=== PATIENT | female | born 1965 | race African-American/Black ===

== ENCOUNTER 2017-06-15 14:03 | Inpatient (IN) | payer OTHER, SELFPAY ==
--- NOTE | 2017-06-15 15:01 | RAD ---
CHEST 1 VIEW: HISTORY: Shortness of breath and weakness. COMPARISON: None. FINDINGS: Lungs demonstrate some atelectatic changes of the left lung base and mild elevation of left hemidiaph ragm. No focal consolidation. No pneumothorax or effusion. IMPRESSION: Atelectasis left lung base versus scar. POS: TPC
[2017-06-15 15:34] LABS: ALT (SGPT) 8 U/L (8-55); AST (SGOT) 10 U/L (5-34); Albumin 4.3 g/dL (3.5-5.0); Alkaline Phosphatase 87 U/L (40-150); Anion Gap 14 mmol/L (10-20); BUN (Urea Nitrogen) 14 mg/dL (9.8-20.1); Bilirubin, Total 0.7 mg/dL (0.2-1.2); CK (CPK) 30 U/L (29-168); Calc. Creatinine Clearance 0 mL/min (70-130); Calcium 10.2 mg/dL (7.8-10.44); Carbon Dioxide 20 mmol/L (22-29); Chloride 106 mmol/L (98-107); Estimated GFR-MDRD Greater than 90; Globulin 3.5 g/dL (2.4-3.5); Glucose 103 mg/dL (70-105); Magnesium 1.9 mg/dL (1.6-2.6); Potassium 3.3 mmol/L (3.5-5.1); Protein, Total 7.8 g/dL (6.0-8.3); Sodium 137 mmol/L (136-145)
[2017-06-15 15:44] LABS: CKMB 0.3 ng/mL (0-6.6); Troponin I Less than 0.010 ng/mL (< 0.028)
[2017-06-15 16:19] LABS: Band 1 % (5-11); Eosinophils 6 % (0-10); Hemoglobin 14.2 g/dL (12.0-16.0); Lymphocytes 10 % (21-51); MDiff Complete? YES; Mean Corpuscular HGB CONC 32.7 g/dL (32.0-36.0); Mean Corpuscular Hemoglobin 31.7 pg (27.0-31.0); Mean Corpuscular Volume 97.1 fl (81.0-99.0); Mean Platelet Volume 8.2 fL (7.4-10.4); Monocytes 4 % (0-10); Neutrophil 79 % (42-75); PLT Morphology Comment PLT clumps seen-ADEQ; RBC Distribution Width 12.9 % (11.5-14.5); Red Blood Cell (RBC) Count 4.48 mill/uL (4.20-5.40)
[2017-06-15 17:42] LABS: Bilirubin Small (Negative); Blood, Urine Small (Negative); Clarity TURBID (Clear); Glucose, Urine (Dipstick) Negative (Negative); Leukocyte Large (Negative); Nitrite Negative (Negative); Protein, Urine (Dipstick) 100 mg/dL (Neg-Trace); Specific Gravity, Urine 1.021 (1.002-1.036)
[2017-06-15 17:44] LABS: Bacteria/HPF 4+ HPF (None Seen)
[2017-06-15 17:48] LABS: Pathc Cast-AUWi Flag 3.23 (0-2.49); Yeast-AUWi Flag 31.4 (0-25.0)
[2017-06-15 17:59] LABS: Hyaline Casts/LPF 4-6 HYALINE CAST LPF (0-3 Hyaline); Yeast-All Forms None Seen HPF (None Seen)
[2017-06-15 19:23] LABS: Lactic Acid 3.3 mmol/L (0.5-2.2)
[2017-06-15] MEDS: cefTRIAXone\\ROCEPHIN 2 GM in Sodium Chloride 0.9% 100 ML IVPB SCH ×2 (20:00→20:45)
[2017-06-15] MEDS: Sodium Chloride 0.9% 1,000 ML IV SCH (20:45)
[2017-06-15 22:12] VITALS: BMI 37.3
[2017-06-16] MEDS: Sodium Chloride 0.9% 1,000 ML IV SCH ×3 (04:45→21:08)
[2017-06-16] MEDS ORDERED: FLU VACC QS2017-18 36 mo. & older 0.5 ML SYRINGE IM ONE (09:00)
[2017-06-16] MEDS ORDERED: Ondansetron HCl/PF 4 MG/2 ML Vial IVP PRN (09:57)
[2017-06-16] MEDS ORDERED: cloNIDine 0.1 MG TAB PO PRN (09:57)
[2017-06-16] MEDS ORDERED: Acetaminophen 500 MG TAB PO PRN (09:57)
[2017-06-16] MEDS ORDERED: Ondansetron ODT 4 MG TAB PO PRN (09:57)
--- NOTE | 2017-06-16 10:53 | HP ---
DATE OF ADMISSION: 06/16/2017 PRIMARY CARE PROVIDER: Howard braxton. CHIEF COMPLAINT: General weakness. HISTORY OF PRESENT ILLNESS: This is a 52-year-old -Armenian female who presented to [facility] Emergency Department complaining of general weakness over the last 4-5 days. The patient denied any recent change to her medication regimen, but does state that she has a history of multiple sclerosis, previously treated with Copaxone, but has not had the medication over several months' e period. The patient states she moved to [facility] from [place] to live with her children and has not been able to secure refills for the medication. The patient denies any specific document ed fever, nausea, vomiting, diarrhea or change to her dietary habits. The patient states she is syed mbulatory since 2002 after the diagnosis of multiple sclerosis. The patient states she receives help from her daughter's mainly with general activities of daily living as well as assistance with lift t o transfer from a bed to wheelchair. Patient denied any history of recurrent urinary tract infection s. The patient denied any other specific exposure history. Patient does state that she was recently adjusted on her blood pressure regimen, but is unsure of the name of the medication or the dosing ch anges. Patient denied any specific unilateral weakness, difficulty with speech, or sudden change to her vision. In the emergency room, patient underwent general evaluation with urinalysis concerning f or infectious process. The patient received IV Rocephin and intravenous normal saline. The patient was transferred to the medical observation unit for further evaluation. PAST MEDICAL HISTORY: 1. Multiple sclerosis without current treatment, diagnosed in 2002. 2. Hypertension. 3. Nonambulatory status. 4. Questionable seizure disorder. 5. 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 PAST SURGICAL HISTORY: Status post section x5. CURRENT MEDICATIONS: 1. Diltiazem 60 mg 1 tablet p.o. t.i.d. 2. Copaxone 40 mg subcutaneously Monday, Monday, Monday, not currently taking for several months. 3. Lisinopril 20 mg 1 tab p.o. daily. 4. Phenytoin 100 mg 1 tab p.o. b.i.d. ALLERGIES: No known drug allergies. FAMILY HISTORY: Positive history for coronary artery disease with a brother with a myocardial infarc tion. SOCIAL HISTORY: Patient lives with her daughters in the [place], [place] area. Originally from [facility], [place]. No current alcohol, tobacco or illicit drug use. Nonambulatory status time since 2002. REVIEW OF SYSTEMS: The following complete review of systems was negative, unless otherwise mentioned in the HPI or below: Constitutional: Weight loss or gain, ability to conduct usual activities. Skin: Rash, itching. Eyes: Double vision, pain. ENT/Mouth: Nose bleeding, neck stiffness, pain, tenderness. Cardiovascular: Palpitations, dyspnea on exertion, orthopnea. Respiratory: Shortness of breath, wheezing, cough, hemoptysis, fever or night sweats. Gastrointestinal: Poor appetite, abdominal pain, heartburn, nausea, vomiting, constipation, or diarr hea. Genitourinary: Urgency, frequency, dysuria, nocturia. Musculoskeletal: Pain, swelling. Neurologic/Psychiatric: Anxiety, depression. Allergy/Immunologic: Skin rash, bleeding tendency. Otherwise negative except as stated per HPI. PHYSICAL EXAMINATION: VITAL SIGNS: On admission, blood pressure 159/85, pulse 60, respiratory rate is 20, temperature 98 d egrees Fahrenheit, and O2 saturation 98% on room air. GENERAL APPEARANCE: This is a 52-year-old -Armenian female, alert and responsive, in no acute distress. HEENT: Pupils are equal, round, and reactive to light and accommodation. Extraocular muscles are in tact. No scleral icterus, no conjunctival injection. Nares patent. OP is clear. Teeth in fair rep air. NECK: Supple, no cervical adenopathy, no thyromegaly, no carotid bruits, no JVD appreciated. Cervic al spine with full active and passive range of motion. No meningeal signs appreciated. CHEST: Lungs are clear to auscultation bilaterally. CARDIOVASCULAR: S1 and S2, without noted murmur. ABDOMEN: Obese, soft, nontender, nondistended. Bowel sounds are positive in all four quadrants. Th ere is no hepatosplenomegaly, no abdominal bruits, no rebound or guarding appreciated. EXTREMITIES: Warm and dry with fair turgor. No asymmetric edema noted. Pulses are palpable distall y at the dorsalis pedis, posterior tibial and popliteal arteries bilaterally. Capillary refill less than 2 seconds. NEUROLOGIC: Cranial nerves II-XII are grossly intact. Patient is nonambulatory chronic. PERTINENT LABORATORY DATA AND X-RAY FINDINGS: Sodium 137, potassium 3.3, chloride 106, CO2 of 20, BU N 14, and creatinine 0.75. Estimated GFR greater than 90, glucose 103, lactic acid level ranged betw een 2.5-3.3, calcium 10.2, and magnesium 1.9. LFTs within normal limits. BNP 24. CBC showed white blood cell count of 16, hemoglobin 14, hematocrit 44, platelet count not obtained, 79% neutrophils. Urinalysis positive for leukocyte esterase, 11-20 RBCs per high power field and 50 to too numerous to count WBCs per high powered field, 4+ bacteria. Influenza A and B antigen negative on 06/15/2017. Portable chest x-ray dated 06/15/2017 showed atelectasis of the left lung base. EKG dated 06/15/2017 by my interpretation shows sinus bradycardia with heart rates in the 50s. Attenuated R waves noted in the precordial leads. T-wave inversion in leads V2 through V6. Left axis deviation. No acute ST -T wave changes appreciated. ASSESSMENT AND PLAN: 1. Urinary tract infection. The patient will continue Rocephin 2 grams IV q.24 hours. We will cont inue intravenous normal saline at 100 mL per hour. Await final urine culture results. 2. General weakness. Suspect secondarily to #1. Continue treatment as outlined in #1 and monitor c linical response. 3. Multiple sclerosis without current treatment. We will resume home regimen of Copaxone after disc harge. 4. Hypertension. Resume diltiazem 60 mg p.o. t.i.d., lisinopril 20 mg p.o. daily. 5. Hypokalemia, mild. Repeat potassium level to confirm initial reported value. 6. Lactic acidosis, mild. Continue intravenous fluids as outlined previously. Continue IV Rocephin for urinary tract infection. 7. Prophylaxis. Sequential compression devices while in bed. Pepcid 20 mg p.o. b.i.d. 8. Code status is FULL. Surrogate medical decision maker is the patient's daughter.
[2017-06-16] MEDS: cefTRIAXone\\ROCEPHIN 2 GM in Sodium Chloride 0.9% 100 ML IVPB SCH (21:07)
[2017-06-16] MEDS: Famotidine 20 MG TAB PO SCH (21:08)
[2017-06-17 05:32] LABS: Anion Gap 11 mmol/L (10-20); BUN (Urea Nitrogen) 11 mg/dL (9.8-20.1); Calc. Creatinine Clearance 172 mL/min (70-130); Carbon Dioxide 22 mmol/L (22-29); Chloride 110 mmol/L (98-107); Estimated GFR-MDRD Greater than 90; Glucose 91 mg/dL (70-105); Potassium 3.7 mmol/L (3.5-5.1); Sodium 139 mmol/L (136-145)
[2017-06-17 06:21] LABS: Eosinophils 6 % (0-10); Hemoglobin 11.4 g/dL (12.0-16.0); Lymphocytes 20 % (21-51); MDiff Complete? YES; Mean Corpuscular HGB CONC 33.3 g/dL (32.0-36.0); Mean Platelet Volume 7.5 fL (7.4-10.4); Monocytes 3 % (0-10); Neutrophil 71 % (42-75); Platelet Count 182 thou/uL (130-400); RBC Distribution Width 12.7 % (11.5-14.5); Red Blood Cell (RBC) Count 3.45 mill/uL (4.20-5.40); White Blood Cell (WBC) Count 6.8 thou/uL (4.8-10.8)
[2017-06-17] MEDS: Famotidine 20 MG TAB PO SCH ×2 (07:58→20:45)
[2017-06-17] MEDS: Sodium Chloride 0.9% 1,000 ML IV SCH ×2 (08:01→18:28)
[2017-06-17 10:03] LABS: Lactic Acid 2.2 mmol/L (0.5-2.2)
[2017-06-17] MEDS ORDERED: ISOVUE-370 76%-LOCM 1 ML ONE (13:43)
--- NOTE | 2017-06-17 15:38 | CON ---
DATE OF CONSULTATION: 06/17/2017 REASON FOR CONSULTATION: General malaise, vomiting, and leukocytosis. HISTORY OF PRESENT ILLNESS: A 52-year-old whom I had seen recently when she presented with a history of multiple sclerosis with transverse myelitis in complete paraplegia and a pressure ulceration of l eft heel. At that time, the MRI did not show any deep involvement and she was released with wound ca re only. The heel has completely healed, but now she was readmitted, because of recurrent episodes o f nausea, vomiting, general malaise, and weakness. No headaches, no change in visual symptoms, sore throat, odynophagia, dysphagia. Very infrequent coughing spells. No chest pain, no dyspnea, no abdo rosa isela pain, although she has diminished sensation below the umbilicus. She voids spontaneously. No changes in her paraplegia. No diarrhea. PAST MEDICAL HISTORY: 1. Multiple sclerosis, previously treated with likely transverse myelitis and complete paraplegia. 2. Hypertension. 3. Wound left heel, which has healed completely. 4. Seizure disorder. 5. Possible CVA versus multiple sclerosis. SOCIAL HISTORY: Lives with daughters, having moved from [place] recently, never smoker. FAMILY HISTORY: Noncontributory. ALLERGIES: None. CURRENT MEDICATIONS: Ceftriaxone, clonidine, diltiazem, famotidine, hydralazine, ondansetron, phenyt oin. PHYSICAL EXAMINATION: VITAL SIGNS: Patient has been afebrile since admission, blood pressure 150/91, pulse 63, respiration s 16, O2 sat 98%. SKIN EXAM: With a marked improvement of the heel ulcer, left side. No more skin breakdown to speak of at this time. Areas of hyperpigmentation in the lateral left foot and hyperkeratosis. Peripheral IV access. No Roberts catheter. HEENT: Eye movements, a little bit disconjugate. Pupils are equal and pinpoint. Oral cavity with n umerous missing teeth, and the remainder ones with some decay. NECK: Supple. LUNGS: With symmetric clear breath sounds. HEART: S1, S2, regular rate without murmurs. No S3 or S4. ABDOMEN: Not distended. No ascites, no organomegaly. Question of bladder distention. EXTREMITIES: No joint inflammatory activity. Dense paraplegia. Pulses are 1+ in dorsalis pedis. S he is able to move the upper extremities well. NEUROLOGIC: Cognitive function appears to be intact. Urinalysis with greater than 50 wbcs. White c ell count 16,000, down to 6.8; hemoglobin 14; platelets 182; 79% neutrophils. Her sodium 139, creati nine 0.75. Liver profile normal. Albumin 4.3. Lactic acid was 2.5 and 3.3. BNP 23. Urinalysis as above. Microbiology with Providencia stuartii and another gram-negative stephen, Providencia, susceptib le to third-generation cephalosporins. The quantity was greater than 100,000 CFUs, the other gram-ne gative stephen 75,000-100,000. Influenza A and B were negative. Chest x-ray with no infiltrates, just a telectases, left lung base. ASSESSMENT: 1. Multiple sclerosis with paraplegia. 2. Healed heel ulcer. 3. General malaise with vomiting. 4. Abnormal urinalysis with positive culture. 5. Leukocytosis with improvement after initiation of antimicrobial therapy. DISCUSSION: Differential diagnosis includes an invasive UTI associated with possible neurogenic blad tessy, secondary to MS versus an alternate intraabdominal inflammatory process. Complicated UTI is a possibility of obstruction. We will check CT abdomen and pelvis. Continue curr ent antimicrobials and further interventions according to results. Check a bladder scan to evaluate for urinary retention.
[2017-06-17] MEDS: hydrALAZINE 20 MG/ML VIAL SLOW IVP PRN (16:12)
[2017-06-17] MEDS: cefTRIAXone\\ROCEPHIN 2 GM in Sodium Chloride 0.9% 100 ML IVPB SCH (20:42)
--- NOTE | 2017-06-17 22:04 | CT ---
ABDOMEN AND PELVIC CT SCAN WITH IV CONTRAST: 06/17/17 HISTORY: 52-year-old female with nausea, vomiting and leukocytosis and MS. Abdominal pain. Minimal pleural based parenchymal changes are noted more so in the left base. Probably some subsegmen rosina atelectasis or chronic change. The liver, gallbladder, pancreas, spleen, and adrenal glands are u nremarkable. There are multiple bilateral renal cysts up to 6.4 cm on the left side and 5.5 cm on the right side. There is a normal appearing appendix. There is a fairly prominent amount of fecal materi al throughout the colon. there is some nodular masses involving the uterus up to 3.2 cm in size, cons istent with multiple intrauterine fibroids. No bowel obstruction, abscess, adenopathy, or abnormal fl uid collection. IMPRESSION: Some minimal pleural based parenchymal changes in the lung bases, slightly more prominent on the left side, probably some chronic change or very minimal subsegmental atelectasis. Bilateral renal cysts. Multiple intrauterine fibroids. No evidence for other significant acute process in the abdomen or pel vis. Other findings as above. POS: SANDEE
--- NOTE | 2017-06-17 22:34 | PDOC.PN ---
- Subjective Encounter Start Date: 06/17/17 Encounter Start Time: 13:00 Patient seen and examined. No new complaints. No overnight events. Feels better. - Objective Resuscitation Status: Resuscitation Status FULL:Full Resuscitation MAR Reviewed: Yes Vital Signs & Weight: Vital Signs (12 hours) Temp Pulse Resp BP BP Pulse Ox 06/17/17 20:00 97.6 F 71 20 179/99 H 100 06/17/17 16:12 57 L 172/103 H 06/17/17 16:10 97.5 F L 57 L 16 172/103 H 99 06/17/17 11:48 98.1 F 63 16 156/91 H 98 Weight Weight 224 lb I&O: 06/16/17 06/17/17 06/18/17 06:59 06:59 06:59 Intake Total 3500 1200 Balance 3500 1200 Result Diagrams: 06/17/17 04:11 06/17/17 04:11 Phys Exam - Physical Examination Constitutional: NAD Respiratory: no wheezing, no rhonchi Cardiovascular: RRR, no rub Gastrointestinal: soft, non-tender, positive bowel sounds Musculoskeletal: edema present Dx/Plan - Plan DVT proph w/SCDs IMPRESSION: 1. Sepsis with acute organ dysfunction due to resistant UTI (present on admission) 2. Obesity BMI 37.3 3. MS 4. HTN 5. Non-ambulatory status 6. Hypokalemia/Lactic acidosis - corrected PLAN: * Consult ID * Add Lovenox for DVT prophylaxis * Cont current Atbx - No PO antibiotic available for discharge * Cont other meds as below Review of Systems - Medications/Allergies Allergies/Adverse Reactions: Allergies Allergy/AdvReac Type Severity Reaction Status Date / Time No Known Drug Allergies Allergy Verified 06/15/17 23:20 Medications: Current Medications Acetaminophen (Tylenol) 1,000 mg PO Q6H PRN PRN Reason: Headache/Fever or Mild Pain Clonidine (Catapres) 0.1 mg PO Q4H PRN PRN Reason: Systolic BP > 180 Diltiazem HCl (Cardizem) 60 mg PO TID [facility] Last Admin: 06/17/17 20:46 Dose: 60 mg Famotidine (Pepcid) 20 mg PO BID [facility] Last Admin: 06/17/17 20:45 Dose: 20 mg Hydralazine HCl (Apresoline) 10 mg SLOW IVP Q4H PRN PRN Reason: Systolic BP > 180 Last Admin: 06/17/17 16:12 Dose: 10 mg Ceftriaxone Sodium 2 gm/ (Sodium Chloride) 100 mls @ 200 mls/hr IVPB Q24HR@ 2000 [facility] Last Admin: 06/17/17 20:42 Dose: 100 mls Sodium Chloride (Normal Saline 0.9%) 1,000 mls @ 100 mls/hr IV .Q10H [facility] Last Admin: 06/17/17 18:28 Dose: 1,000 mls Ondansetron HCl (Zofran Odt) 4 mg PO Q6H PRN PRN Reason: Nausea/Vomiting Ondansetron HCl (Zofran) 4 mg IVP Q6H PRN PRN Reason: Nausea/Vomiting Phenytoin Sodium (Dilantin Er) 100 mg PO BID [facility] Last Admin: 06/17/17 20:45 Dose: 100 mg
[2017-06-18] MEDS: Sodium Chloride 0.9% 1,000 ML IV SCH (06:51)
[2017-06-18] MEDS: Famotidine 20 MG TAB PO SCH ×2 (08:22→20:27)
[2017-06-18] MEDS: Enoxaparin Sodium 40 MG/0.4 ML SYRINGE SC SCH (10:40)
[2017-06-18] MEDS: hydrALAZINE 20 MG/ML VIAL SLOW IVP PRN (18:27)
[2017-06-18] MEDS: cefTRIAXone\\ROCEPHIN 2 GM in Sodium Chloride 0.9% 100 ML IVPB SCH (20:28)
--- NOTE | 2017-06-18 20:32 | PDOC.PN ---
- Subjective Encounter Start Date: 06/18/17 Encounter Start Time: 10:00 Patient seen and examined. No new complaints. No overnight events - Objective Resuscitation Status: Resuscitation Status FULL:Full Resuscitation MAR Reviewed: Yes Vital Signs & Weight: Vital Signs (12 hours) Pulse BP BP 06/18/17 19:05 181/96 H 06/18/17 18:27 67 188/104 H Weight Weight 224 lb I&O: 06/17/17 06/18/17 06/19/17 06:59 06:59 06:59 Intake Total 3500 2780 400 Balance 3500 2780 400 Result Diagrams: 06/17/17 04:11 06/17/17 04:11 Radiology Reviewed by me: Yes (CT abd - negative for obstructive uropathy) Phys Exam - Physical Examination Constitutional: NAD Respiratory: no wheezing, no rhonchi Cardiovascular: RRR, no rub Gastrointestinal: soft, non-tender, positive bowel sounds Musculoskeletal: edema present Dx/Plan - Plan continue antibiotics, PT/OT, DVT proph w/lovenox, DVT proph w/SCDs IMPRESSION: 1. Sepsis with acute organ dysfunction due to resistant UTI - Providencia ( present on admission) 2. Obesity BMI 37.3 3. MS 4. HTN 5. Non-ambulatory status 6. Hypokalemia/Lactic acidosis - corrected PLAN: * ID following * AM labs * Await final sensitivities * Will d/w Dr Palacios regarding Atbx for home * [facility] eval * DC IVF Review of Systems - Review of Systems Respiratory: negative: Cough, Dry, Shortness of Breath, Hemoptysis, SOB with Excertion, Pleuritic Pain, Sputum, Wheezing Cardiovascular: negative: chest pain, palpitations, orthopnea, paroxysmal nocturnal dyspnea, edema, light headedness - Medications/Allergies Allergies/Adverse Reactions: Allergies Allergy/AdvReac Type Severity Reaction Status Date / Time No Known Drug Allergies Allergy Verified 06/15/17 23:20 Medications: Current Medications Acetaminophen (Tylenol) 1,000 mg PO Q6H PRN PRN Reason: Headache/Fever or Mild Pain Clonidine (Catapres) 0.1 mg PO Q4H PRN PRN Reason: Systolic BP > 180 Diltiazem HCl (Cardizem) 60 mg PO TID [facility] Last Admin: 06/18/17 20:27 Dose: 60 mg Enoxaparin Sodium (Lovenox) 40 mg SC 0900 [facility] Last Admin: 06/18/17 10:40 Dose: 40 mg Famotidine (Pepcid) 20 mg PO BID [facility] Last Admin: 06/18/17 20:27 Dose: 20 mg Hydralazine HCl (Apresoline) 10 mg SLOW IVP Q4H PRN PRN Reason: Systolic BP > 180 Last Admin: 06/18/17 18:27 Dose: 10 mg Ceftriaxone Sodium 2 gm/ (Sodium Chloride) 100 mls @ 200 mls/hr IVPB Q24HR@ 2000 [facility] Last Admin: 06/18/17 20:28 Dose: 100 mls Ondansetron HCl (Zofran Odt) 4 mg PO Q6H PRN PRN Reason: Nausea/Vomiting Ondansetron HCl (Zofran) 4 mg IVP Q6H PRN PRN Reason: Nausea/Vomiting Phenytoin Sodium (Dilantin Er) 100 mg PO BID [facility] Last Admin: 06/18/17 20:28 Dose: 100 mg
[2017-06-19 05:26] LABS: #Eosinphils 0.3 thou/uL (0.0-0.7); #Lymphocytes 1.5 thou/uL (1.20-3.40); #Monocytes 0.4 thou/uL (0.11-0.59); #Neutrophils 4.1 thou/uL (1.40-6.50); %Basophils 0.4 % (0.0-1.0); %Eosinophils 5.3 % (0.0-10.0); %Lymphocytes 23.5 % (21.0-51.0); %Monocytes 5.9 % (0.0-10.0); Hemoglobin 12.1 g/dL (12.0-16.0); Mean Corpuscular HGB CONC 33.2 g/dL (32.0-36.0); Mean Corpuscular Hemoglobin 32.7 pg (27.0-31.0); Mean Corpuscular Volume 98.5 fl (81.0-99.0); Mean Platelet Volume 7.6 fL (7.4-10.4); Platelet Count 191 thou/uL (130-400); RBC Distribution Width 12.8 % (11.5-14.5); Red Blood Cell (RBC) Count 3.71 mill/uL (4.20-5.40); White Blood Cell (WBC) Count 6.4 thou/uL (4.8-10.8)
[2017-06-19 05:48] LABS: Albumin 3.7 g/dL (3.5-5.0); Anion Gap 14 mmol/L (10-20); BUN (Urea Nitrogen) 12 mg/dL (9.8-20.1); BUN/Creatinine Ratio 20.69; Calc. Creatinine Clearance 178 mL/min (70-130); Calcium 9.5 mg/dL (7.8-10.44); Carbon Dioxide 21 mmol/L (22-29); Chloride 107 mmol/L (98-107); Estimated GFR-MDRD Greater than 90; Glucose 87 mg/dL (70-105); Potassium 3.6 mmol/L (3.5-5.1); Sodium 138 mmol/L (136-145)
[2017-06-19] MEDS: Enoxaparin Sodium 40 MG/0.4 ML SYRINGE SC SCH (07:41)
[2017-06-19] MEDS: Famotidine 20 MG TAB PO SCH ×2 (07:42→19:58)
[2017-06-19] MEDS ORDERED: Lisinopril 20 MG TAB PO SCH (10:30)
--- NOTE | 2017-06-19 11:42 | PDOC.PN ---
- Subjective Encounter Start Date: 06/19/17 Encounter Start Time: 10:30 - Objective Resuscitation Status: Resuscitation Status FULL:Full Resuscitation MAR Reviewed: Yes Vital Signs & Weight: Vital Signs (12 hours) Temp Pulse Resp BP BP Pulse Ox 06/19/17 10:33 172/107 H 06/19/17 08:11 98.4 F 62 16 166/102 H 92 L 06/19/17 08:00 97.8 F 61 18 06/19/17 05:48 97.8 F 61 18 166/107 H 98 Weight Weight 224 lb I&O: 06/18/17 06/19/17 06/20/17 06:59 06:59 06:59 Intake Total 2780 850 Balance 2780 850 Result Diagrams: 06/19/17 04:14 06/19/17 04:14 Phys Exam - Physical Examination Constitutional: NAD Respiratory: no wheezing, no rhonchi Cardiovascular: RRR, no rub Gastrointestinal: soft, non-tender, positive bowel sounds Musculoskeletal: edema present Neurological: moves all 4 limbs Dx/Plan - Plan DVT proph w/lovenox, DVT proph w/SCDs IMPRESSION: 1. Sepsis with acute organ dysfunction due to resistant UTI - Providencia ( present on admission) - on Ceftriaxone 2. Obesity BMI 37.3 3. MS 4. HTN 5. Non-ambulatory status 6. Hypokalemia/Lactic acidosis - corrected PLAN: * ID following * AM labs * C eval/Home Atbx setup until Jun 30 (I confirmed with Dr Palacios) * PICC line in AM Review of Systems - Review of Systems Respiratory: negative: Cough, Dry, Shortness of Breath, Hemoptysis, SOB with Excertion, Pleuritic Pain, Sputum, Wheezing Cardiovascular: negative: chest pain, palpitations, orthopnea, paroxysmal nocturnal dyspnea, edema, light headedness, other - Medications/Allergies Allergies/Adverse Reactions: Allergies Allergy/AdvReac Type Severity Reaction Status Date / Time No Known Drug Allergies Allergy Verified 06/15/17 23:20 Medications: Current Medications Acetaminophen (Tylenol) 1,000 mg PO Q6H PRN PRN Reason: Headache/Fever or Mild Pain Clonidine (Catapres) 0.1 mg PO Q4H PRN PRN Reason: Systolic BP > 180 Lidocaine HCl 10 ml/ Al (Hydroxide/Mg Hydroxide 30 ml) 0 ml SSW ONE SONIA Diltiazem HCl (Cardizem) 60 mg PO TID [facility] Last Admin: 06/19/17 07:41 Dose: 60 mg Enoxaparin Sodium (Lovenox) 40 mg SC 0900 [facility] Last Admin: 06/19/17 07:41 Dose: 40 mg Famotidine (Pepcid) 20 mg PO BID [facility] Last Admin: 06/19/17 07:42 Dose: 20 mg Hydralazine HCl (Apresoline) 10 mg SLOW IVP Q4H PRN PRN Reason: Systolic BP > 180 Last Admin: 06/18/17 18:27 Dose: 10 mg Ceftriaxone Sodium 2 gm/ (Sodium Chloride) 100 mls @ 200 mls/hr IVPB Q24HR@ 2000 [facility] Last Admin: 06/18/17 20:28 Dose: 100 mls Lisinopril (Zestril) 20 mg PO DAILY [facility] Lisinopril (Zestril) 20 mg PO NOW [facility] Stop: 06/19/17 12:30 Last Admin: 06/19/17 10:33 Dose: 20 mg Ondansetron HCl (Zofran Odt) 4 mg PO Q6H PRN PRN Reason: Nausea/Vomiting Ondansetron HCl (Zofran) 4 mg IVP Q6H PRN PRN Reason: Nausea/Vomiting Phenytoin Sodium (Dilantin Er) 100 mg PO BID [facility] Last Admin: 06/19/17 07:41 Dose: 100 mg
[2017-06-19] MEDS ORDERED: Lidocaine 2% Viscous Solution 10 ML, Aluminum & Magnesium Hydroxide 30 ML SSW SCH (12:30)
[2017-06-19] MEDS: cefTRIAXone\\ROCEPHIN 2 GM in Sodium Chloride 0.9% 100 ML IVPB SCH (19:57)
[2017-06-20 06:20] LABS: Prothrombin Time 12.7 SEC (12.0-14.7)
[2017-06-20] MEDS: Famotidine 20 MG TAB PO SCH ×2 (07:36→19:44)
[2017-06-20] MEDS: Enoxaparin Sodium 40 MG/0.4 ML SYRINGE SC SCH (07:36)
[2017-06-20] MEDS ORDERED: Lisinopril 20 MG TAB PO SCH (09:00)
--- NOTE | 2017-06-20 10:39 | SPC ---
ULTRASOUND GUIDED LEFT UPPER EXTREMITY PICC LINE PLACEMENT: Date: HISTORY: Urinary tract infection. Needs long-term antibiotics. TECHNIQUE: After informed consent was obtained, the patient was placed on the angiography table in the supine po sition. The left upper extremity was meticulously prepped and draped in the usual sterile fashion. An appropriate access site was determined with ultrasound guidance. The skin and subcutaneous tissues o verlying the intended puncture site were infiltrated with buffered 1% lidocaine for local anesthesia. The left basilic vein was accessed utilizing micropuncture technique and concurrent real-time ultras ound guidance. A 5 [place] peel-away sheath was placed. The catheter was measured and cut to the appropriate length. The catheter was placed over the guidewi re with the tip positioned overlying the cavoatrial junction. The guidewire and peel-away sheath wer e removed. The catheter was accessed and aspirated/flushed easily. A dry, sterile dressing was placed . The patient tolerated the procedure well and without immediate complication. FINDINGS: Technically successful placement of a single lumen 5 [place] 44 cm PICC line via the left basilic vein . The tip of the catheter overlies the cavoatrial junction. FLUOROSCOPY: Total fluoroscopy time was 0.3 minutes with total dose of 1,487 mGy*cm^2. IMPRESSION: Technically successful left upper extremity PICC line placement. POS: SAN[facility]E
--- NOTE | 2017-06-20 18:29 | PDOC.PN ---
- Subjective Encounter Start Date: 06/20/17 Encounter Start Time: 16:00 Patient seen and examined. No new complaints. No overnight events. s/p PICC line - Objective Resuscitation Status: Resuscitation Status FULL:Full Resuscitation MAR Reviewed: Yes Vital Signs & Weight: Vital Signs (12 hours) Temp Pulse Resp BP BP Pulse Ox 06/20/17 16:22 98.1 F 66 16 183/96 H 98 06/20/17 11:08 98.3 F 69 14 177/82 H 100 06/20/17 08:00 98.1 F 65 16 06/20/17 07:58 98.1 F 65 16 186/101 H 97 06/20/17 07:35 186/101 H Weight Weight 224 lb I&O: 06/19/17 06/20/17 06/21/17 06:59 06:59 06:59 Intake Total 850 400 Balance 850 400 Result Diagrams: 06/19/17 04:14 06/19/17 04:14 Phys Exam - Physical Examination Constitutional: NAD Respiratory: no wheezing, no rhonchi Cardiovascular: RRR, no rub Gastrointestinal: soft, non-tender, positive bowel sounds Musculoskeletal: edema present Neurological: moves all 4 limbs Dx/Plan - Plan DVT proph w/lovenox, DVT proph w/SCDs IMPRESSION: 1. Sepsis with acute organ dysfunction due to resistant UTI - Providencia ( present on admission) - on Ceftriaxone 2. Obesity BMI 37.3 3. MS 4. HTN - uncontrolled 5. Non-ambulatory status 6. Hypokalemia/Lactic acidosis - corrected PLAN: * Await [facility] eval/Home Atbx setup until Jun 30 (I confirmed with Dr Palacios) * Change Lisinopril to 20 mg BID * Add Amlodipine * Cont to monitor Review of Systems - Review of Systems Respiratory: negative: Cough, Dry, Shortness of Breath, Hemoptysis, SOB with Excertion, Pleuritic Pain, Sputum, Wheezing Cardiovascular: negative: chest pain, palpitations, orthopnea, paroxysmal nocturnal dyspnea, edema, light headedness - Medications/Allergies Allergies/Adverse Reactions: Allergies Allergy/AdvReac Type Severity Reaction Status Date / Time No Known Drug Allergies Allergy Verified 06/15/17 23:20 Medications: Current Medications Acetaminophen (Tylenol) 1,000 mg PO Q6H PRN PRN Reason: Headache/Fever or Mild Pain Amlodipine Besylate (Norvasc) 5 mg PO ONE [facility] Amlodipine Besylate (Norvasc) 5 mg PO DAILY [facility] Clonidine (Catapres) 0.1 mg PO Q4H PRN PRN Reason: Systolic BP > 180 Diltiazem HCl (Cardizem) 60 mg PO TID [facility] Last Admin: 06/20/17 15:24 Dose: 60 mg Enoxaparin Sodium (Lovenox) 40 mg SC 0900 [facility] Last Admin: 06/20/17 07:36 Dose: 40 mg Famotidine (Pepcid) 20 mg PO BID [facility] Last Admin: 06/20/17 07:36 Dose: 20 mg Hydralazine HCl (Apresoline) 10 mg SLOW IVP Q4H PRN PRN Reason: Systolic BP > 180 Last Admin: 06/18/17 18:27 Dose: 10 mg Ceftriaxone Sodium 2 gm/ (Sodium Chloride) 100 mls @ 200 mls/hr IVPB Q24HR@ 2000 [facility] Last Admin: 06/19/17 19:57 Dose: 100 mls Lisinopril (Zestril) 20 mg PO BID [facility] Ondansetron HCl (Zofran Odt) 4 mg PO Q6H PRN PRN Reason: Nausea/Vomiting Ondansetron HCl (Zofran) 4 mg IVP Q6H PRN PRN Reason: Nausea/Vomiting Phenytoin Sodium (Dilantin Er) 100 mg PO BID [facility] Last Admin: 06/20/17 07:35 Dose: 100 mg
[2017-06-20] MEDS ORDERED: Amlodipine 5 MG TAB PO SCH (18:45)
[2017-06-20] MEDS: cefTRIAXone\\ROCEPHIN 2 GM in Sodium Chloride 0.9% 100 ML IVPB SCH (19:44)
[2017-06-20] MEDS: Lisinopril 20 MG TAB PO SCH (19:45)
[2017-06-21] MEDS: Famotidine 20 MG TAB PO SCH ×2 (08:36→20:31)
[2017-06-21] MEDS: Enoxaparin Sodium 40 MG/0.4 ML SYRINGE SC SCH (08:36)
[2017-06-21] MEDS: Amlodipine 5 MG TAB PO SCH (08:36)
[2017-06-21] MEDS: Lisinopril 20 MG TAB PO SCH ×2 (08:36→20:30)
[2017-06-21] MEDS ORDERED: Heparin 1,000 UNITS/ML VIAL ONE (11:11)
--- NOTE | 2017-06-21 12:56 | PDOC.PN ---
- Subjective Encounter Start Date: 06/21/17 Encounter Start Time: 12:30 Patient seen and examined. No new complaints. No overnight events - Objective Resuscitation Status: Resuscitation Status FULL:Full Resuscitation MAR Reviewed: Yes Vital Signs & Weight: Vital Signs (12 hours) Temp Pulse Resp BP BP Pulse Ox 06/21/17 11:51 97.6 F 71 20 137/84 99 06/21/17 08:36 62 166/85 H 06/21/17 08:00 97.8 F 62 22 H 166/85 H 97 06/21/17 04:59 98.0 F 62 20 168/88 H 94 L 06/21/17 01:52 97.9 F 65 20 167/91 H 99 Weight Weight 224 lb I&O: 06/20/17 06/21/17 06/22/17 06:59 06:59 06:59 Intake Total 400 350 180 Balance 400 350 180 Result Diagrams: 06/19/17 04:14 06/19/17 04:14 Phys Exam - Physical Examination Constitutional: NAD Respiratory: no wheezing, no rhonchi Cardiovascular: RRR, no rub Gastrointestinal: soft, non-tender, positive bowel sounds Musculoskeletal: edema present Neurological: moves all 4 limbs Psychiatric: A&O x 3 Dx/Plan - Plan DVT proph w/lovenox, DVT proph w/SCDs IMPRESSION: 1. Sepsis with acute organ dysfunction due to resistant UTI - Providencia ( present on admission) - on Ceftriaxone 2. Obesity BMI 37.3 3. MS 4. HTN - better controlled 5. Non-ambulatory status 6. Hypokalemia/Lactic acidosis - corrected PLAN: * Cont Lisinopril to 20 mg BID with Amlodipine * Await [facility] eval/Home Atbx setup until Jun 30 * Cont to monitor Review of Systems - Review of Systems Respiratory: negative: Cough, Dry, Shortness of Breath, Hemoptysis, SOB with Excertion, Pleuritic Pain, Sputum, Wheezing Cardiovascular: negative: chest pain, palpitations, orthopnea, paroxysmal nocturnal dyspnea, edema, light headedness - Medications/Allergies Allergies/Adverse Reactions: Allergies Allergy/AdvReac Type Severity Reaction Status Date / Time No Known Drug Allergies Allergy Verified 06/15/17 23:20 Medications: Current Medications Acetaminophen (Tylenol) 1,000 mg PO Q6H PRN PRN Reason: Headache/Fever or Mild Pain Amlodipine Besylate (Norvasc) 5 mg PO DAILY [facility] Last Admin: 06/21/17 08:36 Dose: 5 mg Clonidine (Catapres) 0.1 mg PO Q4H PRN PRN Reason: Systolic BP > 180 Diltiazem HCl (Cardizem) 60 mg PO TID [facility] Last Admin: 06/21/17 08:36 Dose: 60 mg Enoxaparin Sodium (Lovenox) 40 mg SC 0900 [facility] Last Admin: 06/21/17 08:36 Dose: 40 mg Famotidine (Pepcid) 20 mg PO BID [facility] Last Admin: 06/21/17 08:36 Dose: 20 mg Hydralazine HCl (Apresoline) 10 mg SLOW IVP Q4H PRN PRN Reason: Systolic BP > 180 Last Admin: 06/18/17 18:27 Dose: 10 mg Ceftriaxone Sodium 2 gm/ (Sodium Chloride) 100 mls @ 200 mls/hr IVPB Q24HR@ 2000 [facility] Last Admin: 06/20/17 19:44 Dose: 100 mls Lisinopril (Zestril) 20 mg PO BID [facility] Last Admin: 06/21/17 08:36 Dose: 20 mg Ondansetron HCl (Zofran Odt) 4 mg PO Q6H PRN PRN Reason: Nausea/Vomiting Ondansetron HCl (Zofran) 4 mg IVP Q6H PRN PRN Reason: Nausea/Vomiting Phenytoin Sodium (Dilantin Er) 100 mg PO BID [facility] Last Admin: 06/21/17 08:37 Dose: 100 mg
[2017-06-21] MEDS: cefTRIAXone\\ROCEPHIN 2 GM in Sodium Chloride 0.9% 100 ML IVPB SCH (20:30)
[2017-06-22] MEDS: Enoxaparin Sodium 40 MG/0.4 ML SYRINGE SC SCH (09:14)
[2017-06-22] MEDS: Lisinopril 20 MG TAB PO SCH (09:14)
[2017-06-22] MEDS: Amlodipine 5 MG TAB PO SCH (10:18)
[2017-06-22] MEDS: Famotidine 20 MG TAB PO SCH (14:12)
[2017-06-22] MEDS: cefTRIAXone\\ROCEPHIN 2 GM in Sodium Chloride 0.9% 100 ML IVPB SCH (16:46)
[2017-06-22 21:54] VITALS: BP 167/91; TEMP 98.1
--- NOTE | 2017-06-22 22:49 | PDOC.PN ---
- Subjective Encounter Start Date: 06/22/17 Encounter Start Time: 08:30 - Objective Resuscitation Status: Resuscitation Status FULL:Full Resuscitation Vital Signs & Weight: Vital Signs (12 hours) Temp Pulse Resp BP Pulse Ox 06/22/17 20:00 98.1 F 73 16 167/91 H 96 06/22/17 16:14 98.5 F 69 20 149/81 H 100 06/22/17 11:34 98.6 F 71 20 155/82 H 99 Weight Weight 224 lb I&O: 06/21/17 06/22/17 06/23/17 06:59 06:59 06:59 Intake Total 350 1120 960 Balance 350 1120 960 Result Diagrams: 06/19/17 04:14 06/19/17 04:14 Dx/Plan - Plan * . Review of Systems - Medications/Allergies Allergies/Adverse Reactions: Allergies Allergy/AdvReac Type Severity Reaction Status Date / Time No Known Drug Allergies Allergy Verified 06/15/17 23:20 Medications: Current Medications Acetaminophen (Tylenol) 1,000 mg PO Q6H PRN PRN Reason: Headache/Fever or Mild Pain Clonidine (Catapres) 0.1 mg PO Q4H PRN PRN Reason: Systolic BP > 180 Diltiazem HCl (Cardizem) 60 mg PO TID [facility] Last Admin: 06/22/17 14:11 Dose: 60 mg Enoxaparin Sodium (Lovenox) 40 mg SC 0900 [facility] Last Admin: 06/22/17 09:14 Dose: 40 mg Famotidine (Pepcid) 20 mg PO BID [facility] Last Admin: 06/22/17 14:12 Dose: 20 mg Hydralazine HCl (Apresoline) 10 mg SLOW IVP Q4H PRN PRN Reason: Systolic BP > 180 Last Admin: 06/18/17 18:27 Dose: 10 mg Ceftriaxone Sodium 2 gm/ (Sodium Chloride) 100 mls @ 200 mls/hr IVPB Q24HR@ 2000 [facility] Last Admin: 06/22/17 16:46 Dose: 100 mls Lisinopril (Zestril) 20 mg PO BID [facility] Last Admin: 06/22/17 09:14 Dose: 20 mg Ondansetron HCl (Zofran Odt) 4 mg PO Q6H PRN PRN Reason: Nausea/Vomiting Ondansetron HCl (Zofran) 4 mg IVP Q6H PRN PRN Reason: Nausea/Vomiting Phenytoin Sodium (Dilantin Er) 100 mg PO BID [facility] Last Admin: 06/22/17 09:15 Dose: 100 mg
--- NOTE | 2017-06-23 09:19 | DIS ---
DATE OF ADMISSION: 06/15/2017 DATE OF DISCHARGE: 06/22/2017 Patient left around 9:00 p.m. HISTORY: The patient was seen and examined on the day of discharge, denies any new complaints. No c hest pain, shortness of breath or palpitations. Home health care for antibiotics have been arranged. ALLERGIES: The patient denies any drug allergies. INPATIENT CONSULTANTS: Infectious Disease, Dr. Palacios. DISCHARGE MEDICATIONS: 1. IV ceftriaxone as directed. 2. Cardizem 60 mg 3 times a day. 3. Lisinopril 20 mg b.i.d. (dose increased). 4. Dilantin 100 mg b.i.d. 5. Glatiramer acetate 40 mg subcu at Monday, Monday, and Monday. Please note that patient is out of this medicine. She is looking for a new neurologist in [facility]. BRIEF HOSPITAL COURSE: Patient is a 52-year-old female with multiple sclerosis, hypertension who pre sented to the hospital with generalized weakness. Her workup was consistent with sepsis with acute o rgan dysfunction secondary to resistant UTI. Her lactic acid on admission was 2.5 and 3.3. Urine cu lture was consistent with Providencia resistant to oral antibiotics. The patient was seen by Dr. Alvin edwards. Dr. Palacios recommended IV ceftriaxone 1 gram daily until 06/30. PICC line was placed. Home heal th care has been arranged for antibiotics. She was advised to follow up with a new neurologist in [facility] since patient recently moved here. She does not have a primary care physician in [facility]. She was a dvised to contact the [facility]. Plan of care was discussed with the patient in detail. She stated understanding. Total time coordinating the discharge of this patient including home health care set up and forms was 37 minutes.
--- NOTE | 2017-06-24 10:00 | EKG ---
Test Reason : EVANS Blood Pressure : / mmHG Vent. Rate : 054 BPM Atrial Rate : 054 BPM P-R Int : 218 ms QRS Dur : 088 ms QT Int : 490 ms P-R-T Axes : 041 -18 -33 degrees QTc Int : 464 ms Sinus bradycardia with 1st degree A-V block Moderate voltage criteria for LVH, may be normal variant T wave abnormality, consider anterolateral ischemia Prolonged QT Abnormal ECG Confirmed by GULSHAN EMANUEL, ENDER Fortune ([id number]), editor producer CHAVA LEIGH ([id number]) on 06/24/2017 10:00:08 AM Referred By: Confirmed By:ENDER GAFFNEY MD
== END 2017-06-22 21:12 | disposition home health service (06) | DRG 872 ==
LOC: ERS 14:03 → OBSVTOIN 19:00 → T4-A 19:00
PROVIDERS: ADMIT Internal Medicine Infectious Disease; ATTEND Internal Medicine Infectious Disease
PROC: 02HV33Z Insertion of Infusion Device into Superior Vena Cava, Percutaneous Approach (ICD-10-PCS; principal; 2017-06-20)
DX: A41.89 Other specified sepsis (principal); E87.2 Acidosis; N39.0 Urinary tract infection, site not specified; G82.21 Paraplegia, complete; G35 Multiple sclerosis; R65.20 Severe sepsis without septic shock; Z16.20 Resistance to unspecified antibiotic; I10 Essential (primary) hypertension; E87.6 Hypokalemia; E66.9 Obesity, unspecified; Z68.37 Body mass index [BMI] 37.0-37.9, adult
CPT/HCPCS: 36415; 36569; 51701; 71010; 74177; 80048; 80053; 80069; 81003; 81015; 82553; 83605; 83735; 83880; 84484; 85007; 85025; 85027; 85610; 87077; 87086; 87186; 87804; 93005; A4353; C1751; G8978-GP-CM; G8979-GP-CL; G8987-GO-CM; G8988-GO-CM; G8989-GO-CM; J0360; J0696; J1644; J1650; J7050

== ENCOUNTER 2017-10-11 12:57 | Emergency (ER) | payer MEDICAID, OTHER ==
[2017-10-11] MEDS ORDERED: Lisinopril 10 MG TAB ONE (14:29)
[2017-10-11] MEDS ORDERED: Lidocaine Viscous Sol 2% 15 ml UD Cup ONE (14:30)
[2017-10-11] MEDS ORDERED: Mag-Al 1200 mg/1200 mg/30 ML UDCUP ONE (14:30)
[2017-10-11 14:34] LABS: #Eosinphils 0.4 thou/uL (0.0-0.7); #Lymphocytes 1.5 thou/uL (1.20-3.40); #Monocytes 0.5 thou/uL (0.11-0.59); #Neutrophils 5.9 thou/uL (1.40-6.50); %Basophils 0.1 % (0.0-1.0); %Eosinophils 4.3 % (0.0-10.0); %Lymphocytes 18.4 % (21.0-51.0); %Monocytes 5.6 % (0.0-10.0); %Neutrophils 71.6 % (42.0-75.0); Mean Corpuscular HGB CONC 33.7 g/dL (32.0-36.0); Mean Corpuscular Hemoglobin 32.1 pg (27.0-31.0); Mean Corpuscular Volume 95.3 fl (81.0-99.0); Mean Platelet Volume 7.1 fL (7.4-10.4); Platelet Count 253 thou/uL (130-400); RBC Distribution Width 13.5 % (11.5-14.5); Red Blood Cell (RBC) Count 4.04 mill/uL (4.20-5.40); White Blood Cell (WBC) Count 8.2 thou/uL (4.8-10.8)
[2017-10-11 14:46] LABS: ALT (SGPT) 8 U/L (8-55); AST (SGOT) 8 U/L (5-34); Alkaline Phosphatase 92 U/L (40-150); Anion Gap 9 mmol/L (10-20); BUN (Urea Nitrogen) 14 mg/dL (9.8-20.1); Bilirubin, Total 0.6 mg/dL (0.2-1.2); Calc. Creatinine Clearance 0 mL/min (70-130); Calcium 9.9 mg/dL (7.8-10.44); Carbon Dioxide 25 mmol/L (22-29); Chloride 109 mmol/L (98-107); Estimated GFR-MDRD Greater than 90; Globulin 3.1 g/dL (2.4-3.5); Glucose 102 mg/dL (70-105); Lipase 36 U/L (8-78); Potassium 3.5 mmol/L (3.5-5.1); Protein, Total 7.1 g/dL (6.0-8.3); Sodium 139 mmol/L (136-145)
[2017-10-11 14:49] LABS: CKMB 0.2 ng/mL (0-6.6); Troponin I Less than 0.010 ng/mL (< 0.028)
[2017-10-11 16:45] LABS: Bilirubin Negative (Negative); Blood, Urine Trace (Negative); Clarity TURBID (Clear); Glucose, Urine (Dipstick) Negative (Negative); Leukocyte Large (Negative); Nitrite Negative (Negative); Protein, Urine (Dipstick) 30 mg/dL (Neg-Trace); Specific Gravity, Urine 1.018 (1.002-1.036)
[2017-10-11 16:49] LABS: Pathc Cast-AUWi Flag 2.03 (0-2.49)
[2017-10-11 16:58] LABS: Bacteria/HPF 4+ HPF (None Seen); Crystals/HPF 1+ AMORPH PHOS HPF (Negative); Hyaline Casts/LPF 0-3 HYALINE CAST LPF (0-3 Hyaline)
== END 2017-10-11 22:24 | disposition home or self-care (01) ==
LOC: ERS 12:57
DX: N30.01 Acute cystitis with hematuria (principal); K29.00 Acute gastritis without bleeding; I10 Essential (primary) hypertension; G40.909 Epilepsy, unspecified, not intractable, without status epilepticus; Z86.73 Personal history of transient ischemic attack (TIA), and cerebral infarction without residual deficits; Z79.899 Other long term (current) drug therapy
CPT/HCPCS: 51701; 80053; 81003; 81015; 82553; 83690; 84484; 85025; 87077; 87086; 87186; 93005; A4353

== ENCOUNTER 2018-04-16 15:47 | Emergency (ER) | payer OTHER ==
[2018-04-16 17:34] LABS: #Eosinphils 0.3 thou/uL (0.0-0.7); #Lymphocytes 1.4 thou/uL (1.20-3.40); #Monocytes 0.6 thou/uL (0.11-0.59); %Basophils 0.1 % (0.0-1.0); %Eosinophils 1.9 % (0.0-10.0); %Lymphocytes 10.4 % (21.0-51.0); %Monocytes 4.6 % (0.0-10.0); Hemoglobin 14.6 g/dL (12.0-16.0); Mean Corpuscular HGB CONC 32.8 g/dL (32.0-36.0); Mean Corpuscular Hemoglobin 30.5 pg (27.0-31.0); Mean Corpuscular Volume 93.2 fL (78.0-98.0); Mean Platelet Volume 7.8 fL (7.4-10.4); Platelet Count 224 thou/uL (130-400); Red Blood Cell (RBC) Count 4.78 mill/uL (4.20-5.40); White Blood Cell (WBC) Count 13.3 thou/uL (4.8-10.8)
[2018-04-16 17:46] LABS: CKMB 0.5 ng/mL (0-6.6); Troponin I Less than 0.010 ng/mL (< 0.028)
[2018-04-16 17:46] LABS: PLT Morphology Comment Appears Adequate; RBC Morphology Normal
[2018-04-16 17:54] LABS: ALT (SGPT) Less than 7 U/L (8-55); AST (SGOT) 9 U/L (5-34); Albumin 4.1 g/dL (3.5-5.0); Alkaline Phosphatase 92 U/L (40-150); Anion Gap 14 mmol/L (10-20); BUN (Urea Nitrogen) 15 mg/dL (9.8-20.1); Bilirubin, Total 0.8 mg/dL (0.2-1.2); CK (CPK) 33 U/L (29-168); Calc. Creatinine Clearance 0 mL/min (70-130); Calcium 9.4 mg/dL (7.8-10.44); Carbon Dioxide 21 mmol/L (22-29); Chloride 108 mmol/L (98-107); Estimated GFR-MDRD Greater than 90; Globulin 3.1 g/dL (2.4-3.5); Glucose 102 mg/dL (70-105); Lipase 37 U/L (8-78); Potassium 3.5 mmol/L (3.5-5.1); Protein, Total 7.2 g/dL (6.0-8.3); Sodium 139 mmol/L (136-145)
[2018-04-16 19:41] LABS: Bilirubin Negative (Negative); Blood, Urine Small (Negative); Clarity CLOUDY (Clear); Glucose, Urine (Dipstick) Negative (Negative); Leukocyte Large (Negative); Nitrite Negative (Negative); Protein, Urine (Dipstick) 30 mg/dL (Neg-Trace); Specific Gravity, Urine 1.011 (1.002-1.036); pH, Urine 7.5 (5.0-9.0)
[2018-04-16 19:43] LABS: Bacteria/HPF 3+ HPF (None Seen); Hyaline Casts/LPF 0-3 HYALINE CAST LPF (0-3 Hyaline); Pathc Cast-AUWi Flag 0.14 (0-2.49); Squamous Epithelial None Seen HPF (0-3)
[2018-04-16] MEDS ORDERED: cefTRIAXone\\ROCEPHIN 1 GM VIAL ONE (20:13)
--- NOTE | 2018-04-21 11:22 | EKG ---
Test Reason : Blood Pressure : / mmHG Vent. Rate : 069 BPM Atrial Rate : 069 BPM P-R Int : 170 ms QRS Dur : 086 ms QT Int : 386 ms P-R-T Axes : -21 088 102 degrees QTc Int : 413 ms Normal sinus rhythm Anterior infarct , age undetermined Abnormal ECG Confirmed by TERESA EMANUEL, YO ([id number]), editor in chief LARS VAUGHN ([id number]) on 04/21/2018 11:21:52 AM Referred By: Confirmed By:YO MOORE MD
== END 2018-04-16 20:45 | disposition home or self-care (01) ==
LOC: ERS 15:47
DX: N39.0 Urinary tract infection, site not specified (principal); R53.1 Weakness; R55 Syncope and collapse; I10 Essential (primary) hypertension; Z86.73 Personal history of transient ischemic attack (TIA), and cerebral infarction without residual deficits
CPT/HCPCS: 36416; 71045; 80053; 81003; 81015; 82553; 83605; 83690; 83880; 84484; 85025; 87040; 87077; 87086; 87186; 93005; 96361; 96374; A4353; J0696

== ENCOUNTER 2018-06-06 11:07 | Inpatient (IN) | payer OTHER ==
[2018-06-06] MEDS ORDERED: Labetalol HCl 100 MG/20 ML VIAL ONE (11:30)
[2018-06-06 12:04] LABS: #Eosinphils 0.2 thou/uL (0.0-0.7); #Lymphocytes 1.1 thou/uL (1.20-3.40); #Monocytes 0.8 thou/uL (0.11-0.59); #Neutrophils 14.5 thou/uL (1.40-6.50); %Basophils 0.1 % (0.0-1.0); %Eosinophils 1.3 % (0.0-10.0); %Lymphocytes 6.8 % (21.0-51.0); %Monocytes 4.7 % (0.0-10.0); %Neutrophils 87.1 % (42.0-75.0); Hemoglobin 12.9 g/dL (12.0-16.0); Mean Corpuscular HGB CONC 32.1 g/dL (32.0-36.0); Mean Corpuscular Hemoglobin 30.3 pg (27.0-31.0); Mean Corpuscular Volume 94.4 fL (78.0-98.0); Mean Platelet Volume 8.5 fL (7.4-10.4); Platelet Count 206 thou/uL (130-400); RBC Distribution Width 13.7 % (11.5-14.5); Red Blood Cell (RBC) Count 4.26 mill/uL (4.20-5.40); White Blood Cell (WBC) Count 16.6 thou/uL (4.8-10.8)
[2018-06-06 12:39] LABS: ALT (SGPT) Less than 7 U/L (8-55); AST (SGOT) 16 U/L (5-34); Albumin 3.9 g/dL (3.5-5.0); Alkaline Phosphatase 106 U/L (40-150); Anion Gap 16 mmol/L (10-20); BUN (Urea Nitrogen) 21 mg/dL (9.8-20.1); Bilirubin, Total 0.9 mg/dL (0.2-1.2); CK (CPK) 36 U/L (29-168); Calc. Creatinine Clearance 0 mL/min (70-130); Calcium 9.7 mg/dL (7.8-10.44); Carbon Dioxide 17 mmol/L (22-29); Chloride 108 mmol/L (98-107); Estimated GFR-MDRD Greater than 90; Glucose 100 mg/dL (70-105); Protein, Total 7.9 g/dL (6.0-8.3); Sodium 137 mmol/L (136-145)
[2018-06-06 13:06] LABS: Bacteria/HPF 4+ HPF (None Seen); Bilirubin Negative (Negative); Blood, Urine Large (Negative); Clarity CLOUDY (Clear); Glucose, Urine (Dipstick) Negative (Negative); Leukocyte Large (Negative); Nitrite Positive (Negative); Pathc Cast-AUWi Flag 1.16 (0-2.49); Protein, Urine (Dipstick) 30 mg/dL (Neg-Trace); RBC/HPF GREATER THAN 50-TNTC HPF (0-3); Specific Gravity, Urine 1.018 (1.002-1.036); Squamous Epithelial None Seen HPF (0-3)
--- NOTE | 2018-06-06 13:24 | RAD ---
PORTABLE AP CHEST RADIOGRAPH: Date: 06-06-18 History: Generalized weakness. History of multiple sclerosis and stroke. Comparison: 06-15-17 FINDINGS: Cardiac silhouette is magnified by projection and patient rotation. The pulmonary vasculature is with in normal limits. The left lung apex is obscured due to patient's overlying mandible and jaw. Linear density is again seen at the lateral left lung base, probably related to mild scarring. Lungs are oth erwise clear. No other interval change. IMPRESSION: No acute cardiopulmonary process. POS: [facility]
[2018-06-06 13:26] LABS: Hyaline Casts/LPF 0-3 HYALINE CAST LPF (0-3 Hyaline)
[2018-06-06] MEDS ORDERED: Sodium Chloride 0.9% 100 ML ONE (14:06)
[2018-06-06] MEDS ORDERED: cefTRIAXone\\ROCEPHIN 1 GM VIAL ONE (14:06)
[2018-06-06] MEDS ORDERED: hydrALAZINE 20 MG/ML VIAL ONE (14:51)
--- NOTE | 2018-06-06 15:34 | CT ---
CT HEAD NONCONTRAST: HISTORY: Weakness. Altered mental status. Multiple sclerosis. FINDINGS: No comparison. There is no evidence of acute intracranial hemorrhage or infarct. Diffuse cortical a trophy and chronic ischemic small-vessel disease are apparent. Ill-defined areas of decreased densit y within the periventricular white matter could also represent demyelinating disease. No mass effect or shift of midline structures. Prominent ossification along the anterior falx. IMPRESSION: Chronic-type findings as detailed above, including possible malacic change related to multiple sclero sis. No acute intracranial abnormalities are demonstrated on noncontrast CT head. POS: [facility]
[2018-06-06] MEDS ORDERED: Senokot S 8.6-50 MG TAB PO PRN (18:41)
[2018-06-06 19:34] VITALS: BMI 31.8
[2018-06-06] MEDS: Sodium Chloride 0.9% 1,000 ML IV SCH (19:36)
--- NOTE | 2018-06-06 19:56 | HP ---
CHIEF COMPLAINT: Generalized weakness. HISTORY OF PRESENT ILLNESS: The patient is a very pleasant 53-year-old female with a history of multiple sclerosis, who is currently not on any medication, also has a history of hypertension and history of stroke with right-sided residual weakness and also who is bed-bound, who comes into the hospital with generalized weakness. The patient stated that she has not seen a specialist neurologist since she has moved here from [place]. She also does not even recall when was the last time she got any medications for her multiple sclerosis. The patient states that she normally used to take injections three times a week; however, has not been doing that for many months. The patient states that she came into the hospital because she felt to have significant generalized weakness and also worsened for the past couple of days, so she came into the hospital for further evaluation. The patient normally transfers from the bed to the chair with a list which she has been taking care by a family member. The patient stated that initially she could not see a specialist since she lives in [place], and the ride was too far. However, now, she has moved to [place] and will have more access to transportation. She currently has some difficulty speaking according to her, but denies any weakness. The patient states that her normal multiple sclerosis flares are when she gets tingling, which she does not have right now. She does not even have any blurry vision, any chest pain, any shortness of breath, any diarrhea, any fevers, or any chills. PAST MEDICAL HISTORY: She has multiple sclerosis without current treatment. She was diagnosed with multiple sclerosis in 2002. Hypertension. Not ambulatory status. There is a questionable seizure disorder. History of CVA with per patient, she stated, it was a right-sided weakness. PAST SURGICAL HISTORY: She has had a x5. HOME MEDICATIONS: 1. When I reviewed, she only had lisinopril which she was taking 20 mg b.i.d. 2. She was supposed to be on Copaxone Monday, Monday, and Monday, 40 mg subcutaneously; however, she is currently not taking it because she does not have a neurologist to prescribe it. 3. There was mentioned of phenytoin in her history; however, she states that she has not been taking that medication. ALLERGIES: SHE HAS NO KNOWN DRUG ALLERGIES. FAMILY HISTORY: Positive for coronary artery disease and brother with OK. SOCIAL HISTORY: She lives with her daughter. No alcohol, drug use, or smoking history. She wants to be a full code. REVIEW OF SYSTEMS: All negative except for the ones mentioned above in the HPI. PHYSICAL EXAMINATION: VITAL SIGNS: As of the following; temperature of 98.8, pulse of 73, respirations of 16, oxygen sat is 99% on room air, and blood pressure was 170/80. GENERAL: She is awake, alert, and oriented x3. Does not appear in any distress. CV: S1, S2 present. No murmurs, rubs, or gallops. LUNGS: Clear to auscultation. No rhonchi or wheezes noted. ABDOMEN: Soft, nontender. Bowel sounds present x2. EXTREMITIES: She does have lower extremity +1 pitting edema. NEUROVASCULAR: She is unable to move her lower extremities at all. She does have limited mobility in her bilateral upper extremities. Strength student development dean in bilateral upper extremities is intact. Cranial nerves 3 through 11 are intact. HEENT: She does have some dry mucous membranes noted. SKIN: No cuts or lesions or bruises noted; however, I am not sure if she has any decubitus. LABORATORY DATA: Are as of the following; WBC of 16.6, hemoglobin of 12.9, hematocrit of 40.2, and platelets of 206. She does not have any bands. Chemistry; sodium of 137, potassium of 4.0, BUN of 21, and creatinine of 0.65. She also had a urinalysis which indicated she has a positive urinary tract infection with positive nitrite. Based on her previous cultures that showed that she had Providencia stuartii which was sensitive to ceftriaxone which I have started her on. IMAGING STUDIES: She also had a chest x-ray done and a CT brain. The chest x-ray did not indicate any cardiopulmonary process or any infiltrates, and the CT brain just indicated some chronic type findings, chronic ischemic small vessel disease, including possible malacic changes related to multiple sclerosis. No other intracranial abnormalities were noted. ASSESSMENT AND PLAN: The patient is a very pleasant 53-year-old female who presents to the hospital with complains of generalized weakness. 1. Urinary tract infection. The patient has a history of multiple sclerosis. She is currently not taking any medications. Her worsening weakness could be secondary to this underlying infection. We will treat her with ceftriaxone based on her previous sensitivities to ceftriaxone. Her culture at this time has been sent. We will also hydrate her with some IV hydration and continue to monitor. Also, might do a postresidual bladder scan to see if she is retaining any urine that could be causing her to have frequent urinary tract infections. 2. Multiple sclerosis. She currently has not been taking any medications at all. I will consult Neurology for this patient. She will need to follow up with them in the office. Also, I will order an MRI brain given her CT findings and also order physical therapy and occupational therapy for this patient. 3. History of hypertension. We will continue her home medications. 4. There is a questionable history of seizure. Noted on previous documentation; however, according to the patient, she only takes lisinopril. I will for now hold off on any other medication since the patient states that she has not been taking any other medication except for the lisinopril for a month. 5. Deep venous thrombosis prophylaxis. We will put the patient on Lovenox subcu. Job ID: [id number]
[2018-06-06] MEDS: Lisinopril 20 MG TAB PO SCH (20:00)
[2018-06-07 06:12] LABS: #Eosinphils 0.3 thou/uL (0.0-0.7); #Lymphocytes 1.6 thou/uL (1.20-3.40); #Monocytes 0.7 thou/uL (0.11-0.59); #Neutrophils 11.2 thou/uL (1.40-6.50); %Basophils 0.2 % (0.0-1.0); %Eosinophils 2.1 % (0.0-10.0); %Lymphocytes 11.5 % (21.0-51.0); %Monocytes 5.3 % (0.0-10.0); %Neutrophils 80.8 % (42.0-75.0); Hemoglobin 11.7 g/dL (12.0-16.0); Mean Corpuscular HGB CONC 33.3 g/dL (32.0-36.0); Mean Corpuscular Hemoglobin 31.5 pg (27.0-31.0); Mean Corpuscular Volume 94.6 fL (78.0-98.0); Mean Platelet Volume 8.3 fL (7.4-10.4); Platelet Count 215 thou/uL (130-400); RBC Distribution Width 13.7 % (11.5-14.5); Red Blood Cell (RBC) Count 3.73 mill/uL (4.20-5.40); White Blood Cell (WBC) Count 13.8 thou/uL (4.8-10.8)
[2018-06-07 06:15] LABS: Anion Gap 13 mmol/L (10-20); BUN (Urea Nitrogen) 25 mg/dL (9.8-20.1); Calc. Creatinine Clearance 122 mL/min (70-130); Calcium 9.3 mg/dL (7.8-10.44); Carbon Dioxide 21 mmol/L (22-29); Chloride 109 mmol/L (98-107); Estimated GFR-MDRD Greater than 90; Glucose 104 mg/dL (70-105); Sodium 140 mmol/L (136-145)
[2018-06-07] MEDS: Enoxaparin Sodium 40 MG/0.4 ML SYRINGE SC SCH (08:41)
[2018-06-07] MEDS: Lisinopril 20 MG TAB PO SCH ×2 (08:41→20:20)
[2018-06-07] MEDS: Sodium Chloride 0.9% 1,000 ML IV SCH ×2 (08:42→20:19)
[2018-06-07] MEDS ORDERED: Prevnar 13-Val Conj/PF 0.5 ML SYRINGE IM ONE (09:00)
[2018-06-07] MEDS ORDERED: Potassium Chloride 20 MEQ TAB PO SCH (09:00)
--- NOTE | 2018-06-07 13:07 | EKG ---
Test Reason : Blood Pressure : / mmHG Vent. Rate : 091 BPM Atrial Rate : 091 BPM P-R Int : 160 ms QRS Dur : 088 ms QT Int : 352 ms P-R-T Axes : 032 -27 -27 degrees QTc Int : 432 ms Normal sinus rhythm Voltage criteria for left ventricular hypertrophy T wave abnormality, consider lateral ischemia Abnormal ECG No changes from 16-APR-2018 Confirmed by BULMARO DIAMOND ([id number]), technical editor CHAVA LEIGH ([id number]) on 06/07/2018 1:06:48 PM Referred By: Confirmed By:BULMARO DIAMOND
[2018-06-07] MEDS: cefTRIAXone\\ROCEPHIN 2 GM in Sodium Chloride 0.9% 100 ML IVPB SCH (14:52)
--- NOTE | 2018-06-07 18:22 | PDOC.PN ---
- Subjective Encounter Start Date: 06/07/18 Subjective: pt up in bed no complains - Objective Resuscitation Status - Order Detail: 06/06/18 18:41 Resuscitation Status Routine Resuscitation Status: FULL: Full Resuscitation Vital Signs & Weight: Vital Signs (12 hours) Temp Pulse Resp BP BP Pulse Ox 06/07/18 08:41 154/88 H 06/07/18 08:00 98.3 F 76 18 154/88 H 97 Weight Weight 180 lb I&O: 06/06/18 06/07/18 06/08/18 06:59 06:59 06:59 Intake Total 1200 Output Total 300 Balance 900 Result Diagrams: 06/07/18 04:42 06/07/18 04:42 Phys Exam - Physical Examination Respiratory: no wheezing, no rales, no rhonchi, wheezing present, clear to auscultation bilateral Cardiovascular: RRR, no significant murmur, no rub, gallop, irregular Gastrointestinal: soft, non-tender, no distention, positive bowel sounds Musculoskeletal: no edema, pulses present, edema present Neurological: non-focal, normal sensation, moves all 4 limbs Dx/Plan (1) Weakness Code(s): R53.1 - WEAKNESS Status: Acute (2) UTI (urinary tract infection) Status: Acute (3) Multiple sclerosis Code(s): G35 - MULTIPLE SCLEROSIS Status: Chronic - Plan will conitnue abx for now -: pt will follow up with neurology as outpatient * . Review of Systems - Review of Systems Respiratory: negative: Cough, Dry, Shortness of Breath, Hemoptysis, SOB with Excertion, Pleuritic Pain, Sputum, Wheezing Cardiovascular: negative: chest pain, palpitations, orthopnea, paroxysmal nocturnal dyspnea, edema, light headedness, other Gastrointestinal: negative: Nausea, Vomiting, Abdominal Pain, Diarrhea, Constipation, Melena, Hematochezia, Other Genitourinary: negative: Dysuria, Frequency, Incontinence, Hematuria, Retention , Other - Medications/Allergies Allergies/Adverse Reactions: Allergies Allergy/AdvReac Type Severity Reaction Status Date / Time No Known Drug Allergies Allergy Verified 06/06/18 22:22 Medications: Current Medications Acetaminophen (Tylenol) 650 mg PO Q6H PRN PRN Reason: Headache/Fever or Pain Enoxaparin Sodium (Lovenox) 40 mg SC 0900 [facility] Last Admin: 06/07/18 08:41 Dose: 40 mg Sodium Chloride (Normal Saline 0.9%) 1,000 mls @ 75 mls/hr IV .[id number] [facility] Last Admin: 06/07/18 20:19 Dose: 1,000 mls Ceftriaxone Sodium 2 gm/ (Sodium Chloride) 100 mls @ 200 mls/hr IVPB 1400 [facility] Last Admin: 06/07/18 14:52 Dose: 100 mls Lisinopril (Zestril) 20 mg PO BID [facility] Last Admin: 06/07/18 20:20 Dose: 20 mg Senna/Docusate Sodium (Senokot S) 2 tab PO BID PRN PRN Reason: Constipation Sodium Chloride (Flush - Normal Saline) 10 ml IVF Q12HR [facility] Last Admin: 06/07/18 20:19 Dose: Not Given Sodium Chloride (Flush - Normal Saline) 10 ml IVF PRN PRN PRN Reason: Saline Flush
--- NOTE | 2018-06-07 21:51 | CON ---
DATE OF CONSULTATION: 06/07/2018 TYPE OF CONSULTATION: Neurology CONSULTING PHYSICIAN: Hospitalist Service. IMPRESSION: 1. Chronic multiple sclerosis with paraplegia and mild right facial droop. 2. Urinary tract infection. PLAN: 1. Treat urinary tract infection. 2. Office followup. HISTORY OF PRESENT ILLNESS: Ms. Rueda is a 53-year-old black female with a past history of multiple sclerosis. She moved here from [place]. She previously took Copaxone some years ago. This was discontinued after her move to [place]. She has been paraplegic for quite some time. She denies having any new focal neurologic symptoms in quite some time. She had transient optic neuritis, which was treated with steroids while she was in [place]. She was feeling generally weaker and a bit ill and decided to come to the hospital. She was found to have a urinary tract infection, but no fever or elevation of the white count. Her CT scan of the brain showed extensive hypodensities in the white matter bilaterally. PAST MEDICAL HISTORY: Multiple sclerosis. ALLERGIES: NONE REPORTED. SOCIAL HISTORY: Unremarkable. FAMILY HISTORY: Noncontributory. MEDICATION: List was reviewed. REVIEW OF SYSTEMS: No other significant complaints. PHYSICAL EXAMINATION: GENERAL: She is a somewhat overweight middle-aged woman, lying in bed, in no distress. HEENT: Pupils are equal. Her eyes are a bit exotropic. Visual acuity is reportedly normal bilaterally. Eye movements are intact. Oropharynx is clear. NECK: Supple. EXTREMITIES: There is bilateral edema in her lower extremities. NEUROLOGIC: She is alert and appropriate. Her speech is a bit difficult to understand at times, but seems to be fluent. She has a mild right facial droop. She had good antigravity strength in both upper extremities without fix or drift. Sensation was intact to touch. Gait is not testable. I could elicit no movement in the lower extremities. SUMMARY: Unfortunate middle-aged woman with severe neurologic deficits related to her multiple sclerosis. There is nothing really to offer at this point. Her disease reportedly has been quiet for a number of years. I do not see any need for disease-modifying agent at this point. I would be happy to follow up with her as an outpatient. Job ID: [id number]
[2018-06-08] MEDS: Lisinopril 20 MG TAB PO SCH ×2 (09:18→20:24)
[2018-06-08] MEDS: Enoxaparin Sodium 40 MG/0.4 ML SYRINGE SC SCH (09:18)
--- NOTE | 2018-06-08 15:08 | PQF ---
CLINICAL DOCUMENTATION IMPROVEMENT CLARIFICATION FORM: ICD-10 Updated PLEASE DO AN ADDENDUM TO THE PROGRESS NOTE WITH ANY DOCUMENTATION UPDATES OR ADDITIONS AND CARRY THROUGH TO DC SUMMARY. THANK YOU. DATE: 06/08/18 ATTN: DR. ACOSTA Please exercise your independent, professional judgment in responding to the clarification form. Clinical indicators are provided on the bottom of this form for your review Please check appropriate box(s): [ ] Hemiplegia Specify: [ ] Non dominant side [ ] Dominant side Status: [ ] Complete [ ] Incomplete [ X ] Paraplegia Specify: [ ] Non dominant side [ ] Dominant side Status: [ X] Complete [ ] Incomplete [ ] Quadriplegia [ ] Functional Quadriplegia (specify underlying cause) [ ] Weakness (please specify anatomical area) Specify: [ ] Non dominant side [ ] Dominant side [ ] Other diagnosis [ ] Unable to determine In addition, please specify: Present on Admission (POA): [X ] Yes [ ] No [ ] Unable to determine CLINICAL INDICATORS - SIGNS / SYMPTOMS / LABS H&P: "BED BOUND" "NON AMBULATORY STATUS" "FAMILY REPORTS USE OF DELBERT LIFT AT HOME" (NURSING NOTE 06/08) "CANNOT STAND/CANNOT WALK" RISKS: MULTIPLE SCLEROSIS H/O CVA WITH RIGHT SIDED RESIDUAL TREATMENT: TOTAL ASSISTANCE PER NURSING ASSESSMENT 06/08 INCONTINENCE CARE / REILLY CARE (This form is maintained as a part of the permanent medical record) 2014 [employer]. All Rights Reserved [email or web address] Office: [phone] [facility]
--- NOTE | 2018-06-08 15:29 | PDOC.PN ---
- Subjective Encounter Start Date: 06/08/18 Encounter Start Time: 10:15 Subjective: pt up in bed no complains - Objective Resuscitation Status - Order Detail: 06/06/18 18:41 Resuscitation Status Routine Resuscitation Status: FULL: Full Resuscitation Vital Signs & Weight: Vital Signs (12 hours) Temp Pulse Resp BP BP Pulse Ox 06/08/18 11:44 98.1 F 68 16 170/82 H 97 06/08/18 09:18 179/103 H 06/08/18 08:00 93 L 06/08/18 07:50 98.6 F 71 18 179/103 H 93 L 06/08/18 04:00 98.0 F 78 18 156/88 H 96 Weight Weight 180 lb I&O: 06/07/18 06/08/18 06/09/18 06:59 06:59 06:59 Intake Total 1200 796 Output Total 300 1800 Balance 900 -1004 Result Diagrams: 06/07/18 04:42 06/07/18 04:42 Phys Exam - Physical Examination Neck: no nodes, no JVD, supple, full ROM Respiratory: no wheezing, no rales, no rhonchi, wheezing present, clear to auscultation bilateral Cardiovascular: RRR, no significant murmur, no rub, gallop, irregular Gastrointestinal: soft, non-tender, no distention, positive bowel sounds Musculoskeletal: edema present right facial droop and unable to move lower ext Dx/Plan (1) Weakness Code(s): R53.1 - WEAKNESS Status: Acute (2) UTI (urinary tract infection) Status: Acute (3) Multiple sclerosis Code(s): G35 - MULTIPLE SCLEROSIS Status: Chronic - Plan will continue abx -: cx indicates mixed garrett -: PT/OT for snf -: neuro to see pt as outpatient * . Review of Systems - Review of Systems Respiratory: negative: Cough, Dry, Shortness of Breath, Hemoptysis, SOB with Excertion, Pleuritic Pain, Sputum, Wheezing Cardiovascular: negative: chest pain, palpitations, orthopnea, paroxysmal nocturnal dyspnea, edema, light headedness, other Gastrointestinal: negative: Nausea, Vomiting, Abdominal Pain, Diarrhea, Constipation, Melena, Hematochezia, Other Genitourinary: negative: Dysuria, Frequency, Incontinence, Hematuria, Retention , Other - Medications/Allergies Allergies/Adverse Reactions: Allergies Allergy/AdvReac Type Severity Reaction Status Date / Time No Known Drug Allergies Allergy Verified 06/06/18 22:22 Medications: Current Medications Acetaminophen (Tylenol) 650 mg PO Q6H PRN PRN Reason: Headache/Fever or Pain Aspirin (Aspirin Chewable) 81 mg PO DAILY [facility] Last Admin: 06/08/18 09:18 Dose: 81 mg Atorvastatin Calcium (Lipitor) 20 mg PO HS [facility] Enoxaparin Sodium (Lovenox) 40 mg SC 0900 [facility] Last Admin: 06/08/18 09:18 Dose: 40 mg Ceftriaxone Sodium 2 gm/ (Sodium Chloride) 100 mls @ 200 mls/hr IVPB 1400 [facility] Last Admin: 06/07/18 14:52 Dose: 100 mls Lisinopril (Zestril) 20 mg PO BID [facility] Last Admin: 06/08/18 09:18 Dose: 20 mg Metoprolol Succinate (Toprol Xl) 25 mg PO DAILY [facility] Last Admin: 06/08/18 09:18 Dose: 25 mg Phenytoin Sodium (Dilantin Er) 100 mg PO BID [facility] Last Admin: 06/08/18 09:18 Dose: 100 mg Senna/Docusate Sodium (Senokot S) 2 tab PO BID PRN PRN Reason: Constipation Sodium Chloride (Flush - Normal Saline) 10 ml IVF Q12HR [facility] Last Admin: 06/08/18 09:19 Dose: Not Given Sodium Chloride (Flush - Normal Saline) 10 ml IVF PRN PRN PRN Reason: Saline Flush
[2018-06-08] MEDS: cefTRIAXone\\ROCEPHIN 2 GM in Sodium Chloride 0.9% 100 ML IVPB SCH (15:43)
[2018-06-08] MEDS: Sodium Chloride 0.9% 1,000 ML IV SCH (20:14)
[2018-06-08] MEDS: Atorvastatin Calcium 20 MG TAB PO SCH (20:24)
[2018-06-08] MEDS: Acetaminophen 325 MG TAB PO PRN (20:25)
[2018-06-09] MEDS: hydrALAZINE 20 MG/ML VIAL SLOW IVP PRN ×2 (00:23→13:39)
[2018-06-09] MEDS: Lisinopril 20 MG TAB PO SCH ×2 (08:27→20:32)
[2018-06-09] MEDS: Enoxaparin Sodium 40 MG/0.4 ML SYRINGE SC SCH (08:27)
[2018-06-09] MEDS ORDERED: Potassium Chloride 20 MEQ TAB PO SCH (09:15)
[2018-06-09] MEDS: Acetaminophen 325 MG TAB PO PRN (12:24)
[2018-06-09] MEDS: cefTRIAXone\\ROCEPHIN 2 GM in Sodium Chloride 0.9% 100 ML IVPB SCH (13:38)
--- NOTE | 2018-06-09 14:38 | PDOC.PN ---
- Subjective Encounter Start Date: 06/09/18 Encounter Start Time: 10:15 Subjective: pt up in bed no complains - Objective Resuscitation Status - Order Detail: 06/06/18 18:41 Resuscitation Status Routine Resuscitation Status: FULL: Full Resuscitation Vital Signs & Weight: Vital Signs (12 hours) Temp Pulse Resp BP BP Pulse Ox 06/09/18 13:39 71 176/107 H 06/09/18 11:51 97.8 F 71 16 171/75 H 97 06/09/18 08:35 97 06/09/18 08:34 60 178/106 H 06/09/18 08:27 178/106 H 06/09/18 07:32 97.9 F 59 L 16 183/96 H 97 06/09/18 05:13 97.5 F L 73 16 173/86 H 97 Weight Weight 180 lb I&O: 06/08/18 06/09/18 06/10/18 06:59 06:59 06:59 Intake Total 796 620.25 Output Total 1800 300 Balance -1004 320.25 Result Diagrams: 06/07/18 04:42 06/07/18 04:42 Phys Exam - Physical Examination Neck: no nodes, no JVD, supple, full ROM Respiratory: no wheezing, no rales, no rhonchi, wheezing present, clear to auscultation bilateral Cardiovascular: RRR, no significant murmur, no rub, gallop, irregular Gastrointestinal: soft, non-tender, no distention, positive bowel sounds Musculoskeletal: edema present paraplegic Dx/Plan (1) Weakness Code(s): R53.1 - WEAKNESS Status: Acute (2) UTI (urinary tract infection) Status: Acute (3) Multiple sclerosis Code(s): G35 - MULTIPLE SCLEROSIS Status: Chronic - Plan UA cx indicates mixed enteric garrett will continue current abx -: pt will needs snf. -: neuro saw pt recommended to follow up in office * . Review of Systems - Review of Systems Respiratory: negative: Cough, Dry, Shortness of Breath, Hemoptysis, SOB with Excertion, Pleuritic Pain, Sputum, Wheezing Cardiovascular: negative: chest pain, palpitations, orthopnea, paroxysmal nocturnal dyspnea, edema, light headedness, other Gastrointestinal: negative: Nausea, Vomiting, Abdominal Pain, Diarrhea, Constipation, Melena, Hematochezia, Other Genitourinary: negative: Dysuria, Frequency, Incontinence, Hematuria, Retention , Other - Medications/Allergies Allergies/Adverse Reactions: Allergies Allergy/AdvReac Type Severity Reaction Status Date / Time No Known Drug Allergies Allergy Verified 06/06/18 22:22 Medications: Current Medications Acetaminophen (Tylenol) 650 mg PO Q6H PRN PRN Reason: Headache/Fever or Pain Last Admin: 06/09/18 12:24 Dose: 650 mg Aspirin (Aspirin Chewable) 81 mg PO DAILY [facility] Last Admin: 06/09/18 08:27 Dose: 81 mg Atorvastatin Calcium (Lipitor) 20 mg PO HS [facility] Last Admin: 06/08/18 20:24 Dose: 20 mg Enoxaparin Sodium (Lovenox) 40 mg SC 0900 [facility] Last Admin: 06/09/18 08:27 Dose: 40 mg Hydralazine HCl (Apresoline) 5 mg SLOW IVP Q6H PRN PRN Reason: Blood Pressure Last Admin: 06/09/18 13:39 Dose: 5 mg Ceftriaxone Sodium 2 gm/ (Sodium Chloride) 100 mls @ 200 mls/hr IVPB 1400 [facility] Last Admin: 06/09/18 13:38 Dose: 100 mls Lisinopril (Zestril) 20 mg PO BID [facility] Last Admin: 06/09/18 08:27 Dose: 20 mg Metoprolol Succinate (Toprol Xl) 25 mg PO DAILY [facility] Last Admin: 06/09/18 08:27 Dose: 25 mg Phenytoin Sodium (Dilantin Er) 100 mg PO BID [facility] Last Admin: 06/09/18 08:28 Dose: 100 mg Senna/Docusate Sodium (Senokot S) 2 tab PO BID PRN PRN Reason: Constipation Sodium Chloride (Flush - Normal Saline) 10 ml IVF Q12HR [facility] Last Admin: 06/09/18 08:32 Dose: 10 ml Sodium Chloride (Flush - Normal Saline) 10 ml IVF PRN PRN PRN Reason: Saline Flush Last Admin: 06/09/18 13:40 Dose: 10 ml
[2018-06-09] MEDS: Atorvastatin Calcium 20 MG TAB PO SCH (20:32)
[2018-06-10] MEDS: Lisinopril 20 MG TAB PO SCH ×2 (08:50→20:38)
[2018-06-10] MEDS: Enoxaparin Sodium 40 MG/0.4 ML SYRINGE SC SCH (08:51)
[2018-06-10] MEDS ORDERED: Potassium Chloride 20 MEQ TAB PO SCH ×2 (09:15→17:00)
--- NOTE | 2018-06-10 14:08 | PRG ---
DATE OF SERVICE: 06/10/2018 SUBJECTIVE: A 53-year-old female with multiple sclerosis, who was admitted on June 06, 2018, with generalized weakness. A workup was consistent with UTI. She denies any dysuria, hematuria, urgency, fever, chills, nausea, or vomiting at this time. Overall, symptomatically she feels better. REVIEW OF SYSTEMS: As discussed above. CURRENT MEDICATIONS: Reviewed. The patient is currently on: 1. Ceftriaxone. 2. Aspirin. 3. Lipitor. 4. Lovenox. 5. Lisinopril. 6. Toprol-XL. 7. Dilantin. 8. Potassium supplementation. PHYSICAL EXAMINATION: VITAL SIGNS: Temperature 97.9, pulse rate of 67, blood pressure of 183/103 last night and 170/94 this morning. O2 saturation 94% on room air. Intake of 1425, output 700. GENERAL: A 53-year-old female, in no apparent distress. HEENT: Head atraumatic, normocephalic. Sclerae anicteric. LUNGS: Clear to auscultation bilaterally. HEART: S1, S2 present. Regular rate and rhythm. No murmurs, rubs, or gallops appreciated. ABDOMEN: Soft. Bowel sounds present. EXTREMITIES: No edema or calf tenderness. NEUROLOGIC: No new focal deficit. The patient has chronic lower extremity paraplegia. LAB FINDINGS: WBC 13.8 on the . Chemistry showed potassium 3.0 yesterday. Magnesium 1.9. Urinalysis showed greater than 50 wbc's with 4+ bacteria. Urine culture showed mixed garrett. Chest x-ray was negative for infiltrate. IMPRESSION: 1. Generalized weakness, multifactorial. 2. Urinary tract infection. 3. Chronic multiple sclerosis. 4. Obesity with a BMI of 31.9. 5. Complete paraplegia secondary to multiple sclerosis, present on admission. 6. Hypertension. 7. History of cerebrovascular accident. 8. Seizure disorder. 9. Metabolic acidosis. 10. Hypokalemia. PLAN: We will continue ceftriaxone for now. We will recheck labs in a.m. We will continue current antihypertensives. If her blood pressure stays uncontrolled, we will consider adding another antihypertensive. We will continue Dilantin. We will consult upper caser for safe discharge planning. She was also advised to follow up with Dr. Mobley as outpatient. Job ID: [id number]
[2018-06-10] MEDS: cefTRIAXone\\ROCEPHIN 2 GM in Sodium Chloride 0.9% 100 ML IVPB SCH (14:33)
[2018-06-10] MEDS: Atorvastatin Calcium 20 MG TAB PO SCH (20:38)
[2018-06-11 07:04] LABS: #Basophils 0.1 thou/uL (0.0-0.2); #Eosinphils 0.4 thou/uL (0.0-0.7); #Lymphocytes 1.8 thou/uL (1.20-3.40); #Monocytes 0.4 thou/uL (0.11-0.59); #Neutrophils 4.7 thou/uL (1.40-6.50); %Basophils 0.7 % (0.0-1.0); %Neutrophils 63.2 % (42.0-75.0); Hemoglobin 11.7 g/dL (12.0-16.0); Mean Corpuscular HGB CONC 33.1 g/dL (32.0-36.0); Mean Corpuscular Hemoglobin 31.4 pg (27.0-31.0); Mean Corpuscular Volume 94.7 fL (78.0-98.0); Mean Platelet Volume 7.3 fL (7.4-10.4); Platelet Count 241 thou/uL (130-400); RBC Distribution Width 13.3 % (11.5-14.5); Red Blood Cell (RBC) Count 3.74 mill/uL (4.20-5.40); White Blood Cell (WBC) Count 7.4 thou/uL (4.8-10.8)
[2018-06-11 07:28] LABS: Anion Gap 10 mmol/L (10-20); BUN (Urea Nitrogen) 15 mg/dL (9.8-20.1); Calc. Creatinine Clearance 134 mL/min (70-130); Calcium 9.1 mg/dL (7.8-10.44); Carbon Dioxide 23 mmol/L (22-29); Chloride 107 mmol/L (98-107); Estimated GFR-MDRD Greater than 90; Glucose 104 mg/dL (70-105); Potassium 3.6 mmol/L (3.5-5.1); Sodium 136 mmol/L (136-145)
[2018-06-11] MEDS: Lisinopril 20 MG TAB PO SCH ×2 (09:47→21:29)
[2018-06-11] MEDS: Enoxaparin Sodium 40 MG/0.4 ML SYRINGE SC SCH (09:47)
[2018-06-11] MEDS: cefTRIAXone\\ROCEPHIN 2 GM in Sodium Chloride 0.9% 100 ML IVPB SCH (15:20)
[2018-06-11] MEDS ORDERED: hydrALAZINE 20 MG/ML VIAL SLOW IVP PRN ×2 (18:52→19:51)
[2018-06-11] MEDS ORDERED: cloNIDine 0.1 MG TAB PO PRN ×2 (18:52→19:51)
[2018-06-11] MEDS ORDERED: NIFEdipine XL 30 MG TAB PO SCH ×2 (19:00→19:45)
[2018-06-11] MEDS ORDERED: Senokot S 8.6-50 MG TAB PO PRN (19:47)
[2018-06-11] MEDS ORDERED: Acetaminophen 325 MG TAB PO PRN (19:49)
[2018-06-11] MEDS: Atorvastatin Calcium 20 MG TAB PO SCH (20:54)
--- NOTE | 2018-06-11 22:27 | PDOC.PN ---
- Subjective Encounter Start Date: 06/11/18 Encounter Start Time: 10:30 Patient seen and examined for UTI. No new complaints. No overnight events - Objective Resuscitation Status - Order Detail: 06/06/18 18:41 Resuscitation Status Routine Resuscitation Status: FULL: Full Resuscitation MAR Reviewed: Yes Vital Signs & Weight: Vital Signs (12 hours) Temp Pulse Resp BP BP Pulse Ox 06/11/18 21:59 183/96 H 06/11/18 21:29 183/96 H 06/11/18 20:53 61 06/11/18 20:04 97.8 F 61 20 183/96 H 99 06/11/18 19:10 98.2 F 61 18 181/104 H 98 Weight Weight 180 lb I&O: 06/10/18 06/11/18 06/12/18 06:59 06:59 06:59 Intake Total 1425 1725 360 Output Total 700 1100 Balance 725 625 360 Result Diagrams: 06/11/18 06:36 06/11/18 06:36 Phys Exam - Physical Examination Constitutional: NAD Respiratory: no wheezing, no rhonchi Cardiovascular: RRR, no rub Gastrointestinal: soft, non-tender, positive bowel sounds Musculoskeletal: no edema Dx/Plan - Plan DVT proph w/SCDs 1. Generalized weakness, multifactorial. 2. Urinary tract infection. 3. Chronic multiple sclerosis. 4. Obesity with a BMI of 31.9. 5. Complete paraplegia secondary to multiple sclerosis, present on admission. 6. Hypertension - SBP in 140s 7. History of cerebrovascular accident. 8. Seizure disorder. 9. Metabolic acidosis. 10. Hypokalemia. PLAN: DC home on Omnicef Cont current HTN meds Follow up with Neurology as outpt Review of Systems - Review of Systems Respiratory: negative: Cough, Dry, Shortness of Breath, Hemoptysis, SOB with Excertion, Pleuritic Pain, Sputum, Wheezing Cardiovascular: negative: chest pain, palpitations, orthopnea, paroxysmal nocturnal dyspnea, edema, light headedness, other - Medications/Allergies Allergies/Adverse Reactions: Allergies Allergy/AdvReac Type Severity Reaction Status Date / Time No Known Drug Allergies Allergy Verified 06/06/18 22:22 Medications: Current Medications Acetaminophen (Tylenol) 650 mg PO Q6H PRN PRN Reason: Headache/Fever or Pain Aspirin (Aspirin Chewable) 81 mg PO DAILY [facility] Atorvastatin Calcium (Lipitor) 20 mg PO HS [facility] Last Admin: 06/11/18 20:54 Dose: 20 mg Clonidine (Catapres) 0.1 mg PO Q4H PRN PRN Reason: Systolic BP > 180 Enoxaparin Sodium (Lovenox) 40 mg SC 0900 [facility] Hydralazine HCl (Apresoline) 10 mg SLOW IVP Q4H PRN PRN Reason: SBP Greater Than 180 Ceftriaxone Sodium 2 gm/ (Sodium Chloride) 100 mls @ 200 mls/hr IVPB 1400 [facility] Lisinopril (Zestril) 20 mg PO BID [facility] Last Admin: 06/11/18 21:29 Dose: 20 mg Metoprolol Succinate (Toprol Xl) 25 mg PO DAILY [facility] Nifedipine (Procardia Xl) 30 mg PO DAILY [facility] Phenytoin Sodium (Dilantin Er) 100 mg PO BID [facility] Last Admin: 06/11/18 20:17 Dose: 100 mg Senna/Docusate Sodium (Senokot S) 2 tab PO BID PRN PRN Reason: Constipation Sodium Chloride (Flush - Normal Saline) 10 ml IVF Q12HR [facility] Last Admin: 06/11/18 20:54 Dose: 10 ml Sodium Chloride (Flush - Normal Saline) 10 ml IVF PRN PRN PRN Reason: Saline Flush
--- NOTE | 2018-06-11 22:29 | PDOC.EVN ---
Event Note - Event Note Event Note: Ms Rueda was foung to have SBP in 200s in Ambulance. She was brought back to her room. Will add Procardia XL. Will hold dc tonight.
[2018-06-12] MEDS ORDERED: NIFEdipine XL 30 MG TAB PO SCH (09:00)
[2018-06-12] MEDS: Enoxaparin Sodium 40 MG/0.4 ML SYRINGE SC SCH (10:58)
[2018-06-12] MEDS: Lisinopril 20 MG TAB PO SCH ×2 (10:59→20:26)
[2018-06-12] MEDS: NIFEdipine XL 30 MG TAB PO SCH (10:59)
[2018-06-12] MEDS ORDERED: cefTRIAXone\\ROCEPHIN 2 GM in Sodium Chloride 0.9% 100 ML IVPB SCH (14:00)
[2018-06-12] MEDS: Atorvastatin Calcium 20 MG TAB PO SCH (20:26)
--- NOTE | 2018-06-12 21:02 | PDOC.PN ---
- Subjective Encounter Start Date: 06/12/18 Encounter Start Time: 10:00 Patient seen and examined for UTI. No new complaints. No overnight events - Objective Resuscitation Status - Order Detail: 06/06/18 18:41 Resuscitation Status Routine Resuscitation Status: FULL: Full Resuscitation MAR Reviewed: Yes Vital Signs & Weight: Vital Signs (12 hours) Temp Pulse Resp BP BP Pulse Ox 06/12/18 20:26 125/77 06/12/18 20:00 98.2 F 73 20 125/77 98 06/12/18 16:00 97.7 F 65 20 133/74 97 06/12/18 11:40 97.8 F 73 18 160/100 H 97 06/12/18 10:59 77 163/82 H Weight Weight 180 lb I&O: 06/11/18 06/12/18 06/13/18 06:59 06:59 06:59 Intake Total 4406 451 2866 Output Total 1100 1400 Balance 625 -510 1920 Result Diagrams: 06/11/18 06:36 06/11/18 06:36 Phys Exam - Physical Examination Constitutional: NAD Respiratory: no wheezing, no rhonchi Cardiovascular: RRR, no rub Gastrointestinal: soft, non-tender, positive bowel sounds Musculoskeletal: edema present Dx/Plan - Plan DVT proph w/lovenox, DVT proph w/SCDs 1. Generalized weakness, multifactorial. 2. Urinary tract infection. 3. Chronic multiple sclerosis. 4. Obesity with a BMI of 31.9. 5. Complete paraplegia secondary to multiple sclerosis, present on admission. 6. Hypertension - labile 7. History of cerebrovascular accident. 8. Seizure disorder. 9. Metabolic acidosis. 10. Hypokalemia. PLAN: Cont IV Atbx while inpatient Cont current HTN meds including Procardia XL Will monitor today - if BP stable overnight then possible dc in AM Cont other meds as below Review of Systems - Review of Systems Respiratory: negative: Cough, Dry, Shortness of Breath, Hemoptysis, SOB with Excertion, Pleuritic Pain, Sputum, Wheezing Cardiovascular: negative: chest pain, palpitations, orthopnea, paroxysmal nocturnal dyspnea, edema, light headedness, other Gastrointestinal: negative: Nausea, Vomiting, Abdominal Pain, Diarrhea, Constipation, Melena, Hematochezia, Other - Medications/Allergies Allergies/Adverse Reactions: Allergies Allergy/AdvReac Type Severity Reaction Status Date / Time No Known Drug Allergies Allergy Verified 06/06/18 22:22 Medications: Current Medications Acetaminophen (Tylenol) 650 mg PO Q6H PRN PRN Reason: Headache/Fever or Pain Aspirin (Aspirin Chewable) 81 mg PO DAILY [facility] Last Admin: 06/12/18 11:00 Dose: 81 mg Atorvastatin Calcium (Lipitor) 20 mg PO HS [facility] Last Admin: 06/12/18 20:26 Dose: 20 mg Clonidine (Catapres) 0.1 mg PO Q4H PRN PRN Reason: Systolic BP > 180 Enoxaparin Sodium (Lovenox) 40 mg SC 0900 [facility] Last Admin: 06/12/18 10:58 Dose: 40 mg Hydralazine HCl (Apresoline) 10 mg SLOW IVP Q4H PRN PRN Reason: SBP Greater Than 180 Last Admin: 06/12/18 01:34 Dose: 10 mg Ceftriaxone Sodium 2 gm/ (Sodium Chloride) 100 mls @ 200 mls/hr IVPB 1400 [facility] Last Admin: 06/12/18 15:03 Dose: 100 mls Lisinopril (Zestril) 20 mg PO BID [facility] Last Admin: 06/12/18 20:26 Dose: 20 mg Metoprolol Succinate (Toprol Xl) 25 mg PO DAILY [facility] Last Admin: 06/12/18 11:00 Dose: 25 mg Nifedipine (Procardia Xl) 30 mg PO DAILY [facility] Last Admin: 06/12/18 10:59 Dose: 30 mg Phenytoin Sodium (Dilantin Er) 100 mg PO BID [facility] Last Admin: 06/12/18 20:26 Dose: 100 mg Senna/Docusate Sodium (Senokot S) 2 tab PO BID PRN PRN Reason: Constipation Sodium Chloride (Flush - Normal Saline) 10 ml IVF Q12HR [facility] Last Admin: 06/12/18 20:28 Dose: 10 ml Sodium Chloride (Flush - Normal Saline) 10 ml IVF PRN PRN PRN Reason: Saline Flush
[2018-06-13] MEDS: NIFEdipine XL 30 MG TAB PO SCH (08:56)
[2018-06-13] MEDS: Lisinopril 20 MG TAB PO SCH (08:56)
[2018-06-13] MEDS: Enoxaparin Sodium 40 MG/0.4 ML SYRINGE SC SCH ×2 (09:58→10:47)
[2018-06-13 13:58] VITALS: BP 155/86; TEMP 97.8
--- NOTE | 2018-06-13 15:46 | DIS ---
DATE OF ADMISSION: 06/06/2018 DATE OF DISCHARGE: 06/13/2018 DISCHARGE DISPOSITION: Home. FOLLOWUP: 1. Follow up with primary care physician at [facility]. 2. Follow up with Neurology, Dr. White in 1-2 weeks. The patient was seen and examined on the day of discharge. Denies any new complaints. No chest pain, shortness of breath or palpitations. BRIEF HOSPITAL COURSE: The patient is a 53-year-old female with multiple sclerosis, currently not on treatment, and hypertension, presented to the emergency room with generalized weakness. Please refer to the history and physical for further details. The patient was admitted to the hospital with a diagnosis of generalized weakness, probably secondary to UTI as well as worsening multiple sclerosis. She was started on broad-spectrum antibiotics. Urinalysis showed greater than 50 wbc's with 4+ bacteria. Urine culture showed mixed enteric garrett. The patient was also evaluated by Neurology, Dr. White, who recommended to treat UTI. She was also advised to follow up with Dr. White as outpatient for multiple sclerosis treatment. She was stable for discharge two days ago. However, after discharge, her blood pressure in the ambulance was in systolic over 200. However, prior to discharge, her systolic blood pressure was in 140s. For this reason, she was monitored for 24 hours. Her blood pressure has remained stable. Procardia XL was added to her regimen. She will continue Omnicef for UTI. DISCHARGE MEDICATION: 1. Omnicef 300 mg twice a day. 2. Lisinopril 20 mg b.i.d. 3. Toprol-XL 25 mg daily. 4. Procardia XL 30 mg daily. 5. Dilantin 100 mg b.i.d. 6. All other home medications were left unchanged. FINAL DIAGNOSES: 1. Generalized weakness, multifactorial, improved. 2. Urine tract infection. 3. Chronic multiple sclerosis. The patient was advised to follow up with Dr. White. 4. Obesity with a BMI of 31.9. 5. Complete paraplegia secondary to multiple sclerosis, present on admission. 6. Hypertension. 7. History of cerebrovascular accident. 8. Seizure disorder. 9. Metabolic acidosis. 10. Hypokalemia. PLAN: Plan of care was discussed with the patient in detail, she stated understanding. Total time coordinating the discharge of this patient was 37 minutes. The patient was counseled on hypertension. Job ID: [id number]
== END 2018-06-13 13:50 | disposition home or self-care (01) | DRG 690 ==
LOC: ERS 11:07 → T4-B 18:34 → OBSVTOIN 18:34 → UNDODISIN 06-11 17:46
PROVIDERS: ADMIT Internal Medicine; ATTEND Internal Medicine
DX: N39.0 Urinary tract infection, site not specified (principal); G82.20 Paraplegia, unspecified; I69.351 Hemiplegia and hemiparesis following cerebral infarction affecting right dominant side; E87.2 Acidosis; G35 Multiple sclerosis; I10 Essential (primary) hypertension; G40.909 Epilepsy, unspecified, not intractable, without status epilepticus; Z79.899 Other long term (current) drug therapy; Z68.31 Body mass index [BMI] 31.0-31.9, adult; E66.9 Obesity, unspecified; E87.6 Hypokalemia; R29.810 Facial weakness
CPT/HCPCS: 36415; 51703; 70450; 71045; 80048; 80053; 81003; 81015; 82550; 83605; 83735; 83880; 85025; 87086; 90471; 90686; 93005; 96365; 96375; A4353; G0008; G8978-GP-CM; G8979-GP-CM; G8980-GP-CM; G8987-GO-CM; G8988-GO-CL; J0360; J0696; J1650; J7050

== ENCOUNTER 2018-07-25 15:11 | Inpatient (IN) | payer OTHER ==
[2018-07-25 16:16] LABS: #Basophils 0.1 thou/uL (0.0-0.2); #Eosinphils 0.4 thou/uL (0.0-0.7); #Lymphocytes 1.5 thou/uL (1.20-3.40); #Monocytes 0.6 thou/uL (0.11-0.59); #Neutrophils 9.4 thou/uL (1.40-6.50); %Basophils 0.7 % (0.0-1.0); %Eosinophils 3.3 % (0.0-10.0); %Lymphocytes 12.8 % (21.0-51.0); %Monocytes 4.6 % (0.0-10.0); %Neutrophils 78.6 % (42.0-75.0); Hemoglobin 13.4 g/dL (12.0-16.0); Mean Corpuscular HGB CONC 32.9 g/dL (32.0-36.0); Mean Corpuscular Hemoglobin 31.6 pg (27.0-31.0); Mean Corpuscular Volume 96.1 fL (78.0-98.0); Mean Platelet Volume 8.9 fL (7.4-10.4); Platelet Count 185 thou/uL (130-400); RBC Distribution Width 13.2 % (11.5-14.5); Red Blood Cell (RBC) Count 4.26 mill/uL (4.20-5.40); White Blood Cell (WBC) Count 11.9 thou/uL (4.8-10.8)
[2018-07-25 16:19] LABS: Bilirubin Negative (Negative); Blood, Urine Large (Negative); Clarity TURBID (Clear); Glucose, Urine (Dipstick) Negative (Negative); Leukocyte Large (Negative); Nitrite Negative (Negative); Protein, Urine (Dipstick) 100 mg/dL (Neg-Trace); Specific Gravity, Urine 1.018 (1.002-1.036)
[2018-07-25 16:20] LABS: Bacteria/HPF 4+ HPF (None Seen); RBC/HPF 21-50 HPF (0-3)
[2018-07-25 16:23] LABS: Pathc Cast-AUWi Flag 44.32 (0-2.49); Yeast-AUWi Flag 242.2 (0-25.0)
[2018-07-25 16:40] LABS: Hyaline Casts/LPF NONE SEEN LPF (0-3 Hyaline); Other Casts/LPF None Seen LPF (0-3 Hyaline)
[2018-07-25 16:41] LABS: Yeast-All Forms None Seen HPF (None Seen)
[2018-07-25 16:43] LABS: ALT (SGPT) Less than 7 U/L (8-55); AST (SGOT) 7 U/L (5-34); Albumin 3.9 g/dL (3.5-5.0); Alkaline Phosphatase 101 U/L (40-150); Anion Gap 14 mmol/L (10-20); BUN (Urea Nitrogen) 17 mg/dL (9.8-20.1); Bilirubin, Total 0.6 mg/dL (0.2-1.2); CK (CPK) 26 U/L (29-168); Calc. Creatinine Clearance 0 mL/min (70-130); Calcium 9.8 mg/dL (7.8-10.44); Carbon Dioxide 23 mmol/L (22-29); Chloride 107 mmol/L (98-107); Estimated GFR-MDRD Greater than 90; Globulin 3.4 g/dL (2.4-3.5); Glucose 98 mg/dL (70-105); Protein, Total 7.3 g/dL (6.0-8.3); Sodium 141 mmol/L (136-145)
[2018-07-25 16:48] LABS: Potassium 2.9 mmol/L (3.5-5.1)
--- NOTE | 2018-07-25 16:52 | RAD ---
PORTABLE AP CHEST X-RAY: 07/25/18 HISTORY: Decreased blood pressure. Syncope. Decreased skin turgor. COMPARISON: 06/06/18. FINDINGS: The cardiac silhouette is magnified by patient rotation and portable technique. Linear area of scarri ng in the region of the lingula is again present. The lungs are otherwise clear. Pulmonary vasculatur e is within normal limits. There has been no interval change from the prior exam. IMPRESSION: Stable chest without evidence of an acute cardiopulmonary process. POS: [facility]
[2018-07-25] MEDS ORDERED: Potassium Chloride 20 MEQ TAB ONE (17:38)
[2018-07-25] MEDS ORDERED: Magnesium 2 GM/50 ML BAG (IN WATER) ONE (17:39)
[2018-07-25] MEDS ORDERED: cefTRIAXone\\ROCEPHIN 1 GM VIAL ONE (17:39)
[2018-07-25 19:47] LABS: Troponin I Less than 0.010 ng/mL (< 0.028)
--- NOTE | 2018-07-25 20:41 | CT ---
HEAD CT WITHOUT CONTRAST: Date: 07/25/18 HISTORY: Syncope. Previous CVA with right-sided deficit. COMPARISON: 06/06/18. FINDINGS: Stable calcification along the anterior falx. No parenchymal hemorrhage. No extra-axial hematoma. No midline shift. Basilar cisterns are patent. Brain volume, less than expected for patient's age. Corti miguel paez-white matter differentiation is preserved. Ventricles and sulci are patent and symmetric. Th ere are extensive white matter hypodensities which are unchanged and are felt to be due to chronic sm all vessel ischemic change. Component of malacic change involving the left and right centrum semioval e is stable. Calvarium is intact. Adequate aeration of the sinuses and mastoid air cells. IMPRESSION: No acute intracranial process. POS: [facility]
[2018-07-25 22:08] VITALS: BMI 33.3
[2018-07-25 22:59] LABS: Troponin I Less than 0.010 ng/mL (< 0.028)
[2018-07-26] MEDS: Potassium Chloride 20 MEQ in Premix Bag 1 BAG IVPB SCH ×4 (03:02→23:22)
[2018-07-26] MEDS: Lisinopril 20 MG TAB PO SCH ×4 (03:02→21:48)
[2018-07-26] MEDS ORDERED: Ondansetron ODT 4 MG TAB PO PRN (04:49)
[2018-07-26] MEDS ORDERED: Acetaminophen 650 MG Suppository PR PRN (04:49)
[2018-07-26] MEDS ORDERED: Acetaminophen 325 MG TAB PO PRN (04:49)
--- NOTE | 2018-07-26 05:17 | HP ---
CHIEF COMPLAINT: Syncope. HISTORY OF PRESENT ILLNESS AND REVIEW OF SYSTEMS: Ms. Rueda is a 53-year-old woman presenting with an episode of syncope while at her doctor's office. The patient has a background history of multiple sclerosis, seizures, and previous CVA with residual right-sided weakness. The patient has generalized weakness associated with her MS and is wheelchair bound. She ran out of her regular medications approximately 1 week ago. She was being seen today for refills when she had the syncopal episode while sitting in the wheelchair. She denies having any preceding symptoms. She has been experiencing abdominal discomfort with nausea and decreased appetite. Since she has been off her medications, she has been feeling generally unwell. The patient denies having any chest pain, palpitations, or shortness of breath. Denies having any vomiting. No changes with her stools. Denies having any recent fevers. She reports having a mild headache. Denies having new visual disturbances or speech disturbances. All other review of systems are negative. PAST MEDICAL HISTORY: 1. Hypertension. 2. Multiple sclerosis. 3. Generalized seizures. 4. CVA with right-sided weakness. PAST SURGICAL HISTORY: x5. SOCIAL HISTORY: The patient lives with her daughters. Requires a lift for transfer and wheelchair for mobility. Nonsmoker and denies any illicit drug use or alcohol consumption. ALLERGIES: NO KNOWN DRUG ALLERGIES. CURRENT MEDICATIONS: 1. Lisinopril 10 mg b.i.d. 2. Metoprolol succinate 25 mg p.o. daily. 3. Phenytoin 100 mg p.o. b.i.d. PHYSICAL EXAMINATION: VITAL SIGNS: Temp 98.8, pulse 66, respirations 16, O2 saturation 98% on room air, and BP 166/105. GENERAL: The patient appears well developed and well nourished. She is found lying in bed and in no apparent distress. HEENT: Normocephalic and atraumatic. Pupils are equal, round, and reactive to light. Sclerae are without icterus. Oropharynx is clear. NECK: Supple. LUNGS: Clear to auscultation bilaterally. CARDIAC: Regular rate and rhythm without audible murmurs, rubs, or gallops. ABDOMEN: Soft, nondistended. There is mild left-sided abdominal discomfort with palpation. No rigidity or signs of peritonitis. EXTREMITIES: Decreased range of motion, baseline. No clubbing or edema. NEUROLOGIC: Alert and oriented. SKIN: Appears dry diffusely. No jaundice. LABORATORY DATA: White blood count 11.9, hemoglobin 13.4, hematocrit 40.9, and platelets 185. Sodium 141, potassium 3.9, BUN 17, creatinine 0.64, EGFR greater than 90. LFTs unremarkable. TSH 1.269. Urinalysis, turbid and roge, showed blood, protein, large leukocyte esterase, 21 to 50 red blood cells, greater than 50 white blood cells, squamous epithelial cells between 11 and 20, and 4+ urine bacteria. IMAGING DATA: 1. Chest x-ray, 07/25/2018, stable chest without evidence of any acute cardiopulmonary process. 2. Brain CT done 07/25/2018, no acute findings. IMPRESSION AND PLAN: Ms. Rueda is a pleasant 53-year-old woman who presents with a syncopal episode while at the doctor's attempting to get refills on her medications. Per EMS, she was said to be hypotensive at 80/50. However, upon arriving to the ED, she has had a significantly raised blood pressure. Her blood pressure has been as high as 192/102. The patient was felt to be clinically dry. Therefore, did receive IV fluids while in the ED. She was found to have a UTI and to be hypokalemic. She has been started on antibiotics and has received potassium replacement. The patient is being admitted for further management of the following conditions. 1. Urinary tract infection. Continue antibiotics. Monitor white blood cell count and vitals. 2. Hypertension. Resume home medications. Hydralazine p.r.n. Continue to monitor blood pressure. 3. Dehydration. Patient appears clinically dehydrated. However, renal function appears unremarkable. Patient is status post IV hydration. Continue to monitor. 4. Venous thromboembolism prophylaxis. 5. Gastrointestinal prophylaxis. Patient's case was discussed with Dr. Newsome, who agrees with the plan of care as described above. Job ID: [id number]
[2018-07-26 05:56] LABS: #Eosinphils 0.4 thou/uL (0.0-0.7); #Lymphocytes 1.8 thou/uL (1.20-3.40); #Monocytes 0.6 thou/uL (0.11-0.59); #Neutrophils 7.1 thou/uL (1.40-6.50); %Basophils 0.2 % (0.0-1.0); %Eosinophils 3.7 % (0.0-10.0); %Lymphocytes 18.2 % (21.0-51.0); %Monocytes 6.2 % (0.0-10.0); %Neutrophils 71.7 % (42.0-75.0); Hemoglobin 12.5 g/dL (12.0-16.0); Mean Corpuscular HGB CONC 32.6 g/dL (32.0-36.0); Mean Corpuscular Hemoglobin 31.8 pg (27.0-31.0); Mean Corpuscular Volume 97.4 fL (78.0-98.0); Mean Platelet Volume 7.8 fL (7.4-10.4); Platelet Count 215 thou/uL (130-400); RBC Distribution Width 13.2 % (11.5-14.5); Red Blood Cell (RBC) Count 3.95 mill/uL (4.20-5.40); White Blood Cell (WBC) Count 9.9 thou/uL (4.8-10.8)
[2018-07-26 06:18] LABS: ALT (SGPT) Less than 7 U/L (8-55); AST (SGOT) 7 U/L (5-34); Albumin 3.5 g/dL (3.5-5.0); Alkaline Phosphatase 91 U/L (40-150); Anion Gap 12 mmol/L (10-20); BUN (Urea Nitrogen) 15 mg/dL (9.8-20.1); Bilirubin, Total 0.5 mg/dL (0.2-1.2); Calc. Creatinine Clearance 145 mL/min (70-130); Calcium 9.3 mg/dL (7.8-10.44); Carbon Dioxide 21 mmol/L (22-29); Chloride 110 mmol/L (98-107); Estimated GFR-MDRD Greater than 90; Globulin 2.9 g/dL (2.4-3.5); Glucose 89 mg/dL (70-105); Potassium 4.5 mmol/L (3.5-5.1); Protein, Total 6.4 g/dL (6.0-8.3); Sodium 138 mmol/L (136-145)
[2018-07-26] MEDS: Famotidine/PF 20 mg/2ml Vial SLOW IVP SCH ×2 (10:09→21:48)
--- NOTE | 2018-07-26 10:54 | PDOC.PN ---
- Subjective Encounter Start Date: 07/26/18 Encounter Start Time: 10:15 Subjective: Patient examined, reports she feels better today -: Has a residual headache but no other complaints -: Reports she ran out of her meds several days ago - Objective Vital Signs & Weight: Vital Signs (12 hours) Temp Pulse Resp BP BP Pulse Ox 07/26/18 10:09 185/100 H 07/26/18 04:00 98.2 F 64 20 144/89 H 100 07/26/18 00:47 98.5 F 65 18 171/98 H 100 Weight Weight 85.502 kg I&O: 07/25/18 07/26/18 07/27/18 06:59 06:59 06:59 Intake Total 240 180 Balance 240 180 Result Diagrams: 07/26/18 04:57 07/26/18 04:57 Phys Exam - Physical Examination HEENT: PERRLA, moist MMs Neck: no nodes, no JVD Respiratory: no wheezing, clear to auscultation bilateral Cardiovascular: RRR Gastrointestinal: soft, non-tender Musculoskeletal: no edema, pulses present Neurological: non-focal Strength in her legs is decreased, reports this is chronic Psychiatric: normal affect, A&O x 3 Skin: cap refill <2 seconds Dx/Plan (1) UTI (urinary tract infection) Status: Acute (2) Weakness Code(s): R53.1 - WEAKNESS Status: Acute (3) H/O: CVA (cerebrovascular accident) Code(s): Z86.73 - PRSNL HX OF TIA (TIA), AND CEREB INFRC W/O RESID DEFICITS Status: Chronic (4) HTN (hypertension) Code(s): I10 - ESSENTIAL (PRIMARY) HYPERTENSION Status: Chronic (5) Multiple sclerosis Code(s): G35 - MULTIPLE SCLEROSIS Status: Chronic (6) Obesity (BMI 30-39.9) Code(s): E66.9 - OBESITY, UNSPECIFIED Status: Chronic (7) Seizure disorder Code(s): G40.909 - EPILEPSY, UNSP, NOT INTRACTABLE, WITHOUT STATUS EPILEPTICUS Status: Chronic - Plan Potassium within NL, infusion was dc'd. Prelim urine culture -: positive, IV ABX continued. -: Will continue to monitor labs, VS * . Review of Systems - Review of Systems Constitutional: weakness Neurological: Seizures Other: headache - Medications/Allergies Allergies/Adverse Reactions: Allergies Allergy/AdvReac Type Severity Reaction Status Date / Time No Known Drug Allergies Allergy Verified 07/25/18 22:12 Medications: Current Medications Acetaminophen (Tylenol) 650 mg PO Q4H PRN PRN Reason: Headache/Fever/Mild Pain (1-3) Acetaminophen (Tylenol) 650 mg WI Q4H PRN PRN Reason: Headache/Fever/Mild Pain (1-3) Famotidine (Pepcid) 20 mg SLOW IVP Q12HR [facility] Last Admin: 07/26/18 10:09 Dose: 20 mg Potassium Chloride 20 meq/ (Device) 100 mls @ 50 mls/hr IVPB 1815 [facility] Stop: 07/26/18 20:14 Last Admin: 07/26/18 03:04 Dose: Not Given Ceftriaxone Sodium 2 gm/ (Sodium Chloride) 100 mls @ 200 mls/hr IVPB Q24HR [facility] Lisinopril (Zestril) 20 mg PO BID [facility] Last Admin: 07/26/18 10:09 Dose: 20 mg Metoprolol Succinate (Toprol Xl) 25 mg PO DAILY [facility] Last Admin: 07/26/18 10:10 Dose: 25 mg Ondansetron HCl (Zofran Odt) 4 mg PO Q6H PRN PRN Reason: Nausea/Vomiting Phenytoin Sodium (Dilantin Er) 100 mg PO BID [facility] Last Admin: 07/26/18 10:10 Dose: 100 mg Sodium Chloride (Flush - Normal Saline) 10 ml IVF Q12HR PRN PRN Reason: Saline Flush Sodium Chloride (Flush - Normal Saline) 10 ml IVF PRN PRN PRN Reason: Saline Flush
[2018-07-26] MEDS: cefTRIAXone\\ROCEPHIN 2 GM in Sodium Chloride 0.9% 100 ML IVPB SCH (18:06)
[2018-07-27 05:14] LABS: #Eosinphils 0.3 thou/uL (0.0-0.7); #Lymphocytes 1.6 thou/uL (1.20-3.40); #Monocytes 0.4 thou/uL (0.11-0.59); #Neutrophils 4.8 thou/uL (1.40-6.50); %Basophils 0.1 % (0.0-1.0); %Eosinophils 4.3 % (0.0-10.0); %Lymphocytes 22.7 % (21.0-51.0); %Monocytes 5.5 % (0.0-10.0); %Neutrophils 67.4 % (42.0-75.0); Hemoglobin 12.3 g/dL (12.0-16.0); Mean Corpuscular Hemoglobin 31.9 pg (27.0-31.0); Mean Corpuscular Volume 96.8 fL (78.0-98.0); Mean Platelet Volume 7.7 fL (7.4-10.4); Platelet Count 189 thou/uL (130-400); RBC Distribution Width 13.2 % (11.5-14.5); Red Blood Cell (RBC) Count 3.86 mill/uL (4.20-5.40); White Blood Cell (WBC) Count 7.1 thou/uL (4.8-10.8)
[2018-07-27 05:33] LABS: ALT (SGPT) Less than 7 U/L (8-55); AST (SGOT) 5 U/L (5-34); Albumin 3.5 g/dL (3.5-5.0); Alkaline Phosphatase 88 U/L (40-150); Anion Gap 11 mmol/L (10-20); BUN (Urea Nitrogen) 15 mg/dL (9.8-20.1); Bilirubin, Total 0.2 mg/dL (0.2-1.2); Calc. Creatinine Clearance 145 mL/min (70-130); Carbon Dioxide 21 mmol/L (22-29); Chloride 109 mmol/L (98-107); Estimated GFR-MDRD Greater than 90; Glucose 98 mg/dL (70-105); Potassium 4.3 mmol/L (3.5-5.1); Protein, Total 6.5 g/dL (6.0-8.3); Sodium 137 mmol/L (136-145)
[2018-07-27] MEDS: hydrALAZINE 20 MG/ML VIAL SLOW IVP PRN ×2 (05:44→15:49)
[2018-07-27] MEDS: Lisinopril 20 MG TAB PO SCH ×2 (08:24→22:26)
[2018-07-27] MEDS: Famotidine/PF 20 mg/2ml Vial SLOW IVP SCH ×2 (08:25→22:27)
[2018-07-27] MEDS ORDERED: NIFEdipine XL 30 MG TAB PO SCH (10:30)
[2018-07-27 11:23] LABS: Bilirubin Negative (Negative); Blood, Urine Small (Negative); Clarity CLOUDY (Clear); Glucose, Urine (Dipstick) Negative (Negative); Leukocyte Large (Negative); Nitrite Negative (Negative); Protein, Urine (Dipstick) Negative (Neg-Trace)
[2018-07-27 11:26] LABS: Bacteria/HPF None Seen HPF (None Seen); Hyaline Casts/LPF 4-6 HYALINE CAST LPF (0-3 Hyaline); Pathc Cast-AUWi Flag 0.87 (0-2.49)
[2018-07-27 11:37] LABS: Renal Epithelial None Seen HPF (0-3); Transitional Epithelial NONE SEEN HPF (0-3); Urine Culture Reflex No No
--- NOTE | 2018-07-27 14:48 | PDOC.PN ---
- Subjective Encounter Start Date: 07/27/18 Encounter Start Time: 10:00 Subjective: Patient examined today, reports a headache, which is chronic per patient -: Denies other complaints, denies CP, palpations, dysuria - Objective Vital Signs & Weight: Vital Signs (12 hours) Temp Pulse Resp BP BP Pulse Ox 07/27/18 11:56 98.4 F 65 18 175/106 H 99 07/27/18 10:38 65 181/111 H 07/27/18 09:30 64 184/97 H 07/27/18 09:00 65 185/107 H 07/27/18 08:24 194/110 H 07/27/18 08:01 98.3 F 68 18 194/110 H 95 07/27/18 06:25 175/78 H 07/27/18 05:44 55 L 200/109 H 07/27/18 03:45 97.4 F L 98 Weight Weight 85.502 kg I&O: 07/26/18 07/27/18 07/28/18 06:59 06:59 06:59 Intake Total 240 1210 500 Output Total 202 750 Balance 240 1008 -250 Result Diagrams: 07/27/18 04:35 07/27/18 04:35 Phys Exam - Physical Examination HEENT: PERRLA, moist MMs, sclera anicteric Neck: no nodes, no JVD Respiratory: no wheezing, no rales Cardiovascular: RRR, no significant murmur Gastrointestinal: soft, non-tender Musculoskeletal: no edema, pulses present Neurological: non-focal, normal sensation Is not able to ambulate due to progressive MS Lymphatic: no nodes Psychiatric: normal affect, A&O x 3 Skin: cap refill <2 seconds Dx/Plan (1) UTI (urinary tract infection) Status: Acute (2) Weakness Code(s): R53.1 - WEAKNESS Status: Acute (3) H/O: CVA (cerebrovascular accident) Code(s): Z86.73 - PRSNL HX OF TIA (TIA), AND CEREB INFRC W/O RESID DEFICITS Status: Chronic (4) HTN (hypertension) Code(s): I10 - ESSENTIAL (PRIMARY) HYPERTENSION Status: Chronic (5) Multiple sclerosis Code(s): G35 - MULTIPLE SCLEROSIS Status: Chronic (6) Obesity (BMI 30-39.9) Code(s): E66.9 - OBESITY, UNSPECIFIED Status: Chronic (7) Seizure disorder Code(s): G40.909 - EPILEPSY, UNSP, NOT INTRACTABLE, WITHOUT STATUS EPILEPTICUS Status: Chronic - Plan BP elevated overnight despite restarting home meds -: Discussed case with Dr. Coley who saw the patient today, pls see her note -: Medications added for BP, stroke work up started, status changed to INP -: for Hypertensive urgency * .
[2018-07-27] MEDS ORDERED: ISOVUE-370 76%-LOCM 1 ML ONE (14:51)
[2018-07-27] MEDS: cefTRIAXone\\ROCEPHIN 2 GM in Sodium Chloride 0.9% 100 ML IVPB SCH (18:15)
--- NOTE | 2018-07-27 21:49 | CT ---
NECK CT ANGIOGRAM WITH 3D RENDERIN07/27/18 HISTORY: TIA, syncopal episode several days ago. There is evidence for diffuse thyromegaly raising concern for Graves disease. There is sinus mucosal changes particularly within the maxillary and ethmoid sinuses. Using NASCET criteria, there is no CT evidence for significant stenosis involving either the right or left common, internal, or external ca rotid arteries or vertebral arteries in the neck. There are some atherosclerotic calcified plaques wi thin the internal intracranial carotid arteries, evidence for atherosclerotic arteriovascular disease . IMPRESSION: Diffuse thyroid gland enlargement. Sinus mucosal disease. No evidence for significant stenotic change s involving the right or left common, internal or external carotid arteries or vertebral arteries wit hin the neck. Generalized atherosclerotic arteriovascular disease. POS: [facility]
--- NOTE | 2018-07-28 07:34 | PDOC.EVN ---
Event Note - Event Note Event Note: Ms. Rueda was seen on 07/27/2018 at 13;15 after discussion with Ms. Merlin Mills. She was admitted after suffering a syncopal episode at her physician's office. She says she has never passed out before. She tells me this was not like the previous seizures that she had. She tells me that when she has a seizure she usually will get a tingling in her feet, and she " doesn't pass out". Exam- Lateral Nystagmus, PERRLA Lungs- CTA, no wheezing rales or rhonchi CV- RRR, no murmurs no gallops EXT- no edema NEURO- Right sided weakness, in the upper extremities, and flaccid paresis of the lower extremities A/P Syncope- Possibly related to a TIA- she has a history of previous stroke, and currently has uncontrolled blood pressure- therefore she is at risk. Will Check a CTA- due to concern for posterior symptoms, as well as an MRI, and Echo , and lipid panel Seizure Disorder- I have contacted her previous Neurologist a Dr. Arboleda- and have requested her records. The office there says her last visit with them was in 2014. Hypertensive Urgency- will change her status to inpatient, and add Procardia XL to her regimen
[2018-07-28] MEDS: Lisinopril 20 MG TAB PO SCH (08:33)
[2018-07-28] MEDS: Famotidine/PF 20 mg/2ml Vial SLOW IVP SCH (08:35)
[2018-07-28 08:41] LABS: Cardiac Risk 3.8 (Less than 4.5)
[2018-07-28] MEDS ORDERED: NIFEdipine XL 30 MG TAB PO SCH (09:00)
--- NOTE | 2018-07-28 13:10 | MRI ---
MRI OF BRAIN PERFORMED WITHOUT CONTRAST ENHANCEMENT: Date: 07/28/18 HISTORY: Syncope. Previous CVA with a right-sided deficit. COMPARISON: CT examination dated 07/25/[address] angio of the neck performed 07/27/18. FINDINGS: There is mild ventricular and sulcal prominence. There is increased T2 and FLAIR signal change within the white matter. Changes are consistent with some chronic ischemic white matter change. On the diffusion-weighted sequence, I do not see any signs that would suggest any type of acute infar ct. The mastoid air cells and visualized sinuses are clear. IMPRESSION: 1. Atrophy with chronic white matter change. 2. No acute intracranial abnormalities. POS: [facility]
[2018-07-28 15:58] VITALS: TEMP 97.9
[2018-07-28] MEDS: cefTRIAXone\\ROCEPHIN 2 GM in Sodium Chloride 0.9% 100 ML IVPB SCH (16:29)
[2018-07-28] MEDS: hydrALAZINE 20 MG/ML VIAL SLOW IVP PRN (16:29)
[2018-07-28 16:31] VITALS: BP 186/96
--- NOTE | 2018-07-28 18:00 | PDOC.PN ---
- Subjective Encounter Start Date: 07/28/18 Encounter Start Time: 13:00 Ms. Rueda was seen today in follow-up of syncope. She says she feels a little better today. - Objective MAR Reviewed: Yes Vital Signs & Weight: Vital Signs (12 hours) Temp Pulse Resp BP BP Pulse Ox 07/28/18 16:29 58 L 186/96 H 07/28/18 15:56 97.9 F 58 L 20 176/96 H 99 07/28/18 12:00 98 F 60 20 157/103 H 98 07/28/18 08:35 98.5 F 64 18 176/108 H 176/108 H 98 07/28/18 08:33 176/108 H 07/28/18 08:00 97.8 F 82 20 153/67 H 99 Weight Weight 188 lb 8 oz I&O: 07/27/18 07/28/18 07/29/18 06:59 06:59 06:59 Intake Total 1210 600 Output Total 202 1950 Balance 1008 -1350 Result Diagrams: 07/27/18 04:35 07/27/18 04:35 Phys Exam - Physical Examination HEENT: PERRLA Respiratory: no wheezing, no rales, no rhonchi, clear to auscultation bilateral Cardiovascular: RRR, no significant murmur, no rub Gastrointestinal: soft, non-tender, positive bowel sounds Musculoskeletal: pulses present Dx/Plan (1) Syncope Code(s): R55 - SYNCOPE AND COLLAPSE Status: Acute (2) UTI (urinary tract infection) Status: Acute (3) HTN (hypertension) Code(s): I10 - ESSENTIAL (PRIMARY) HYPERTENSION Status: Chronic (4) Multiple sclerosis Code(s): G35 - MULTIPLE SCLEROSIS Status: Chronic - Plan * Syncope- unclear etiology, but most consistent with a TIA- * MRI and CTA results noted * Records from [place] were reviewed She had an MRI, with findings consistent with MS from 2015, and EEG with no epileptiform activity, but reports of one from 2012 which reported some epileptiform activity * Will add aspirin daily, and a low dose statin * OK for discharge home today.
[2018-07-28] MEDS ORDERED: Famotidine 20 MG TAB PO SCH (21:00)
--- NOTE | 2018-07-29 03:23 | DIS ---
DATE OF ADMISSION: 07/26/2018 DATE OF DISCHARGE: 07/28/2018 DISCHARGE DISPOSITION: Home. PRIMARY DISCHARGE DIAGNOSES: 1. Transient ischemic attack. 2. Hypertensive urgency. 3. Multiple sclerosis. 4. Seizure disorder. 5. History of previous CVA with right-sided weakness. 6. Functional paraplegia. 7. Morbid obesity. DISCHARGE MEDICATIONS: Include aspirin 81 mg daily, lisinopril 20 mg daily, metoprolol succinate 50 mg daily, nifedipine XL 60 mg daily, and Dilantin 100 mg twice a day. PROCEDURES: Procedures done during the admission. The patient had a CT scan of the brain, which was negative for any acute intracranial process. She also had an MRI of the brain, which showed some changes consistent with chronic white matter change but no acute intracranial abnormality. She also had a CT angiogram of the chest, which showed a diffusely enlarged thyroid, but no significant stenosis in the internal or external carotid arteries or the vertebral arteries. She had an echocardiogram showing some diastolic dysfunction and ejection fraction of 55% to 60% and a normal aortic valve. CODE STATUS: Full code. ALLERGIES: NO KNOWN DRUG ALLERGIES. HOSPITAL COURSE: Ms. Rueda is a pleasant 53-year-old female who presented to the emergency room with a complaint of syncope. The full details of which are outlined in the history and physical by Maricarmen Holbrook. The patient was brought in for possible transient ischemic attack as the patient says that this episode was very different from the previous seizure activity despite not having her seizure medicine for the past week. She had a CT angiogram which was negative as well as an MRI of the brain, also negative. It is likely that this represented a TIA as she had quite a bit of dizziness prior to the event and reported no seizure activity. We will be adding a low-dose aspirin as well as a low-dose statin to her regimen and she is to follow up with her primary care physician in 1 to 2 weeks. She also plans to establish a neurologist in the area. She did see a previous neurologist in [place]. Those records were obtained. She had last seen him in 2014 Dr. Tommy Arboleda. At that time, she had an MRI in 2014, which was consistent with multiple sclerosis and also an EEG which did not show any epileptiform activity at that time. However, he mentioned in one of his progress notes that she did have an EEG back in 2012, which was consistent with epileptiform activity and had placed her on seizure medication. Unfortunately, description of the seizures was not in the notes provided. Job ID: [id number]
== END 2018-07-28 17:19 | disposition home or self-care (01) | DRG 69 ==
LOC: ERS 15:11 → 2SE 17:00 → OBSVTOIN 07-27 14:15
PROVIDERS: ADMIT Internal Medicine; ATTEND Internal Medicine
DX: G45.9 Transient cerebral ischemic attack, unspecified (principal); I69.351 Hemiplegia and hemiparesis following cerebral infarction affecting right dominant side; N39.0 Urinary tract infection, site not specified; I16.0 Hypertensive urgency; G35 Multiple sclerosis; G40.909 Epilepsy, unspecified, not intractable, without status epilepticus; F44.4 Conversion disorder with motor symptom or deficit; I10 Essential (primary) hypertension; E86.0 Dehydration; E87.6 Hypokalemia; E66.9 Obesity, unspecified; Z68.33 Body mass index [BMI] 33.0-33.9, adult
CPT/HCPCS: 36415; 51701; 70450; 70498; 70551; 71045; 80053; 80061; 80185; 81001; 81003; 81015; 82550; 83605; 83735; 84443; 84484; 85025; 87086; 93005; 93306; 96361; 96365; 96367; A4353; J0360; J0696; J3475; J3480; J7050; Q9966; S0028

== ENCOUNTER 2019-01-05 13:12 | Emergency (ER) | payer OTHER ==
[2019-01-05] MEDS ORDERED: Bacitracin 1 PK ONE (14:40)
== END 2019-01-05 14:45 | disposition home or self-care (01) ==
LOC: ERS 13:12
DX: L97.421 Non-pressure chronic ulcer of left heel and midfoot limited to breakdown of skin (principal); I10 Essential (primary) hypertension; Z86.73 Personal history of transient ischemic attack (TIA), and cerebral infarction without residual deficits; Z79.82 Long term (current) use of aspirin; Z79.899 Other long term (current) drug therapy
CPT/HCPCS: 99283

== ENCOUNTER 2019-02-21 22:14 | Inpatient (IN) | payer OTHER ==
[2019-02-21] MEDS ORDERED: Lorazepam 2 MG/ML VIAL ONE (22:34)
[2019-02-21] MEDS ORDERED: levETIRAcetam 500 MG/100 ML PREMIX BAG ONE (23:10)
--- NOTE | 2019-02-21 23:11 | CT ---
CT BRAIN NONCONTRAST: DATE: 02/21/2019 10:51 PM HISTORY: 53-year-old female status post seizure. COMPARISON: CT of 07/25/2018 FINDINGS: There is no evidence of acute intra-axial or extra-axial hemorrhage. There is no midline shift or any other mass effect. There is no extra-axial fluid collection. There is no evidence of obstructive hydrocephalus. Calvarium is intact. There is diffuse brain parenchymal volume loss. There are low att enuation areas in the white matter. These are nonspecific, but in a patient of this age, they are probably chronic ischemic white matter changes due to microvascular atherosclerosis. There is an appr oximately 1.5 x 1.5 cm focal hypodense intra-axial lesion in the right occipital lobe, which was not present on the previous CT. Etiology is uncertain. Possibilities include cytotoxic edema of a sub acute or acute infarction, vasogenic edema of a neoplasm or infection, or gliosis from an old infarction which occurred sometime after the previous CT of 07/25/2018 and sometime after the previous MRI of 07/28/2018. IMPRESSION: 1) approximately 1.5 cm low density focal intra-axial lesion in the right occipital lobe, new since p rior CT, of uncertain etiology. MRI of brain with and without contrast tomorrow morning may be useful to determine the etiology of this. 2) involutional changes and moderate to severe chronic ischemic white matter changes.
--- NOTE | 2019-02-21 23:13 | RAD ---
RADIOGRAPH CHEST 1 VIEW: DATE: 02/21/2019 HISTORY: 53-year-old female who is unresponsive. FINDINGS: There is no airspace density, pulmonary edema, or pneumothorax. The lateral costophrenic angles are n ot effaced. IMPRESSION: No acute pulmonary findings.
[2019-02-21] MEDS ORDERED: Rocuronium Bromide 10 MG/ML (10ML VIAL) ONE ×2 (23:18→23:19)
[2019-02-21] MEDS ORDERED: Budesonide 0.5 MG/2 ML NEB ONE (23:18)
[2019-02-21] MEDS ORDERED: PROPOFOL 0 ML ONE (23:23)
[2019-02-21] MEDS ORDERED: Propofol 1,000 MG/100 ML VIAL IV ONE (23:24)
[2019-02-21 23:31] LABS: Band 6 % (5-11); Eosinophils 2 % (0-10); Hemoglobin 13.2 g/dL (12.0-16.0); Lymphocytes 15 % (21-51); MDiff Complete? YES; Mean Corpuscular HGB CONC 33.6 g/dL (32.0-36.0); Mean Corpuscular Volume 98.1 fL (78.0-98.0); Mean Platelet Volume 7.2 fL (7.4-10.4); Monocytes 3 % (0-10); Myelocyte 1 % (0-0); Neutrophil 73 % (42-75); Platelet Count 322 thou/uL (130-400); RBC Distribution Width 12.5 % (11.5-14.5); Red Blood Cell (RBC) Count 3.99 mill/uL (4.20-5.40); White Blood Cell (WBC) Count 24.5 thou/uL (4.8-10.8)
[2019-02-21 23:32] LABS: ALT (SGPT) Less than 7 U/L (8-55); AST (SGOT) 10 U/L (5-34); Albumin 3.7 g/dL (3.5-5.0); Alkaline Phosphatase 100 U/L (40-150); Anion Gap 10 mmol/L (10-20); BUN (Urea Nitrogen) 19 mg/dL (9.8-20.1); Bilirubin, Total 0.9 mg/dL (0.2-1.2); CK (CPK) 32 U/L (29-168); Calc. Creatinine Clearance 0 mL/min (70-130); Calcium 8.8 mg/dL (7.8-10.44); Carbon Dioxide 25 mmol/L (22-29); Chloride 109 mmol/L (98-107); Estimated GFR-MDRD Greater than 90; Globulin 2.8 g/dL (2.4-3.5); Glucose 169 mg/dL (70-105); Potassium 3.4 mmol/L (3.5-5.1); Protein, Total 6.5 g/dL (6.0-8.3); Sodium 141 mmol/L (136-145)
[2019-02-21 23:55] LABS: CKMB 1.3 ng/mL (0-6.6)
--- NOTE | 2019-02-21 23:56 | RAD ---
RADIOGRAPH CHEST 1 VIEW: Supine DATE: 02/21/2019 11:12 PM HISTORY: 53-year-old female with dyspnea, respiratory failure. Status post intubation. COMPARISON: 02/21/2019 at 10:46 PM FINDINGS: There is a new endotracheal tube at mid thoracic trachea. There is a new esophagogastric tube with si de-port at expected region of proximal body of stomach. Previously, there was gaseous distention of the stomach. This is mostly excluded from the current field of view. Diffusely prominent interstitial markings. No gross consolidation. Supine positioning makes this study insensitive for the detection of pneumothorax. IMPRESSION: Status post intubation with endotracheal tube and esophagogastric tube.
[2019-02-22 00:08] LABS: Actual Bicarbonate (HCO3a) 19.8 mEq/L (22-28); Analyzer IN Cardio ER; Base Excess (BEa) -7.3 mEq/L (-2.0 to +3.0); CO2 Tension 45.7 mmHg (35.0-45.0); Calcium, Ionized 1.19 mmol/L (1.12-1.30); Carboxyhemoglobin (COHb) 0.8 gm% (0.0-3.0); Hemoglobin (Hb) 13.3 g/dL (12.0-16.0); O2 Tension (PaO2) 195.3 mmHg (80.0-100.0)
[2019-02-22] MEDS ORDERED: Vancomycin HCl 1.5 GM in Sodium Chloride 0.9% 250 ML 300 ML IVPB SCH (00:15)
[2019-02-22] MEDS ORDERED: Piperacillin/Tazobactam 4.5 GM VIAL ONE (00:24)
[2019-02-22 00:26] LABS: Bacteria/HPF 2+ HPF (None Seen); Bilirubin Negative (Negative); Blood, Urine 3+ (Negative); Clarity Extra Turbid (Clear); Glucose, Urine (Dipstick) 30 mg/dL (Negative); Leukocyte 500 Leu/uL (Negative); Nitrite Negative (Negative); Protein, Urine (Dipstick) 300 mg/dL (Neg-Trace); RBC/HPF Greater than 50 HPF (0-3); Squamous Epithelial 21-50 HPF (0-3); Transitional Epithelial 0-3 HPF (None Seen); WBC/HPF Greater than 50 HPF (0-3)
[2019-02-22 00:28] LABS: Amphetamine Not Detected (NotDetected); Barbiturates Screen Not Detected (NotDetected); Benzodiazepine Screen Detected (NotDetected); Cocaine Metabolite Screen Not Detected (NotDetected); Medtox Control Line Valid? VALID (VALID); Medtox Reader # READER 4; Methadone Not Detected (NotDetected); Methamphetamine Not Detected (NotDetected); Opiate Screen Not Detected (NotDetected); Oxycodone Screen Not Detected (NotDetected); Phencyclidine (PCP) Not Detected (NotDetected); THC/Cannabinoid Screen Not Detected (NotDetected); Tricyclic Screen Not Detected (NotDetected)
[2019-02-22 00:54] LABS: ALV-art Gradient 104.075 (0-20); Puncture Site RRA; pH, Arterial 7.25 (7.35-7.45)
[2019-02-22] MEDS ORDERED: Guaifenesin DM 100-10/5 ML UDCUP PO PRN (02:10)
[2019-02-22] MEDS ORDERED: Lorazepam 2 MG/ML VIAL SLOW IVP PRN ×2 (02:10→02:54)
[2019-02-22] MEDS ORDERED: Dextrose 50% Abboject 50 ML SYRINGE SLOW IVP PRN (02:10)
[2019-02-22] MEDS ORDERED: HumaLOG 300 UNITS/3 ML VIAL SC PRN (02:10)
[2019-02-22] MEDS ORDERED: Dextrose 5% in Water 1,000 ML IV PRN (02:10)
[2019-02-22] MEDS ORDERED: Ondansetron PF 4 MG/2 ML Vial IVP PRN (02:10)
[2019-02-22] MEDS ORDERED: Acetaminophen 650 MG Suppository PR PRN (02:10)
[2019-02-22] MEDS ORDERED: fentaNYL Citrate/PF 2,000 MCG in Sodium Chloride 0.9% 60 ML IV SCH (02:54)
[2019-02-22] MEDS ORDERED: Propofol BOLUS 1,000 MG/100 ML VIAL IV PRN (02:54)
[2019-02-22] MEDS ORDERED: Propofol 1,000 MG/100 ML VIAL IV PRN (02:54)
[2019-02-22] MEDS ORDERED: Fentanyl BOLUS 250 ML IVPB PRN (02:54)
[2019-02-22] MEDS ORDERED: Morphine 2 MG/ML SYRINGE SLOW IVP PRN (02:54)
[2019-02-22] MEDS ORDERED: DISCONTINUE PREVIOUS NARCOTIC PAIN MEDICATIONS AND BENZODIAZEPINES FS SCH (02:54)
[2019-02-22] MEDS: Sodium Chloride 0.9% 1,000 ML IV SCH ×3 (03:00→21:07)
[2019-02-22 05:11] LABS: Anion Gap 24 mmol/L (10-20); BUN (Urea Nitrogen) 19 mg/dL (9.8-20.1); Calc. Creatinine Clearance 0 mL/min (70-130); Carbon Dioxide 10 mmol/L (22-29); Chloride 114 mmol/L (98-107); Estimated GFR-MDRD Greater than 90; Glucose 127 mg/dL (70-105); Potassium 4.6 mmol/L (3.5-5.1); Sodium 143 mmol/L (136-145)
--- NOTE | 2019-02-22 05:14 | HP ---
REASON FOR ADMISSION: Status epilepticus, acute hypoxic respiratory failure due to status epilepticus. HISTORY OF PRESENTING ILLNESS: Please note, majority of this history is obtained by talking to ER physician and patient's 3 daughters at bedside as the patient is intubated at present. Per her daughter, who witnessed an episode of her jerking her right upper extremity and had facial twitching at home, she was actually helping her grand kid to do homework. The patient was not seen moving the other extremities. During this episode, the patient was short of breath and was not responding. EMS was soon summoned and the patient was brought here. On arrival, patient continued to have facial and eye twitching. She was not responding to verbal stimuli and she also developed airway compromise and had to be intubated. En route, the patient received 2 mg Ativan. The patient was placed on propofol and was loaded up on Keppra. The patient did not complain of any fever, cough, or expectoration. No complaints of urinary symptoms at home. She is essentially bed and wheelchair- bound due to multiple sclerosis. She does not move both lower extremities. Her children are at bedside. PAST MEDICAL AND SURGICAL HISTORY: History of seizure disorder, history of multiple sclerosis and is wheelchair bound, prior history of stroke with right-sided weakness, hypertension, and x5. CURRENT MEDICATIONS: The patient is on; 1. Copaxone shots. 2. Aspirin 81 mg daily. 3. Lisinopril 20 mg twice daily. 4. Toprol-XL 50 mg daily. 5. Procardia XL 30 mg daily. 6. Dilantin 100 mg twice daily. ALLERGIES: NO KNOWN DRUG ALLERGIES. PERSONAL HISTORY: Does not abuse alcohol or drugs. No history of smoking. She lives with her children. FAMILY HISTORY: Mother of some sort of cancer in her 60s. Patient's children does not know much about their grandfather. CODE STATUS: Full. This was discussed with 3 of her daughters at bedside. Power of assistant city attorney is all 5 children. REVIEW OF SYSTEMS: Cannot be obtained as the patient is currently intubated and is not oriented. PHYSICAL EXAMINATION: GENERAL: The patient is a 53-year-old female, who is currently intubated and is on ventilator. VITAL SIGNS: Blood pressure 160/90, pulse 88 per minute, respiratory rate 18 per minute, temperature 99.2 degrees Fahrenheit on arrival, saturating 99% on ventilator. NECK: Supple. No elevated JVD. HEENT: Eyes; pupils are at 3 mm and sluggishly reacting to light. Oral cavity, mucous membranes are dry. The patient is orally intubated. CARDIOVASCULAR SYSTEM: S1-S2 heard. Regular rhythm. RESPIRATORY SYSTEM: Air entry 1+ bilateral. Scattered rhonchi plus bilateral, no rales or wheezes. ABDOMEN: Soft. Bowel sounds heard. No tenderness, rigidity, or guarding. EXTREMITIES: Patient has chronic nonpitting edema in both lower extremities. Peripheral pulses are 1+ bilateral. No ischemic ulcerations or gangrene. CENTRAL NERVOUS SYSTEM: The patient appears to have paraplegia from history of MS, history of CVA with right-sided weakness. Currently, both her lower extremities are flaccid. She is seen moving her left upper extremity. No gross focal neurologic signs at present. PSYCHIATRIC SYSTEM: Cannot be assessed as patient is intubated and is sedated on propofol. LABORATORY DATA: White count of 24, H and H 13 and 39, platelet count 322, MCV is 98 with 73% neutrophils, 6% bands. Blood gas done shows a pH 7.25, pCO2 of 45, PO2 of 195, potassium 3.4, serum bicarb 25, BUN 19, creatinine 0.6, serum glucose 169. Liver enzymes within normal limits. Troponin I 0.10, CK-MB 1.3, albumin is 3.7, prolactin is 17.8. UA shows 3+ blood, trace ketones, negative nitrite, positive leukocyte esterase with 2+ bacteria. Urine drug screen is positive for benzodiazepines. Phenytoin was less than 1.8. CT brain done shows 1.5 cm low-density focal intra-axial lesion in the right occipital lobe which is new when compared to prior CAT scan. There are involutional changes and moderate-to- severe chronic ischemic white matter changes seen. EKG done shows sinus tach at 156 beats per minute without signs of LVH. QRS duration is 92 milliseconds, corrected QT is 502 milliseconds. Chest x-ray done shows ET tube to be in place. No obvious infiltrate was seen. CLINICAL IMPRESSION AND PLAN: The patient will be admitted to Critical Care for status epilepticus, acute respiratory failure with hypoxia secondary to status epilepticus, on ventilator at present. The patient is on propofol and fentanyl for sedation. Blood and urine cultures have been obtained in the ER. She will be empirically placed on vanc and Zosyn. Gentle hydration with normal saline at 100 mL/h. We will continue her Keppra at 500 mg twice daily and also continue home dose of phenytoin 100 mg twice daily. Neurology consultation with Dr. Silvana Aleman and Pulmonology consultation of Dr. Cruz will be requested. I have discussed her code status with 3 daughters at bedside. They all want her to be full code. They are clearly aware of patient's poor functional status with likely progressive multiple sclerosis with the patient being wheelchair dependent. MRI with and without contrast for abnormal findings seen on the CT brain and patient having focal seizure involving right upper extremity and right half of her face. We will continue her Lopressor as before. The patient will be closely monitored in ICU. Job ID: [id number] [facility]
[2019-02-22] MEDS: Piperacillin/Tazobactam 3.375 GM in Sodium Chloride 0.9% 100 ML IVPB SCH ×3 (05:47→22:34)
[2019-02-22 07:36] LABS: Actual Bicarbonate (HCO3a) 11.9 mEq/L (22-28); Base Excess (BEa) -8.3 mEq/L (-2.0 to +3.0); Calcium, Ionized 1.14 mmol/L (1.12-1.30); Carboxyhemoglobin (COHb) 1.1 gm% (0.0-3.0); Hemoglobin (Hb) 13.3 g/dL (12.0-16.0); O2 Tension (PaO2) 215.3 mmHg (80.0-100.0); Potassium - ABG Lab 3.08 mmol/L (3.70-5.30)
[2019-02-22 07:44] LABS: CO2 Tension 15.6 mmHg (35.0-45.0)
[2019-02-22 07:45] LABS: Puncture Site LRA
[2019-02-22] MEDS: Metoprolol Tartrate 25 MG TAB PO SCH ×2 (07:51→22:34)
[2019-02-22 08:52] LABS: #Lymphocytes 1.5 thou/uL (1.20-3.40); #Monocytes 1.4 thou/uL (0.11-0.59); #Neutrophils 19.6 thou/uL (1.40-6.50); %Eosinophils 0.1 % (0.0-10.0); %Lymphocytes 6.5 % (21.0-51.0); %Monocytes 6.1 % (0.0-10.0); %Neutrophils 87.3 % (42.0-75.0); Hemoglobin 13.6 g/dL (12.0-16.0); Mean Corpuscular HGB CONC 34.1 g/dL (32.0-36.0); Mean Corpuscular Hemoglobin 32.6 pg (27.0-31.0); Mean Corpuscular Volume 95.4 fL (78.0-98.0); Mean Platelet Volume 7.7 fL (7.4-10.4); Platelet Count 249 thou/uL (130-400); RBC Distribution Width 12.6 % (11.5-14.5); Red Blood Cell (RBC) Count 4.17 mill/uL (4.20-5.40); White Blood Cell (WBC) Count 22.4 thou/uL (4.8-10.8)
[2019-02-22] MEDS: Famotidine/PF 20 mg/2ml Vial SLOW IVP SCH ×2 (09:16→22:34)
[2019-02-22] MEDS: Enoxaparin Sodium 40 MG/0.4 ML SYRINGE SC SCH (09:16)
--- NOTE | 2019-02-22 11:33 | MRI ---
MRI BRAIN WITH AND WITHOUT CONTRAST: DATE: 02/22/2019 HISTORY: 53-year-old female status post seizure TECHNIQUE: Multiplanar, multisequence MRI of the brain obtained pre and post IV injection of gadolinium based co ntrast agent. FINDINGS: There is no obstructive hydrocephalus. There is no midline shift or any other evidence of mass effect . There is no extra-axial fluid collection. There are extensive, confluent T2-hyperintensities throughout the cerebral white matter consistent with severe chronic ischemic white matter changes due to microvascular atherosclerosis. Some of this is confluent with a large number of old lacunar infarctions of the deep cerebral white matter and periventricular white matter. Tiny old lacunar infa rctions are fewer in number involving basal ganglia. There is also abnormal signal peripherally at the left middle cerebral peduncle, periaqueductal paez, left anterior edge of clifford, and multifocal sm all lesions around the fourth ventricle. The above findings are unusual for age 53 years. Possibility of CADASIL (although involvement of classical locations including external capsules, upon the anterior temporal poles, and paramedian frontal regions, is less than severe). There is diffuse brain parenchymal volume loss. There is no evidence of recent hemorrhage, abnormal enhancemen t, or restricted diffusion. In the right occipital lobe, there is an intra-axial 2.2 x 1.6 x 1.8 cm well-circumscribed mass which is T2 hyperintense and T1 hypointense. It has intermediate signal inten sity on FLAIR, and does not enhance. No restricted diffusion or hemorrhagic products. It is of uncertain etiology and is also highly unusual for any common entity. It may represent a cystic lesion with proteinaceous contents (but no enhancing components). Possibilities of dysembryoplastic neuroepithelial tumor (DNET), neurocysticercosis, and ganglioglioma, but the appearances not typical for any of them. It was not present on prior brain MRI of 07/28/2018. IMPRESSION: 1) Involutional changes and severe chronic ischemic white matter changes, much greater than typical f or this age group. 2) a large number of old lacunar infarctions of the deep cerebral white matter, and a few in the deep paez nuclei and posterior fossa. 3) possible etiologies for items #1 and #2 include CADASIL, ALEX (subcortical arteriosclerotic encepha lopathy), primary angiitis of FOREST RANGER, and various hypercoagulable states. 4) in addition, some lesions, including multifocal lesions in the posterior fossa surrounding the fou rth ventricle, and involvement of anterior peripheral edge of left cerebral peduncle and adjacent left anterior clifford, are highly unusual for any entity, and exact etiology is uncertain. 5) complex right occipital approximately 2 cm mass, highly unusual for any entity and of uncertain et iology.
[2019-02-22] MEDS ORDERED: Gadobenate Dimeglumine 529 MG/1 ML (20ML VIAL) ONE (12:52)
[2019-02-22] MEDS: Vancomycin HCl 1 GM in Premix Bag 1 BAG IVPB SCH (13:13)
--- NOTE | 2019-02-22 15:02 | CON ---
DATE OF TELEMEDICINE CONSULTATION: 02/22/2019 Nurse accompanying me is Cait. CHIEF COMPLAINT: Seizures. HISTORY OF PRESENT ILLNESS: The patient is a 53-year-old lady. History is mostly obtained from her young daughters. They stated that the [place] about 2 years ago and started living in [place]. The patient has not established care with a neurologist here. The patient has history of chronic multiple sclerosis as well as seizure disorder. She ran out of her phenytoin extended release, which is what she has been using for seizures for a number of years. She was sitting and talking, started to have twitching of the face and passed out, became unresponsive, and 911 was called. By the time 911 reached there, she remained unresponsive, and she was intubated and given propofol. The patient was also given Keppra. She did not have any fever, cough, or any urinary symptoms recently. She is mainly wheelchair bound due to multiple sclerosis. She was brought here by her children. PREVIOUS MEDICAL HISTORY: Seizure disorder, multiple sclerosis, she is wheelchair bound, history of stroke with right-sided weakness, hypertension, and 5 C- sections. MEDICATIONS: 1. Aspirin. 2. Lisinopril. 3. Toprol. 4. Procardia. 5. She ran out of Copaxone and Dilantin per her kids. ALLERGIES: NO KNOWN DRUG ALLERGIES. SOCIAL HISTORY: She does not drink alcohol. No drug use. Lives with her children. She does not smoke. FAMILY HISTORY: Mother of cancer in her 60s. Father's medical history is not known. The children stated she has 4 girls and a boy, all are healthy, but one daughter who is 24 years old has seizures. The patient's oldest brother in his 50s from a myocardial infarction. Sister in her 30s of diabetes. REVIEW OF SYSTEMS: Unobtainable. LABORATORY DATA: Current lab workup: White count 22.4, hemoglobin 13.6, hematocrit 39.8, platelet count 249. Chemistry; sodium 143, potassium 4.6, chloride 114, bicarb 10, BUN 19, creatinine 0.67, glucose 127. Prolactin level 17.81. Her MRI report was just completed at the time of this dictation. The patient's MRI showed end-stage multiple sclerosis and 2-cm right occipital intra-axial mass, which could be a large demyelinating plaque, and she has chronic white matter ischemic changes more than typical for this group and large old lacunar infarcts, 2 in the deep paez matter nuclei and posterior fossa, and she also has multiple lesions in the posterior fossa surrounding the fourth ventricle and complex right occipital 2- cm mass. PHYSICAL EXAMINATION: VITAL SIGNS: Blood pressure 134/105, pulse is 88, respiratory rate 16. She is on the vent. CHEST: Clear vesicular breathing. CARDIOVASCULAR: S1 and S2 heard. No murmurs. ABDOMEN: Soft. NEUROLOGIC: She is unresponsive to any stimuli. She does react on the left side and tries to move a little to deep painful stimuli. Cranial nerves; pupils 2 mm on the right, 1 mm on the left, reactive. Deep tendon reflexes are absent on motor exam. IMPRESSION: The patient is a 53-year-old woman, who has longstanding multiple sclerosis by history. In addition, she also has seizure disorder. She has family history of seizure disorder in her daughter. She was sitting with her family and started to have twitching of the face and became short of breath and unresponsive, and 911 was called. No tonic-clonic activity was reported in the extremities. Based on the presentation, it is assumed she has a seizure, and she has been started on Keppra. At this time, she remains unresponsive. RECOMMENDATIONS: This patient likely has very advanced chronic multiple sclerosis based on her MRI scans. Sometimes, the patient has tumefactive lesions on MRI for multiple sclerosis. Please continue Keppra 500 mg b.i.d. for seizure prophylaxis. We do not see any anoxic injury based on MRI. I will continue to monitor clinically. I will follow up again tomorrow. Job ID: [id number] [facility]
--- NOTE | 2019-02-22 17:11 | PDOC.HOSPP ---
- Subjective Subjective: Patient was examined contemporaneously with Neuro. She is non-verbal. Daughters present in the room with her. - Objective Vital Signs & Weight: Vital Signs (12 hours) Temp Pulse Resp Pulse Ox 02/22/19 15:23 85 02/22/19 15:00 98.2 F 02/22/19 14:00 16 02/22/19 12:58 88 02/22/19 12:00 16 02/22/19 11:00 97.9 F 02/22/19 10:55 85 02/22/19 10:00 16 02/22/19 08:00 16 97 02/22/19 07:24 115 H 02/22/19 07:00 98.1 F 02/22/19 06:00 24 H Weight Admit Weight 170 lb Weight 170 lb 3.15 oz Most Recent Monitor Data Heart Rate from ECG 87 NIBP 154/120 NIBP BP-Mean 131 Respiration from ECG 16 SpO2 100 I&O: 02/21/19 02/22/19 02/23/19 06:59 06:59 06:59 Intake Total 0 532 Output Total 135 240 Balance -135 292 Result Diagrams: 02/22/19 08:47 02/22/19 04:41 Additional Labs: Accuchecks 02/22/19 02/22/19 02/21/19 15:32 11:14 22:39 POC Glucose 136 H 131 H 171 H Hospitalist ROS - Medication Medications: Active Medications Generic Name Dose Route Start Last Admin Trade Name Freq PRN Reason Stop Dose Admin Enoxaparin Sodium 40 mg 02/22/19 09:00 02/22/19 09:16 Lovenox SC 40 mg 0900 SONIA Administration Famotidine 20 mg 02/22/19 09:00 02/22/19 09:16 Pepcid SLOW IVP 20 mg Q12HR SONIA Administration Levetiracetam 500 mg/ Device 100 mls @ 200 mls/hr 02/22/19 09:00 02/22/19 09: 17 IVPB 100 mls BID SONIA Administration Sodium Chloride 1,000 mls @ 100 mls/hr 02/22/19 02:15 02/22/19 09:17 Normal Saline 0.9% IV 1,000 mls .Q10H SONIA Administration Piperacillin Sod/Tazobactam 100 mls @ 200 mls/hr 02/22/19 06:00 02/22/19 14: 02 Sod 3.375 gm/ Sodium Chloride IVPB 100 mls Q8HR SONIA Administration Vancomycin HCl 1 gm/ Device 200 mls @ 200 mls/hr 02/22/19 13:00 02/22/19 13: 13 IVPB 200 mls 0100,1300 SONIA Administration Lorazepam 2 mg 02/22/19 02:54 02/22/19 05:47 Ativan SLOW IVP 03/24/19 02:54 2 mg Q1H PRN Administration Breakthrough agitation Metoprolol Tartrate 25 mg 02/22/19 09:00 02/22/19 07:51 Lopressor PO 25 mg BID SONIA Administration Phenytoin Sodium 100 mg 02/22/19 09:00 02/22/19 09:17 Dilantin PER TUBE 100 mg BID SONIA Administration - Exam General Appearance: NAD General - other findings: Sedated, intubated Neck: supple Heart: RRR, no murmur, no gallops, no rubs, normal peripheral pulses Respiratory: CTAB, no wheezes, no rales, no ronchi, normal chest expansion, no tachypnea, normal percussion Gastrointestinal: soft, non-distended, normal bowel sounds, no palpable masses Extremities: no cyanosis, no clubbing, no edema Extremeties - other findings: atropy of LE's Skin: normal turgor Hosp A/P (1) Status epilepticus Code(s): G40.901 - EPILEPSY, UNSP, NOT INTRACTABLE, WITH STATUS EPILEPTICUS Status: Acute (2) Brain lesion Code(s): G93.9 - DISORDER OF BRAIN, UNSPECIFIED Status: Acute (3) H/O: CVA (cerebrovascular accident) Code(s): Z86.73 - PRSNL HX OF TIA (TIA), AND CEREB INFRC W/O RESID DEFICITS Status: Chronic (4) HTN (hypertension) Code(s): I10 - ESSENTIAL (PRIMARY) HYPERTENSION Status: Chronic (5) Multiple sclerosis Code(s): G35 - MULTIPLE SCLEROSIS Status: Chronic (6) Cardiomyopathy Code(s): I42.9 - CARDIOMYOPATHY, UNSPECIFIED Status: Acute - Plan She is not currently on any sedation. Still she is not responding to external stimuli. She has no physical evidence on on-going seizures or status epilepticus. On Keppra. Long discussion with the patient's daughters. Explained the concern for brain injury for the MS, the seizure and the new lesion. Also discussed the preliminary concern for a substantially reduced ejection fraction based on comparison with the echo from July. Overall, prognosis is very poor. Empirically on abx. No specific signs of infection. WBC up. Continue supportive care. Discussed her MRI with Dr. Winston, Radiologist. After learning of the patient's history of MS, he felt the lesion in the occipital lobe was a manifestation of end-stage MS.
[2019-02-23] MEDS: Vancomycin HCl 1 GM in Premix Bag 1 BAG IVPB SCH ×3 (01:24→13:37)
--- NOTE | 2019-02-23 02:12 | CON ---
DATE OF CONSULTATION: HISTORY OF PRESENT ILLNESS: Mohit is a 53-year-old female with advanced multiple sclerosis. She has also this admission been diagnosed with a new cardiomyopathy. Apparently, she presented with episodes suggestive of seizures by history followed by obtundation. EMS was summoned, which led to transfer and then intubation since she was unresponsive. PAST MEDICAL HISTORY: 1. Remarkable for history of stroke with right-sided weakness. 2. Hypertension. 3. History of multiple C-sections. 4. History of seizure disorder. 5. History of MS. SOCIAL HISTORY: Nonsmoker, nondrinker, nondrug user. ALLERGIES: SHE HAS NO DRUG ALLERGIES. FAMILY HISTORY: Positive for cancer. REVIEW OF SYSTEMS: Not obtainable. OBJECTIVE: VITAL SIGNS: Heart rate 91, respiratory rate 16, blood pressure 155/119. HEENT: Pupils reactive. Sclerae anicteric. NECK: Supple. LUNGS: Clear. HEART: Regular rhythm. S1, S2 normal. Has grade 2/6 systolic murmur. ABDOMEN: Soft and nontender. EXTREMITIES: Without clubbing, cyanosis, or edema. DIAGNOSTIC STUDIES: Echocardiogram shows an ejection fraction of 10% to 15%, [id number] mitral regurgitation seen. Chest x-ray shows pulmonary edema and pleural effusions, and pulmonary edema is mild. IMPRESSION: 1. Respiratory failure. 2. Newly diagnosed cardiomyopathy. 3. Multiple sclerosis. 4. Seizures leading to this admission. 5. MRI showing severe white matter disease suggestive of late stage MS, as well as multiple MS plaques and a 2 cm occipital mass that was felt to possibly be a large demyelinating plaque. 6. Be happy to follow with the other physicians caring for but her prognosis, I would think would be quite guarded. TIME SPENT: This is a 70-minute consult, 50% of the time was spent on the unit coordinating care,We are not having any difficulty ventilating her. Hopefully, at some point, we can consider weaning her. We will decrease her ventilatory rate. Job ID: [id number] [facility]
[2019-02-23] MEDS: Piperacillin/Tazobactam 3.375 GM in Sodium Chloride 0.9% 100 ML IVPB SCH ×3 (05:46→22:13)
[2019-02-23] MEDS: Sodium Chloride 0.9% 1,000 ML IV SCH (05:47)
[2019-02-23 07:29] LABS: Actual Bicarbonate (HCO3a) 14.1 mEq/L (22-28); Base Excess (BEa) -6.9 mEq/L (-2.0 to +3.0); Carboxyhemoglobin (COHb) 0.9 gm% (0.0-3.0); Hemoglobin (Hb) 12.4 g/dL (12.0-16.0); O2 Tension (PaO2) 112.9 mmHg (80.0-100.0); Potassium - ABG Lab 2.68 mmol/L (3.70-5.30); pH, Arterial 7.49 (7.35-7.45)
[2019-02-23 07:30] LABS: CO2 Tension 18.8 mmHg (35.0-45.0)
[2019-02-23 07:31] LABS: Puncture Site RRA
[2019-02-23] MEDS: Famotidine/PF 20 mg/2ml Vial SLOW IVP SCH ×2 (09:27→21:08)
[2019-02-23] MEDS: Enoxaparin Sodium 40 MG/0.4 ML SYRINGE SC SCH (09:27)
[2019-02-23] MEDS: Metoprolol Tartrate 25 MG TAB PO SCH (09:29)
--- NOTE | 2019-02-23 10:10 | PDOC.HOSPP ---
- Subjective Encounter Date: 02/23/19 Encounter Time: 10:03 Subjective: 53 y/o obese female with chronic debilitation from MS and prior CVA with residual right sided weakness, seizure admitted with status epilepticus associated with airway compromised necessitating intubation. Patient has been off sedation since 02/22/2019 morning but she is not waking up. - Objective Vital Signs & Weight: Vital Signs (12 hours) Temp Pulse Resp BP 02/23/19 07:18 87 149/108 H 02/23/19 06:00 16 02/23/19 05:00 100.3 F H 02/23/19 04:00 16 02/23/19 03:15 87 02/23/19 02:00 16 02/23/19 00:00 16 02/22/19 23:00 99.0 F 02/22/19 22:17 92 Weight Admit Weight 170 lb Weight 168 lb 3.403 oz Most Recent Monitor Data Heart Rate from ECG 83 NIBP 153/113 NIBP BP-Mean 126 Respiration from ECG 18 SpO2 100 I&O: 02/22/19 02/23/19 02/24/19 06:59 06:59 06:59 Intake Total 0 3472 Output Total 135 750 Balance -135 2722 Result Diagrams: 02/22/19 08:47 02/22/19 04:41 Additional Labs: Accuchecks 02/23/19 02/22/19 02/22/19 05:36 21:53 15:32 POC Glucose 90 90 136 H 02/22/19 11:14 POC Glucose 131 H Hospitalist ROS - Medication Medications: Active Medications Generic Name Dose Route Start Last Admin Trade Name Ilya PRN Reason Stop Dose Admin Enoxaparin Sodium 40 mg 02/22/19 09:00 02/23/19 09:27 Lovenox SC 40 mg 0900 SONIA Administration Famotidine 20 mg 02/22/19 09:00 02/23/19 09:27 Pepcid SLOW IVP 20 mg Q12HR SONIA Administration Levetiracetam 500 mg/ Device 100 mls @ 200 mls/hr 02/22/19 09:00 02/23/19 09: 28 IVPB 100 mls BID SONIA Administration Sodium Chloride 1,000 mls @ 100 mls/hr 02/22/19 02:15 02/23/19 05:47 Normal Saline 0.9% IV 1,000 mls .Q10H SONIA Administration Piperacillin Sod/Tazobactam 100 mls @ 200 mls/hr 02/22/19 06:00 02/23/19 05: 46 Sod 3.375 gm/ Sodium Chloride IVPB 100 mls Q8HR SONIA Administration Vancomycin HCl 1 gm/ Device 200 mls @ 200 mls/hr 02/22/19 13:00 02/23/19 01: 24 IVPB 200 mls 0100,1300 SONIA Administration Lorazepam 2 mg 02/22/19 02:54 02/22/19 05:47 Ativan SLOW IVP 03/24/19 02:54 2 mg Q1H PRN Administration Breakthrough agitation Metoprolol Tartrate 25 mg 02/22/19 09:00 02/23/19 09:29 Lopressor PO 25 mg BID SONIA Administration Phenytoin Sodium 100 mg 02/22/19 09:00 02/23/19 09:30 Dilantin PER TUBE 100 mg BID SONIA Administration - Exam General - other findings: unresponsive. Eye: PERRL, anicteric sclera ENT: normocephalic atraumatic, moist mucosa ENT - other findings: ET tube in place Heart: RRR, no murmur Respiratory - other findings: ventilator transmitted breath sound heard in all lung zones Gastrointestinal: soft, non-distended, normal bowel sounds Gastrointestinal - other findings: obese Extremeties - other findings: mild to moderate bilateral leg edema L>R Neurological - other findings: Opens eye and moves R hand to stimulation. Psychiatric: somnolent Hosp A/P (1) Status epilepticus Code(s): G40.901 - EPILEPSY, UNSP, NOT INTRACTABLE, WITH STATUS EPILEPTICUS Status: Acute (2) Acute respiratory failure Code(s): J96.00 - ACUTE RESPIRATORY FAILURE, UNSP W HYPOXIA OR HYPERCAPNIA Status: Acute (3) Anoxic encephalopathy Status: Acute (4) Hemiparesis affecting right side as late effect of cerebrovascular accident Code(s): I69.351 - HEMIPLGA FOLLOWING CEREBRAL INFRC AFF RIGHT DOMINANT SIDE Status: Acute (5) Elevated troponin Code(s): R74.8 - ABNORMAL LEVELS OF OTHER SERUM ENZYMES Status: Acute (6) Pleural effusion Code(s): J90 - PLEURAL EFFUSION, NOT ELSEWHERE CLASSIFIED Status: Acute (7) Cardiomyopathy Code(s): I42.9 - CARDIOMYOPATHY, UNSPECIFIED Status: Acute (8) HTN (hypertension) Code(s): I10 - ESSENTIAL (PRIMARY) HYPERTENSION Status: Chronic (9) Multiple sclerosis Code(s): G35 - MULTIPLE SCLEROSIS Status: Chronic (10) Seizure disorder Code(s): G40.909 - EPILEPSY, UNSP, NOT INTRACTABLE, WITHOUT STATUS EPILEPTICUS Status: Chronic (11) Positive blood culture Code(s): R78.81 - BACTEREMIA Status: Acute (12) Metabolic acidosis Code(s): E87.2 - ACIDOSIS Status: Acute - Plan Continue antiepileptics. Add amlodipine to metoprolol to get adequate BP. Start bicarb infusion. Get repeat Blood culture. Get lactic acid and coag profile. Monitor vitals and urine output. patient remained critically ill with guarded prognosis. Discussed anoxic brain injury with 4 daughters at bedside as well as with Neurologist.
[2019-02-23] MEDS ORDERED: Amlodipine 5 MG TAB PO SCH (10:30)
[2019-02-23] MEDS ORDERED: Sodium Bicarbonate 150 MEQ in Dextrose 5% in Water 1,000 ML IV SCH (10:30)
[2019-02-23] MEDS ORDERED: niCARdipine 25 MG in Sodium Chloride 0.9% 250 ML 250 ML IVPB SCH (11:30)
--- NOTE | 2019-02-23 12:20 | PRG ---
DATE OF SERVICE: 02/23/2019 SUBJECTIVE: Ms. Rueda continues with mechanical ventilation. OBJECTIVE: VITAL SIGNS: Blood pressure is 149/112, heart rate 79, and respiratory rates in the teens. LUNGS: Clear anteriorly. HEART: Regular rhythm. ABDOMEN: Soft. EXTREMITIES: Without asymmetry or edema. LABORATORY DATA: White count 22, hemoglobin 13.6, platelets 249. Sodium 143, potassium 4.6, chloride 114, bicarb 10, BUN 19, creatinine 0.67. Blood gas; pH 7.49, CO2 of 18, and pO2 of 112. IMPRESSION: 1. Respiratory failure. 2. ? Seizure. 3. Advanced multiple sclerosis. 4. Newly diagnosed cardiomyopathy. 5. Hypertension, poorly controlled. The dose of Cardene may be helpful. We will continue with current critical care. She is currently not weanable. Critical care time 30 minutes Job ID: [id number] [facility]
[2019-02-23 13:15] LABS: INR-International Normal Ratio 1.3; Prothrombin Time 15.9 SEC (12.0-14.7)
[2019-02-23 13:27] LABS: Vancomycin, Trough 20.3 ug/mL
[2019-02-23] MEDS ORDERED: Amlodipine 5 MG TAB PER TUBE SCH (14:30)
--- NOTE | 2019-02-23 15:05 | PRG ---
DATE OF TELEMEDICINE SERVICE: 02/23/2019 CHIEF COMPLAINT: Seizures and altered mental status. INTERVAL HISTORY: The patient has not been able to response since yesterday and she is off sedation. She currently has a diagnosis of cardiomyopathy, not known if this is acute or chronic. Her EF is 10% to 15%. She has been noncompliant with her medications and management of her health. She is currently off sedation. She was in status at least for 30+ minutes. She moved a little bit this a.m. without any gaze deviation. The suspicion at this time is whether she has anoxic brain injury. I had a conversation with Dr. Kauffman about this patient. CURRENT WORKUP: Labs; white count 22.4, hemoglobin 13.6, hematocrit 39.8, and platelet count 249, and chemistry; sodium 143, potassium 4.6, chloride 114, bicarb 10, BUN 19, creatinine 0.67, glucose 127. TSH 0.217, and her MRI official report was reviewed, and she has multiple lesions secondary to her MS and also has a tumefactive occipital mass lesion, and her echocardiogram report was also reviewed. EF is 15%. EEG Pending. PHYSICAL EXAMINATION: VITAL SIGNS: Blood pressure 149/112, pulse is 79. She is afebrile and she is on the vent. Respiratory rate around 16. NEUROLOGICAL: Pupils 2 mm reactive to light. She has withdrawal to pain on the right foot, but not in her upper extremities or left lower extremity. IMPRESSION: The patient is a 53-year-old woman with chronic multiple sclerosis and seizures. She has not been very compliant with her medications, therefore, ended up having being in status epilepticus and has significant number of plaques including an occipital tumefactive lesion. Her diagnosis of underlying anoxic encephalopathy is not established based on the MRI scan as of now. She might develop more changes. Therefore, we can give family some further feedback. I spoke to her four young daughters and explained to them that we need to see if she had anoxic injury. RECOMMENDATIONS: We can obtain CT scan early in the morning to understand the etiology of her unresponsiveness. For now, continue supportive measures. Prognosis is guarded at this time. Job ID: [id number] MTDD
[2019-02-23] MEDS: Carvedilol 6.25 MG TAB PO SCH (17:24)
[2019-02-23] MEDS: Enalaprilat Dihydrate 1.25 MG/ML VIAL SLOW IVP SCH ×2 (17:33→23:53)
[2019-02-23] MEDS ORDERED: Enalaprilat Dihydrate 1.25 MG in Dextrose 5% in Water 50 ML IVPB SCH (18:00)
[2019-02-23] MEDS ORDERED: Enalaprilat Dihydrate 2.5 MG in Dextrose 5% in Water 50 ML IVPB SCH (18:00)
--- NOTE | 2019-02-23 21:04 | CON ---
DATE OF CONSULTATION: TIME SPENT: 30 minutes. HISTORY OF PRESENT ILLNESS: The patient is an unfortunate 53-year-old woman, with severe multiple sclerosis, who presented with altered mental status and noted to have an abnormal echocardiogram. The patient apparently has no known cardiac history. She is intubated and sedated. The patient has advanced multiple sclerosis and suffered a cerebrovascular accident. PAST MEDICAL HISTORY: 1. Multiple sclerosis. 2. CVA. 3. Hypertension. 4. Seizure disorder. PAST SURGICAL HISTORY: ALLERGIES: NO KNOWN DRUG ALLERGIES. MEDICATIONS: See nursing list. PHYSICAL EXAMINATION: GENERAL: Obtunded woman in no acute distress. VITAL SIGNS: Blood pressure was 155/99. NECK: Full. LUNGS: Clear to auscultation. HEART: Regular rate and rhythm. Normal S1, S2. 1/6 systolic murmur. ABDOMEN: Nondistended. EXTREMITIES: Show no edema. LABORATORY RESULTS: Her sodium 143, potassium 4.6, chloride 114, bicarbonate 10 , BUN 19, creatinine 0.67, glucose 127. White blood cell count 22.4, hemoglobin 13.6, hematocrit 39.8, platelet 249. Her EKG revealed her initially to have sinus tachycardia with possible previous anteroseptal infarct. Nonspecific ST abnormality. Echocardiogram revealed severe decreased left ventricular ejection fraction of 10% to 15% with [id number] mitral regurgitation. IMPRESSION: 1. Severe cardiomyopathy. 2. Multiple sclerosis. 3. History of cerebrovascular accident. 4. Seizure disorder. This unfortunate woman has a severe cardiomyopathy. At this time, we will treat her with TIM inhibitor therapy. We will also switch Lopressor to Coreg for treatment of cardiomyopathy. We will follow this patient with you through her hospitalization. Job ID: [id number] [facility]
[2019-02-24] MEDS ORDERED: Vancomycin HCl 750 MG in Sodium Chloride 0.9% 250 ML 250 ML IVPB SCH (01:00)
[2019-02-24 05:36] LABS: #Lymphocytes 1.8 thou/uL (1.20-3.40); #Monocytes 0.9 thou/uL (0.11-0.59); #Neutrophils 10.9 thou/uL (1.40-6.50); %Basophils 0.1 % (0.0-1.0); %Eosinophils 0.3 % (0.0-10.0); %Lymphocytes 12.9 % (21.0-51.0); %Monocytes 6.7 % (0.0-10.0); Hemoglobin 11.8 g/dL (12.0-16.0); Mean Corpuscular HGB CONC 33.8 g/dL (32.0-36.0); Mean Corpuscular Hemoglobin 31.6 pg (27.0-31.0); Mean Corpuscular Volume 93.3 fL (78.0-98.0); Mean Platelet Volume 7.8 fL (7.4-10.4); Platelet Count 176 thou/uL (130-400); RBC Distribution Width 12.8 % (11.5-14.5); Red Blood Cell (RBC) Count 3.75 mill/uL (4.20-5.40); White Blood Cell (WBC) Count 13.6 thou/uL (4.8-10.8)
[2019-02-24] MEDS: Enalaprilat Dihydrate 1.25 MG/ML VIAL SLOW IVP SCH ×4 (05:46→23:47)
[2019-02-24] MEDS: Piperacillin/Tazobactam 3.375 GM in Sodium Chloride 0.9% 100 ML IVPB SCH ×3 (05:46→21:20)
[2019-02-24 06:05] LABS: ALT (SGPT) 12 U/L (8-55); AST (SGOT) 17 U/L (5-34); Albumin 3.2 g/dL (3.5-5.0); Alkaline Phosphatase 75 U/L (40-150); Anion Gap 11 mmol/L (10-20); BUN (Urea Nitrogen) 12 mg/dL (9.8-20.1); Bilirubin, Total 1.3 mg/dL (0.2-1.2); Calc. Creatinine Clearance 126 mL/min (70-130); Calcium 8.4 mg/dL (7.8-10.44); Carbon Dioxide 23 mmol/L (22-29); Chloride 107 mmol/L (98-107); Estimated GFR-MDRD Greater than 90; Globulin 2.3 g/dL (2.4-3.5); Glucose 95 mg/dL (70-105); Protein, Total 5.5 g/dL (6.0-8.3); Sodium 139 mmol/L (136-145)
[2019-02-24 06:09] LABS: Potassium 2.3 mmol/L (3.5-5.1)
[2019-02-24] MEDS ORDERED: Potassium Chloride 40 MEQ in Premix Bag 1 BAG IVPB SCH (06:30)
[2019-02-24] MEDS ORDERED: Potassium Chloride 40 MEQ in Sodium Chloride 0.9% 250 ML 250 ML IVPB SCH (06:30)
--- NOTE | 2019-02-24 08:02 | CT ---
PRELIMINARY REPORT/[facility]/EMERGENCY AFTER HOURS PROCEDURE: EXAM: CT Head Without Contrast EXAM DATE/TIME: 02/24/2019 4:58 AM CLINICAL HISTORY: 53 years old, female; Condition or disease; Convulsions or seizures; Patient HX: F/u brain for anoxic brain injury TECHNIQUE: Imaging protocol: Computed tomography of the head without contrast. COMPARISON: CT Brain WO Con 02/21/2019 10:50 PM FINDINGS: Brain: Volume loss and chronic small vessel ischemic change. Stable gliosis versus edema in the right occipital lobe. No intracranial hemorrhage. Ventricles: Normal. No ventriculomegaly. Bones/joints: Unremarkable. No acute fracture. Sinuses: Visualized sinuses are unremarkable. No fluid levels. Mastoid air cells: Visualized mastoid air cells are well aerated. Soft tissues: Unremarkable. Other findings: No evidence of anoxic-hypoxic encephalopathy. IMPRESSION: 1. Stable gliosis versus edema in the right occipital lobe. 2. No evidence of anoxic-hypoxic encephalopathy. Thank you for allowing us to participate in the care of your patient. Dictated and Authenticated by: Singh Banegas MD 02/24/2019 5:05 AM Central Time ([place] & [place]) FINAL REPORT EMERGNCY AFTER HOURS BRAIN CT WITHOUT IV CONTRAST: DATE: 02/24/19 TIME: 0459 HOURS Date: 02/24/19 COMPARISON: 02/21/19. FINDINGS/IMPRESSION: Stable low attenuation changes bilaterally, most prominent in the right occipital lobe. No new mass, hemorrhage, or other acute process. Report in agreement with preliminary report given on-call by Rupesh. POS: SANDEE
[2019-02-24] MEDS: Carvedilol 6.25 MG TAB PO SCH ×2 (08:16→16:52)
[2019-02-24 08:23] LABS: Actual Bicarbonate (HCO3a) 18.6 mEq/L (22-28); Base Excess (BEa) -1.9 mEq/L (-2.0 to +3.0); Calcium, Ionized 1.13 mmol/L (1.12-1.30); Carboxyhemoglobin (COHb) 0.8 gm% (0.0-3.0); O2 Tension (PaO2) 103.2 mmHg (80.0-100.0); Potassium - ABG Lab 2.31 mmol/L (3.70-5.30)
[2019-02-24] MEDS: Famotidine/PF 20 mg/2ml Vial SLOW IVP SCH ×2 (08:26→20:46)
[2019-02-24] MEDS: Enoxaparin Sodium 40 MG/0.4 ML SYRINGE SC SCH (08:26)
[2019-02-24 08:36] LABS: CO2 Tension 21.6 mmHg (35.0-45.0); Puncture Site RR; pH, Arterial 7.55 (7.35-7.45)
--- NOTE | 2019-02-24 10:42 | PDOC.HOSPP ---
- Subjective Encounter Date: 02/24/19 Encounter Time: 10:41 Subjective: 53 y/o obese female with chronic debilitation from MS and prior CVA with residual right sided weakness, seizure admitted with status epilepticus associated with airway compromised necessitating intubation. Patient has been off sedation since 02/22/2019 morning but she is not waking up and not overbreathing the vent set RR. - Objective Vital Signs & Weight: Vital Signs (12 hours) Temp Pulse Resp BP Pulse Ox 02/24/19 10:00 10 L 02/24/19 08:16 138/91 H 02/24/19 08:06 82 138/91 H 02/24/19 08:00 16 02/24/19 07:27 100 02/24/19 07:00 99.3 F 02/24/19 06:00 16 02/24/19 05:46 141/98 H 02/24/19 04:00 98.2 F 16 02/24/19 02:42 72 02/24/19 02:00 16 02/24/19 00:00 98.8 F 16 02/23/19 23:53 117/81 Weight Admit Weight 170 lb Weight 168 lb 10.458 oz Most Recent Monitor Data Heart Rate from ECG 88 NIBP 145/100 NIBP BP-Mean 115 Respiration from ECG 24 SpO2 100 I&O: 02/23/19 02/24/19 02/25/19 06:59 06:59 06:59 Intake Total 3472 2541 Output Total 750 1805 100 Balance 2722 736 -100 Result Diagrams: 02/24/19 05:10 02/24/19 05:10 Additional Labs: Accuchecks 02/24/19 02/24/19 02/23/19 10:13 03:18 22:22 POC Glucose 91 96 105 02/23/19 16:11 POC Glucose 229 H Hospitalist ROS - Medication Medications: Active Medications Generic Name Dose Route Start Last Admin Trade Name Freq PRN Reason Stop Dose Admin Carvedilol 6.25 mg 02/23/19 17:00 02/24/19 08:16 Coreg PO 6.25 mg BID-WM SONIA Administration Enalaprilat 1.25 mg 02/23/19 18:00 02/24/19 05:46 Vasotec SLOW IVP 1.25 mg Q6HR SONIA Administration Enoxaparin Sodium 40 mg 02/22/19 09:00 02/24/19 08:26 Lovenox SC 40 mg 0900 SONIA Administration Famotidine 20 mg 02/22/19 09:00 02/24/19 08:26 Pepcid SLOW IVP 20 mg Q12HR SONIA Administration Levetiracetam 500 mg/ Device 100 mls @ 200 mls/hr 02/22/19 09:00 02/24/19 08: 27 IVPB 100 mls BID SONIA Administration Piperacillin Sod/Tazobactam 100 mls @ 200 mls/hr 02/22/19 06:00 02/24/19 05: 46 Sod 3.375 gm/ Sodium Chloride IVPB 100 mls Q8HR SONIA Administration Nicardipine HCl 25 mg/ Sodium 260 mls @ 0 mls/hr 02/23/19 11:30 02/23/19 13: 38 Chloride IVPB 260 mls INF SONIA Administration Protocol Titrate Vancomycin HCl 750 mg/ Sodium 250 mls @ 250 mls/hr 02/24/19 01:00 02/24/19 00 :53 Chloride IVPB 250 mls 0100,1300 SONIA Administration Insulin Human Lispro 0 units 02/22/19 02:10 02/23/19 16:23 Humalog SC 4 unit .MODERATE SLIDING SC PRN Administration Moderate Correctional Scale Phenytoin Sodium 100 mg 02/22/19 09:00 02/24/19 08:27 Dilantin PER TUBE 100 mg BID SONIA Administration Potassium Chloride 40 meq 02/24/19 07:00 02/24/19 10:29 Klor-Con PO 02/24/19 15:01 40 meq 0700,1100,1500,1900 SONIA Administration - Exam General - other findings: somnolent Eye: anicteric sclera ENT: normocephalic atraumatic ENT - other findings: ET tube in place Heart: RRR Respiratory - other findings: Coarse ventilator transmitted sound heard in all lung zones Gastrointestinal: soft, normal bowel sounds Extremities: 2+ LE edema Neurological - other findings: Somnolent. GCS 7-8/15. Having some posturing with stimulation Hosp A/P (1) Status epilepticus Code(s): G40.901 - EPILEPSY, UNSP, NOT INTRACTABLE, WITH STATUS EPILEPTICUS Status: Acute (2) Acute respiratory failure Code(s): J96.00 - ACUTE RESPIRATORY FAILURE, UNSP W HYPOXIA OR HYPERCAPNIA Status: Acute (3) Anoxic encephalopathy Status: Acute (4) Hemiparesis affecting right side as late effect of cerebrovascular accident Code(s): I69.351 - HEMIPLGA FOLLOWING CEREBRAL INFRC AFF RIGHT DOMINANT SIDE Status: Acute (5) Elevated troponin Code(s): R74.8 - ABNORMAL LEVELS OF OTHER SERUM ENZYMES Status: Acute (6) Pleural effusion Code(s): J90 - PLEURAL EFFUSION, NOT ELSEWHERE CLASSIFIED Status: Acute (7) Cardiomyopathy Code(s): I42.9 - CARDIOMYOPATHY, UNSPECIFIED Status: Acute (8) HTN (hypertension) Code(s): I10 - ESSENTIAL (PRIMARY) HYPERTENSION Status: Chronic (9) Multiple sclerosis Code(s): G35 - MULTIPLE SCLEROSIS Status: Chronic (10) Seizure disorder Code(s): G40.909 - EPILEPSY, UNSP, NOT INTRACTABLE, WITHOUT STATUS EPILEPTICUS Status: Chronic (11) Positive blood culture Code(s): R78.81 - BACTEREMIA Status: Acute (12) Metabolic acidosis Code(s): E87.2 - ACIDOSIS Status: Acute (13) Hypokalemia Code(s): E87.6 - HYPOKALEMIA Status: Acute - Plan Replete serum potassium with potassium chloride. get serum magnesium Increase enalapril to get adequate BP control. Continue coreg Dc bicarb infusion with improvement of acidosis Awaiting repeat Blood culture. Monitor vitals and urine output. Patient remained critically ill with guarded prognosis.
--- NOTE | 2019-02-24 15:50 | PRG ---
DATE OF TELEMEDICINE SERVICE: 02/24/2019, [facility] INTERVAL HISTORY: The patient has completed her CT head, which did not show any acute anoxic encephalopathy. The patient remains unresponsive and she is still on the vent and tends to posture at times. The patient's sister was in the room today with her children. On current workup, her CT of the head performed today showed no evidence of anoxic encephalopathy. She has stable gliosis versus edema in the right occipital lobe, and she has low attenuation changes bilaterally, most prominent area in the right occipital lobe. OBJECTIVE: VITAL SIGNS: Temperature was 98.9, blood pressure was 119/92, and pulse 78. GENERAL APPEARANCE: Well-built, well-nourished lady, who is still unresponsive. At this time, her family is by her bedside. There is no clear neurological cause of her unresponsiveness. She does have significant MS and she also has prior history of seizure disorder and at this time, she is on Keppra and there is no evidence of anoxic encephalopathy. She has new onset cardiomyopathy, with 10% EF and she might have some issues of decreased cerebral perfusion because of this. At this time, no clear isolated HEDIS SPECIALIST cause exists for her lack of response and she is currently still on propofol. She is off sedation at this time. RECOMMENDATIONS: I will request another EEG for tomorrow to rule out any subclinical seizures. We will also request re-consult Dr. White tomorrow for evaluation. No additional medications are prescribed today by me. Job ID: [id number] MTDD
--- NOTE | 2019-02-24 15:55 | PRG ---
DATE OF SERVICE: 02/24/2019 SUBJECTIVE: Ms. Rueda is still unresponsive. She is opening her eyes, but not focusing on people. She will not move to command. OBJECTIVE: VITAL SIGNS: Heart rate is 84, blood pressure 135/93, respiratory rates in the teens. She will over breathe the ventilator. She is placed on just CPAP, but her tidal volumes are only about 100 mL. LUNGS: Clear. HEART: Regular rhythm. ABDOMEN: Soft and nontender. EXTREMITIES: Without edema. LABORATORY DATA: White count 13.6, hemoglobin 11.8, platelets 176. Sodium 139, potassium 2.3, chloride 107, bicarbonate 23, BUN 12, and creatinine 0.61. IMPRESSION: 1. Respiratory failure associated with probably a prolonged period of status epilepticus associated with end-stage multiple sclerosis. 2. Newly diagnosed cardiomyopathy. She had an MRI done on the . For some reason, she had a head CT done today, really did not show anything new. I met with family and answered all her questions. I have explained to them that they need to be contemplating what they will do if she does not wake up. If she wakes up slowly, then we will proceed towards ongoing and aggressive care, but if she is not awake and following commands within a week, my recommendation to the family was that they consider comfort and palliative care. We will continue current supportive care measures. There are no ventilatory issues. PH 7.55, CO2 of 21, PO2 of 103, so her minute volume has been decreased. She has not had a chest x-ray in several days, so we will start ordering daily chest x-rays on her. CRITICAL CARE TIME: 30 minutes. Job ID: [id number]
[2019-02-25] MEDS: Enalaprilat Dihydrate 1.25 MG/ML VIAL SLOW IVP SCH ×2 (05:45→11:24)
[2019-02-25] MEDS: Piperacillin/Tazobactam 3.375 GM in Sodium Chloride 0.9% 100 ML IVPB SCH ×3 (05:45→21:36)
[2019-02-25 05:57] LABS: ALT (SGPT) 13 U/L (8-55); AST (SGOT) 13 U/L (5-34); Albumin 3.1 g/dL (3.5-5.0); Alkaline Phosphatase 69 U/L (40-150); Anion Gap 13 mmol/L (10-20); BUN (Urea Nitrogen) 12 mg/dL (9.8-20.1); Bilirubin, Total 0.7 mg/dL (0.2-1.2); Calc. Creatinine Clearance 138 mL/min (70-130); Calcium 8.5 mg/dL (7.8-10.44); Carbon Dioxide 20 mmol/L (22-29); Chloride 113 mmol/L (98-107); Estimated GFR-MDRD Greater than 90; Globulin 2.4 g/dL (2.4-3.5); Glucose 75 mg/dL (70-105); Potassium 3.8 mmol/L (3.5-5.1); Protein, Total 5.5 g/dL (6.0-8.3); Sodium 142 mmol/L (136-145)
[2019-02-25 06:05] LABS: Mean Corpuscular Hemoglobin 32.8 pg (27.0-31.0); Mean Corpuscular Volume 96.5 fL (78.0-98.0); Mean Platelet Volume 8.7 fL (7.4-10.4); Platelet Count 149 thou/uL (130-400); RBC Distribution Width 13.1 % (11.5-14.5); Red Blood Cell (RBC) Count 3.34 mill/uL (4.20-5.40); White Blood Cell (WBC) Count 10.6 thou/uL (4.8-10.8)
[2019-02-25 06:07] LABS: Lymphocytes 20 % (21-51); MDiff Complete? YES; Monocytes 1 % (0-10); Neutrophil 79 % (42-75)
[2019-02-25 07:18] LABS: Actual Bicarbonate (HCO3a) 19.4 mEq/L (22-28); Base Excess (BEa) -4.2 mEq/L (-2.0 to +3.0); CO2 Tension 30.7 mmHg (35.0-45.0); Carboxyhemoglobin (COHb) 0.9 gm% (0.0-3.0); Hemoglobin (Hb) 10.9 g/dL (12.0-16.0); O2 Tension (PaO2) 93.8 mmHg (80.0-100.0); Potassium - ABG Lab 3.64 mmol/L (3.70-5.30); pH, Arterial 7.42 (7.35-7.45)
[2019-02-25 07:27] LABS: ALV-art Gradient 81.725 (0-20); Puncture Site LRA
[2019-02-25] MEDS: Carvedilol 6.25 MG TAB PO SCH ×2 (08:00→16:35)
[2019-02-25] MEDS: Famotidine/PF 20 mg/2ml Vial SLOW IVP SCH ×2 (08:30→21:35)
[2019-02-25] MEDS: Enoxaparin Sodium 40 MG/0.4 ML SYRINGE SC SCH (08:30)
--- NOTE | 2019-02-25 09:26 | RAD ---
CHEST 1 VIEW PORTABLE: HISTORY: Respiratory insufficiency. FINDINGS: Stable life support tubes. Increased markings in the left retrocardiac region with bilateral costoph renic angle blunting, overall stable. IMPRESSION: Stable findings. No significant new process. POS: SANDEE
[2019-02-25] MEDS ORDERED: Furosemide 20 MG TAB PER TUBE SCH (13:15)
--- NOTE | 2019-02-25 13:49 | PRG ---
DATE OF SERVICE: 02/25/2019 SUBJECTIVE: The patient remains intubated on mechanical ventilation. She does not wake up, but is opening her eyes. OBJECTIVE: VITAL SIGNS: Temperature is 98.9, pulse 77, blood pressure 139/96, and O2 saturation 100%. HEENT: Eyes open. Does not blink to threat. NECK: No adenopathy or JVD. CHEST: Clear to auscultation. CARDIAC: S1 and S2. Regular. ABDOMEN: Soft. EXTREMITIES: No edema. LABORATORY DATA: White blood cell count 10.6, hematocrit 32.3, and platelet count 149. A pH of 7.42, pCO2 of 31, and pO2 of 94. Sodium 142, potassium 3.8, chloride 113, CO2 of 20, BUN 12, creatinine 0.5, and glucose 75. ASSESSMENT: 1. Status epilepticus. 2. Acute respiratory failure requiring mechanical ventilation. 3. Cardiomyopathy. PLAN: The patient is not weanable at the current time secondary to her mental status. We will continue supportive care with mechanical ventilation. Give her time and see if she will wake up. In the meantime, blood pressure is being controlled with oral antihypertensives as the nicardipine has been weaned off. We will initiate tube feeding. Labs will be rechecked tomorrow. Job ID: [id number]
[2019-02-25] MEDS ORDERED: Sodium Bicarbonate Tab 325 MG TAB PER TUBE PRN (16:57)
[2019-02-25] MEDS ORDERED: Pancrelipase DR 12000 1 CAP FS PRN (16:57)
--- NOTE | 2019-02-25 17:16 | PDOC.HOSPP ---
- Subjective Encounter Date: 02/25/19 Encounter Time: 11:21 Subjective: 53 y/o obese female with chronic debilitation from MS and prior CVA with residual right sided weakness, seizure admitted with status epilepticus associated with airway compromised necessitating intubation. Patient has been off sedation since 02/22/2019 morning but no significant change in mental status. - Objective Vital Signs & Weight: Vital Signs (12 hours) Temp Pulse Resp BP Pulse Ox 02/25/19 16:35 133/96 H 02/25/19 16:00 99.1 F 10 L 02/25/19 14:49 86 133/96 H 02/25/19 14:00 10 L 02/25/19 12:00 98.9 F 10 L 02/25/19 11:24 108/75 02/25/19 10:34 71 122/86 02/25/19 10:00 10 L 02/25/19 08:00 12 143/109 H 02/25/19 07:06 100 02/25/19 07:00 98.6 F 02/25/19 06:54 85 138/100 H 02/25/19 06:00 13 02/25/19 05:45 135/94 H Weight Admit Weight 170 lb Weight 169 lb 15.622 oz Most Recent Monitor Data Heart Rate from ECG 74 NIBP 136/99 NIBP BP-Mean 111 Respiration from ECG 15 SpO2 99 I&O: 02/24/19 02/25/19 02/26/19 06:59 06:59 06:59 Intake Total 2541 950 90 Output Total 0076 542 3472 Balance 736 550 -1080 Result Diagrams: 02/25/19 04:35 02/25/19 04:35 Additional Labs: Accuchecks 02/25/19 02/25/19 02/25/19 15:52 09:49 03:46 POC Glucose 78 72 74 02/24/19 22:03 POC Glucose 77 Hospitalist ROS - Medication Medications: Active Medications Generic Name Dose Route Start Last Admin Trade Name Freq PRN Reason Stop Dose Admin Carvedilol 6.25 mg 02/23/19 17:00 02/25/19 16:35 Coreg PO 6.25 mg BID-WM SONIA Administration Enoxaparin Sodium 40 mg 02/22/19 09:00 02/25/19 08:30 Lovenox SC 40 mg 0900 SONIA Administration Famotidine 20 mg 02/22/19 09:00 02/25/19 08:30 Pepcid SLOW IVP 20 mg Q12HR SONIA Administration Levetiracetam 500 mg/ Device 100 mls @ 200 mls/hr 02/22/19 09:00 02/25/19 08: 31 IVPB 100 mls BID SONIA Administration Piperacillin Sod/Tazobactam 100 mls @ 200 mls/hr 02/22/19 06:00 02/25/19 13: 32 Sod 3.375 gm/ Sodium Chloride IVPB 100 mls Q8HR SONIA Administration Nicardipine HCl 25 mg/ Sodium 260 mls @ 0 mls/hr 02/23/19 11:30 02/23/19 13: 38 Chloride IVPB 260 mls INF SONIA Administration Protocol Titrate Insulin Human Lispro 0 units 02/22/19 02:10 02/23/19 16:23 Humalog SC 4 unit .MODERATE SLIDING SC PRN Administration Moderate Correctional Scale Phenytoin Sodium 100 mg 02/22/19 09:00 02/25/19 08:31 Dilantin PER TUBE 100 mg BID SONIA Administration - Exam General - other findings: somnolent. Eye: anicteric sclera ENT: normocephalic atraumatic Neck: supple Neck - other findings: ET tube in place Heart: RRR Respiratory - other findings: ventilator transmitted breath sound heard in all lung zones Gastrointestinal: soft, non-distended, normal bowel sounds Gastrointestinal - other findings: obese Extremities: 1+ LE edema Neurological - other findings: Somnolent. turns face away from hand approaching her eye Hosp A/P (1) Status epilepticus Code(s): G40.901 - EPILEPSY, UNSP, NOT INTRACTABLE, WITH STATUS EPILEPTICUS Status: Acute (2) Acute respiratory failure Code(s): J96.00 - ACUTE RESPIRATORY FAILURE, UNSP W HYPOXIA OR HYPERCAPNIA Status: Acute (3) Anoxic encephalopathy Status: Acute (4) Hemiparesis affecting right side as late effect of cerebrovascular accident Code(s): I69.351 - HEMIPLGA FOLLOWING CEREBRAL INFRC AFF RIGHT DOMINANT SIDE Status: Acute (5) Elevated troponin Code(s): R74.8 - ABNORMAL LEVELS OF OTHER SERUM ENZYMES Status: Acute (6) Pleural effusion Code(s): J90 - PLEURAL EFFUSION, NOT ELSEWHERE CLASSIFIED Status: Acute (7) Cardiomyopathy Code(s): I42.9 - CARDIOMYOPATHY, UNSPECIFIED Status: Acute (8) HTN (hypertension) Code(s): I10 - ESSENTIAL (PRIMARY) HYPERTENSION Status: Chronic (9) Multiple sclerosis Code(s): G35 - MULTIPLE SCLEROSIS Status: Chronic (10) Seizure disorder Code(s): G40.909 - EPILEPSY, UNSP, NOT INTRACTABLE, WITHOUT STATUS EPILEPTICUS Status: Chronic (11) Positive blood culture Code(s): R78.81 - BACTEREMIA Status: Acute (12) Metabolic acidosis Code(s): E87.2 - ACIDOSIS Status: Acute (13) Hypokalemia Code(s): E87.6 - HYPOKALEMIA Status: Acute - Plan Continue supportive care while awaiting neurological improvement. Start tube feeding. wean off cardene infusion. BP controlled with lisinopril and metoprolol Monitor electrolytes and replete as needed. Start lasix 40 mg daily.
[2019-02-25] MEDS: Lisinopril 5 MG TAB PO SCH (21:37)
[2019-02-26 04:56] LABS: Anion Gap 11 mmol/L (10-20); BUN (Urea Nitrogen) 9 mg/dL (9.8-20.1); Calc. Creatinine Clearance 141 mL/min (70-130); Calcium 8.6 mg/dL (7.8-10.44); Carbon Dioxide 24 mmol/L (22-29); Chloride 113 mmol/L (98-107); Estimated GFR-MDRD Greater than 90; Glucose 110 mg/dL (70-105); Magnesium 1.5 mg/dL (1.6-2.6); Sodium 145 mmol/L (136-145)
[2019-02-26 04:59] LABS: Potassium 2.6 mmol/L (3.5-5.1)
[2019-02-26 05:18] LABS: Band 2 % (5-11); Eosinophils 2 % (0-10); Hemoglobin 11.4 g/dL (12.0-16.0); Lymphocytes 17 % (21-51); MDiff Complete? YES; Mean Corpuscular HGB CONC 33.6 g/dL (32.0-36.0); Mean Corpuscular Hemoglobin 32.5 pg (27.0-31.0); Mean Corpuscular Volume 96.7 fL (78.0-98.0); Mean Platelet Volume 8.9 fL (7.4-10.4); Monocytes 7 % (0-10); Neutrophil 72 % (42-75); Platelet Count 156 thou/uL (130-400); RBC Distribution Width 13.2 % (11.5-14.5); White Blood Cell (WBC) Count 9.9 thou/uL (4.8-10.8)
[2019-02-26] MEDS: Piperacillin/Tazobactam 3.375 GM in Sodium Chloride 0.9% 100 ML IVPB SCH ×3 (06:39→23:21)
[2019-02-26 08:32] LABS: Actual Bicarbonate (HCO3a) 22.3 mEq/L (22-28); Base Excess (BEa) -0.3 mEq/L (-2.0 to +3.0); CO2 Tension 30.4 mmHg (35.0-45.0); Calcium, Ionized 1.15 mmol/L (1.12-1.30); Hemoglobin (Hb) 12.4 g/dL (12.0-16.0); O2 Tension (PaO2) 79.6 mmHg (80.0-100.0); Potassium - ABG Lab 3.17 mmol/L (3.70-5.30); pH, Arterial 7.48 (7.35-7.45)
[2019-02-26 08:37] LABS: Puncture Site LRA
[2019-02-26] MEDS: Famotidine/PF 20 mg/2ml Vial SLOW IVP SCH (09:00)
[2019-02-26] MEDS: Carvedilol 6.25 MG TAB PO SCH ×2 (09:00→17:33)
[2019-02-26] MEDS: Furosemide 40 MG TAB PER TUBE SCH (09:00)
[2019-02-26] MEDS: Enoxaparin Sodium 40 MG/0.4 ML SYRINGE SC SCH (09:01)
[2019-02-26] MEDS: Lisinopril 5 MG TAB PO SCH ×2 (09:01→22:10)
--- NOTE | 2019-02-26 09:39 | RAD ---
CHEST 1 VIEW: HISTORY: Respiratory distress. COMPARISON: Prior day's exam. FINDINGS: Endotracheal and NG tubes are in satisfactory position. Heart size appears slightly enlarged. There is increased density in the right base which appears to represent increasing atelectasis and effusio n. IMPRESSION: Increasing density in the right base suggesting some effusion and atelectasis. POS: OFF
--- NOTE | 2019-02-26 12:58 | PDOC.HOSPP ---
- Subjective Encounter Date: 02/26/19 Encounter Time: 10:57 Subjective: 53 y/o obese female with chronic debilitation from MS and prior CVA with residual right sided weakness, seizure admitted with status epilepticus associated with airway compromised necessitating intubation. Patient has been off sedation since 02/22/2019 morning but no significant improvement in mental status. Still non verbal and unresponsive. - Objective Vital Signs & Weight: Vital Signs (12 hours) Temp Pulse Resp BP Pulse Ox 02/26/19 12:00 99.3 F 13 02/26/19 10:57 91 112/85 02/26/19 10:00 18 02/26/19 09:01 97 129/86 02/26/19 09:00 129/86 02/26/19 08:13 97 129/86 02/26/19 08:00 98.2 F 20 96 02/26/19 06:00 10 L 02/26/19 04:00 10 L 02/26/19 03:00 98.9 F 02/26/19 02:25 90 02/26/19 01:43 10 L Weight Admit Weight 170 lb Weight 170 lb 6.677 oz Most Recent Monitor Data Heart Rate from ECG 88 NIBP 121/91 NIBP BP-Mean 101 Respiration from ECG 22 SpO2 96 I&O: 02/25/19 02/26/19 02/27/19 06:59 06:59 06:59 Intake Total 950 1030 60 Output Total 400 2620 495 Balance 550 -1590 -435 Result Diagrams: 02/26/19 04:00 02/26/19 04:00 Additional Labs: Accuchecks 02/26/19 02/25/19 02/25/19 10:14 22:36 15:52 POC Glucose 122 H 77 78 Hospitalist ROS - Medication Medications: Active Medications Generic Name Dose Route Start Last Admin Trade Name Freq PRN Reason Stop Dose Admin Carvedilol 6.25 mg 02/23/19 17:00 02/26/19 09:00 Coreg PO 6.25 mg BID-WM SONIA Administration Enoxaparin Sodium 40 mg 02/22/19 09:00 02/26/19 09:01 Lovenox SC 40 mg 0900 SONIA Administration Furosemide 40 mg 02/26/19 09:00 02/26/19 09:00 Lasix PER TUBE 40 mg DAILY SONIA Administration Levetiracetam 500 mg/ Device 100 mls @ 200 mls/hr 02/22/19 09:00 02/26/19 09: 01 IVPB 100 mls BID SONIA Administration Piperacillin Sod/Tazobactam 100 mls @ 200 mls/hr 02/22/19 06:00 02/26/19 06: 39 Sod 3.375 gm/ Sodium Chloride IVPB 100 mls Q8HR SONIA Administration Insulin Human Lispro 0 units 02/22/19 02:10 02/23/19 16:23 Humalog SC 4 unit .MODERATE SLIDING SC PRN Administration Moderate Correctional Scale Lisinopril 5 mg 02/25/19 21:00 02/26/19 09:01 Zestril PO 5 mg BID SONIA Administration Phenytoin Sodium 100 mg 02/22/19 09:00 02/26/19 09:01 Dilantin PER TUBE 100 mg BID SONIA Administration - Exam General - other findings: unresponsive other than opening eye to stimulation Eye: anicteric sclera ENT: normocephalic atraumatic ENT - other findings: ET and NG tubes in place Heart: RRR Respiratory: no wheezes, no ronchi Respiratory - other findings: ventilator transmitted sound noted Gastrointestinal: soft, non-distended, normal bowel sounds Extremities: 1+ LE edema Neurological - other findings: Opens eye to pain . some posturing with pain. GCS 7-8/15 Hosp A/P (1) Status epilepticus Code(s): G40.901 - EPILEPSY, UNSP, NOT INTRACTABLE, WITH STATUS EPILEPTICUS Status: Acute (2) Acute respiratory failure Code(s): J96.00 - ACUTE RESPIRATORY FAILURE, UNSP W HYPOXIA OR HYPERCAPNIA Status: Acute (3) Anoxic encephalopathy Status: Acute (4) Hemiparesis affecting right side as late effect of cerebrovascular accident Code(s): I69.351 - HEMIPLGA FOLLOWING CEREBRAL INFRC AFF RIGHT DOMINANT SIDE Status: Acute (5) Elevated troponin Code(s): R74.8 - ABNORMAL LEVELS OF OTHER SERUM ENZYMES Status: Acute (6) Pleural effusion Code(s): J90 - PLEURAL EFFUSION, NOT ELSEWHERE CLASSIFIED Status: Acute (7) Cardiomyopathy Code(s): I42.9 - CARDIOMYOPATHY, UNSPECIFIED Status: Acute (8) HTN (hypertension) Code(s): I10 - ESSENTIAL (PRIMARY) HYPERTENSION Status: Chronic (9) Multiple sclerosis Code(s): G35 - MULTIPLE SCLEROSIS Status: Chronic (10) Seizure disorder Code(s): G40.909 - EPILEPSY, UNSP, NOT INTRACTABLE, WITHOUT STATUS EPILEPTICUS Status: Chronic (11) Positive blood culture Code(s): R78.81 - BACTEREMIA Status: Acute (12) Metabolic acidosis Code(s): E87.2 - ACIDOSIS Status: Acute (13) Hypokalemia Code(s): E87.6 - HYPOKALEMIA Status: Acute - Plan Continue supportive care while awaiting neurological improvement. Replete serum potassium and magnesium levels Continue tube feeding. Continue lisinopril, lasix and metoprolol Monitor electrolytes and replete as needed.
[2019-02-26] MEDS ORDERED: Magnesium Sulfate 4 GM in Sodium Chloride 0.9% 250 ML 250 ML IVPB SCH (13:15)
--- NOTE | 2019-02-26 16:49 | PRG ---
DATE OF SERVICE: 02/26/2019 SUBJECTIVE: Ana Rueda has not improved neurologically. OBJECTIVE: VITAL SIGNS: Heart rate is 80, blood pressure 107/77, respiratory rate is 12, oximetry is 97%. LUNGS: Clear. HEART: Regular rhythm. ABDOMEN: Soft. EXTREMITIES: Without clubbing, cyanosis, or edema. NEUROLOGIC: She is flaccid and opens her eyes to pain. IMAGING DATA: Chest x-ray shows atelectasis at right base. LABORATORY DATA: White count 9.9, hemoglobin 11.4, platelets 156. Sodium 145, potassium 3.6, chloride 113, bicarb 24, BUN 9, creatinine 0.55. IMPRESSION: 1. Respiratory failure associated with seizure. 2. Advanced multiple sclerosis. 3. Newly diagnosed cardiomyopathy. 4. Deconditioning. I believe she has been bedridden for quite some time. Continue supportive care. CRITICAL CARE TIME: 30 minutes. Job ID: [id number]
--- NOTE | 2019-02-26 18:51 | PDOC.PALCO ---
Palliative Care Consult - Consult Details Requesting Physician: Dr Tavares Reason for Consult: goals of care, assistance with communication prognosis/ disease Family Members Present: None - Pertinent HPI Longstanding MS. Patient was transferred to the emergency room after what appeared to be a seizure at home. No triggers or alleviating factors. Patient is wheel chair bound living at home with her daughter. Required intubation and admitted to [facility]. Palliative Care consult to assist with goals of care secondary to poor prognosis. - Pertinent PMH Multiple Sclerosis, hypertension, CVA with right sided weakness, seizure disorder, wheel chair bound - Social History Smoking Status: Never smoker Smoking: no tobacco exposure Alcohol Use: none Drug Use History: none Living Situation: other (Lives with children) - Allergies Allergies/Adverse Reactions: Allergies Allergy/AdvReac Type Severity Reaction Status Date / Time No Known Drug Allergies Allergy Verified 02/25/19 17:18 - Subjective Intubated, patient has not been sedated since 02/22 and is non responsive. ROS: unknown secondary to patient non responsive state - Objective Vital Signs: Vital Signs - Most Recent Temp Pulse Resp BP Pulse Ox 99.0 F 88 10 L 146/90 H 96 02/26/19 16:00 02/26/19 18:24 02/26/19 18:00 02/26/19 18:24 02/26/19 08:00 Palliative Performance Scale: 20 - Physical Exam Deviation from normal: non responsive HEENT: moist MMs Respiratory: wheezing present Deviation from normal: Mechanically intubated, adventicious lung sounds Cardiovascular: RRR Gastrointestinal: soft, positive bowel sounds Musculoskeletal: pulses present, edema present Deviation from normal: no purposeful movement of extremities, flacid muscle tone extremities Deviation from normal: obtunded - Problem List (1) Palliative care encounter Code(s): Z51.5 - ENCOUNTER FOR PALLIATIVE CARE Current Visit: Yes Status: Acute (2) Acute respiratory failure Code(s): J96.00 - ACUTE RESPIRATORY FAILURE, UNSP W HYPOXIA OR HYPERCAPNIA Current Visit: Yes Status: Acute (3) Anoxic encephalopathy Current Visit: Yes Status: Acute (4) Brain lesion Code(s): G93.9 - DISORDER OF BRAIN, UNSPECIFIED Current Visit: Yes Status: Acute (5) Multiple sclerosis Code(s): G35 - MULTIPLE SCLEROSIS Current Visit: No Status: Chronic (6) Obesity (BMI 30-39.9) Code(s): E66.9 - OBESITY, UNSPECIFIED Current Visit: No Status: Chronic - Plan/Recommendations Plan:No family at bedside. *Family meeting arranged by Marilee Alvarez RNpattern marking supervisor for at 13:00 *Discuss poor prognosis and goals of care *Support family [30] minutes spent on this encounter with >50% of the time in counseling and coordination of care. Thank you for this very appropriate consult.
[2019-02-26] MEDS: Famotidine 20 MG TAB PER TUBE SCH (22:10)
[2019-02-27] MEDS: Piperacillin/Tazobactam 3.375 GM in Sodium Chloride 0.9% 100 ML IVPB SCH ×3 (05:22→21:09)
[2019-02-27 05:45] LABS: Eosinophils 3 % (0-10); Hemoglobin 11.4 g/dL (12.0-16.0); Lymphocytes 23 % (21-51); MDiff Complete? YES; Mean Corpuscular HGB CONC 33.7 g/dL (32.0-36.0); Mean Corpuscular Hemoglobin 32.5 pg (27.0-31.0); Mean Corpuscular Volume 96.5 fL (78.0-98.0); Mean Platelet Volume 8.8 fL (7.4-10.4); Monocytes 8 % (0-10); Neutrophil 66 % (42-75); Platelet Count 169 thou/uL (130-400); RBC Distribution Width 13.6 % (11.5-14.5); Red Blood Cell (RBC) Count 3.51 mill/uL (4.20-5.40); White Blood Cell (WBC) Count 11.3 thou/uL (4.8-10.8)
[2019-02-27 05:47] LABS: Anion Gap 10 mmol/L (10-20); BUN (Urea Nitrogen) 14 mg/dL (9.8-20.1); Calc. Creatinine Clearance 147 mL/min (70-130); Calcium 8.3 mg/dL (7.8-10.44); Carbon Dioxide 24 mmol/L (22-29); Chloride 112 mmol/L (98-107); Estimated GFR-MDRD Greater than 90; Glucose 123 mg/dL (70-105); Magnesium 2.4 mg/dL (1.6-2.6); Potassium 3.5 mmol/L (3.5-5.1); Sodium 142 mmol/L (136-145)
[2019-02-27 08:22] LABS: Actual Bicarbonate (HCO3a) 23.8 mEq/L (22-28); Base Excess (BEa) 0.6 mEq/L (-2.0 to +3.0); CO2 Tension 33.1 mmHg (35.0-45.0); Calcium, Ionized 1.16 mmol/L (1.12-1.30); Carboxyhemoglobin (COHb) 1.2 gm% (0.0-3.0); Hemoglobin (Hb) 11.4 g/dL (12.0-16.0); O2 Tension (PaO2) 88.8 mmHg (80.0-100.0); Potassium - ABG Lab 3.56 mmol/L (3.70-5.30); pH, Arterial 7.47 (7.35-7.45)
[2019-02-27 08:33] LABS: Puncture Site RRA
[2019-02-27 08:34] LABS: ALV-art Gradient 83.725 (0-20)
--- NOTE | 2019-02-27 08:42 | RAD ---
CHEST ONE VIEW: HISTORY: Respiratory insufficiency. COMPARISON: 02/26/2019 FINDINGS: Stable life support tubes. Bilateral vascular congestion and bilateral pleural effusions. IMPRESSION: Stable congestion and pleural effusions. Continued short-term followup. POS: SANDEE
[2019-02-27] MEDS: Famotidine 20 MG TAB PER TUBE SCH ×2 (08:44→21:08)
[2019-02-27] MEDS: Enoxaparin Sodium 40 MG/0.4 ML SYRINGE SC SCH (08:45)
[2019-02-27] MEDS: Carvedilol 6.25 MG TAB PO SCH ×2 (08:45→16:45)
[2019-02-27] MEDS: Furosemide 40 MG TAB PER TUBE SCH (08:45)
[2019-02-27] MEDS: Lisinopril 5 MG TAB PO SCH ×2 (08:45→21:08)
--- NOTE | 2019-02-27 16:47 | PDOC.HOSPP ---
- Subjective Encounter Date: 02/27/19 Encounter Time: 16:44 Subjective: 53 y/o obese female with chronic debilitation from MS and prior CVA with residual right sided weakness, seizure admitted with status epilepticus associated with airway compromised necessitating intubation. Patient has been off sedation since 02/22/2019 morning but has remained unresponsive with no significant neurological improvement. Still intubated and mechanically ventilated. - Objective Vital Signs & Weight: Vital Signs (12 hours) Temp Pulse Resp BP Pulse Ox 02/27/19 16:30 70 137/94 H 02/27/19 15:00 99.0 F 02/27/19 14:00 10 L 02/27/19 13:41 78 131/86 02/27/19 12:00 10 L 02/27/19 11:13 96 131/90 02/27/19 11:00 99.3 F 02/27/19 10:00 10 L 02/27/19 08:45 90 103/70 02/27/19 08:14 90 103/70 02/27/19 08:00 10 L 02/27/19 07:55 99 02/27/19 07:00 99.4 F 02/27/19 06:00 11 L Weight Admit Weight 170 lb Weight 174 lb 2.643 oz Most Recent Monitor Data Heart Rate from ECG 74 NIBP 141/91 NIBP BP-Mean 107 Respiration from ECG 20 SpO2 97 I&O: 02/26/19 02/27/19 02/28/19 06:59 06:59 06:59 Intake Total 1030 2632 240 Output Total 2620 1455 1205 Balance -1590 1177 -965 Result Diagrams: 02/27/19 04:15 02/27/19 04:15 Additional Labs: Accuchecks 02/27/19 02/26/19 09:19 22:28 POC Glucose 103 122 H Hospitalist ROS - Medication Medications: Active Medications Generic Name Dose Route Start Last Admin Trade Name Freq PRN Reason Stop Dose Admin Carvedilol 6.25 mg 02/23/19 17:00 02/27/19 08:45 Coreg PO 6.25 mg BID-WM SONIA Administration Enoxaparin Sodium 40 mg 02/22/19 09:00 02/27/19 08:45 Lovenox SC 40 mg 899 SONIA Administration Famotidine 20 mg 02/26/19 21:00 02/27/19 08:44 Pepcid PER TUBE 20 mg Q12HR SONIA Administration Furosemide 40 mg 02/26/19 09:00 02/27/19 08:45 Lasix PER TUBE 40 mg DAILY SONIA Administration Levetiracetam 500 mg/ Device 100 mls @ 200 mls/hr 02/22/19 09:00 02/27/19 09: 14 IVPB 100 mls BID SONIA Administration Piperacillin Sod/Tazobactam 100 mls @ 200 mls/hr 02/22/19 06:00 02/27/19 13: 09 Sod 3.375 gm/ Sodium Chloride IVPB 100 mls Q8HR SONIA Administration Insulin Human Lispro 0 units 02/22/19 02:10 02/23/19 16:23 Humalog SC 4 unit .MODERATE SLIDING SC PRN Administration Moderate Correctional Scale Lisinopril 5 mg 02/25/19 21:00 02/27/19 08:45 Zestril PO 5 mg BID SONIA Administration Phenytoin Sodium 100 mg 02/22/19 09:00 02/27/19 08:46 Dilantin PER TUBE 100 mg BID SONIA Administration - Exam General - other findings: unresponsive Eye: anicteric sclera ENT: normocephalic atraumatic ENT - other findings: Et tube in place Heart: RRR Respiratory - other findings: ventilator transmitted breath sound heard in all lung zones Gastrointestinal: soft, non-distended, normal bowel sounds Gastrointestinal - other findings: obese Extremities: no edema Neurological - other findings: unresponsive Hosp A/P (1) Status epilepticus Code(s): G40.901 - EPILEPSY, UNSP, NOT INTRACTABLE, WITH STATUS EPILEPTICUS Status: Acute (2) Acute respiratory failure Code(s): J96.00 - ACUTE RESPIRATORY FAILURE, UNSP W HYPOXIA OR HYPERCAPNIA Status: Acute (3) Anoxic encephalopathy Status: Acute (4) Hemiparesis affecting right side as late effect of cerebrovascular accident Code(s): I69.351 - HEMIPLGA FOLLOWING CEREBRAL INFRC AFF RIGHT DOMINANT SIDE Status: Acute (5) Elevated troponin Code(s): R74.8 - ABNORMAL LEVELS OF OTHER SERUM ENZYMES Status: Acute (6) Pleural effusion Code(s): J90 - PLEURAL EFFUSION, NOT ELSEWHERE CLASSIFIED Status: Acute (7) Cardiomyopathy Code(s): I42.9 - CARDIOMYOPATHY, UNSPECIFIED Status: Acute (8) HTN (hypertension) Code(s): I10 - ESSENTIAL (PRIMARY) HYPERTENSION Status: Chronic (9) Multiple sclerosis Code(s): G35 - MULTIPLE SCLEROSIS Status: Chronic (10) Seizure disorder Code(s): G40.909 - EPILEPSY, UNSP, NOT INTRACTABLE, WITHOUT STATUS EPILEPTICUS Status: Chronic (11) Positive blood culture Code(s): R78.81 - BACTEREMIA Status: Acute (12) Metabolic acidosis Code(s): E87.2 - ACIDOSIS Status: Acute (13) Hypokalemia Code(s): E87.6 - HYPOKALEMIA Status: Acute - Plan Replete serum potassium Continue supportive care while awaiting neurological improvement. Continue tube feeding. Continue lisinopril, lasix and metoprolol Monitor electrolytes and replete as needed. palliative care now involved.
--- NOTE | 2019-02-27 17:40 | PRG ---
DATE OF SERVICE: 02/27/2019 Encompassing 30 minutes of critical care time. SUBJECTIVE: Ms. Rueda is unchanged clinically. She opens her eyes to a sternal rub. She does not move her extremities to painful stimuli. She does inconsistently blink. She has minimal gag. Intake and outputs, positive 1177. OBJECTIVE: VITAL SIGNS: She is afebrile. Blood pressure 137/94, heart rate 87, respiratory rate is per mechanical ventilation. LUNGS: Clear. HEART: Regular rhythm, S1 and S2 are normal. ABDOMEN: Soft and nontender. EXTREMITIES: Without clubbing, cyanosis, or edema. IMPRESSION: 1. Status post status epilepticus leading to admission. 2. ? anoxic brain injury secondary to prolonged status. 3. Bilateral pleural effusion secondary to newly diagnosed systolic cardiomyopathy that is severe. 4. Abnormal brain MRI showing findings consistent with a new large multiple sclerosis lesion. 5. Extreme deconditioning with a pre-existing bedridden state, I am told prior to admission. I do not think she will survive this. Family needs to begin making decisions about duration of care and whether or not they would want tracheostomy or PEG placement. Job ID: [id number]
[2019-02-28 04:53] LABS: Anion Gap 12 mmol/L (10-20); BUN (Urea Nitrogen) 17 mg/dL (9.8-20.1); Calc. Creatinine Clearance 134 mL/min (70-130); Carbon Dioxide 25 mmol/L (22-29); Chloride 109 mmol/L (98-107); Estimated GFR-MDRD Greater than 90; Glucose 114 mg/dL (70-105); Potassium 3.8 mmol/L (3.5-5.1); Sodium 142 mmol/L (136-145)
[2019-02-28 04:55] LABS: Band 5 % (5-11); Hemoglobin 11.3 g/dL (12.0-16.0); Lymphocytes 18 % (21-51); MDiff Complete? YES; Mean Corpuscular HGB CONC 33.3 g/dL (32.0-36.0); Mean Corpuscular Hemoglobin 32.7 pg (27.0-31.0); Mean Platelet Volume 8.3 fL (7.4-10.4); Monocytes 6 % (0-10); Neutrophil 71 % (42-75); Platelet Count 212 thou/uL (130-400); RBC Distribution Width 13.8 % (11.5-14.5); Red Blood Cell (RBC) Count 3.47 mill/uL (4.20-5.40); White Blood Cell (WBC) Count 13.3 thou/uL (4.8-10.8)
[2019-02-28] MEDS: Piperacillin/Tazobactam 3.375 GM in Sodium Chloride 0.9% 100 ML IVPB SCH ×3 (05:06→21:32)
[2019-02-28 08:08] LABS: Actual Bicarbonate (HCO3a) 20.6 mEq/L (22-28); Base Excess (BEa) -1.4 mEq/L (-2.0 to +3.0); CO2 Tension 26.9 mmHg (35.0-45.0); Calcium, Ionized 1.18 mmol/L (1.12-1.30); Carboxyhemoglobin (COHb) 0.9 gm% (0.0-3.0); Hemoglobin (Hb) 11.7 g/dL (12.0-16.0); O2 Tension (PaO2) 99.4 mmHg (80.0-100.0); Potassium - ABG Lab 3.51 mmol/L (3.70-5.30)
[2019-02-28 08:26] LABS: ALV-art Gradient 80.875 (0-20); Puncture Site LR
[2019-02-28] MEDS ORDERED: Lisinopril 10 MG TAB PO SCH (09:00)
--- NOTE | 2019-02-28 09:02 | RAD ---
CHEST 1 VIEW: Date: 02/28/19 HISTORY: Ventilated patient. COMPARISON: Radiograph prior day. FINDINGS: Patient is intubated with endotracheal tube tip at level of clavicles, in good position. Enteric tube tip below diaphragm, though out of field of view. Bibasilar atelectatic changes, as well as layering effusions are similar. No pneumothorax. IMPRESSION: Similar examination of the chest. POS: CET
--- NOTE | 2019-02-28 09:17 | EEG ---
Referring Physician: MODESTO EEG # [id number] TEST TYPE: ROUTINE PORTABLE INPATIENT REPORT: AN EEG USING THE INTERNATIONAL TEN-TWENTY SYSTEM OF ELECTRODE PLACEMENT WAS PERFORMED. The best waking background is a 5 hertz theta frequency. There is persistent periodic lateralized epileptiform discharges seen in the left hemisphere. Photic stimulation was unremarkable. No sleep was seen. IMPRESSION: THIS IS AN ABNORMAL STUDY FOR THE FINDINGS OF LATERALIZED EPILEPTIFORM DISCHARGES IN THE LEFT HEMISPHERE WELL DIFFUSE SLOWING COMMONLY SEEN IN ANOXIC BRAIN INJURY. Crate Repairer:ETHAN Vinyl Hanger: [email or web address] NORMAN
--- NOTE | 2019-02-28 09:20 | EEG ---
Referring Physician: Makenna RAMÍREZ EEG # [id number] TEST TYPE: ROUTINE PORTABLE INPATIENT REPORT: AN EEG USING THE INTERNATIONAL TEN-TWENTY SYSTEM OF ELECTRODE PLACEMENT WAS PERFORMED. The best waking background is 5 hertz theta frequency. There is intermixed 3 hertz delta. There is persistent left periodic lateralized discharges. Photic stimulation was unremarkable. IMPRESSION: THIS EEG IS ESSENTIALLY UNCHANGED FROM THE PRIOR STUDY CONSISTENT WITH DIFFUSE SLOWING AND PERIODIC EPILEPTIFORM DISCHARGES ON THE LEFT. Child Welfare Worker: ETHAN Geriatric Nurse Assistant: [email or web address] NORMAN
[2019-02-28] MEDS: Famotidine 20 MG TAB PER TUBE SCH ×2 (09:31→21:22)
[2019-02-28] MEDS: Enoxaparin Sodium 40 MG/0.4 ML SYRINGE SC SCH (09:33)
[2019-02-28] MEDS: Carvedilol 6.25 MG TAB PO SCH ×2 (09:33→21:22)
[2019-02-28] MEDS: Furosemide 40 MG TAB PER TUBE SCH (09:34)
--- NOTE | 2019-02-28 16:50 | PDOC.HOSPP ---
- Subjective Encounter Date: 02/28/19 Encounter Time: 16:48 Subjective: 53 y/o obese female with chronic debilitation from MS and prior CVA with residual right sided weakness, seizure admitted with status epilepticus associated with airway compromised necessitating intubation. Patient has been off sedation since 02/22/2019 morning but has remained unresponsive with no significant neurological improvement. Still intubated and mechanically ventilated. - Objective Vital Signs & Weight: Vital Signs (12 hours) Pulse Resp BP Pulse Ox 02/28/19 15:37 79 116/79 02/28/19 14:00 10 L 02/28/19 13:42 72 123/88 02/28/19 12:00 10 L 02/28/19 10:25 76 142/94 H 02/28/19 10:00 10 L 02/28/19 09:33 128/88 02/28/19 09:32 129/88 02/28/19 08:00 10 L 98 02/28/19 07:52 92 176/122 H 02/28/19 06:00 19 Weight Admit Weight 170 lb Weight 173 lb 11.588 oz Most Recent Monitor Data Heart Rate from ECG 70 NIBP 97/68 NIBP BP-Mean 77 Respiration from ECG 11 SpO2 100 I&O: 02/27/19 02/28/19 03/01/19 06:59 06:59 06:59 Intake Total 2632 2556 200 Output Total 1455 1890 710 Balance 1177 666 -510 Result Diagrams: 02/28/19 Unknown 02/28/19 Unknown Additional Labs: Accuchecks 02/28/19 02/28/19 02/27/19 11:11 04:14 21:10 POC Glucose 108 72 95 02/27/19 17:06 POC Glucose 114 H Hospitalist ROS - Medication Medications: Active Medications Generic Name Dose Route Start Last Admin Trade Name Freq PRN Reason Stop Dose Admin Carvedilol 12.5 mg 02/28/19 09:00 02/28/19 09:33 Coreg PO 12.5 mg BID SONIA Administration Enoxaparin Sodium 40 mg 02/22/19 09:00 02/28/19 09:33 Lovenox SC 40 mg 0900 SONIA Administration Famotidine 20 mg 02/26/19 21:00 02/28/19 09:31 Pepcid PER TUBE 20 mg Q12HR SONIA Administration Furosemide 40 mg 02/26/19 09:00 02/28/19 09:34 Lasix PER TUBE 40 mg DAILY SONIA Administration Levetiracetam 500 mg/ Device 100 mls @ 200 mls/hr 02/22/19 09:00 02/28/19 09: 31 IVPB 100 mls BID SONIA Administration Piperacillin Sod/Tazobactam 100 mls @ 200 mls/hr 02/22/19 06:00 02/28/19 13: 59 Sod 3.375 gm/ Sodium Chloride IVPB 100 mls Q8HR SONIA Administration Insulin Human Lispro 0 units 02/22/19 02:10 02/23/19 16:23 Humalog SC 4 unit .MODERATE SLIDING SC PRN Administration Moderate Correctional Scale Lisinopril 10 mg 02/28/19 09:00 02/28/19 09:32 Zestril PO 10 mg BID SONIA Administration Phenytoin Sodium 100 mg 02/22/19 09:00 02/28/19 09:35 Dilantin PER TUBE 100 mg BID SONIA Administration - Exam General - other findings: unresponsive Eye: anicteric sclera ENT: normocephalic atraumatic Neck - other findings: ET and NG tubes in place Heart: RRR Respiratory - other findings: ventilator transmitted sound heard in all lung zones Gastrointestinal: soft, non-distended, normal bowel sounds Extremeties - other findings: No obvious edema Neurological - other findings: unresponsive Hosp A/P (1) Anoxic encephalopathy Status: Acute (2) Status epilepticus Code(s): G40.901 - EPILEPSY, UNSP, NOT INTRACTABLE, WITH STATUS EPILEPTICUS Status: Acute (3) Acute respiratory failure Code(s): J96.00 - ACUTE RESPIRATORY FAILURE, UNSP W HYPOXIA OR HYPERCAPNIA Status: Acute (4) Hemiparesis affecting right side as late effect of cerebrovascular accident Code(s): I69.351 - HEMIPLGA FOLLOWING CEREBRAL INFRC AFF RIGHT DOMINANT SIDE Status: Acute (5) Elevated troponin Code(s): R74.8 - ABNORMAL LEVELS OF OTHER SERUM ENZYMES Status: Acute (6) Pleural effusion Code(s): J90 - PLEURAL EFFUSION, NOT ELSEWHERE CLASSIFIED Status: Acute (7) Cardiomyopathy Code(s): I42.9 - CARDIOMYOPATHY, UNSPECIFIED Status: Acute (8) HTN (hypertension) Code(s): I10 - ESSENTIAL (PRIMARY) HYPERTENSION Status: Chronic (9) Multiple sclerosis Code(s): G35 - MULTIPLE SCLEROSIS Status: Chronic (10) Seizure disorder Code(s): G40.909 - EPILEPSY, UNSP, NOT INTRACTABLE, WITHOUT STATUS EPILEPTICUS Status: Chronic (11) Positive blood culture Code(s): R78.81 - BACTEREMIA Status: Acute (12) Metabolic acidosis Code(s): E87.2 - ACIDOSIS Status: Acute (13) Hypokalemia Code(s): E87.6 - HYPOKALEMIA Status: Acute - Plan Continue supportive care Increase coreg and lisinopril to get better BP control. continue lasix per tube and monitor renal function Continue tube feeding. Monitor electrolytes and replete as needed. Evaluation for anoxic brain injury ongoing.
[2019-02-28] MEDS: Lisinopril 10 MG TAB PO SCH (21:22)
--- NOTE | 2019-02-28 22:38 | PRG ---
DATE OF SERVICE: 02/28/2019 SUBJECTIVE: Ana Rueda has made no neurological improvement. She opens her eyes to sternal rub . OBJECTIVE: VITAL SIGNS: She is afebrile. Heart rate is 88, respiratory rate is 18, oximetry is in the 90s. HEAD AND NECK: Unremarkable. LUNGS: Clear. HEART: Regular rhythm. ABDOMEN: Soft. EXTREMITIES: Without edema. LABORATORY AND DIAGNOSTIC DATA: White count 13.3, hemoglobin 11.3, platelets 212. Electrolytes are unremarkable. BUN 70, creatinine 0.5. PH 7.5, pCO2 of 26, pO2 of 99. Chest radiograph is unchanged. IMPRESSION AND PLAN: 1. Status post prolonged status epilepticus with probably anoxic injury. 2. Advanced end-stage multiple sclerosis. 3. Deconditioning. 4. Respiratory failure. The options at this point are tracheostomy and PEG placement versus palliative and comfort care. Family apparently walk by in the afternoons for several days. Job ID: [id number]
[2019-03-01 05:34] LABS: Anion Gap 10 mmol/L (10-20); BUN (Urea Nitrogen) 20 mg/dL (9.8-20.1); Calc. Creatinine Clearance 161 mL/min (70-130); Calcium 8.9 mg/dL (7.8-10.44); Carbon Dioxide 25 mmol/L (22-29); Chloride 108 mmol/L (98-107); Estimated GFR-MDRD Greater than 90; Glucose 116 mg/dL (70-105); Potassium 3.2 mmol/L (3.5-5.1); Sodium 140 mmol/L (136-145)
[2019-03-01] MEDS: Piperacillin/Tazobactam 3.375 GM in Sodium Chloride 0.9% 100 ML IVPB SCH (05:39)
[2019-03-01 05:46] LABS: Eosinophils 1 % (0-10); Hemoglobin 10.3 g/dL (12.0-16.0); Hypochromia SLIGHT = 6-15 cells (100X) (0-5/hpf); Lymphocytes 13 % (21-51); MDiff Complete? YES; Mean Corpuscular HGB CONC 31.5 g/dL (32.0-36.0); Mean Corpuscular Hemoglobin 30.9 pg (27.0-31.0); Mean Corpuscular Volume 98.2 fL (78.0-98.0); Mean Platelet Volume 7.6 fL (7.4-10.4); Monocytes 6 % (0-10); Neutrophil 80 % (42-75); Platelet Count 206 thou/uL (130-400); Platelet Morphology Comment Appears Adequate; RBC Distribution Width 13.8 % (11.5-14.5); Red Blood Cell (RBC) Count 3.33 mill/uL (4.20-5.40); White Blood Cell (WBC) Count 12.3 thou/uL (4.8-10.8)
[2019-03-01] MEDS: Carvedilol 6.25 MG TAB PO SCH ×2 (07:29→20:55)
[2019-03-01] MEDS: Famotidine 20 MG TAB PER TUBE SCH ×2 (07:29→20:55)
[2019-03-01] MEDS: Furosemide 40 MG TAB PER TUBE SCH (07:29)
[2019-03-01] MEDS: Lisinopril 10 MG TAB PO SCH ×2 (07:30→20:54)
[2019-03-01] MEDS: Enoxaparin Sodium 40 MG/0.4 ML SYRINGE SC SCH (07:30)
[2019-03-01 07:52] LABS: Actual Bicarbonate (HCO3a) 22.6 mEq/L (22-28); Base Excess (BEa) -0.7 mEq/L (-2.0 to +3.0); CO2 Tension 32.7 mmHg (35.0-45.0); Calcium, Ionized 1.15 mmol/L (1.12-1.30); Carboxyhemoglobin (COHb) 0.4 gm% (0.0-3.0); Hemoglobin (Hb) 11.3 g/dL (12.0-16.0); O2 Tension (PaO2) 101.8 mmHg (80.0-100.0); Potassium - ABG Lab 3.15 mmol/L (3.70-5.30); pH, Arterial 7.46 (7.35-7.45)
[2019-03-01 07:54] LABS: ALV-art Gradient 71.225 (0-20); Puncture Site L.R.
--- NOTE | 2019-03-01 09:53 | RAD ---
PORTABLE CHEST 1 VIEW: Date: 03/01/19 Time: 0438 hours HISTORY: Respiratory failure. FINDINGS/IMPRESSION: No significant interval change is seen since the previous day's exam. POS: SANDEE
--- NOTE | 2019-03-01 13:15 | PRG ---
DATE OF SERVICE: 03/01/2019 SUBJECTIVE: Ana Rueda is not improved neurologically. OBJECTIVE: VITAL SIGNS: She is afebrile. Heart rate 82, blood pressure 98/78. LUNGS: Clear. HEART: Regular rhythm. S1 and S2 are normal. ABDOMEN: Soft and nontender. EXTREMITIES: Without edema. LABORATORY DATA: White count 12.3, hemoglobin 10.3, platelets 206. Sodium 140, potassium 3.2, chloride 108, bicarbonate 25, BUN 20, creatinine 0.49, pH 7.46 CO2 of 37, PO2 of 101. IMPRESSION: 1. Respiratory failure associated with prolonged status epilepticus. 2. End-stage multiple sclerosis with a new large occipital brain lesion. 3. Encephalopathy, not a candidate for weaning. Family wants to continue aggressively. She needs tracheostomy and a PEG. If they do not, she needs to be considered for withdrawal of therapy within the next few days. There are no good options and her prognosis for any type of functional recovery is extremely poor. Job ID: [id number]
--- NOTE | 2019-03-01 15:13 | PDOC.HOSPP ---
- Subjective Encounter Date: 03/01/19 Encounter Time: 13:12 Subjective: 53 y/o obese female with chronic debilitation from MS and prior CVA with residual right sided weakness, seizure admitted with status epilepticus associated with airway compromised necessitating intubation. Patient has been off sedation since 02/22/2019 morning. Still intubated and mechanically ventilated. - Objective Vital Signs & Weight: Vital Signs (12 hours) Temp Pulse Resp BP 03/01/19 14:00 10 L 03/01/19 13:00 99.0 F 03/01/19 12:00 17 03/01/19 11:14 82 98/78 03/01/19 11:00 99.2 F 03/01/19 10:00 10 L 03/01/19 08:00 10 L 03/01/19 07:39 90 138/98 H 03/01/19 07:00 98.6 F 03/01/19 06:00 12 03/01/19 04:00 99.1 F 13 Weight Admit Weight 170 lb Weight 175 lb 4.28 oz Most Recent Monitor Data Heart Rate from ECG 81 NIBP 136/89 NIBP BP-Mean 104 Respiration from ECG 18 SpO2 100 I&O: 02/28/19 03/01/19 03/02/19 06:59 06:59 06:59 Intake Total 2556 2736 360 Output Total 1890 1415 1090 Balance 666 1321 -730 Result Diagrams: 03/01/19 04:50 03/01/19 04:50 Additional Labs: Accuchecks 03/01/19 03/01/19 02/28/19 11:03 04:07 21:39 POC Glucose 102 103 106 02/28/19 18:40 POC Glucose 107 Hospitalist ROS - Medication Medications: Active Medications Generic Name Dose Route Start Last Admin Trade Name Freq PRN Reason Stop Dose Admin Carvedilol 12.5 mg 02/28/19 09:00 03/01/19 07:29 Coreg PO 12.5 mg BID SONIA Administration Enoxaparin Sodium 40 mg 02/22/19 09:00 03/01/19 07:30 Lovenox SC 40 mg 0900 SONIA Administration Famotidine 20 mg 02/26/19 21:00 03/01/19 07:29 Pepcid PER TUBE 20 mg Q12HR SONIA Administration Furosemide 40 mg 02/26/19 09:00 03/01/19 07:29 Lasix PER TUBE 40 mg DAILY SONIA Administration Levetiracetam 500 mg/ Device 100 mls @ 200 mls/hr 02/22/19 09:00 03/01/19 09: 28 IVPB 100 mls BID SONIA Administration Insulin Human Lispro 0 units 02/22/19 02:10 02/23/19 16:23 Humalog SC 4 unit .MODERATE SLIDING SC PRN Administration Moderate Correctional Scale Lisinopril 5 mg 02/28/19 21:00 03/01/19 07:30 Zestril PO 5 mg BID SONIA Administration Phenytoin Sodium 100 mg 02/22/19 09:00 03/01/19 07:30 Dilantin PER TUBE 100 mg BID SONIA Administration Potassium Chloride 20 meq 03/01/19 08:00 03/01/19 09:29 Klor-Con PO 20 meq BID-WM SONIA Administration Sodium Chloride 10 ml 03/01/19 09:00 03/01/19 09:29 Flush - Normal Saline IVF 10 ml Q12HR SONIA Administration - Exam General - other findings: unresponsive. still intubated ENT - other findings: ET and NG tubes are in place. Heart: RRR Respiratory - other findings: ventilator transmitted sound is noted Gastrointestinal: soft, non-distended, normal bowel sounds Extremities: no edema Neurological - other findings: awake. moving left upper limb spontaneously. trying to localize pain Hosp A/P (1) Anoxic encephalopathy Status: Acute (2) Status epilepticus Code(s): G40.901 - EPILEPSY, UNSP, NOT INTRACTABLE, WITH STATUS EPILEPTICUS Status: Acute (3) Acute respiratory failure Code(s): J96.00 - ACUTE RESPIRATORY FAILURE, UNSP W HYPOXIA OR HYPERCAPNIA Status: Acute (4) Hemiparesis affecting right side as late effect of cerebrovascular accident Code(s): I69.351 - HEMIPLGA FOLLOWING CEREBRAL INFRC AFF RIGHT DOMINANT SIDE Status: Acute (5) Elevated troponin Code(s): R74.8 - ABNORMAL LEVELS OF OTHER SERUM ENZYMES Status: Acute (6) Pleural effusion Code(s): J90 - PLEURAL EFFUSION, NOT ELSEWHERE CLASSIFIED Status: Acute (7) Cardiomyopathy Code(s): I42.9 - CARDIOMYOPATHY, UNSPECIFIED Status: Acute (8) HTN (hypertension) Code(s): I10 - ESSENTIAL (PRIMARY) HYPERTENSION Status: Chronic (9) Multiple sclerosis Code(s): G35 - MULTIPLE SCLEROSIS Status: Chronic (10) Seizure disorder Code(s): G40.909 - EPILEPSY, UNSP, NOT INTRACTABLE, WITHOUT STATUS EPILEPTICUS Status: Chronic (11) Positive blood culture Code(s): R78.81 - BACTEREMIA Status: Acute (12) Metabolic acidosis Code(s): E87.2 - ACIDOSIS Status: Acute (13) Hypokalemia Code(s): E87.6 - HYPOKALEMIA Status: Acute - Plan Continue supportive care Continue coreg and lisinopril continue lasix per tube and monitor renal function Continue tube feeding. Monitor electrolytes and replete as needed. Cardiology, Neurology and Pulm/crit following.
[2019-03-02 04:12] LABS: Eosinophils 2 % (0-10); Hemoglobin 11.1 g/dL (12.0-16.0); Lymphocytes 18 % (21-51); MDiff Complete? YES; Mean Corpuscular HGB CONC 33.2 g/dL (32.0-36.0); Mean Corpuscular Hemoglobin 32.7 pg (27.0-31.0); Mean Corpuscular Volume 98.3 fL (78.0-98.0); Mean Platelet Volume 7.3 fL (7.4-10.4); Monocytes 2 % (0-10); Neutrophil 78 % (42-75); Platelet Count 234 thou/uL (130-400); Platelet Morphology Comment Appears Adequate; RBC Distribution Width 14.1 % (11.5-14.5); White Blood Cell (WBC) Count 10.8 thou/uL (4.8-10.8)
[2019-03-02 04:16] LABS: Anion Gap 11 mmol/L (10-20); BUN (Urea Nitrogen) 16 mg/dL (9.8-20.1); Calc. Creatinine Clearance 170 mL/min (70-130); Carbon Dioxide 24 mmol/L (22-29); Chloride 105 mmol/L (98-107); Estimated GFR-MDRD Greater than 90; Glucose 113 mg/dL (70-105); Potassium 3.2 mmol/L (3.5-5.1); Sodium 137 mmol/L (136-145)
[2019-03-02 07:25] LABS: Actual Bicarbonate (HCO3a) 21.1 mEq/L (22-28); Base Excess (BEa) -1.6 mEq/L (-2.0 to +3.0); Calcium, Ionized 1.18 mmol/L (1.12-1.30); Carboxyhemoglobin (COHb) 1.2 gm% (0.0-3.0); Hemoglobin (Hb) 10.3 g/dL (12.0-16.0); O2 Tension (PaO2) 73.9 mmHg (80.0-100.0); Potassium - ABG Lab 3.31 mmol/L (3.70-5.30); pH, Arterial 7.48 (7.35-7.45)
[2019-03-02 07:29] LABS: Puncture Site LR
--- NOTE | 2019-03-02 07:39 | RAD ---
EXAM: Portable chest PROVIDED CLINICAL HISTORY: Respiratory insufficiency COMPARISON: 03/01/2019 FINDINGS: Evaluation is limited due to patient positioning. Significant interval change with respect to the jimmy or examination is not apparent. IMPRESSION: As above.
[2019-03-02] MEDS: Furosemide 40 MG TAB PER TUBE SCH (07:52)
[2019-03-02] MEDS: Famotidine 20 MG TAB PER TUBE SCH ×2 (07:52→21:28)
[2019-03-02] MEDS: Lisinopril 10 MG TAB PO SCH ×2 (07:53→21:28)
[2019-03-02] MEDS: Carvedilol 6.25 MG TAB PO SCH ×2 (07:53→21:28)
[2019-03-02] MEDS: Enoxaparin Sodium 40 MG/0.4 ML SYRINGE SC SCH (09:20)
[2019-03-02] MEDS ORDERED: CCU Electrolyte Replacement 1 EACH FS PRN (10:19)
[2019-03-02] MEDS ORDERED: Potassium Chloride 40 MEQ in Sodium Chloride 0.9% 250 ML 250 ML IVPB PRN (10:24)
[2019-03-02] MEDS ORDERED: Magnesium 2 GM/50 ML 2 GM in Premix Bag 1 BAG IVPB PRN (10:24)
[2019-03-02] MEDS ORDERED: Magnesium Oxide 400 MG TAB PO PRN ×2 (10:24)
[2019-03-02] MEDS ORDERED: CCU ELECTROLYTE REPLACEMENT PROTOCOL FS PRN (10:24)
[2019-03-02] MEDS ORDERED: PHOS-NAK 1 PKT PACK PO PRN ×2 (10:24)
[2019-03-02] MEDS ORDERED: Potassium Phosphate 12 MMOL in Sodium Chloride 0.9% 250 ML 250 ML IV PRN (10:24)
[2019-03-02] MEDS ORDERED: Potassium Chloride 20 MEQ TAB PO PRN (10:24)
[2019-03-02] MEDS ORDERED: Potassium Chloride 40 MEQ in Premix Bag 1 BAG IVPB PRN (10:24)
[2019-03-02] MEDS ORDERED: Potassium Phosphate 15 MMOL in Sodium Chloride 0.9% 250 ML 250 ML IV PRN (10:24)
[2019-03-02] MEDS ORDERED: Potassium Phosphate 9 MMOL in Sodium Chloride 0.9% 100 ML IVPB PRN (10:24)
--- NOTE | 2019-03-02 11:08 | PRG ---
DATE OF SERVICE: 03/02/2019 TIME: 35 minutes critical care time. SUBJECTIVE: The patient remains intubated on mechanical ventilation. Neurologically, she will move her left arm somewhat purposefully, but does not follow any commands. OBJECTIVE: VITAL SIGNS: Temperature is 98.7, pulse 88, blood pressure 103/66, and O2 saturation 100%. A 24-hour intake 2849, output 2155. Weight 174 pounds. HEENT: Unremarkable. NECK: No JVD. CHEST: Fairly clear anteriorly. CARDIAC: S1 and S2. Regular. ABDOMEN: Soft. EXTREMITIES: Edematous. LABORATORY DATA: White blood cell count 10.8, hematocrit 33.4, and platelet count 234. A pH of 7.48, pCO2 of 29, pO2 of 73, SIMV rate 10, tidal volume 500, PEEP 5, pressure support 15, FiO2 of 30%. Sodium 137, potassium 3.2, BUN 16, creatinine 0.5, and glucose 113. Chest x-ray shows no acute changes. ASSESSMENT: 1. Respiratory failure. 2. Status post status epilepticus. 3. Multiple sclerosis with multiple brain lesions. 4. Encephalopathy with lack of improvement. PLAN: This is basically going to come down to the family decision whether to do a palliative extubation or proceed with tracheostomy and PEG tube placement. Either way, her prognosis is poor and I doubt she has any meaningful functional recovery. Job ID: [id number]
[2019-03-02] MEDS: Scopolamine 1.5 mg/72 hour Patch TD SCH (11:21)
--- NOTE | 2019-03-02 13:16 | PDOC.HOSPP ---
- Subjective Encounter Date: 03/02/19 Encounter Time: 11:30 non-verbal Subjective: Patient seen and examined. on ventilator, No overnight events - Objective Vital Signs & Weight: Vital Signs (12 hours) Temp Pulse Resp BP Pulse Ox 03/02/19 10:19 82 103/66 03/02/19 10:00 10 L 03/02/19 08:00 12 100 03/02/19 07:53 139/94 H 03/02/19 07:01 105 H 139/94 H 03/02/19 07:00 98.7 F 03/02/19 06:00 15 03/02/19 04:00 98.9 F 14 03/02/19 03:24 89 03/02/19 02:00 19 Weight Admit Weight 170 lb Weight 174 lb 2.643 oz Most Recent Monitor Data Heart Rate from ECG 80 NIBP 103/66 NIBP BP-Mean 78 Respiration from ECG 10 SpO2 100 I&O: 03/01/19 03/02/19 03/03/19 06:59 06:59 06:59 Intake Total 2736 2849 280 Output Total 1415 2155 430 Balance 1321 694 -150 Result Diagrams: 03/02/19 03:30 03/02/19 03:30 Additional Labs: Accuchecks 03/02/19 03/01/19 03/01/19 03:34 22:01 16:58 POC Glucose 106 97 112 H Radiology Reviewed by me: Yes EKG Reviewed by me: Yes Hospitalist ROS - Review of Systems ROS unobtainable: due to endotracheal tube - Medication Medications: Active Medications Generic Name Dose Route Start Last Admin Trade Name Ilya PRN Reason Stop Dose Admin Carvedilol 12.5 mg 02/28/19 09:00 03/02/19 07:53 Coreg PO 12.5 mg BID SONIA Administration Enoxaparin Sodium 40 mg 02/22/19 09:00 03/02/19 09:20 Lovenox SC 40 mg 0900 SONIA Administration Famotidine 20 mg 02/26/19 21:00 03/02/19 07:52 Pepcid PER TUBE 20 mg Q12HR SONIA Administration Furosemide 40 mg 02/26/19 09:00 03/02/19 07:52 Lasix PER TUBE 40 mg DAILY SONIA Administration Levetiracetam 500 mg/ Device 100 mls @ 200 mls/hr 02/22/19 09:00 03/02/19 09: 20 IVPB 100 mls BID SONIA Administration Insulin Human Lispro 0 units 02/22/19 02:10 02/23/19 16:23 Humalog SC 4 unit .MODERATE SLIDING SC PRN Administration Moderate Correctional Scale Lisinopril 5 mg 02/28/19 21:00 03/02/19 07:53 Zestril PO 5 mg BID SONIA Administration Phenytoin Sodium 100 mg 02/22/19 09:00 03/02/19 09:21 Dilantin PER TUBE 100 mg BID SONIA Administration Potassium Chloride 20 meq 03/01/19 08:00 03/02/19 07:52 Klor-Con PO 20 meq BID-WM SONIA Administration Scopolamine 1.5 mg 03/02/19 10:30 03/02/19 11:21 Transderm Scop TD 1.5 mg Q3D SONIA Administration Sodium Chloride 10 ml 03/01/19 09:00 03/01/19 20:55 Flush - Normal Saline IVF 10 ml Q12HR SONIA Administration - Exam General Appearance: NAD General - other findings: intubated ENT: normocephalic atraumatic, no oropharyngeal lesions Neck: supple, symmetric, no JVD Heart: RRR, no murmur, no gallops Respiratory: CTAB, no wheezes, no rales Gastrointestinal: soft, non-distended, normal bowel sounds Extremities: no cyanosis, no edema Skin: normal turgor Hosp A/P (1) Acute respiratory failure Code(s): J96.00 - ACUTE RESPIRATORY FAILURE, UNSP W HYPOXIA OR HYPERCAPNIA Status: Acute Qualifiers: Respiratory failure complication: hypoxia Qualified Code(s): J96.01 - Acute respiratory failure with hypoxia (2) Anoxic encephalopathy Status: Acute (3) Status epilepticus Code(s): G40.901 - EPILEPSY, UNSP, NOT INTRACTABLE, WITH STATUS EPILEPTICUS Status: Acute (4) H/O: CVA (cerebrovascular accident) Code(s): Z86.73 - PRSNL HX OF TIA (TIA), AND CEREB INFRC W/O RESID DEFICITS Status: Chronic (5) HTN (hypertension) Code(s): I10 - ESSENTIAL (PRIMARY) HYPERTENSION Status: Chronic (6) Multiple sclerosis Code(s): G35 - MULTIPLE SCLEROSIS Status: Chronic (7) Obesity (BMI 30-39.9) Code(s): E66.9 - OBESITY, UNSPECIFIED Status: Chronic (8) Seizure disorder Code(s): G40.909 - EPILEPSY, UNSP, NOT INTRACTABLE, WITHOUT STATUS EPILEPTICUS Status: Chronic - Plan old records reviewed/req continue current medical treatment medication reviewed as above symptomatic treatment prognosis is very poor, pt continue to be unresponsive, no improvement family to decide goal of care, as per my understanding they want everything done
[2019-03-02 15:39] LABS: Potassium 3.6 mmol/L (3.5-5.1)
--- NOTE | 2019-03-03 01:27 | EKG ---
Test Reason : Blood Pressure : / mmHG Vent. Rate : 156 BPM Atrial Rate : 156 BPM P-R Int : 000 ms QRS Dur : 092 ms QT Int : 312 ms P-R-T Axes : 000 -29 054 degrees QTc Int : 502 ms Sinus tachycardia Minimal voltage criteria for LVH, may be normal variant Septal infarct , age undetermined Abnormal ECG Confirmed by BULMARO DIAMOND ([id number]), script editor CHAVA LEIGH ([id number]) on 03/03/2019 1:27:01 AM Referred By: Confirmed By:BULMARO DIAMOND
[2019-03-03 05:09] LABS: Phosphorus 2.7 mg/dL (2.3-4.7)
[2019-03-03 05:11] LABS: Anion Gap 10 mmol/L (10-20); BUN (Urea Nitrogen) 18 mg/dL (9.8-20.1); Band 1 % (5-11); Calc. Creatinine Clearance 162 mL/min (70-130); Carbon Dioxide 24 mmol/L (22-29); Chloride 106 mmol/L (98-107); Elliptocytes SLIGHT = 2-5 cells (100X) (0-1/hpf); Eosinophils 4 % (0-10); Estimated GFR-MDRD Greater than 90; Glucose 104 mg/dL (70-105); Hemoglobin 10.4 g/dL (12.0-16.0); Lymphocytes 19 % (21-51); MDiff Complete? YES; Magnesium 1.9 mg/dL (1.6-2.6); Mean Corpuscular HGB CONC 33.1 g/dL (32.0-36.0); Mean Corpuscular Hemoglobin 32.5 pg (27.0-31.0); Mean Corpuscular Volume 98.2 fL (78.0-98.0); Mean Platelet Volume 7.2 fL (7.4-10.4); Monocytes 7 % (0-10); Neutrophil 68 % (42-75); Platelet Count 258 thou/uL (130-400); Platelet Morphology Comment Appears Adequate; Potassium 3.4 mmol/L (3.5-5.1); Promyelocytes 1 % (0-0); RBC Distribution Width 14.1 % (11.5-14.5); Sodium 137 mmol/L (136-145); White Blood Cell (WBC) Count 8.7 thou/uL (4.8-10.8)
[2019-03-03] MEDS: Famotidine 20 MG TAB PER TUBE SCH ×2 (07:28→20:47)
[2019-03-03] MEDS: Furosemide 40 MG TAB PER TUBE SCH (07:28)
--- NOTE | 2019-03-03 07:42 | RAD ---
EXAM: Portable chest PROVIDED CLINICAL HISTORY: Respiratory insufficiency COMPARISON: 03/02/2019 FINDINGS: Examination is rotated, limiting assessment. Significant interval change with respect to the prior ex amination is not apparent. IMPRESSION: As above.
[2019-03-03 08:09] LABS: Actual Bicarbonate (HCO3a) 20.7 mEq/L (22-28); Calcium, Ionized 1.16 mmol/L (1.12-1.30); Carboxyhemoglobin (COHb) 0.7 gm% (0.0-3.0); Hemoglobin (Hb) 11.1 g/dL (12.0-16.0); O2 Tension (PaO2) 63.9 mmHg (80.0-100.0); Potassium - ABG Lab 4.48 mmol/L (3.70-5.30)
[2019-03-03] MEDS: Carvedilol 6.25 MG TAB PO SCH ×2 (09:22→20:47)
[2019-03-03] MEDS: Lisinopril 10 MG TAB PO SCH ×2 (09:22→20:47)
[2019-03-03] MEDS: Enoxaparin Sodium 40 MG/0.4 ML SYRINGE SC SCH (09:23)
--- NOTE | 2019-03-03 09:43 | PRG ---
DATE OF SERVICE: 03/03/2019 TIME SPENT: 30 minutes of critical care time. SUBJECTIVE: This patient remains intubated on mechanical ventilation. There has been no acute changes overnight. She has had some diarrhea. OBJECTIVE: VITAL SIGNS: On exam, temperature 99.2, heart rate 86, blood pressure 140/87, and O2 saturation 100%. HEENT: She blinks to threat. ET tube is in place. NECK: No adenopathy or JVD. CHEST: Clear anteriorly bilaterally. CARDIAC: S1 and S2. Regular. ABDOMEN: Soft. EXTREMITIES: Trace edema throughout. LABORATORY DATA: White blood cell count 8.7, hematocrit 31.4, and platelet count 258. PH of 7.48, pCO2 of 29, pO2 of 73 that was on SIMV rate of 10, tidal volume 500, PEEP 5, pressure support 15, and FiO2 of 30%. Sodium 137, potassium 3.4, chloride 106, CO2 of 24, BUN 18, creatinine 0.5, and glucose 104. IMAGING DATA: Chest x-ray shows no acute change. ASSESSMENT: 1. Acute on chronic respiratory failure, requiring mechanical ventilation. 2. Status post status epilepticus. 3. Multiple sclerosis, multiple brain lesions. 4. Diarrhea. PLAN: 1. Mechanical ventilation settings have been changed to lower the rate. 2. Change Dilantin to one time daily that way tube feeds will just have to be held once daily. 3. Stop Accu-Cheks. 4. Check C difficile assay. Job ID: [id number]
--- NOTE | 2019-03-03 12:45 | PDOC.HOSPP ---
- Subjective Encounter Date: 03/03/19 Encounter Time: 11:45 non-verbal Subjective: Patient seen and examined. pt has diarrhoea, No overnight events - Objective Vital Signs & Weight: Vital Signs (12 hours) Temp Pulse Resp BP Pulse Ox 03/03/19 12:00 23 H 03/03/19 11:36 92 108/67 03/03/19 11:00 98.4 F 03/03/19 10:00 17 03/03/19 09:22 140/95 H 03/03/19 09:00 19 03/03/19 08:00 99.2 F 13 100 03/03/19 07:09 91 105/68 03/03/19 06:00 10 L 03/03/19 04:00 12 03/03/19 02:00 10 L Weight Admit Weight 170 lb Weight 168 lb 4.8 oz Most Recent Monitor Data Heart Rate from ECG 90 NIBP 96/61 NIBP BP-Mean 72 Respiration from ECG 23 SpO2 100 I&O: 03/02/19 03/03/19 03/04/19 06:59 06:59 06:59 Intake Total 2849 1092 1092 Output Total 2150 7823 700 Balance 694 -398 392 Result Diagrams: 03/03/19 04:33 03/03/19 04:33 Additional Labs: Accuchecks 03/02/19 15:19 POC Glucose 96 Radiology Reviewed by me: Yes EKG Reviewed by me: Yes (nsr) Hospitalist ROS - Review of Systems ROS unobtainable: due to endotracheal tube - Medication Medications: Active Medications Generic Name Dose Route Start Last Admin Trade Name Freq PRN Reason Stop Dose Admin Carvedilol 12.5 mg 02/28/19 09:00 03/03/19 09:22 Coreg PO 12.5 mg BID SONIA Administration Enoxaparin Sodium 40 mg 02/22/19 09:00 03/03/19 09:23 Lovenox SC 40 mg 0900 SONIA Administration Famotidine 20 mg 02/26/19 21:00 03/03/19 07:28 Pepcid PER TUBE 20 mg Q12HR SONIA Administration Furosemide 40 mg 02/26/19 09:00 03/03/19 07:28 Lasix PER TUBE 40 mg DAILY SONIA Administration Levetiracetam 500 mg/ Device 100 mls @ 200 mls/hr 02/22/19 09:00 03/03/19 09: 23 IVPB 100 mls BID SONIA Administration Lisinopril 5 mg 02/28/19 21:00 03/03/19 09:22 Zestril PO 5 mg BID SONIA Administration Potassium Chloride 20 meq 03/01/19 08:00 03/03/19 07:27 Klor-Con PO 20 meq BID-WM SONIA Administration Potassium Chloride 40 meq 03/02/19 10:24 03/03/19 07:28 Klor-Con PER TUBE 40 meq ASDIR PRN Administration FOR SERUM K+ 2.5-3.5 Scopolamine 1.5 mg 03/02/19 10:30 03/02/19 11:21 Transderm Scop TD 1.5 mg Q3D SONIA Administration Sodium Chloride 10 ml 03/01/19 09:00 03/03/19 11:51 Flush - Normal Saline IVF Not Given Q12HR SONIA - Exam General Appearance: NAD General - other findings: on ventilator ENT: normocephalic atraumatic, no oropharyngeal lesions Neck: supple, symmetric, no JVD Heart: RRR, no murmur, no gallops Respiratory: CTAB, no wheezes, no rales Gastrointestinal: soft, non-distended, normal bowel sounds Extremities: no cyanosis, no clubbing, no edema Skin: normal turgor, no lesions Hosp A/P (1) Acute respiratory failure Code(s): J96.00 - ACUTE RESPIRATORY FAILURE, UNSP W HYPOXIA OR HYPERCAPNIA Status: Acute Qualifiers: Respiratory failure complication: hypoxia Qualified Code(s): J96.01 - Acute respiratory failure with hypoxia (2) Anoxic encephalopathy Status: Acute (3) Status epilepticus Code(s): G40.901 - EPILEPSY, UNSP, NOT INTRACTABLE, WITH STATUS EPILEPTICUS Status: Acute (4) H/O: CVA (cerebrovascular accident) Code(s): Z86.73 - PRSNL HX OF TIA (TIA), AND CEREB INFRC W/O RESID DEFICITS Status: Chronic (5) HTN (hypertension) Code(s): I10 - ESSENTIAL (PRIMARY) HYPERTENSION Status: Chronic (6) Multiple sclerosis Code(s): G35 - MULTIPLE SCLEROSIS Status: Chronic (7) Obesity (BMI 30-39.9) Code(s): E66.9 - OBESITY, UNSPECIFIED Status: Chronic (8) Seizure disorder Code(s): G40.909 - EPILEPSY, UNSP, NOT INTRACTABLE, WITHOUT STATUS EPILEPTICUS Status: Chronic - Plan old records reviewed/req, respiratory therapy continue current medical treatment medication reviewed as above symptomatic treatment prognosis is very poor, pt continue to be unresponsive, no improvement noted tomorrow son is coming from out of town palliative care on case family to decide goal of care c-diff is negative
[2019-03-03 14:59] LABS: CO2 Tension 22.8 mmHg (35.0-45.0); Puncture Site LRA; pH, Arterial 7.58 (7.35-7.45)
[2019-03-04 05:09] LABS: #Eosinphils 0.2 thou/uL (0.0-0.7); #Lymphocytes 1.8 thou/uL (1.20-3.40); #Monocytes 0.8 thou/uL (0.11-0.59); %Basophils 0.3 % (0.0-1.0); %Eosinophils 2.5 % (0.0-10.0); %Lymphocytes 20.4 % (21.0-51.0); %Monocytes 8.8 % (0.0-10.0); Hemoglobin 9.8 g/dL (12.0-16.0); Mean Corpuscular HGB CONC 33.5 g/dL (32.0-36.0); Mean Corpuscular Hemoglobin 32.9 pg (27.0-31.0); Mean Corpuscular Volume 98.1 fL (78.0-98.0); Mean Platelet Volume 7.2 fL (7.4-10.4); Platelet Count 259 thou/uL (130-400); RBC Distribution Width 14.5 % (11.5-14.5); Red Blood Cell (RBC) Count 2.99 mill/uL (4.20-5.40); White Blood Cell (WBC) Count 8.8 thou/uL (4.8-10.8)
[2019-03-04 06:16] LABS: Band 3 % (5-11); Eosinophils 3 % (0-10); Hemoglobin 9.9 g/dL (12.0-16.0); Lymphocytes 22 % (21-51); MDiff Complete? YES; Mean Corpuscular HGB CONC 33.3 g/dL (32.0-36.0); Mean Corpuscular Hemoglobin 32.7 pg (27.0-31.0); Mean Corpuscular Volume 98.4 fL (78.0-98.0); Mean Platelet Volume 6.8 fL (7.4-10.4); Monocytes 8 % (0-10); Neutrophil 64 % (42-75); Platelet Count 257 thou/uL (130-400); Platelet Morphology Comment Appears Adequate; RBC Distribution Width 14.7 % (11.5-14.5); Red Blood Cell (RBC) Count 3.02 mill/uL (4.20-5.40); White Blood Cell (WBC) Count 8.9 thou/uL (4.8-10.8)
[2019-03-04 06:55] LABS: Actual Bicarbonate (HCO3a) 21.9 mEq/L (22-28); Base Excess (BEa) -1.3 mEq/L (-2.0 to +3.0); CO2 Tension 31.3 mmHg (35.0-45.0); Calcium, Ionized 1.22 mmol/L (1.12-1.30); Hemoglobin (Hb) 9.6 g/dL (12.0-16.0); O2 Tension (PaO2) 133.8 mmHg (80.0-100.0); Potassium - ABG Lab 3.91 mmol/L (3.70-5.30); pH, Arterial 7.46 (7.35-7.45)
[2019-03-04 07:09] LABS: ALV-art Gradient 40.975 (0-20); Puncture Site LRA
--- NOTE | 2019-03-04 08:00 | RAD ---
EXAM: CHEST ONE VIEW HISTORY: Respiratory failure, intubated. COMPARISON: 03/03/2019 FINDINGS: Endotracheal tube and nasogastric tubes remain in place. Patient is rotated to the left with accentua yayo the cardiac silhouette and also limits evaluation of the left lung base. Remainder of the visualized lung zones are clear. Chest is overall stable compared to prior study. The osseous structu res are intact. IMPRESSION: Stable chest with endotracheal tube and nasogastric tube remaining in place.
--- NOTE | 2019-03-04 08:04 | PDOC.HOSPP ---
- Subjective Encounter Date: 03/04/19 Encounter Time: 07:56 Subjective: intubated, sedated - Objective Vital Signs & Weight: Vital Signs (12 hours) Temp Pulse Resp BP Pulse Ox 03/04/19 06:33 84 121/74 03/04/19 06:00 13 03/04/19 04:11 90 03/04/19 04:00 98.5 F 12 03/04/19 02:00 19 03/04/19 00:00 98.8 F 11 L 03/03/19 23:38 87 124/80 03/03/19 22:00 13 03/03/19 20:47 108/67 03/03/19 20:00 99.4 F 22 H 100 Weight Admit Weight 170 lb Weight 169 lb 4.8 oz Most Recent Monitor Data Heart Rate from ECG 79 NIBP 121/74 NIBP BP-Mean 89 Respiration from ECG 20 SpO2 100 I&O: 03/03/19 03/04/19 03/05/19 06:59 06:59 06:59 Intake Total 1092 2900 Output Total 1955 1895 Balance -863 1005 Result Diagrams: 03/04/19 05:55 03/03/19 04:33 Hospitalist ROS - Medication Medications: Active Medications Generic Name Dose Route Start Last Admin Trade Name Freq PRN Reason Stop Dose Admin Carvedilol 12.5 mg 02/28/19 09:00 03/03/19 20:47 Coreg PO 12.5 mg BID SONIA Administration Enoxaparin Sodium 40 mg 02/22/19 09:00 03/03/19 09:23 Lovenox SC 40 mg 0900 SONIA Administration Famotidine 20 mg 02/26/19 21:00 03/03/19 20:47 Pepcid PER TUBE 20 mg Q12HR SONIA Administration Furosemide 40 mg 02/26/19 09:00 03/03/19 07:28 Lasix PER TUBE 40 mg DAILY SONIA Administration Levetiracetam 500 mg/ Device 100 mls @ 200 mls/hr 02/22/19 09:00 03/03/19 20: 48 IVPB 100 mls BID SONIA Administration Lisinopril 5 mg 02/28/19 21:00 03/03/19 20:47 Zestril PO 5 mg BID SONIA Administration Phenytoin Sodium 200 mg 03/03/19 21:00 03/03/19 20:46 Dilantin PER TUBE 200 mg HS SONIA Administration Potassium Chloride 20 meq 03/01/19 08:00 03/03/19 17:04 Klor-Con PO 20 meq BID-WM SONIA Administration Potassium Chloride 40 meq 03/02/19 10:24 03/03/19 07:28 Klor-Con PER TUBE 40 meq ASDIR PRN Administration FOR SERUM K+ 2.5-3.5 Scopolamine 1.5 mg 03/02/19 10:30 03/02/19 11:21 Transderm Scop TD 1.5 mg Q3D SONIA Administration Sodium Chloride 10 ml 03/01/19 09:00 03/03/19 20:48 Flush - Normal Saline IVF 10 ml Q12HR SONIA Administration - Exam Neck: no JVD Heart: RRR, no murmur Respiratory: CTAB Gastrointestinal: soft, non-tender, non-distended, normal bowel sounds Extremities: no edema Hosp A/P (1) Acute respiratory failure Code(s): J96.00 - ACUTE RESPIRATORY FAILURE, UNSP W HYPOXIA OR HYPERCAPNIA Status: Acute Qualifiers: Respiratory failure complication: hypoxia Qualified Code(s): J96.01 - Acute respiratory failure with hypoxia (2) HTN (hypertension) Code(s): I10 - ESSENTIAL (PRIMARY) HYPERTENSION Status: Chronic Qualifiers: Hypertension type: essential hypertension Qualified Code(s): I10 - Essential (primary) hypertension (3) Multiple sclerosis Code(s): G35 - MULTIPLE SCLEROSIS Status: Chronic (4) Seizure disorder Code(s): G40.909 - EPILEPSY, UNSP, NOT INTRACTABLE, WITHOUT STATUS EPILEPTICUS Status: Chronic - Plan on vent, weaning per feed manager. cont tube feedings, dilantin, etc. discuss with feed manager
[2019-03-04 09:05] LABS: Anion Gap 12 mmol/L (10-20); BUN (Urea Nitrogen) 23 mg/dL (9.8-20.1); Calc. Creatinine Clearance 161 mL/min (70-130); Calcium 8.9 mg/dL (7.8-10.44); Carbon Dioxide 22 mmol/L (22-29); Chloride 109 mmol/L (98-107); Estimated GFR-MDRD Greater than 90; Glucose 114 mg/dL (70-105); Potassium 3.8 mmol/L (3.5-5.1); Sodium 139 mmol/L (136-145)
[2019-03-04] MEDS: Lisinopril 10 MG TAB PO SCH ×2 (09:34→22:09)
[2019-03-04] MEDS: Furosemide 40 MG TAB PER TUBE SCH (09:35)
[2019-03-04] MEDS: Carvedilol 6.25 MG TAB PO SCH ×2 (09:35→22:09)
[2019-03-04] MEDS: Famotidine 20 MG TAB PER TUBE SCH ×2 (09:35→22:10)
[2019-03-04] MEDS: Enoxaparin Sodium 40 MG/0.4 ML SYRINGE SC SCH (09:35)
[2019-03-04] MEDS: Acetaminophen 325 MG TAB PO PRN (13:40)
--- NOTE | 2019-03-04 15:14 | PRG ---
DATE OF SERVICE: 03/04/2019 SUBJECTIVE: Ana Rueda is doing more than she was on Monday neurologically. The family wants to continue to be aggressive, so this likely will lead to a tracheostomy and a PEG. Apparently, there is a Palliative Care meeting set up for tomorrow. OBJECTIVE: VITAL SIGNS: Blood pressure is 112/79, heart rate is 84, respiratory rate is in the teens. LUNGS: Clear. HEART: Regular rhythm. ABDOMEN: Soft. LABORATORY DATA: White count 8.9, hemoglobin 9.9 platelets 257. Electrolytes are unremarkable. Creatinine is 0.4. Blood gas; pH of 7.46, CO2 of 31, pO2 of 133. IMPRESSION: Respiratory failure associated with seizures and advanced multiple sclerosis. Chest radiograph from today is reviewed and unchanged. The family will likely want to proceed with tracheostomy and PEG, and then placement in a long-term care facility. Job ID: [id number]
[2019-03-05] MEDS: Acetaminophen 325 MG TAB PO PRN (01:58)
[2019-03-05 05:37] LABS: Band 1 % (5-11); Eosinophils 2 % (0-10); Hemoglobin 9.8 g/dL (12.0-16.0); Hypochromia SLIGHT = 6-15 cells (100X) (0-5/hpf); Lymphocytes 12 % (21-51); MDiff Complete? YES; Mean Corpuscular HGB CONC 34.5 g/dL (32.0-36.0); Mean Corpuscular Volume 98.5 fL (78.0-98.0); Mean Platelet Volume 6.9 fL (7.4-10.4); Monocytes 1 % (0-10); Neutrophil 84 % (42-75); Platelet Count 275 thou/uL (130-400); Platelet Morphology Comment Appears Adequate; RBC Distribution Width 14.6 % (11.5-14.5); Red Blood Cell (RBC) Count 2.88 mill/uL (4.20-5.40); White Blood Cell (WBC) Count 9.3 thou/uL (4.8-10.8)
[2019-03-05 05:46] LABS: Anion Gap 12 mmol/L (10-20); BUN (Urea Nitrogen) 28 mg/dL (9.8-20.1); Calc. Creatinine Clearance 157 mL/min (70-130); Calcium 9.4 mg/dL (7.8-10.44); Carbon Dioxide 23 mmol/L (22-29); Chloride 108 mmol/L (98-107); Estimated GFR-MDRD Greater than 90; Glucose 119 mg/dL (70-105); Potassium 3.8 mmol/L (3.5-5.1); Sodium 139 mmol/L (136-145)
[2019-03-05 06:47] LABS: Actual Bicarbonate (HCO3a) 20.1 mEq/L (22-28); Base Excess (BEa) -2.1 mEq/L (-2.0 to +3.0); CO2 Tension 27.4 mmHg (35.0-45.0); Calcium, Ionized 1.21 mmol/L (1.12-1.30); Carboxyhemoglobin (COHb) 0.7 gm% (0.0-3.0); Hemoglobin (Hb) 12.5 g/dL (12.0-16.0); O2 Tension (PaO2) 126.9 mmHg (80.0-100.0); Potassium - ABG Lab 3.74 mmol/L (3.70-5.30); pH, Arterial 7.48 (7.35-7.45)
[2019-03-05 06:51] LABS: Puncture Site LRA
--- NOTE | 2019-03-05 07:59 | RAD ---
XR Chest 1 View Portable History: Intubated patient Comparison: Radiograph prior day Findings: Patient is intubated with endotracheal tube tip at the level of the clavicles. Dense left b asilar opacity. Small effusions. No pneumothorax. Enteric tube tip below diaphragm although out of field of view. No acute osseous abnormality. Impression: Similar examination of the chest.
[2019-03-05] MEDS: Scopolamine 1.5 mg/72 hour Patch TD SCH (08:57)
[2019-03-05] MEDS: Lisinopril 10 MG TAB PO SCH ×2 (09:00→21:10)
[2019-03-05] MEDS: Famotidine 20 MG TAB PER TUBE SCH ×2 (09:00→21:10)
[2019-03-05] MEDS: Enoxaparin Sodium 40 MG/0.4 ML SYRINGE SC SCH (09:00)
[2019-03-05] MEDS: Furosemide 40 MG TAB PER TUBE SCH (09:00)
[2019-03-05] MEDS: Carvedilol 6.25 MG TAB PO SCH ×2 (09:04→21:10)
--- NOTE | 2019-03-05 11:58 | PDOC.HOSPP ---
- Subjective Encounter Date: 03/05/19 Encounter Time: 11:57 non-verbal - Objective Vital Signs & Weight: Vital Signs (12 hours) Temp Pulse Resp BP Pulse Ox 03/05/19 11:00 98.9 F 03/05/19 10:13 83 125/83 03/05/19 10:00 11 L 03/05/19 08:00 99.6 F 17 03/05/19 06:29 87 131/85 03/05/19 06:00 23 H 03/05/19 04:00 98.5 F 12 03/05/19 02:57 78 03/05/19 02:00 12 03/05/19 01:23 13 100 03/05/19 00:00 98.7 F 15 Weight Admit Weight 170 lb Weight 172 lb 2.896 oz Most Recent Monitor Data Heart Rate from ECG 78 NIBP 142/82 NIBP BP-Mean 102 Respiration from ECG 21 SpO2 100 I&O: 03/04/19 03/05/19 03/06/19 06:59 06:59 06:59 Intake Total 2900 2452 240 Output Total 1895 5325 460 Balance 1005 -43 -220 Result Diagrams: 03/05/19 04:55 03/05/19 04:55 Radiology Reviewed by me: Yes (cxr- ET tube, stable findings) Hospitalist ROS - Medication Medications: Active Medications Generic Name Dose Route Start Last Admin Trade Name Freq PRN Reason Stop Dose Admin Acetaminophen 650 mg 02/22/19 02:10 03/05/19 01:58 Tylenol PO 650 mg Q4H PRN Administration Headache/Fever/Mild Pain (1-3) Carvedilol 12.5 mg 02/28/19 09:00 03/05/19 09:04 Coreg PO 12.5 mg BID SONIA Administration Enoxaparin Sodium 40 mg 02/22/19 09:00 03/05/19 09:00 Lovenox SC 40 mg 0900 SONIA Administration Famotidine 20 mg 02/26/19 21:00 03/05/19 09:00 Pepcid PER TUBE 20 mg Q12HR SONIA Administration Furosemide 40 mg 02/26/19 09:00 03/05/19 09:00 Lasix PER TUBE 40 mg DAILY SONIA Administration Levetiracetam 500 mg/ Device 100 mls @ 200 mls/hr 02/22/19 09:00 03/05/19 08: 59 IVPB 100 mls BID SONIA Administration Lisinopril 5 mg 02/28/19 21:00 03/05/19 09:00 Zestril PO 5 mg BID SONIA Administration Phenytoin Sodium 200 mg 03/03/19 21:00 03/04/19 22:11 Dilantin PER TUBE 200 mg HS SONIA Administration Potassium Chloride 20 meq 03/01/19 08:00 03/05/19 09:00 Klor-Con PO 20 meq BID-WM SONIA Administration Potassium Chloride 40 meq 03/02/19 10:24 03/03/19 07:28 Klor-Con PER TUBE 40 meq ASDIR PRN Administration FOR SERUM K+ 2.5-3.5 Scopolamine 1.5 mg 03/02/19 10:30 03/05/19 08:57 Transderm Scop TD 1.5 mg Q3D SONIA Administration Sodium Chloride 10 ml 03/01/19 09:00 03/05/19 09:01 Flush - Normal Saline IVF 10 ml Q12HR SONIA Administration - Exam Neck: no JVD Heart: RRR, no murmur Respiratory: CTAB Gastrointestinal: soft, normal bowel sounds Extremities: 1+ LE edema Hosp A/P (1) Acute respiratory failure Code(s): J96.00 - ACUTE RESPIRATORY FAILURE, UNSP W HYPOXIA OR HYPERCAPNIA Status: Acute Qualifiers: Respiratory failure complication: hypoxia Qualified Code(s): J96.01 - Acute respiratory failure with hypoxia (2) HTN (hypertension) Code(s): I10 - ESSENTIAL (PRIMARY) HYPERTENSION Status: Chronic Qualifiers: Hypertension type: essential hypertension Qualified Code(s): I10 - Essential (primary) hypertension (3) Multiple sclerosis Code(s): G35 - MULTIPLE SCLEROSIS Status: Chronic (4) Seizure disorder Code(s): G40.909 - EPILEPSY, UNSP, NOT INTRACTABLE, WITHOUT STATUS EPILEPTICUS Status: Chronic - Plan on vent, weaning per structural mill supervisor. cont tube feedings, dilantin, etc. palliative care to see. probable eventual trach/ peg
--- NOTE | 2019-03-05 17:25 | PRG ---
DATE OF SERVICE: 03/05/2019 SUBJECTIVE: Ana Rueda is in no distress. OBJECTIVE: VITAL SIGNS: Heart rate is 91, blood pressure 147/93, and respiratory rate 17. LUNGS: Clear. HEART: Regular rhythm. S1 and S2 are normal. ABDOMEN: Soft and nontender. She opens her eyes, but does not reproducibly follow commands. Family still has not made a decision. LABORATORY DATA: White count 9.3, hemoglobin 9.8, platelets 275. Electrolytes; sodium 139, potassium 3.8, chloride 108, bicarb 23, BUN 20, creatinine 0.5. IMPRESSION: 1. Status epilepticus. 2. Respiratory failure, not weanable without tracheostomy. 3. End-stage multiple sclerosis. Family does not agree on withdrawal of care, so tracheostomy and PEG in the next step in my opinion. I do not think this led quality to her life, this is a family decision. We may have to corner the family to make this decision because they have certainly not been at the bedside very much of the last few days. I did talk to 2 family members yesterday and may lead me to believe that they would agree to a tracheostomy and PEG and that they were not interested in withdrawing care, so we need to facilitate this for the weeks over if that is the final plan. CRITICAL CARE TIME: 30 minutes. Job ID: [id number]
[2019-03-06 06:15] LABS: Eosinophils 2 % (0-10); Hemoglobin 9.6 g/dL (12.0-16.0); Lymphocytes 24 % (21-51); MDiff Complete? YES; Mean Corpuscular HGB CONC 33.6 g/dL (32.0-36.0); Mean Corpuscular Hemoglobin 33.1 pg (27.0-31.0); Mean Corpuscular Volume 98.5 fL (78.0-98.0); Mean Platelet Volume 6.8 fL (7.4-10.4); Monocytes 5 % (0-10); Neutrophil 69 % (42-75); Platelet Count 290 thou/uL (130-400); Platelet Morphology Comment Appears Adequate; RBC Distribution Width 14.4 % (11.5-14.5)
[2019-03-06 06:25] LABS: Anion Gap 9 mmol/L (10-20); BUN (Urea Nitrogen) 26 mg/dL (9.8-20.1); Calc. Creatinine Clearance 159 mL/min (70-130); Calcium 9.3 mg/dL (7.8-10.44); Carbon Dioxide 26 mmol/L (22-29); Chloride 105 mmol/L (98-107); Estimated GFR-MDRD Greater than 90; Glucose 108 mg/dL (70-105); Potassium 3.7 mmol/L (3.5-5.1); Sodium 136 mmol/L (136-145)
[2019-03-06 07:33] LABS: Actual Bicarbonate (HCO3a) 21.9 mEq/L (22-28); Base Excess (BEa) -1.1 mEq/L (-2.0 to +3.0); CO2 Tension 30.6 mmHg (35.0-45.0); Calcium, Ionized 1.21 mmol/L (1.12-1.30); Carboxyhemoglobin (COHb) 0.9 gm% (0.0-3.0); Hemoglobin (Hb) 10.7 g/dL (12.0-16.0); O2 Tension (PaO2) 78.6 mmHg (80.0-100.0); Potassium - ABG Lab 4.15 mmol/L (3.70-5.30); pH, Arterial 7.47 (7.35-7.45)
[2019-03-06 07:42] LABS: Puncture Site RRA
[2019-03-06] MEDS: Furosemide 40 MG TAB PER TUBE SCH (07:54)
[2019-03-06] MEDS: Famotidine 20 MG TAB PER TUBE SCH ×2 (07:54→20:58)
[2019-03-06] MEDS: Carvedilol 6.25 MG TAB PO SCH ×2 (07:54→20:58)
[2019-03-06] MEDS: Lisinopril 10 MG TAB PO SCH ×2 (07:54→20:58)
--- NOTE | 2019-03-06 07:54 | PDOC.HOSPP ---
- Subjective Encounter Date: 03/06/19 Encounter Time: 07:53 Subjective: intubated, unresponsive - Objective Vital Signs & Weight: Vital Signs (12 hours) Temp Pulse Resp BP Pulse Ox 03/06/19 07:16 71 03/06/19 07:00 98.9 F 03/06/19 06:00 15 03/06/19 04:00 99.0 F 9 L 03/06/19 02:23 78 153/88 H 03/06/19 02:00 15 03/06/19 00:00 98.8 F 17 03/05/19 22:29 73 144/94 H 03/05/19 22:00 12 03/05/19 21:10 149/92 H 03/05/19 20:00 16 97 Weight Admit Weight 170 lb Weight 170 lb 10.205 oz Most Recent Monitor Data Heart Rate from ECG 80 NIBP 118/83 NIBP BP-Mean 94 Respiration from ECG 20 SpO2 95 I&O: 03/05/19 03/06/19 03/07/19 06:59 06:59 06:59 Intake Total 2452 2348 Output Total 5744 2565 60 Balance -43 -217 -60 Result Diagrams: 03/06/19 05:40 03/06/19 05:40 Hospitalist ROS - Medication Medications: Active Medications Generic Name Dose Route Start Last Admin Trade Name Freq PRN Reason Stop Dose Admin Acetaminophen 650 mg 02/22/19 02:10 03/05/19 01:58 Tylenol PO 650 mg Q4H PRN Administration Headache/Fever/Mild Pain (1-3) Carvedilol 12.5 mg 02/28/19 09:00 03/05/19 21:10 Coreg PO 12.5 mg BID SONIA Administration Enoxaparin Sodium 40 mg 02/22/19 09:00 03/05/19 09:00 Lovenox SC 40 mg 0900 SONIA Administration Famotidine 20 mg 02/26/19 21:00 03/05/19 21:10 Pepcid PER TUBE 20 mg Q12HR SONIA Administration Furosemide 40 mg 02/26/19 09:00 03/05/19 09:00 Lasix PER TUBE 40 mg DAILY SONIA Administration Levetiracetam 500 mg/ Device 100 mls @ 200 mls/hr 02/22/19 09:00 03/05/19 21: 10 IVPB 100 mls BID OSNIA Administration Lisinopril 5 mg 02/28/19 21:00 03/05/19 21:10 Zestril PO 5 mg BID SONIA Administration Phenytoin Sodium 200 mg 03/03/19 21:00 03/05/19 21:09 Dilantin PER TUBE 200 mg HS SONIA Administration Potassium Chloride 20 meq 03/01/19 08:00 03/05/19 18:04 Klor-Con PO 20 meq BID-WM SONIA Administration Potassium Chloride 40 meq 03/02/19 10:24 03/03/19 07:28 Klor-Con PER TUBE 40 meq ASDIR PRN Administration FOR SERUM K+ 2.5-3.5 Scopolamine 1.5 mg 03/02/19 10:30 03/05/19 08:57 Transderm Scop TD 1.5 mg Q3D SONIA Administration Sodium Chloride 10 ml 03/01/19 09:00 03/05/19 21:11 Flush - Normal Saline IVF 10 ml Q12HR SONIA Administration - Exam Neck: no JVD Heart: RRR, no murmur Respiratory: CTAB Gastrointestinal: soft, normal bowel sounds Extremities: 1+ LE edema Hosp A/P (1) Acute respiratory failure Code(s): J96.00 - ACUTE RESPIRATORY FAILURE, UNSP W HYPOXIA OR HYPERCAPNIA Status: Acute Qualifiers: Respiratory failure complication: hypoxia Qualified Code(s): J96.01 - Acute respiratory failure with hypoxia (2) HTN (hypertension) Code(s): I10 - ESSENTIAL (PRIMARY) HYPERTENSION Status: Chronic Qualifiers: Hypertension type: essential hypertension Qualified Code(s): I10 - Essential (primary) hypertension (3) Multiple sclerosis Code(s): G35 - MULTIPLE SCLEROSIS Status: Chronic (4) Seizure disorder Code(s): G40.909 - EPILEPSY, UNSP, NOT INTRACTABLE, WITHOUT STATUS EPILEPTICUS Status: Chronic - Plan on vent, weaning per environmental safety specialist. cont tube feedings, dilantin, etc. palliative care to see. probable eventual trach/ peg
[2019-03-06] MEDS: Enoxaparin Sodium 40 MG/0.4 ML SYRINGE SC SCH (07:55)
[2019-03-06] MEDS ORDERED: Nystatin Powder 15 GM BOT TOP PRN (15:35)
--- NOTE | 2019-03-06 18:16 | PRG ---
DATE OF SERVICE: 03/06/2019 SUBJECTIVE: Ms. Rueda is unchanged. She will open her eyes, but she will not consistently make eye contact. She is not following commands. She has not had any seizure activity. OBJECTIVE: VITAL SIGNS: She is afebrile. Heart rate is 96, blood pressure is 133/86, respiratory rate is 19. LUNGS: Clear. HEART: Regular rhythm. ABDOMEN: Soft. LABORATORY DATA: White count 9, hemoglobin 9.6, platelets 290. Sodium 136, potassium 3.7, chloride 105, bicarb 26, BUN 26, creatinine 0.49. IMPRESSION: 1. End-stage multiple sclerosis. 2. Seizures. 3. Respiratory failure. 4. Persistent encephalopathy likely secondary to prolonged status. The family still has not made any decision, so I have placed a consult for General Surgery for tracheostomy and PEG. I am told there will be another family meeting tomorrow morning. Family really has to make a decision tomorrow about either withdrawing care or continuing. Their failure to address the issues at hand tell me that they are not willing to let her be passed peacefully, so issue will be hopefully encouraged by Surgery consultation for tracheostomy and PEG. Next step after that will be long-term acute care placement. Prognosis is dismal for any type of functional recovery, given that I am told she was already bedridden for several years leading up to this. Job ID: [id number]
[2019-03-06] MEDS: Nystatin Powder 15 GM BOT TOP SCH (21:00)
[2019-03-07 05:25] LABS: Hemoglobin 10.5 g/dL (12.0-16.0); MDiff Complete? YES; Mean Corpuscular HGB CONC 33.2 g/dL (32.0-36.0); Mean Corpuscular Hemoglobin 32.4 pg (27.0-31.0); Mean Corpuscular Volume 97.6 fL (78.0-98.0); Mean Platelet Volume 6.8 fL (7.4-10.4); Platelet Count 298 thou/uL (130-400); RBC Distribution Width 14.4 % (11.5-14.5); Red Blood Cell (RBC) Count 3.25 mill/uL (4.20-5.40); White Blood Cell (WBC) Count 13.3 thou/uL (4.8-10.8)
[2019-03-07 05:26] LABS: Anion Gap 11 mmol/L (10-20); BUN (Urea Nitrogen) 20 mg/dL (9.8-20.1); Calc. Creatinine Clearance 147 mL/min (70-130); Calcium 9.5 mg/dL (7.8-10.44); Carbon Dioxide 24 mmol/L (22-29); Chloride 103 mmol/L (98-107); Eosinophils 1 % (0-10); Estimated GFR-MDRD Greater than 90; Glucose 100 mg/dL (70-105); Hypochromia SLIGHT = 6-15 cells (100X) (0-5/hpf); Lymphocytes 4 % (21-51); Monocytes 3 % (0-10); Neutrophil 92 % (42-75); Platelet Morphology Comment Appears Adequate; Potassium 4.1 mmol/L (3.5-5.1); Sodium 134 mmol/L (136-145)
--- NOTE | 2019-03-07 08:50 | PDOC.HOSPP ---
- Subjective Encounter Date: 03/07/19 Encounter Time: 08:49 Subjective: intued, unresponsive - Objective Vital Signs & Weight: Vital Signs (12 hours) Temp Pulse Resp BP 03/07/19 08:00 99.8 F H 03/07/19 07:47 91 03/07/19 06:00 13 03/07/19 04:00 99.3 F 16 03/07/19 02:27 88 159/89 H 03/07/19 02:00 15 03/07/19 00:00 100.2 F H 25 H 03/06/19 22:27 87 149/91 H 03/06/19 22:00 28 H 03/06/19 20:58 143/97 H Weight Admit Weight 170 lb Weight 163 lb 9.328 oz Most Recent Monitor Data Heart Rate from ECG 95 NIBP 140/101 NIBP BP-Mean 114 Respiration from ECG 42 SpO2 97 I&O: 03/06/19 03/07/19 03/08/19 06:59 06:59 06:59 Intake Total 2348 2128 Output Total 2565 2045 40 Balance -217 83 -40 Result Diagrams: 03/07/19 04:54 03/07/19 04:54 Hospitalist ROS - Medication Medications: Active Medications Generic Name Dose Route Start Last Admin Trade Name Freq PRN Reason Stop Dose Admin Acetaminophen 650 mg 02/22/19 02:10 03/05/19 01:58 Tylenol PO 650 mg Q4H PRN Administration Headache/Fever/Mild Pain (1-3) Carvedilol 12.5 mg 02/28/19 09:00 03/06/19 20:58 Coreg PO 12.5 mg BID SONIA Administration Enoxaparin Sodium 40 mg 02/22/19 09:00 03/06/19 07:55 Lovenox SC 40 mg 0900 SONIA Administration Famotidine 20 mg 02/26/19 21:00 03/06/19 20:58 Pepcid PER TUBE 20 mg Q12HR SONIA Administration Furosemide 40 mg 02/26/19 09:00 03/06/19 07:54 Lasix PER TUBE 40 mg DAILY SONIA Administration Levetiracetam 500 mg/ Device 100 mls @ 200 mls/hr 02/22/19 09:00 03/06/19 20: 58 IVPB 100 mls BID SONIA Administration Lisinopril 5 mg 02/28/19 21:00 03/06/19 20:58 Zestril PO 5 mg BID SONIA Administration Nystatin 0 gm 03/06/19 21:00 03/06/19 21:00 Mycostatin Powder TOP 1 applic BID SONIA Administration Phenytoin Sodium 200 mg 03/03/19 21:00 03/06/19 20:59 Dilantin PER TUBE 200 mg HS SONIA Administration Potassium Chloride 20 meq 03/01/19 08:00 03/06/19 17:20 Klor-Con PO 20 meq BID-WM SONIA Administration Potassium Chloride 40 meq 03/02/19 10:24 03/03/19 07:28 Klor-Con PER TUBE 40 meq ASDIR PRN Administration FOR SERUM K+ 2.5-3.5 Scopolamine 1.5 mg 03/02/19 10:30 03/05/19 08:57 Transderm Scop TD 1.5 mg Q3D SONIA Administration Sodium Chloride 10 ml 03/01/19 09:00 03/06/19 20:59 Flush - Normal Saline IVF 10 ml Q12HR SONIA Administration - Exam Neck: no JVD Heart: RRR, no murmur Respiratory: CTAB Gastrointestinal: soft, normal bowel sounds Extremities: 1+ LE edema Hosp A/P (1) Acute respiratory failure Code(s): J96.00 - ACUTE RESPIRATORY FAILURE, UNSP W HYPOXIA OR HYPERCAPNIA Status: Acute Qualifiers: Respiratory failure complication: hypoxia Qualified Code(s): J96.01 - Acute respiratory failure with hypoxia (2) HTN (hypertension) Code(s): I10 - ESSENTIAL (PRIMARY) HYPERTENSION Status: Chronic Qualifiers: Hypertension type: essential hypertension Qualified Code(s): I10 - Essential (primary) hypertension (3) Multiple sclerosis Code(s): G35 - MULTIPLE SCLEROSIS Status: Chronic (4) Seizure disorder Code(s): G40.909 - EPILEPSY, UNSP, NOT INTRACTABLE, WITHOUT STATUS EPILEPTICUS Status: Chronic (5) Anoxic encephalopathy Status: Acute - Plan on vent, weaning per coater slate. cont tube feedings, dilantin, etc. palliative care to see. probable eventual trach/ peg
[2019-03-07] MEDS: Enoxaparin Sodium 40 MG/0.4 ML SYRINGE SC SCH (09:00)
[2019-03-07] MEDS: Lisinopril 10 MG TAB PO SCH ×2 (09:33→20:48)
[2019-03-07] MEDS: Carvedilol 6.25 MG TAB PO SCH ×2 (09:33→20:48)
[2019-03-07] MEDS: Furosemide 40 MG TAB PER TUBE SCH (09:34)
[2019-03-07] MEDS: Famotidine 20 MG TAB PER TUBE SCH ×2 (09:34→20:49)
[2019-03-07] MEDS: Nystatin Powder 15 GM BOT TOP SCH ×2 (09:35→20:49)
[2019-03-07] MEDS ORDERED: Bupivacaine/Epinephrine 0.25% 30 ML VIAL ONE (13:04)
[2019-03-07] MEDS ORDERED: Midazolam HCl 2 mg/2 ml Vial ONE (13:24)
[2019-03-07] MEDS ORDERED: Rocuronium Bromide 10 MG/ML (10ML VIAL) ONE (13:30)
--- NOTE | 2019-03-07 16:03 | PRG ---
DATE OF SERVICE: SUBJECTIVE: Ana Rueda is clinically unchanged. The family was supposed to decide today on trach and PEG versus withdrawal. Everybody I have run into in the family says they want a trach and a PEG, so I am not really sure why they continue to draw this out with meetings. OBJECTIVE: VITAL SIGNS: She is afebrile. Heart rate is in 80s, respiratory rates in the 20s, blood pressure 91/67. Intake and outputs positive 83 mL. LUNGS: Clear. HEART: Regular rhythm. ABDOMEN: Soft. EXTREMITIES: Without, clubbing, cyanosis, or edema. LABORATORY DATA: White count 13.3, hemoglobin 10.5, platelets 298. Sodium 134, potassium 4.1, chloride 103, bicarb 24, BUN 20, creatinine 0.53. Neurologically, she still just opens her eyes and has a wandering gaze. IMPRESSION: 1. End-stage multiple sclerosis. 2. Status epilepticus on presentation. 3. New MS lesion on MRI. 4. Respiratory failure, which will likely lead to a trach and a PEG. 5. Bedridden state from total of 2 years. Her chance of a functional recovery is close to zero. We need to begin placement conversations with long-term acute care. Job ID: [id number]
[2019-03-07] MEDS ORDERED: Propofol 1,000 MG/100 ML VIAL IV ONE ×2 (16:17→17:02)
[2019-03-08 05:27] LABS: Band 4 % (5-11); Eosinophils 1 % (0-10); Hemoglobin 11.2 g/dL (12.0-16.0); Lymphocytes 5 % (21-51); MDiff Complete? YES; Mean Corpuscular HGB CONC 33.4 g/dL (32.0-36.0); Mean Corpuscular Hemoglobin 33.2 pg (27.0-31.0); Mean Corpuscular Volume 99.2 fL (78.0-98.0); Mean Platelet Volume 6.6 fL (7.4-10.4); Monocytes 5 % (0-10); Neutrophil 85 % (42-75); Platelet Count 318 thou/uL (130-400); RBC Distribution Width 14.3 % (11.5-14.5); Red Blood Cell (RBC) Count 3.37 mill/uL (4.20-5.40); White Blood Cell (WBC) Count 10.3 thou/uL (4.8-10.8)
[2019-03-08 05:34] LABS: Anion Gap 13 mmol/L (10-20); BUN (Urea Nitrogen) 19 mg/dL (9.8-20.1); Calc. Creatinine Clearance 133 mL/min (70-130); Calcium 9.7 mg/dL (7.8-10.44); Carbon Dioxide 24 mmol/L (22-29); Chloride 101 mmol/L (98-107); Estimated GFR-MDRD Greater than 90; Glucose 89 mg/dL (70-105); Potassium 3.8 mmol/L (3.5-5.1); Sodium 134 mmol/L (136-145)
[2019-03-08] MEDS ORDERED: Propofol 1,000 MG/100 ML VIAL IV PRN (06:48)
[2019-03-08] MEDS: Nystatin Powder 15 GM BOT TOP SCH ×2 (09:00→21:44)
[2019-03-08] MEDS: Carvedilol 6.25 MG TAB PO SCH (09:05)
[2019-03-08] MEDS: Famotidine 20 MG TAB PER TUBE SCH ×2 (09:06→21:43)
[2019-03-08] MEDS: Lisinopril 10 MG TAB PO SCH ×2 (09:06→21:43)
[2019-03-08] MEDS: Furosemide 40 MG TAB PER TUBE SCH (09:06)
[2019-03-08] MEDS: Scopolamine 1.5 mg/72 hour Patch TD SCH (09:09)
[2019-03-08] MEDS: Enoxaparin Sodium 40 MG/0.4 ML SYRINGE SC SCH (09:11)
[2019-03-08] MEDS ORDERED: Lisinopril 5 MG TAB PER TUBE SCH (11:15)
--- NOTE | 2019-03-08 12:47 | PRG ---
DATE OF SERVICE: 03/08/2019 SERVICE: Pulmonary Medicine. INTERVAL HISTORY: The patient is doing fine from respiratory standpoint. Mentation ball, things have not changed significantly. She cannot provide any additional elements of the history. She did not have any overnight events. She appears to be comfortable. She will open her eyes spontaneously, but does not attend me. PHYSICAL EXAMINATION: VITAL SIGNS: Afebrile, pulse 95, blood pressure 123/97, respirations 21, saturation 98% on 31% FiO2. GENERAL: The patient is awake and alert, in no apparent distress. HEENT: Normocephalic, atraumatic. Sclerae white. Conjunctivae pink. Oral mucosa is moist without lesions. LUNGS: Decent air entry. There is no prolonged expiratory phase. Dependent crackles are noted. HEART: Normal rate and regular. ABDOMEN: Soft, nontender, nondistended. Bowel sounds are positive. MUSCULOSKELETAL: No cyanosis or clubbing. There is trace pitting in the bilateral lower extremities. NEUROLOGIC: She is comfortably overbreathing the ventilator and demonstrates a decent cough and gag. She has right-sided hemiparesis. She does withdraw from noxious stimuli in the left upper and lower extremity. LABORATORY DATA: WBC 10.3, hemoglobin 11.2, and platelets 318,000. Sodium 134. Basic metabolic profile is otherwise unremarkable. ASSESSMENT: 1. Status epilepticus. 2. Respiratory failure secondary to inability to protect airway. 3. Multiple sclerosis, end-stage. DISCUSSION AND PLAN: At this point, the patient is stable for transition out of the hospital. She will need a care facility that is able to handle her. We are going to initiate trials at ventilator weaning. I will put her on pressure support ventilation at 10/5. We will decrease to 5/5 three times daily. Once she tolerates that well, we will start T-collar trials. Supportive care will otherwise be continued. CRITICAL CARE TIME: 30 minutes. Job ID: [id number]
[2019-03-08] MEDS: levETIRAcetam 500 MG TAB PO SCH (21:43)
[2019-03-08] MEDS: Metamucil PACK PER TUBE SCH (21:43)
[2019-03-08] MEDS: Carvedilol 25 MG TAB PO SCH (21:43)
--- NOTE | 2019-03-08 23:44 | PDOC.HOSPP ---
- Subjective Encounter Date: 03/08/19 Encounter Time: 14:00 Subjective: Patient seen and examined for Resp failure. Tolerating PEG tube feeds. Appears comfortable. No overnight events - Objective Vital Signs & Weight: Vital Signs (12 hours) Temp Pulse BP Pulse Ox 03/08/19 21:43 152/101 H 03/08/19 20:00 99.5 F 98 03/08/19 16:00 98.0 F 03/08/19 12:36 94 143/97 H 03/08/19 12:00 97.9 F Weight Admit Weight 170 lb Weight 162 lb 11.2 oz Most Recent Monitor Data Heart Rate from ECG 99 NIBP 129/84 NIBP BP-Mean 99 Respiration from ECG 28 SpO2 98 I&O: 03/07/19 03/08/19 03/09/19 06:59 06:59 06:59 Intake Total 2128 416 540 Output Total 4080 9692 900 Balance 83 -1749 -360 Result Diagrams: 03/08/19 05:00 03/08/19 05:00 EKG Reviewed by me: Yes (Tele SR) Hospitalist ROS - Review of Systems ROS unobtainable: due to mental status - Medication Medications: Active Medications Generic Name Dose Route Start Last Admin Trade Name Freq PRN Reason Stop Dose Admin Acetaminophen 650 mg 02/22/19 02:10 03/05/19 01:58 Tylenol PO 650 mg Q4H PRN Administration Headache/Fever/Mild Pain (1-3) Carvedilol 25 mg 03/08/19 10:52 03/08/19 21:43 Coreg PO 25 mg BID SONIA Administration Enoxaparin Sodium 40 mg 02/22/19 09:00 03/08/19 09:11 Lovenox SC 40 mg 0900 SONIA Administration Famotidine 20 mg 02/26/19 21:00 03/08/19 21:43 Pepcid PER TUBE 20 mg Q12HR SONIA Administration Furosemide 40 mg 02/26/19 09:00 03/08/19 09:06 Lasix PER TUBE 40 mg DAILY SONIA Administration Levetiracetam 1,000 mg 03/08/19 21:00 03/08/19 21:43 Keppra PO 1,000 mg BID SONIA Administration Lisinopril 10 mg 03/08/19 10:53 03/08/19 21:43 Zestril PO 10 mg BID SONIA Administration Nystatin 0 gm 03/06/19 21:00 03/08/19 21:44 Mycostatin Powder TOP 1 applic BID SONIA Administration Phenytoin Sodium 200 mg 03/03/19 21:00 03/08/19 21:43 Dilantin PER TUBE 200 mg HS SONIA Administration Potassium Chloride 20 meq 03/01/19 08:00 03/08/19 19:12 Klor-Con PO 20 meq BID-WM SONIA Administration Psyllium Hydrophilic Mucilloid 1 pk 03/08/19 21:00 03/08/19 21:43 Metamucil PER TUBE 1 pk BID SONIA Administration Scopolamine 1.5 mg 03/02/19 10:30 03/08/19 09:09 Transderm Scop TD 1.5 mg Q3D SONIA Administration Sodium Chloride 10 ml 03/01/19 09:00 03/08/19 21:44 Flush - Normal Saline IVF 10 ml Q12HR SONIA Administration - Exam General Appearance: NAD Heart: RRR, no rubs Respiratory: CTAB, no rales, rhonchi Gastrointestinal: soft, normal bowel sounds Extremities: no cyanosis Hosp A/P (1) Acute respiratory failure Code(s): J96.00 - ACUTE RESPIRATORY FAILURE, UNSP W HYPOXIA OR HYPERCAPNIA Status: Acute Qualifiers: Respiratory failure complication: hypoxia Qualified Code(s): J96.01 - Acute respiratory failure with hypoxia (2) Status epilepticus Code(s): G40.901 - EPILEPSY, UNSP, NOT INTRACTABLE, WITH STATUS EPILEPTICUS Status: Acute (3) HTN (hypertension) Code(s): I10 - ESSENTIAL (PRIMARY) HYPERTENSION Status: Chronic Qualifiers: Hypertension type: essential hypertension Qualified Code(s): I10 - Essential (primary) hypertension (4) Multiple sclerosis Code(s): G35 - MULTIPLE SCLEROSIS Status: Chronic (5) Obesity (BMI 30-39.9) Code(s): E66.9 - OBESITY, UNSPECIFIED Status: Chronic - Plan DVT proph w/SCDs Cont supportive care IV Keppra changed to PEG Cont Lasix with PO Potassium Cont other meds above DC planning
[2019-03-09] MEDS: Acetaminophen 325 MG TAB PO PRN (03:04)
[2019-03-09] MEDS: Furosemide 40 MG TAB PER TUBE SCH (08:21)
[2019-03-09] MEDS: Famotidine 20 MG TAB PER TUBE SCH ×2 (08:21→21:40)
[2019-03-09] MEDS: Carvedilol 25 MG TAB PO SCH ×2 (08:21→21:40)
[2019-03-09] MEDS: Enoxaparin Sodium 40 MG/0.4 ML SYRINGE SC SCH (08:21)
[2019-03-09] MEDS: levETIRAcetam 500 MG TAB PO SCH (08:21)
[2019-03-09] MEDS: Lisinopril 10 MG TAB PO SCH ×2 (08:21→23:51)
[2019-03-09] MEDS: Nystatin Powder 15 GM BOT TOP SCH ×2 (08:22→21:42)
[2019-03-09] MEDS: Metamucil PACK PER TUBE SCH (08:25)
--- NOTE | 2019-03-09 09:53 | PRG ---
DATE OF SERVICE: 03/09/2019 SERVICE: Pulmonary Medicine. INTERVAL HISTORY: The patient is doing fine from respiratory standpoint. She cannot provide any additional elements of the history. I get the sense that she is making an attempt to move that left upper extremity in a way that is purposeful. That being said, she is having a hard time moving anything. When I talked about her current condition, the fact that she got a PEG tube and a tracheostomy in place that she had more neurologic events, she developed a very sad face and became tearful. I do believe that she is understanding the things that were telling her. PHYSICAL EXAMINATION: VITAL SIGNS: Currently, afebrile with a T-max 99.8, pulse 97, blood pressure 152/101, respirations 8, saturation 96% with 28% FiO2 delivered via T-collar. HEENT: Normocephalic and atraumatic. Sclerae white. Conjunctivae pink. Oral mucosa is moist without lesions. LUNGS: Decent air entry. No prolonged expiratory phase or wheezing is appreciated. HEART: Normal rate. Regular. ABDOMEN: Soft, nontender, nondistended. Bowel sounds are positive. MUSCULOSKELETAL: No cyanosis or clubbing. There is 1 to 2+ pitting in the bilateral lower extremities. ASSESSMENT: 1. Status epilepticus. 2. Respiratory failure secondary to inability to protect airway, status post tracheostomy. 3. Multiple sclerosis, end-stage. DISCUSSION AND PLAN: The patient remains stable for transition out of the hospital. We will need to find a care facility that can accommodate her. I am going to check laboratories tomorrow morning. If she goes another 24 hours without need of positive airway pressure, we can consider transitioning her feeds over to intermittent boluses. Pulmonary/Critical Care will follow in the ICU. Job ID: [id number]
--- NOTE | 2019-03-09 11:18 | PDOC.OP ---
Operative Note - Operative Note Operative Note: PROCEDURE: Tracheostomy and PEG tube placement SURGEON: Shazia Jeffries M.D. DATE: 03/07/2019 PREOPERATIVE DIAGNOSIS: Severe neurological impairment POSTOPERATIVE DIAGNOSIS: Severe neurological impairment HISTORY: Patient is a 53-year-old woman who presented with severe neurological impairment in status epilepticus. She has been intubated since that time and is unable to protect her airway or safely swallow. PEG tube placement and tracheostomy has been requested by the family for ongoing care. They understand that her prognosis for meaningful recovery is poor. PROCEDURE IN DETAIL: After informed consent was obtained and appropriate preoperative antibiotics were administered the patient was taken to the operating room and placed in supine position and general endotracheal anesthesia administered through the pre-existing endotracheal tube. The neck and chest were prepped and draped in the standard sterile fashion and local anesthesia infused the skin and subcutaneous tissues anterior to the trachea. A longitudinal incision was made and dissection carried down to the pretracheal fascia, dividing the isthmus of the thyroid with electrocautery. The cricoid cartilage and the first 3 tracheal rings were clearly exposed. Inspiratory oxygen levels were turned down by anesthesia to the lowest possible level prior to any entry into the trachea and no electrocautery was used after that point. Two traction sutures were placed around the third tracheal ring laterally and an incision made between the second and third tracheal rings. A tracheal manufacturing leader was used to dilate the tracheostomy and the endotracheal tube was withdrawn to just above the level of the tracheostomy. A #8 Shiley tracheostomy was placed under direct vision into the trachea and the balloon was inflated. The inner obturator was removed and an inner cannula placed. The extension tubing was passed off the field to anesthesia and equal inspiratory and expiratory volumes were confirmed. End tidal CO2 was confirmed as well. Hemostasis at the operative site was confirmed and the old endotracheal tube was removed. Avitene was placed into the wound as a precaution. The skin was reapproximated superior and inferior to the tracheostomy with Prolene sutures and the tracheostomy secured to the skin in 4 locations. A gauze dressing was placed around the tracheostomy and tracheostomy collar was secured. Attention was then turned to the PEG tube placement. The EGD scope was advanced under direct vision into the esophagus with moderate to severe difficulty. The patient appeared to have a fair amount of swelling in the back of her throat and a laryngoscope had to be used to identify the location of the esophageal orifice, but even with direct placement of the scope in this area it was difficult to pass the scope into the upper esophagus. Once this was accomplished, the scope easily advanced down the esophagus and into the stomach which was insufflated. The antrum was identified and an excellent finger impulse and light transmission seen in the left upper quadrant. The abdomen was prepped and draped and local anesthesia infused at the left upper quadrant site. The skin incision was made and the needle and sheath passed into the gastric lumen. The needle was withdrawn leaving the sheath in place, and a wire was advanced through the sheath and grasped by the EGD scope and drawn out through the mouth. This was attached to the 20 Setswana pull PEG and drawn out through the abdominal incision. This was seated at 2-1/2 cm which was appropriate for the patient's body habitus. The external flange was placed and the PEG tube placed to drain. The site was dressed with antibiotic ointment and gauze and secured with an abdominal binder. The patient was taken back to the critical care unit in good condition. Estimated blood loss was minimal. There were no complications. There were no specimens.
--- NOTE | 2019-03-09 15:32 | PDOC.HOSPP ---
- Subjective Encounter Date: 03/09/19 Encounter Time: 15:30 non-verbal Subjective: 53 y/o obese female with chronic debilitation from MS and prior CVA with residual right sided weakness, seizure admitted with status epilepticus associated with airway compromised necessitating intubation. Patient has been off sedation since 02/22/2019 morning with no significant neurological recovery. Opens eye spontaneously and with stimulation and seem to tract but no purposeful motor function. S/p PEG and Trach. having diarrhea and has rectal tube. - Objective Vital Signs & Weight: Vital Signs (12 hours) Temp BP Pulse Ox 03/09/19 12:00 99.0 F 03/09/19 08:21 152/101 H 97 03/09/19 08:00 99.8 F H 96 03/09/19 05:00 99.5 F Weight Admit Weight 170 lb Weight 172 lb 2.896 oz Most Recent Monitor Data Heart Rate from ECG 94 NIBP 144/91 NIBP BP-Mean 108 Respiration from ECG 27 SpO2 96 I&O: 03/08/19 03/09/19 03/10/19 06:59 06:59 06:59 Intake Total 416 972 300 Output Total 2165 1095 190 Balance -1749 -123 110 Result Diagrams: 03/08/19 05:00 03/08/19 05:00 Hospitalist ROS - Medication Medications: Active Medications Generic Name Dose Route Start Last Admin Trade Name Freq PRN Reason Stop Dose Admin Acetaminophen 650 mg 02/22/19 02:10 03/09/19 03:04 Tylenol PO 650 mg Q4H PRN Administration Headache/Fever/Mild Pain (1-3) Carvedilol 25 mg 03/08/19 10:52 03/09/19 08:21 Coreg PO 25 mg BID SONIA Administration Enoxaparin Sodium 40 mg 02/22/19 09:00 03/09/19 08:21 Lovenox SC 40 mg 0900 SONIA Administration Famotidine 20 mg 02/26/19 21:00 03/09/19 08:21 Pepcid PER TUBE 20 mg Q12HR SONIA Administration Furosemide 40 mg 02/26/19 09:00 03/09/19 08:21 Lasix PER TUBE 40 mg DAILY SONIA Administration Levetiracetam 1,000 mg 03/08/19 21:00 03/09/19 08:21 Keppra PO 1,000 mg BID SONIA Administration Lisinopril 10 mg 03/08/19 10:53 03/09/19 08:21 Zestril PO 10 mg BID SONIA Administration Nystatin 0 gm 03/06/19 21:00 03/09/19 08:22 Mycostatin Powder TOP 1 applic BID SONIA Administration Phenytoin Sodium 200 mg 03/03/19 21:00 03/08/19 21:43 Dilantin PER TUBE 200 mg HS SONIA Administration Potassium Chloride 20 meq 03/01/19 08:00 03/09/19 08:21 Klor-Con PO 20 meq BID-WM SONIA Administration Scopolamine 1.5 mg 03/02/19 10:30 03/08/19 09:09 Transderm Scop TD 1.5 mg Q3D SONIA Administration Sodium Chloride 10 ml 03/01/19 09:00 03/09/19 08:26 Flush - Normal Saline IVF 10 ml Q12HR SONIA Administration - Exam General - other findings: non verbal. opens eye to stimulation ENT: normocephalic atraumatic Neck - other findings: Trach noted with T collar Heart: RRR Respiratory - other findings: fair air entry with transmitted sound. Gastrointestinal: soft, non-tender, non-distended, normal bowel sounds Gastrointestinal - other findings: PEG noted. Extremities: no cyanosis, no edema Neurological - other findings: Non verbal. grimacing with passive limb flexion. increase tone of limbs Hosp A/P (1) Anoxic encephalopathy Status: Acute (2) Status epilepticus Code(s): G40.901 - EPILEPSY, UNSP, NOT INTRACTABLE, WITH STATUS EPILEPTICUS Status: Acute (3) Acute respiratory failure Code(s): J96.00 - ACUTE RESPIRATORY FAILURE, UNSP W HYPOXIA OR HYPERCAPNIA Status: Acute Qualifiers: Respiratory failure complication: hypoxia Qualified Code(s): J96.01 - Acute respiratory failure with hypoxia (4) Elevated troponin Code(s): R74.8 - ABNORMAL LEVELS OF OTHER SERUM ENZYMES Status: Deleted (5) Pleural effusion Code(s): J90 - PLEURAL EFFUSION, NOT ELSEWHERE CLASSIFIED Status: Deleted (6) Cardiomyopathy Code(s): I42.9 - CARDIOMYOPATHY, UNSPECIFIED Status: Deleted (7) HTN (hypertension) Code(s): I10 - ESSENTIAL (PRIMARY) HYPERTENSION Status: Chronic Qualifiers: Hypertension type: essential hypertension Qualified Code(s): I10 - Essential (primary) hypertension (8) Multiple sclerosis Code(s): G35 - MULTIPLE SCLEROSIS Status: Chronic (9) Seizure disorder Code(s): G40.909 - EPILEPSY, UNSP, NOT INTRACTABLE, WITHOUT STATUS EPILEPTICUS Status: Chronic (10) Metabolic acidosis Code(s): E87.2 - ACIDOSIS Status: Deleted (11) Hypokalemia Code(s): E87.6 - HYPOKALEMIA Status: Deleted (12) Frequent loose stools Code(s): R19.7 - DIARRHEA, UNSPECIFIED Status: Acute (13) Quadriparesis Code(s): G82.50 - QUADRIPLEGIA, UNSPECIFIED Status: Acute (14) Status post tracheostomy Code(s): Z93.0 - TRACHEOSTOMY STATUS Status: Acute - Plan DC laxative in view of frquent loose alcon. Start cholestyramine . C dif toxin was negative. Continue other treatments Continue supportive care and tube feeding. Monitor electrolytes and replete as needed. Cardiology, Neurology and Pulm/crit following.
[2019-03-09] MEDS: levETIRAcetam 500 mg/5 ml Oral Solution PO SCH (21:41)
[2019-03-09] MEDS: Cholestyramine/Aspartame 4 gm Packet PO SCH (22:56)
[2019-03-10] MEDS: Acetaminophen 325 MG TAB PO PRN (00:13)
[2019-03-10 05:05] LABS: #Eosinphils 0.2 thou/uL (0.0-0.7); #Lymphocytes 1.1 thou/uL (1.20-3.40); #Monocytes 0.9 thou/uL (0.11-0.59); #Neutrophils 8.4 thou/uL (1.40-6.50); %Basophils 0.3 % (0.0-1.0); %Eosinophils 1.9 % (0.0-10.0); %Lymphocytes 10.6 % (21.0-51.0); %Monocytes 8.4 % (0.0-10.0); %Neutrophils 78.8 % (42.0-75.0); Mean Corpuscular HGB CONC 33.3 g/dL (32.0-36.0); Mean Corpuscular Hemoglobin 33.1 pg (27.0-31.0); Mean Corpuscular Volume 99.4 fL (78.0-98.0); Mean Platelet Volume 7.2 fL (7.4-10.4); Platelet Count 316 thou/uL (130-400); RBC Distribution Width 13.9 % (11.5-14.5); Red Blood Cell (RBC) Count 3.02 mill/uL (4.20-5.40); White Blood Cell (WBC) Count 10.6 thou/uL (4.8-10.8)
[2019-03-10 05:28] LABS: Anion Gap 10 mmol/L (10-20); BUN (Urea Nitrogen) 28 mg/dL (9.8-20.1); Calc. Creatinine Clearance 140 mL/min (70-130); Calcium 9.5 mg/dL (7.8-10.44); Carbon Dioxide 24 mmol/L (22-29); Chloride 104 mmol/L (98-107); Estimated GFR-MDRD Greater than 90; Glucose 115 mg/dL (70-105); Magnesium 2.1 mg/dL (1.6-2.6); Phosphorus 2.7 mg/dL (2.3-4.7); Potassium 4.1 mmol/L (3.5-5.1); Sodium 134 mmol/L (136-145)
[2019-03-10] MEDS: Enoxaparin Sodium 40 MG/0.4 ML SYRINGE SC SCH (08:25)
[2019-03-10] MEDS: Furosemide 40 MG TAB PER TUBE SCH (08:26)
[2019-03-10] MEDS: levETIRAcetam 500 mg/5 ml Oral Solution PO SCH ×2 (08:26→22:25)
[2019-03-10] MEDS: Carvedilol 25 MG TAB PO SCH ×2 (08:26→22:16)
[2019-03-10] MEDS: Nystatin Powder 15 GM BOT TOP SCH ×2 (08:27→22:17)
[2019-03-10] MEDS: Lisinopril 10 MG TAB PO SCH ×2 (08:27→22:15)
[2019-03-10] MEDS: Famotidine 20 MG TAB PER TUBE SCH ×2 (08:29→22:16)
[2019-03-10] MEDS: Cholestyramine/Aspartame 4 gm Packet PO SCH ×2 (10:13→23:43)
--- NOTE | 2019-03-10 12:51 | PRG ---
DATE OF SERVICE: 03/10/2019 INTERVAL HISTORY: The patient is doing really well from respiratory standpoint. She has been off the ventilator for 2 days now. She is more awake and aware and alert than she was previously. She does attend when I walk in the room. She can follow some very simple commands. PHYSICAL EXAMINATION: VITAL SIGNS: Afebrile, pulse 83, blood pressure 121/81, respirations 25, saturation 96% on T-collar. HEENT: Normocephalic and atraumatic. Sclerae are white. Conjunctivae are pink. Oral mucosa is moist without lesions. LUNGS: Decent air entry. Rhonchi are present. They clear with cough. The sputum that she brings up is fairly clear but quite copious. HEART: Normal rate, regular. ABDOMEN: Soft, nontender, and nondistended. Bowel sounds are positive. MUSCULOSKELETAL: No cyanosis or clubbing. No pitting in the bilateral lower extremities. LABORATORY DATA: WBC 10.6, hemoglobin 10.0, platelets 316,000. INR 1.3. Sodium 134. Basic metabolic profile is otherwise unremarkable. Magnesium and phosphorous fall within the normal limits. Cultures remain unremarkable. ASSESSMENT: 1. Status epilepticus. 2. Respiratory failure secondary to inability to protect airway, status post tracheostomy. 3. Multiple sclerosis, end-stage. DISCUSSION AND PLAN: The patient is doing okay from a respiratory standpoint. At this point, we just do some simple housekeeping things. We can convert her continuous feeds over to bolus. In another 24 to 48 hours, she can likely be transitioned over to a cuffless tracheostomy plus or minus fenestrations. Once the patient's family has all the supplies necessary for them to take care of her at home, she will likely be stable for transition out of the hospital. Job ID: [id number] [facility]
--- NOTE | 2019-03-10 14:49 | PDOC.HOSPP ---
- Subjective Encounter Date: 03/10/19 Encounter Time: 14:46 Subjective: 53 y/o obese female with chronic debilitation from MS and prior CVA with residual right sided weakness, seizure admitted with status epilepticus associated with airway compromised necessitating intubation. Opens eye spontaneously and with stimulation and seem to tract but no purposeful motor function. S/p PEG and Trach. Off ventilator. Still having diarrhea and with rectal tube. - Objective Vital Signs & Weight: Vital Signs (12 hours) Temp BP Pulse Ox 03/10/19 08:27 116/83 03/10/19 08:00 99.1 F 96 03/10/19 06:42 98 03/10/19 04:00 99.5 F Weight Admit Weight 170 lb Weight 159 lb 13.362 oz Most Recent Monitor Data Heart Rate from ECG 83 NIBP 121/81 NIBP BP-Mean 94 Respiration from ECG 25 SpO2 96 I&O: 03/09/19 03/10/19 03/11/19 06:59 06:59 06:59 Intake Total 972 1615 30 Output Total 1095 925 30 Balance -123 690 0 Result Diagrams: 03/10/19 03:48 03/10/19 03:48 Hospitalist ROS - Medication Medications: Active Medications Generic Name Dose Route Start Last Admin Trade Name Freq PRN Reason Stop Dose Admin Acetaminophen 650 mg 02/22/19 02:10 03/10/19 00:13 Tylenol PO 650 mg Q4H PRN Administration Headache/Fever/Mild Pain (1-3) Carvedilol 25 mg 03/08/19 10:52 03/10/19 08:26 Coreg PO 25 mg BID SONIA Administration Cholestyramine Resin 4 gm 03/09/19 22:00 03/10/19 10:13 Questran Light PO 4 gm 1000,2200 SOINA Administration Enoxaparin Sodium 40 mg 02/22/19 09:00 03/10/19 08:25 Lovenox SC 40 mg 0900 SONIA Administration Famotidine 20 mg 02/26/19 21:00 03/10/19 08:29 Pepcid PER TUBE 20 mg Q12HR SONIA Administration Furosemide 40 mg 02/26/19 09:00 03/10/19 08:26 Lasix PER TUBE 40 mg DAILY SONIA Administration Levetiracetam 1,000 mg 03/09/19 21:00 03/10/19 08:26 Keppra Oral Solution PO 1,000 mg BID SONIA Administration Lisinopril 10 mg 03/08/19 10:53 03/10/19 08:27 Zestril PO 10 mg BID SONIA Administration Nystatin 0 gm 03/06/19 21:00 03/10/19 08:27 Mycostatin Powder TOP 1 applic BID SONIA Administration Phenytoin Sodium 200 mg 03/03/19 21:00 03/09/19 21:41 Dilantin PER TUBE 200 mg HS SONIA Administration Potassium Chloride 20 meq 03/01/19 08:00 03/10/19 08:25 Klor-Con PO 20 meq BID-WM SONIA Administration Scopolamine 1.5 mg 03/02/19 10:30 03/08/19 09:09 Transderm Scop TD 1.5 mg Q3D SONIA Administration Sodium Chloride 10 ml 03/01/19 09:00 03/10/19 08:54 Flush - Normal Saline IVF 10 ml Q12HR SONIA Administration - Exam General - other findings: awake but non verbal ENT: normocephalic atraumatic Neck - other findings: Tracheostomy with trach collar in place Heart: RRR Respiratory: no wheezes, no ronchi Respiratory - other findings: fair air entry with transmitted sound noted Gastrointestinal: soft, non-distended, normal bowel sounds Gastrointestinal - other findings: Percutaneous gastric tube in place Extremities: no edema Neurological - other findings: awake but non verbal. does not obey command or move limbs to command Hosp A/P (1) Anoxic encephalopathy Status: Acute (2) Status epilepticus Code(s): G40.901 - EPILEPSY, UNSP, NOT INTRACTABLE, WITH STATUS EPILEPTICUS Status: Acute (3) Acute respiratory failure Code(s): J96.00 - ACUTE RESPIRATORY FAILURE, UNSP W HYPOXIA OR HYPERCAPNIA Status: Acute Qualifiers: Respiratory failure complication: hypoxia Qualified Code(s): J96.01 - Acute respiratory failure with hypoxia (4) Elevated troponin Code(s): R74.8 - ABNORMAL LEVELS OF OTHER SERUM ENZYMES Status: Deleted (5) Pleural effusion Code(s): J90 - PLEURAL EFFUSION, NOT ELSEWHERE CLASSIFIED Status: Deleted (6) Cardiomyopathy Code(s): I42.9 - CARDIOMYOPATHY, UNSPECIFIED Status: Deleted (7) HTN (hypertension) Code(s): I10 - ESSENTIAL (PRIMARY) HYPERTENSION Status: Chronic Qualifiers: Hypertension type: essential hypertension Qualified Code(s): I10 - Essential (primary) hypertension (8) Multiple sclerosis Code(s): G35 - MULTIPLE SCLEROSIS Status: Chronic (9) Seizure disorder Code(s): G40.909 - EPILEPSY, UNSP, NOT INTRACTABLE, WITHOUT STATUS EPILEPTICUS Status: Chronic (10) Metabolic acidosis Code(s): E87.2 - ACIDOSIS Status: Deleted (11) Hypokalemia Code(s): E87.6 - HYPOKALEMIA Status: Deleted (12) Frequent loose stools Code(s): R19.7 - DIARRHEA, UNSPECIFIED Status: Acute (13) Quadriparesis Code(s): G82.50 - QUADRIPLEGIA, UNSPECIFIED Status: Acute (14) Status post tracheostomy Code(s): Z93.0 - TRACHEOSTOMY STATUS Status: Acute - Plan Continue supportive care Will get dietary to change tibe feed due to diarrhea. Monitor electrolytes and replete as needed. relatives reportedly want to take patient home.
[2019-03-11] MEDS: Lisinopril 10 MG TAB PO SCH ×2 (08:26→21:25)
[2019-03-11] MEDS: levETIRAcetam 500 mg/5 ml Oral Solution PO SCH ×2 (08:26→21:24)
[2019-03-11] MEDS: Enoxaparin Sodium 40 MG/0.4 ML SYRINGE SC SCH (08:26)
[2019-03-11] MEDS: Carvedilol 25 MG TAB PO SCH ×2 (08:27→21:25)
[2019-03-11] MEDS: Furosemide 40 MG TAB PER TUBE SCH (08:27)
[2019-03-11] MEDS: Nystatin Powder 15 GM BOT TOP SCH ×2 (08:27→21:25)
[2019-03-11] MEDS: Famotidine 20 MG TAB PER TUBE SCH ×2 (08:27→21:25)
[2019-03-11] MEDS: Scopolamine 1.5 mg/72 hour Patch TD SCH (11:11)
[2019-03-11] MEDS: Cholestyramine/Aspartame 4 gm Packet PO SCH ×2 (11:11→23:12)
--- NOTE | 2019-03-11 15:13 | PDOC.HOSPP ---
- Subjective Encounter Date: 03/11/19 Encounter Time: 15:11 Subjective: 53 y/o obese female with chronic debilitation from MS and prior CVA with residual right sided weakness, seizure admitted with status epilepticus associated with airway compromised necessitating intubation. Opens eye spontaneously and with stimulation but no purposeful motor function. S/p PEG and Trach. Off ventilator. Still having loose stools.. - Objective Vital Signs & Weight: Vital Signs (12 hours) Temp BP Pulse Ox 03/11/19 11:17 98.4 F 03/11/19 08:26 116/83 03/11/19 08:00 93 L 03/11/19 07:17 97 03/11/19 07:12 98.0 F 03/11/19 05:00 98.5 F Weight Admit Weight 170 lb Weight 164 lb 8 oz Most Recent Monitor Data Heart Rate from ECG 94 NIBP 119/73 NIBP BP-Mean 88 Respiration from ECG 33 SpO2 95 I&O: 03/10/19 03/11/19 03/12/19 06:59 06:59 06:59 Intake Total 1615 711 60 Output Total 925 330 Balance 690 381 60 Result Diagrams: 03/10/19 03:48 03/10/19 03:48 Hospitalist ROS - Medication Medications: Active Medications Generic Name Dose Route Start Last Admin Trade Name Freq PRN Reason Stop Dose Admin Acetaminophen 650 mg 02/22/19 02:10 03/10/19 00:13 Tylenol PO 650 mg Q4H PRN Administration Headache/Fever/Mild Pain (1-3) Carvedilol 25 mg 03/08/19 10:52 03/11/19 08:27 Coreg PO 25 mg BID SONIA Administration Cholestyramine Resin 4 gm 03/09/19 22:00 03/11/19 11:11 Questran Light PO 4 gm 1000,2200 SONIA Administration Enoxaparin Sodium 40 mg 02/22/19 09:00 03/11/19 08:26 Lovenox SC 40 mg 0900 SONIA Administration Famotidine 20 mg 02/26/19 21:00 03/11/19 08:27 Pepcid PER TUBE 20 mg Q12HR SONIA Administration Furosemide 40 mg 02/26/19 09:00 03/11/19 08:27 Lasix PER TUBE 40 mg DAILY SONIA Administration Levetiracetam 1,000 mg 03/09/19 21:00 03/11/19 08:26 Keppra Oral Solution PO 1,000 mg BID SONIA Administration Lisinopril 10 mg 03/08/19 10:53 03/11/19 08:26 Zestril PO 10 mg BID SONIA Administration Nystatin 0 gm 03/06/19 21:00 03/11/19 08:27 Mycostatin Powder TOP 1 applic BID SONIA Administration Phenytoin Sodium 200 mg 03/03/19 21:00 03/10/19 22:15 Dilantin PER TUBE 200 mg HS SONIA Administration Potassium Chloride 20 meq 03/01/19 08:00 03/11/19 08:26 Klor-Con PO 20 meq BID-WM SONIA Administration Scopolamine 1.5 mg 03/02/19 10:30 03/11/19 11:11 Transderm Scop TD 1.5 mg Q3D SONIA Administration Sodium Chloride 10 ml 03/01/19 09:00 03/11/19 08:28 Flush - Normal Saline IVF 10 ml Q12HR SONIA Administration - Exam General Appearance: awake alert Eye: anicteric sclera ENT: normocephalic atraumatic Neck: symmetric Neck - other findings: Tracheostomy with T collar in place Heart: RRR Respiratory - other findings: fair air entry with some transmitted sound Gastrointestinal: soft, non-distended, normal bowel sounds Extremities: no edema Neurological - other findings: Sleeping but opens eye to stimulation Hosp A/P (1) Anoxic encephalopathy Status: Acute (2) Status epilepticus Code(s): G40.901 - EPILEPSY, UNSP, NOT INTRACTABLE, WITH STATUS EPILEPTICUS Status: Acute (3) Acute respiratory failure Code(s): J96.00 - ACUTE RESPIRATORY FAILURE, UNSP W HYPOXIA OR HYPERCAPNIA Status: Acute Qualifiers: Respiratory failure complication: hypoxia Qualified Code(s): J96.01 - Acute respiratory failure with hypoxia (4) Elevated troponin Code(s): R74.8 - ABNORMAL LEVELS OF OTHER SERUM ENZYMES Status: Deleted (5) Pleural effusion Code(s): J90 - PLEURAL EFFUSION, NOT ELSEWHERE CLASSIFIED Status: Deleted (6) Cardiomyopathy Code(s): I42.9 - CARDIOMYOPATHY, UNSPECIFIED Status: Deleted (7) HTN (hypertension) Code(s): I10 - ESSENTIAL (PRIMARY) HYPERTENSION Status: Chronic Qualifiers: Hypertension type: essential hypertension Qualified Code(s): I10 - Essential (primary) hypertension (8) Multiple sclerosis Code(s): G35 - MULTIPLE SCLEROSIS Status: Chronic (9) Seizure disorder Code(s): G40.909 - EPILEPSY, UNSP, NOT INTRACTABLE, WITHOUT STATUS EPILEPTICUS Status: Chronic (10) Metabolic acidosis Code(s): E87.2 - ACIDOSIS Status: Deleted (11) Hypokalemia Code(s): E87.6 - HYPOKALEMIA Status: Deleted (12) Frequent loose stools Code(s): R19.7 - DIARRHEA, UNSPECIFIED Status: Acute (13) Quadriparesis Code(s): G82.50 - QUADRIPLEGIA, UNSPECIFIED Status: Acute (14) Status post tracheostomy Code(s): Z93.0 - TRACHEOSTOMY STATUS Status: Acute - Plan Continue supportive care Consult manager radio Re loose stools Consult case mgt re Discharge planning.
--- NOTE | 2019-03-11 16:40 | PRG ---
DATE OF SERVICE: 03/11/2019 SUBJECTIVE: Ms. Rueda is clinically unchanged. She opens her eyes, but is not following commands. OBJECTIVE: VITAL SIGNS: She is afebrile, blood pressure 119/73, heart rate 94, and respiratory rate in the 20s. LUNGS: Unchanged. HEART: Unchanged. ABDOMEN: Unchanged. IMPRESSION AND PLAN: End-stage multiple sclerosis, now with tracheostomy and a percutaneous endoscopic gastrostomy. She will probably need to go to long-term care before she can go home. She will be switched from a cuffed tracheostomy tube to a cuffless tracheostomy in approximately 10 to 14 days at an LTAC. I do not think that there is any way at this point in time that her family can care for her since they have not really shown an interest in learning how to take care of her tracheostomy and her PEG. The best option would be long-term acute care in my opinion. Job ID: [id number]
[2019-03-11] MEDS: Acetaminophen 325 MG TAB PO PRN ×2 (18:28→23:12)
[2019-03-12] MEDS: Acetaminophen 325 MG TAB PO PRN ×2 (03:32→18:10)
--- NOTE | 2019-03-12 09:08 | PDOC.HOSPP ---
- Subjective Encounter Date: 03/12/19 Encounter Time: 09:06 Subjective: Ms. Rueda was seen today in follow-up of advanced MS, and seizures. She has a trach, and is non-verbal. She will track you in the room, and make eye contact. - Objective Vital Signs & Weight: Vital Signs (12 hours) Temp 03/12/19 07:20 98.5 F 03/12/19 03:28 99.0 F 03/11/19 23:16 99.6 F Weight Admit Weight 170 lb Weight 161 lb 3.2 oz Most Recent Monitor Data Heart Rate from ECG 85 NIBP 128/85 NIBP BP-Mean 99 Respiration from ECG 26 SpO2 96 I&O: 03/11/19 03/12/19 03/13/19 06:59 06:59 06:59 Intake Total 711 660 Output Total 330 1001 Balance 381 -341 Result Diagrams: 03/10/19 03:48 03/10/19 03:48 Additional Labs: Accuchecks 03/12/19 02:45 POC Glucose 114 H Hospitalist ROS - Medication Medications: Active Medications Generic Name Dose Route Start Last Admin Trade Name Freq PRN Reason Stop Dose Admin Acetaminophen 650 mg 02/22/19 02:10 03/12/19 03:32 Tylenol PO 650 mg Q4H PRN Administration Headache/Fever/Mild Pain (1-3) Carvedilol 25 mg 03/08/19 10:52 03/11/19 21:25 Coreg PO 25 mg BID SONIA Administration Cholestyramine Resin 4 gm 03/09/19 22:00 03/11/19 23:12 Questran Light PO 4 gm 1000,2200 SONIA Administration Enoxaparin Sodium 40 mg 02/22/19 09:00 03/11/19 08:26 Lovenox SC 40 mg 0900 SONIA Administration Famotidine 20 mg 02/26/19 21:00 03/11/19 21:25 Pepcid PER TUBE 20 mg Q12HR SONIA Administration Furosemide 40 mg 02/26/19 09:00 03/11/19 08:27 Lasix PER TUBE 40 mg DAILY SONIA Administration Levetiracetam 1,000 mg 03/09/19 21:00 03/11/19 21:24 Keppra Oral Solution PO 1,000 mg BID SONIA Administration Lisinopril 10 mg 03/08/19 10:53 03/11/19 21:25 Zestril PO 10 mg BID SONIA Administration Nystatin 0 gm 03/06/19 21:00 03/11/19 21:25 Mycostatin Powder TOP 1 applic BID SONIA Administration Phenytoin Sodium 200 mg 03/03/19 21:00 03/11/19 21:24 Dilantin PER TUBE 200 mg HS SONIA Administration Potassium Chloride 20 meq 03/01/19 08:00 03/11/19 18:28 Klor-Con PO 20 meq BID-WM SONIA Administration Scopolamine 1.5 mg 03/02/19 10:30 03/11/19 11:11 Transderm Scop TD 1.5 mg Q3D SONIA Administration Sodium Chloride 10 ml 03/01/19 09:00 03/11/19 21:26 Flush - Normal Saline IVF 10 ml Q12HR SONIA Administration - Exam Eye: PERRL, anicteric sclera Heart: RRR, no murmur, no gallops, no rubs, normal peripheral pulses Respiratory: CTAB (coarse breath sounds bilaterally) Gastrointestinal: soft, non-tender, non-distended, normal bowel sounds Extremities: no cyanosis, no clubbing, no edema Neurological: no new deficit Hosp A/P (1) Seizure disorder Code(s): G40.909 - EPILEPSY, UNSP, NOT INTRACTABLE, WITHOUT STATUS EPILEPTICUS Status: Acute (2) HTN (hypertension) Code(s): I10 - ESSENTIAL (PRIMARY) HYPERTENSION Status: Chronic Qualifiers: Hypertension type: essential hypertension Qualified Code(s): I10 - Essential (primary) hypertension (3) Chronic systolic heart failure Code(s): I50.22 - CHRONIC SYSTOLIC (CONGESTIVE) HEART FAILURE Status: Acute (4) Multiple sclerosis Code(s): G35 - MULTIPLE SCLEROSIS Status: Chronic - Plan * Chart reviewed and patient examined. Ms. Rueda was admitted with status epilepticus, and found to have severe and advanced MS. It was also discovered that she has a cardiomyopathy as well with a reduced EF. She has been extubated , and has a Trach and PEG. She is awaiting discharge placement. * Seizures- stable on Dilantin and Keppra * Systolic heart failure- continue Carvediolol, and Lisinopril * HTN- blood pressure is a bit labile, but mostly controlled * Nutritional support via PEG * Continue DVT and GI Prophylaxis
[2019-03-12] MEDS: levETIRAcetam 500 mg/5 ml Oral Solution PO SCH ×2 (09:10→23:10)
[2019-03-12] MEDS: Furosemide 40 MG TAB PER TUBE SCH (09:11)
[2019-03-12] MEDS: Enoxaparin Sodium 40 MG/0.4 ML SYRINGE SC SCH (09:11)
[2019-03-12] MEDS: Carvedilol 25 MG TAB PO SCH ×2 (09:11→23:09)
[2019-03-12] MEDS: Lisinopril 10 MG TAB PO SCH ×2 (09:11→23:09)
[2019-03-12] MEDS: Famotidine 20 MG TAB PER TUBE SCH ×2 (09:11→23:09)
[2019-03-12] MEDS: Nystatin Powder 15 GM BOT TOP SCH ×2 (12:38→23:12)
[2019-03-12] MEDS: Cholestyramine/Aspartame 4 gm Packet PO SCH (12:40)
--- NOTE | 2019-03-12 16:41 | PRG ---
DATE OF SERVICE: 03/12/2019 Ana Rueda is actually now interacting via nodding and she is making eye contact. Hemodynamics are stable. Lungs are clear. Heart, regular rhythm. Abdomen is soft. Family has left messages, they want to take her home. I do not think they are prepared to take her home. They spent very short periods of time up here in. I do not think really have any concept of how difficult and time-consuming taking care of her family member is. I think she would best be served going to an LTAC hospital. Job ID: [id number]
[2019-03-13] MEDS: Cholestyramine/Aspartame 4 gm Packet PO SCH ×3 (00:15→23:02)
[2019-03-13] MEDS: Enoxaparin Sodium 40 MG/0.4 ML SYRINGE SC SCH (10:10)
[2019-03-13] MEDS: Lisinopril 10 MG TAB PO SCH ×2 (10:15→20:44)
[2019-03-13] MEDS: Furosemide 40 MG TAB PER TUBE SCH (10:15)
[2019-03-13] MEDS: Carvedilol 25 MG TAB PO SCH ×2 (10:15→20:45)
[2019-03-13] MEDS: Famotidine 20 MG TAB PER TUBE SCH ×2 (10:15→20:45)
[2019-03-13] MEDS: Nystatin Powder 15 GM BOT TOP SCH ×2 (10:16→20:46)
[2019-03-13] MEDS: levETIRAcetam 500 mg/5 ml Oral Solution PO SCH ×2 (10:19→20:45)
--- NOTE | 2019-03-13 14:54 | PRG ---
DATE OF SERVICE: 03/13/2019 SUBJECTIVE: Ana Lively still interacts, makes eye contact. Nods yes and no. She cannot move any of her extremities for all practical purposes. OBJECTIVE: VITAL SIGNS: Afebrile, heart rate is in the 70s, blood pressure 135/95, respiratory rate in the 20s. LUNGS: Clear. HEART: Regular rhythm. ABDOMEN: Soft and nontender. LABORATORY DATA: IMPRESSION: 1. End-stage multiple sclerosis. 2. Seizures on presentation secondary to multiple sclerosis and lesion on MRI. 3. Weakness, deconditioning, chronically bedridden. 4. Status post tracheostomy and percutaneous endoscopic gastrostomy. PLAN: LTAC is the next step in my opinion. Job ID: [id number]
--- NOTE | 2019-03-13 16:55 | PDOC.HOSPP ---
- Subjective Encounter Date: 03/13/19 Encounter Time: 16:54 Subjective: Ms. Rueda was seen today in follow-up of advanced MS and seizures. She appears comfortable.No problems voiced by staff. - Objective Vital Signs & Weight: Vital Signs (12 hours) Temp BP Pulse Ox 03/13/19 15:44 96.6 F L 03/13/19 11:15 97.3 F L 03/13/19 10:15 163/102 H 03/13/19 07:49 96 03/13/19 07:37 96.4 F L Weight Admit Weight 170 lb Weight 161 lb 3.2 oz Most Recent Monitor Data Heart Rate from ECG 86 NIBP 146/108 NIBP BP-Mean 120 Respiration from ECG 27 SpO2 100 I&O: 03/12/19 03/13/19 03/14/19 06:59 06:59 06:59 Intake Total 660 770 90 Output Total 1001 400 Balance -341 370 90 Result Diagrams: 03/10/19 03:48 03/10/19 03:48 Hospitalist ROS - Medication Medications: Active Medications Generic Name Dose Route Start Last Admin Trade Name Freq PRN Reason Stop Dose Admin Acetaminophen 650 mg 02/22/19 02:10 03/12/19 18:10 Tylenol PO 650 mg Q4H PRN Administration Headache/Fever/Mild Pain (1-3) Carvedilol 25 mg 03/08/19 10:52 03/13/19 10:15 Coreg PO 25 mg BID SONIA Administration Cholestyramine Resin 4 gm 03/09/19 22:00 03/13/19 10:23 Questran Light PO 4 gm 1000,2200 SONIA Administration Enoxaparin Sodium 40 mg 02/22/19 09:00 03/13/19 10:10 Lovenox SC 40 mg 0900 SONIA Administration Famotidine 20 mg 02/26/19 21:00 03/13/19 10:15 Pepcid PER TUBE 20 mg Q12HR SONIA Administration Furosemide 40 mg 02/26/19 09:00 03/13/19 10:15 Lasix PER TUBE 40 mg DAILY SONIA Administration Levetiracetam 1,000 mg 03/09/19 21:00 03/13/19 10:19 Keppra Oral Solution PO 1,000 mg BID SONIA Administration Lisinopril 10 mg 03/08/19 10:53 03/13/19 10:15 Zestril PO 10 mg BID SONIA Administration Nystatin 0 gm 03/06/19 21:00 03/13/19 10:16 Mycostatin Powder TOP 1 applic BID SONIA Administration Phenytoin Sodium 200 mg 03/03/19 21:00 03/12/19 23:10 Dilantin PER TUBE 200 mg HS SONIA Administration Potassium Chloride 20 meq 03/01/19 08:00 03/13/19 10:14 Klor-Con PO 20 meq BID-WM SONIA Administration Scopolamine 1.5 mg 03/02/19 10:30 03/11/19 11:11 Transderm Scop TD 1.5 mg Q3D SONIA Administration Sodium Chloride 10 ml 03/01/19 09:00 03/13/19 10:15 Flush - Normal Saline IVF 10 ml Q12HR SONIA Administration - Exam Eye: PERRL, anicteric sclera Heart: RRR, no murmur, no gallops, no rubs, normal peripheral pulses Respiratory: CTAB, no wheezes, no rales, no ronchi, normal chest expansion Gastrointestinal: soft (PEG site clean, no induration or drainage), non-tender, non-distended, normal bowel sounds, no palpable masses, no hepatomegaly, no splenomegaly Extremities: no cyanosis, no clubbing, no edema Hosp A/P (1) Seizure disorder Code(s): G40.909 - EPILEPSY, UNSP, NOT INTRACTABLE, WITHOUT STATUS EPILEPTICUS Status: Acute (2) HTN (hypertension) Code(s): I10 - ESSENTIAL (PRIMARY) HYPERTENSION Status: Chronic Qualifiers: Hypertension type: essential hypertension Qualified Code(s): I10 - Essential (primary) hypertension (3) Chronic systolic heart failure Code(s): I50.22 - CHRONIC SYSTOLIC (CONGESTIVE) HEART FAILURE Status: Acute (4) Multiple sclerosis Code(s): G35 - MULTIPLE SCLEROSIS Status: Chronic - Plan * Seizures- stable on Dilantin and Keppra * Systolic heart failure- continue Carvediolol, and Lisinopril * HTN- blood pressure is a bit elevated- continue current medications as well as Hydralazine as needed * Nutritional support via PEG * Continue DVT and GI Prophylaxis * Advanced MS- awaiting family decision regarding discharge placement
[2019-03-14] MEDS: Acetaminophen 325 MG TAB PO PRN ×2 (02:32→22:00)
[2019-03-14] MEDS: Enoxaparin Sodium 40 MG/0.4 ML SYRINGE SC SCH (09:14)
[2019-03-14] MEDS: levETIRAcetam 500 mg/5 ml Oral Solution PO SCH ×2 (09:14→20:29)
[2019-03-14] MEDS: Famotidine 20 MG TAB PER TUBE SCH ×2 (09:14→20:29)
[2019-03-14] MEDS: Carvedilol 25 MG TAB PO SCH ×2 (09:14→20:29)
[2019-03-14] MEDS: Furosemide 40 MG TAB PER TUBE SCH (09:14)
[2019-03-14] MEDS: Lisinopril 10 MG TAB PO SCH ×2 (09:14→20:29)
[2019-03-14] MEDS: Cholestyramine/Aspartame 4 gm Packet PO SCH ×2 (09:14→22:00)
[2019-03-14] MEDS: Scopolamine 1.5 mg/72 hour Patch TD SCH (09:15)
[2019-03-14] MEDS: Nystatin Powder 15 GM BOT TOP SCH ×2 (09:15→20:31)
[2019-03-14] MEDS ORDERED: Lisinopril 10 MG TAB PO SCH (09:45)
--- NOTE | 2019-03-14 16:31 | PRG ---
DATE OF SERVICE: 03/14/2019 SUBJECTIVE: Ana awan remains stable. We are awaiting placement in LTAC. OBJECTIVE: VITAL SIGNS: She is 137/89, heart rate is 80, respiratory rate is 21, oximetry is 96%. NEUROLOGICAL: She is unchanged. Still mouths words and nods. Makes eye contact. Other than that, quadriplegic. LUNGS: Clear. HEART: Regular rhythm. ABDOMEN: Soft. LABORATORY DATA: No new lab. IMPRESSION: End-stage multiple sclerosis. PLAN: Transfer to long-term acute care when approved. Job ID: [id number]
--- NOTE | 2019-03-14 18:11 | PDOC.HOSPP ---
- Subjective Encounter Date: 03/14/19 Encounter Time: 11:09 Subjective: 53 y/o obese female with chronic debilitation from MS and prior CVA with residual right sided weakness, seizure admitted with status epilepticus associated with airway compromised necessitating intubation. Opens eye spontaneously and with stimulation but no purposeful motor function. S/p PEG and Trach. Awaiting LTAC placement. - Objective Vital Signs & Weight: Vital Signs (12 hours) Temp BP Pulse Ox 03/14/19 12:19 98.3 F 03/14/19 10:26 163/116 H 03/14/19 09:14 141/104 H 03/14/19 08:00 100 03/14/19 07:35 99 03/14/19 06:49 97.8 F Weight Admit Weight 170 lb Weight 161 lb 6 oz Most Recent Monitor Data Heart Rate from ECG 88 NIBP 142/104 NIBP BP-Mean 116 Respiration from ECG 21 SpO2 97 I&O: 03/13/19 03/14/19 03/15/19 06:59 06:59 06:59 Intake Total 770 930 90 Output Total 400 1050 Balance 370 -120 90 Result Diagrams: 03/10/19 03:48 03/10/19 03:48 Hospitalist ROS - Medication Medications: Active Medications Generic Name Dose Route Start Last Admin Trade Name Freq PRN Reason Stop Dose Admin Acetaminophen 650 mg 02/22/19 02:10 03/14/19 02:32 Tylenol PO 650 mg Q4H PRN Administration Headache/Fever/Mild Pain (1-3) Carvedilol 25 mg 03/08/19 10:52 03/14/19 09:14 Coreg PO 25 mg BID SONIA Administration Cholestyramine Resin 4 gm 03/09/19 22:00 03/14/19 09:14 Questran Light PO 4 gm 1000,2200 SONIA Administration Enoxaparin Sodium 40 mg 02/22/19 09:00 03/14/19 09:14 Lovenox SC 40 mg 0900 SONIA Administration Famotidine 20 mg 02/26/19 21:00 03/14/19 09:14 Pepcid PER TUBE 20 mg Q12HR SONIA Administration Furosemide 40 mg 02/26/19 09:00 03/14/19 09:14 Lasix PER TUBE 40 mg DAILY SONIA Administration Levetiracetam 1,000 mg 03/09/19 21:00 03/14/19 09:14 Keppra Oral Solution PO 1,000 mg BID SONIA Administration Nystatin 0 gm 03/06/19 21:00 03/14/19 09:15 Mycostatin Powder TOP 1 applic BID SONIA Administration Phenytoin Sodium 200 mg 03/03/19 21:00 03/13/19 20:46 Dilantin PER TUBE 200 mg HS SONIA Administration Potassium Chloride 20 meq 03/01/19 08:00 03/14/19 09:14 Klor-Con PO 20 meq BID-WM SONIA Administration Scopolamine 1.5 mg 03/02/19 10:30 03/14/19 09:15 Transderm Scop TD 1.5 mg Q3D SONIA Administration Sodium Chloride 10 ml 03/01/19 09:00 03/14/19 09:15 Flush - Normal Saline IVF 10 ml Q12HR SONIA Administration - Exam General - other findings: awake but unresponsive ENT: normocephalic atraumatic Neck: supple Heart: RRR Respiratory - other findings: fair air entry with coarse transmitted sound Gastrointestinal: soft, non-distended Gastrointestinal - other findings: PEG tube in place Extremities: no edema Hosp A/P (1) Anoxic encephalopathy Status: Acute (2) Status epilepticus Code(s): G40.901 - EPILEPSY, UNSP, NOT INTRACTABLE, WITH STATUS EPILEPTICUS Status: Acute (3) Acute respiratory failure Code(s): J96.00 - ACUTE RESPIRATORY FAILURE, UNSP W HYPOXIA OR HYPERCAPNIA Status: Acute Qualifiers: Respiratory failure complication: hypoxia Qualified Code(s): J96.01 - Acute respiratory failure with hypoxia (4) Elevated troponin Code(s): R74.8 - ABNORMAL LEVELS OF OTHER SERUM ENZYMES Status: Deleted (5) Pleural effusion Code(s): J90 - PLEURAL EFFUSION, NOT ELSEWHERE CLASSIFIED Status: Deleted (6) Cardiomyopathy Code(s): I42.9 - CARDIOMYOPATHY, UNSPECIFIED Status: Deleted (7) HTN (hypertension) Code(s): I10 - ESSENTIAL (PRIMARY) HYPERTENSION Status: Chronic Qualifiers: Hypertension type: essential hypertension Qualified Code(s): I10 - Essential (primary) hypertension (8) Multiple sclerosis Code(s): G35 - MULTIPLE SCLEROSIS Status: Chronic (9) Seizure disorder Code(s): G40.909 - EPILEPSY, UNSP, NOT INTRACTABLE, WITHOUT STATUS EPILEPTICUS Status: Acute (10) Metabolic acidosis Code(s): E87.2 - ACIDOSIS Status: Deleted (11) Hypokalemia Code(s): E87.6 - HYPOKALEMIA Status: Deleted (12) Frequent loose stools Code(s): R19.7 - DIARRHEA, UNSPECIFIED Status: Acute (13) Quadriparesis Code(s): G82.50 - QUADRIPLEGIA, UNSPECIFIED Status: Acute (14) Status post tracheostomy Code(s): Z93.0 - TRACHEOSTOMY STATUS Status: Acute - Plan Increase lisinopril to 20 bid Continue supportive care Awaiting LTAC placement. Discussed update with relatives at bedside
[2019-03-15] MEDS: Acetaminophen 325 MG TAB PO PRN ×2 (02:45→16:05)
[2019-03-15] MEDS: Famotidine 20 MG TAB PER TUBE SCH ×2 (09:36→21:58)
[2019-03-15] MEDS: levETIRAcetam 500 mg/5 ml Oral Solution PO SCH ×2 (09:36→21:57)
[2019-03-15] MEDS: Lisinopril 10 MG TAB PO SCH ×2 (09:37→21:58)
[2019-03-15] MEDS: Carvedilol 25 MG TAB PO SCH ×2 (09:37→21:58)
[2019-03-15] MEDS: Enoxaparin Sodium 40 MG/0.4 ML SYRINGE SC SCH (09:37)
[2019-03-15] MEDS: Furosemide 40 MG TAB PER TUBE SCH (09:37)
[2019-03-15] MEDS: Nystatin Powder 15 GM BOT TOP SCH ×2 (09:39→21:59)
[2019-03-15] MEDS: Cholestyramine/Aspartame 4 gm Packet PO SCH ×2 (09:40→21:57)
--- NOTE | 2019-03-15 12:36 | PDOC.HOSPP ---
- Subjective Encounter Date: 03/15/19 Encounter Time: 11:34 Subjective: 53 y/o obese female with chronic debilitation from MS and prior CVA with residual right sided weakness, seizure admitted with status epilepticus associated with airway compromised necessitating intubation. Opens eye spontaneously and with stimulation but no purposeful motor function. S/p PEG and Trach. Declined by insurance for LTAC placement. clinically unchanged - Objective Vital Signs & Weight: Vital Signs (12 hours) Temp BP Pulse Ox 03/15/19 11:00 98.0 F 03/15/19 09:37 154/105 H 03/15/19 07:59 96 03/15/19 07:07 98.1 F 03/15/19 04:20 98.6 F Weight Admit Weight 170 lb Weight 159 lb 4 oz Most Recent Monitor Data Heart Rate from ECG 86 NIBP 112/83 NIBP BP-Mean 92 Respiration from ECG 32 SpO2 99 I&O: 03/14/19 03/15/19 03/16/19 06:59 06:59 06:59 Intake Total 930 1056 60 Output Total 1050 1300 Balance -120 -244 60 Result Diagrams: 03/10/19 03:48 03/10/19 03:48 Hospitalist ROS - Medication Medications: Active Medications Generic Name Dose Route Start Last Admin Trade Name Freq PRN Reason Stop Dose Admin Acetaminophen 650 mg 02/22/19 02:10 03/15/19 02:45 Tylenol PO 650 mg Q4H PRN Administration Headache/Fever/Mild Pain (1-3) Carvedilol 25 mg 03/08/19 10:52 03/15/19 09:37 Coreg PO 25 mg BID SONIA Administration Cholestyramine Resin 4 gm 03/09/19 22:00 03/15/19 09:40 Questran Light PO 4 gm 1000,2200 SONIA Administration Enoxaparin Sodium 40 mg 02/22/19 09:00 03/15/19 09:37 Lovenox SC 40 mg 0900 SONIA Administration Famotidine 20 mg 02/26/19 21:00 03/15/19 09:36 Pepcid PER TUBE 20 mg Q12HR SONIA Administration Furosemide 40 mg 02/26/19 09:00 03/15/19 09:37 Lasix PER TUBE 40 mg DAILY SONIA Administration Levetiracetam 1,000 mg 03/09/19 21:00 03/15/19 09:36 Keppra Oral Solution PO 1,000 mg BID SONIA Administration Lisinopril 20 mg 03/14/19 21:00 03/15/19 09:37 Zestril PO 20 mg BID SONIA Administration Nystatin 0 gm 03/06/19 21:00 03/15/19 09:39 Mycostatin Powder TOP 1 applic BID SONIA Administration Phenytoin Sodium 200 mg 03/03/19 21:00 03/14/19 20:30 Dilantin PER TUBE 200 mg HS SONIA Administration Potassium Chloride 20 meq 03/01/19 08:00 03/15/19 09:36 Klor-Con PO 20 meq BID-WM SONIA Administration Scopolamine 1.5 mg 03/02/19 10:30 03/14/19 09:15 Transderm Scop TD 1.5 mg Q3D SONIA Administration Sodium Chloride 10 ml 03/01/19 09:00 03/15/19 09:38 Flush - Normal Saline IVF 10 ml Q12HR SONIA Administration - Exam General - other findings: sleeping but arousable though non verbal when awake ENT: normocephalic atraumatic Neck - other findings: Trach with T collar Heart: RRR Respiratory - other findings: fair air entry bilateraly with transmitted sound Extremities: no edema Neurological: cranial nerve grossly intact Neurological - other findings: Non verbal. Regards you when awake Hosp A/P (1) Anoxic encephalopathy Status: Acute (2) Status epilepticus Code(s): G40.901 - EPILEPSY, UNSP, NOT INTRACTABLE, WITH STATUS EPILEPTICUS Status: Acute (3) Acute respiratory failure Code(s): J96.00 - ACUTE RESPIRATORY FAILURE, UNSP W HYPOXIA OR HYPERCAPNIA Status: Acute Qualifiers: Respiratory failure complication: hypoxia Qualified Code(s): J96.01 - Acute respiratory failure with hypoxia (4) Elevated troponin Code(s): R74.8 - ABNORMAL LEVELS OF OTHER SERUM ENZYMES Status: Deleted (5) Pleural effusion Code(s): J90 - PLEURAL EFFUSION, NOT ELSEWHERE CLASSIFIED Status: Deleted (6) Cardiomyopathy Code(s): I42.9 - CARDIOMYOPATHY, UNSPECIFIED Status: Deleted (7) HTN (hypertension) Code(s): I10 - ESSENTIAL (PRIMARY) HYPERTENSION Status: Chronic Qualifiers: Hypertension type: essential hypertension Qualified Code(s): I10 - Essential (primary) hypertension (8) Multiple sclerosis Code(s): G35 - MULTIPLE SCLEROSIS Status: Chronic (9) Seizure disorder Code(s): G40.909 - EPILEPSY, UNSP, NOT INTRACTABLE, WITHOUT STATUS EPILEPTICUS Status: Acute (10) Metabolic acidosis Code(s): E87.2 - ACIDOSIS Status: Deleted (11) Hypokalemia Code(s): E87.6 - HYPOKALEMIA Status: Deleted (12) Frequent loose stools Code(s): R19.7 - DIARRHEA, UNSPECIFIED Status: Acute (13) Quadriparesis Code(s): G82.50 - QUADRIPLEGIA, UNSPECIFIED Status: Acute (14) Status post tracheostomy Code(s): Z93.0 - TRACHEOSTOMY STATUS Status: Acute - Plan Continue current treatments and supportive care Need to discuss options with relative in view of the fact that insurance delined her planed LTAC placement
[2019-03-16] MEDS: Acetaminophen 325 MG TAB PO PRN ×2 (04:18→18:12)
[2019-03-16] MEDS: Lisinopril 10 MG TAB PO SCH ×2 (10:25→21:10)
[2019-03-16] MEDS: Cholestyramine/Aspartame 4 gm Packet PO SCH ×2 (10:25→22:25)
[2019-03-16] MEDS: levETIRAcetam 500 mg/5 ml Oral Solution PO SCH ×2 (10:26→21:10)
[2019-03-16] MEDS: Enoxaparin Sodium 40 MG/0.4 ML SYRINGE SC SCH (10:26)
[2019-03-16] MEDS: Famotidine 20 MG TAB PER TUBE SCH ×2 (10:26→21:10)
[2019-03-16] MEDS: Furosemide 40 MG TAB PER TUBE SCH (10:26)
[2019-03-16] MEDS: Carvedilol 25 MG TAB PO SCH ×2 (10:26→21:17)
[2019-03-16] MEDS: Nystatin Powder 15 GM BOT TOP SCH ×2 (10:27→21:10)
--- NOTE | 2019-03-16 10:51 | PRG ---
DATE OF SERVICE: 03/16/2019 SUBJECTIVE: Trach in place. No verbal communication. Weak. OBJECTIVE: VITAL SIGNS: Saturations on the trach collar 100%, temperature 96, blood pressure . CHEST: Extensive rhonchi. CARDIAC: Normal S1 and S2. No gallop. ABDOMEN: No mass. ASSESSMENT: Multiple sclerosis, respiratory failure, tracheostomy, severe deconditioning. PLAN: Placement, supportive care. Job ID: [id number]
--- NOTE | 2019-03-16 16:58 | PDOC.HOSPP ---
- Subjective Encounter Date: 03/16/19 Encounter Time: 16:56 Subjective: 53 y/o obese female with chronic debilitation from MS and prior CVA with residual right sided weakness, seizure admitted with status epilepticus associated with airway compromised necessitating intubation. Opens eye spontaneously and with stimulation but no purposeful motor function. S/p PEG and Trach. Declined by insurance for LTAC placement. More awake and obeying some commands - Objective Vital Signs & Weight: Vital Signs (12 hours) Temp BP Pulse Ox 03/16/19 15:11 97.0 F L 03/16/19 10:41 97.1 F L 03/16/19 10:25 141/86 H 03/16/19 08:00 98 03/16/19 07:15 96.9 F L Weight Admit Weight 170 lb Weight 156 lb 12.8 oz Most Recent Monitor Data Heart Rate from ECG 73 NIBP 92/62 NIBP BP-Mean 72 Respiration from ECG 17 SpO2 98 I&O: 03/15/19 03/16/19 03/17/19 06:59 06:59 06:59 Intake Total 1056 785 60 Output Total 1300 600 Balance -244 185 60 Result Diagrams: 03/10/19 03:48 03/10/19 03:48 Hospitalist ROS - Medication Medications: Active Medications Generic Name Dose Route Start Last Admin Trade Name Freq PRN Reason Stop Dose Admin Acetaminophen 650 mg 02/22/19 02:10 03/16/19 04:18 Tylenol PO 650 mg Q4H PRN Administration Headache/Fever/Mild Pain (1-3) Carvedilol 25 mg 03/08/19 10:52 03/16/19 10:26 Coreg PO 25 mg BID SONIA Administration Cholestyramine Resin 4 gm 03/09/19 22:00 03/16/19 10:25 Questran Light PO 4 gm 1000,2200 SONIA Administration Enoxaparin Sodium 40 mg 02/22/19 09:00 03/16/19 10:26 Lovenox SC 40 mg 0900 SONIA Administration Famotidine 20 mg 02/26/19 21:00 03/16/19 10:26 Pepcid PER TUBE 20 mg Q12HR SONIA Administration Furosemide 40 mg 02/26/19 09:00 03/16/19 10:26 Lasix PER TUBE 40 mg DAILY SONIA Administration Levetiracetam 1,000 mg 03/09/19 21:00 03/16/19 10:26 Keppra Oral Solution PO 1,000 mg BID SONIA Administration Lisinopril 20 mg 03/14/19 21:00 03/16/19 10:25 Zestril PO 20 mg BID SONIA Administration Nystatin 0 gm 03/06/19 21:00 03/16/19 10:27 Mycostatin Powder TOP 1 applic BID SONIA Administration Phenytoin Sodium 200 mg 03/03/19 21:00 03/15/19 21:57 Dilantin PER TUBE 200 mg HS SONIA Administration Potassium Chloride 20 meq 03/01/19 08:00 03/16/19 10:26 Klor-Con PO 20 meq BID-WM SONIA Administration Scopolamine 1.5 mg 03/02/19 10:30 03/14/19 09:15 Transderm Scop TD 1.5 mg Q3D SONIA Administration Sodium Chloride 10 ml 03/01/19 09:00 03/16/19 10:27 Flush - Normal Saline IVF 10 ml Q12HR SONIA Administration - Exam General Appearance: awake alert Eye: anicteric sclera ENT: normocephalic atraumatic ENT - other findings: Trach with trach collar Neck: symmetric Heart: RRR Respiratory: no wheezes, no rales, no ronchi Respiratory - other findings: fair air entry with transmitted sound Gastrointestinal: soft, non-tender, non-distended, normal bowel sounds Gastrointestinal - other findings: gastric tube noted Extremities: no edema Neurological: cranial nerve grossly intact Neurological - other findings: obeying some command. attempting to say something Hosp A/P (1) Anoxic encephalopathy Status: Acute (2) Status epilepticus Code(s): G40.901 - EPILEPSY, UNSP, NOT INTRACTABLE, WITH STATUS EPILEPTICUS Status: Acute (3) Acute respiratory failure Code(s): J96.00 - ACUTE RESPIRATORY FAILURE, UNSP W HYPOXIA OR HYPERCAPNIA Status: Acute Qualifiers: Respiratory failure complication: hypoxia Qualified Code(s): J96.01 - Acute respiratory failure with hypoxia (4) Elevated troponin Code(s): R74.8 - ABNORMAL LEVELS OF OTHER SERUM ENZYMES Status: Deleted (5) Pleural effusion Code(s): J90 - PLEURAL EFFUSION, NOT ELSEWHERE CLASSIFIED Status: Deleted (6) Cardiomyopathy Code(s): I42.9 - CARDIOMYOPATHY, UNSPECIFIED Status: Deleted (7) HTN (hypertension) Code(s): I10 - ESSENTIAL (PRIMARY) HYPERTENSION Status: Chronic Qualifiers: Hypertension type: essential hypertension Qualified Code(s): I10 - Essential (primary) hypertension (8) Multiple sclerosis Code(s): G35 - MULTIPLE SCLEROSIS Status: Chronic (9) Seizure disorder Code(s): G40.909 - EPILEPSY, UNSP, NOT INTRACTABLE, WITHOUT STATUS EPILEPTICUS Status: Acute (10) Metabolic acidosis Code(s): E87.2 - ACIDOSIS Status: Deleted (11) Hypokalemia Code(s): E87.6 - HYPOKALEMIA Status: Deleted (12) Frequent loose stools Code(s): R19.7 - DIARRHEA, UNSPECIFIED Status: Acute (13) Quadriparesis Code(s): G82.50 - QUADRIPLEGIA, UNSPECIFIED Status: Acute (14) Status post tracheostomy Code(s): Z93.0 - TRACHEOSTOMY STATUS Status: Acute - Plan Continue current treatments and supportive care Awaiting placement
[2019-03-17] MEDS: Acetaminophen 325 MG TAB PO PRN (01:05)
[2019-03-17 03:35] LABS: #Basophils 0.1 thou/uL (0.0-0.2); #Eosinphils 0.5 thou/uL (0.0-0.7); #Lymphocytes 1.6 thou/uL (1.20-3.40); #Monocytes 0.7 thou/uL (0.11-0.59); %Basophils 0.5 % (0.0-1.0); %Eosinophils 3.7 % (0.0-10.0); %Lymphocytes 12.3 % (21.0-51.0); %Monocytes 5.4 % (0.0-10.0); %Neutrophils 78.1 % (42.0-75.0); Hemoglobin 11.4 g/dL (12.0-16.0); Mean Corpuscular HGB CONC 33.3 g/dL (32.0-36.0); Mean Corpuscular Hemoglobin 32.7 pg (27.0-31.0); Mean Corpuscular Volume 98.3 fL (78.0-98.0); Mean Platelet Volume 6.4 fL (7.4-10.4); Platelet Count 412 thou/uL (130-400); RBC Distribution Width 14.1 % (11.5-14.5); Red Blood Cell (RBC) Count 3.49 mill/uL (4.20-5.40); White Blood Cell (WBC) Count 12.8 thou/uL (4.8-10.8)
[2019-03-17 03:56] LABS: ALT (SGPT) 15 U/L (8-55); AST (SGOT) 11 U/L (5-34); Albumin 3.7 g/dL (3.5-5.0); Alkaline Phosphatase 121 U/L (40-150); Anion Gap 16 mmol/L (10-20); BUN (Urea Nitrogen) 27 mg/dL (9.8-20.1); Bilirubin, Total 0.3 mg/dL (0.2-1.2); Calc. Creatinine Clearance 125 mL/min (70-130); Calcium 9.8 mg/dL (7.8-10.44); Carbon Dioxide 22 mmol/L (22-29); Chloride 100 mmol/L (98-107); Estimated GFR-MDRD Greater than 90; Globulin 3.8 g/dL (2.4-3.5); Glucose 124 mg/dL (70-105); Magnesium 2.3 mg/dL (1.6-2.6); Potassium 5.1 mmol/L (3.5-5.1); Protein, Total 7.5 g/dL (6.0-8.3); Sodium 133 mmol/L (136-145)
[2019-03-17] MEDS: levETIRAcetam 500 mg/5 ml Oral Solution PO SCH ×2 (09:26→20:59)
[2019-03-17] MEDS: Lisinopril 10 MG TAB PO SCH ×2 (09:26→21:00)
[2019-03-17] MEDS: Enoxaparin Sodium 40 MG/0.4 ML SYRINGE SC SCH (09:26)
[2019-03-17] MEDS: Famotidine 20 MG TAB PER TUBE SCH ×2 (09:26→21:02)
[2019-03-17] MEDS: Scopolamine 1.5 mg/72 hour Patch TD SCH (09:26)
[2019-03-17] MEDS: Furosemide 40 MG TAB PER TUBE SCH (09:26)
[2019-03-17] MEDS: Carvedilol 25 MG TAB PO SCH ×2 (09:26→21:00)
[2019-03-17] MEDS: Nystatin Powder 15 GM BOT TOP SCH ×2 (09:27→21:03)
--- NOTE | 2019-03-17 12:03 | PRG ---
DATE OF SERVICE: 03/17/2019 SUBJECTIVE: Ana Rueda is a 53-year-old female, trach in place status post respiratory failure. OBJECTIVE: VITAL SIGNS: Temperature 97, blood pressure 115/77, saturations are 90%, respiratory rate 18. CHEST: Reveals anterior rhonchi. CARDIAC: Normal S1 and S2. No gallops. ABDOMEN: No masses. LABORATORY DATA: Lytes are normal. White count 12,000. IMPRESSION: Multiple sclerosis, respiratory failure, tracheostomy. PLAN: Continue supportive care. Suction p.r.n. We will follow. Job ID: [id number]
--- NOTE | 2019-03-17 17:01 | PDOC.HOSPP ---
- Subjective Encounter Date: 03/17/19 Encounter Time: 11:59 Subjective: 53 y/o obese female with chronic debilitation from MS and prior CVA with residual right sided weakness, seizure admitted with status epilepticus associated with airway compromised necessitating intubation. Opens eye spontaneously and with stimulation but no purposeful motor function. S/p PEG and Trach. Planned LTAC placement was declined by insurance. Obeying some commands - Objective Vital Signs & Weight: Vital Signs (12 hours) Temp BP Pulse Ox 03/17/19 16:28 97.1 F L 03/17/19 10:45 97.5 F L 03/17/19 09:26 115/77 03/17/19 08:00 99 03/17/19 07:17 96.8 F L Weight Admit Weight 170 lb Weight 158 lb 14.4 oz Most Recent Monitor Data Heart Rate from ECG 95 NIBP 139/85 NIBP BP-Mean 103 Respiration from ECG 33 SpO2 98 I&O: 03/16/19 03/17/19 03/18/19 06:59 06:59 06:59 Intake Total 785 1810 90 Output Total 600 1070 Balance 185 740 90 Result Diagrams: 03/17/19 03:26 03/17/19 03:26 Hospitalist ROS - Medication Medications: Active Medications Generic Name Dose Route Start Last Admin Trade Name Freq PRN Reason Stop Dose Admin Acetaminophen 650 mg 02/22/19 02:10 03/17/19 01:05 Tylenol PO 650 mg Q4H PRN Administration Headache/Fever/Mild Pain (1-3) Carvedilol 25 mg 03/08/19 10:52 03/17/19 09:26 Coreg PO 25 mg BID SONIA Administration Enoxaparin Sodium 40 mg 02/22/19 09:00 03/17/19 09:26 Lovenox SC 40 mg 0900 SONIA Administration Famotidine 20 mg 02/26/19 21:00 03/17/19 09:26 Pepcid PER TUBE 20 mg Q12HR SONIA Administration Furosemide 40 mg 02/26/19 09:00 03/17/19 09:26 Lasix PER TUBE 40 mg DAILY SONIA Administration Levetiracetam 1,000 mg 03/09/19 21:00 03/17/19 09:26 Keppra Oral Solution PO 1,000 mg BID SONIA Administration Lisinopril 20 mg 03/14/19 21:00 03/17/19 09:26 Zestril PO 20 mg BID SONIA Administration Nystatin 0 gm 03/06/19 21:00 03/17/19 09:27 Mycostatin Powder TOP 1 applic BID SONIA Administration Phenytoin Sodium 200 mg 03/03/19 21:00 03/16/19 21:10 Dilantin PER TUBE 200 mg HS SONIA Administration Potassium Chloride 20 meq 03/01/19 08:00 03/17/19 09:25 Klor-Con PO 20 meq BID-WM SONIA Administration Scopolamine 1.5 mg 03/02/19 10:30 03/17/19 09:26 Transderm Scop TD 1.5 mg Q3D SONIA Administration Sodium Chloride 10 ml 03/01/19 09:00 03/17/19 09:27 Flush - Normal Saline IVF 10 ml Q12HR SONIA Administration - Exam General - other findings: sleeping but easily arousable ENT: normocephalic atraumatic Neck: symmetric Neck - other findings: Trach with T collar noted Heart: RRR Respiratory: no rales, no ronchi Respiratory - other findings: transmitted breat sound noted Gastrointestinal: soft, non-tender, non-distended Gastrointestinal - other findings: gastric tube noted Extremities: no edema Hosp A/P (1) Anoxic encephalopathy Status: Acute (2) Status epilepticus Code(s): G40.901 - EPILEPSY, UNSP, NOT INTRACTABLE, WITH STATUS EPILEPTICUS Status: Acute (3) Acute respiratory failure Code(s): J96.00 - ACUTE RESPIRATORY FAILURE, UNSP W HYPOXIA OR HYPERCAPNIA Status: Acute Qualifiers: Respiratory failure complication: hypoxia Qualified Code(s): J96.01 - Acute respiratory failure with hypoxia (4) Elevated troponin Code(s): R74.8 - ABNORMAL LEVELS OF OTHER SERUM ENZYMES Status: Deleted (5) Pleural effusion Code(s): J90 - PLEURAL EFFUSION, NOT ELSEWHERE CLASSIFIED Status: Deleted (6) Cardiomyopathy Code(s): I42.9 - CARDIOMYOPATHY, UNSPECIFIED Status: Deleted (7) HTN (hypertension) Code(s): I10 - ESSENTIAL (PRIMARY) HYPERTENSION Status: Chronic Qualifiers: Hypertension type: essential hypertension Qualified Code(s): I10 - Essential (primary) hypertension (8) Multiple sclerosis Code(s): G35 - MULTIPLE SCLEROSIS Status: Chronic (9) Seizure disorder Code(s): G40.909 - EPILEPSY, UNSP, NOT INTRACTABLE, WITHOUT STATUS EPILEPTICUS Status: Acute (10) Metabolic acidosis Code(s): E87.2 - ACIDOSIS Status: Deleted (11) Hypokalemia Code(s): E87.6 - HYPOKALEMIA Status: Deleted (12) Frequent loose stools Code(s): R19.7 - DIARRHEA, UNSPECIFIED Status: Acute (13) Quadriparesis Code(s): G82.50 - QUADRIPLEGIA, UNSPECIFIED Status: Acute (14) Status post tracheostomy Code(s): Z93.0 - TRACHEOSTOMY STATUS Status: Acute - Plan Continue current treatments and supportive care Awaiting placement
[2019-03-18] MEDS: Furosemide 40 MG TAB PER TUBE SCH (09:46)
[2019-03-18] MEDS: Acetaminophen 325 MG TAB PO PRN ×2 (09:46→20:04)
[2019-03-18] MEDS: Carvedilol 25 MG TAB PO SCH ×2 (09:46→20:06)
[2019-03-18] MEDS: Famotidine 20 MG TAB PER TUBE SCH ×2 (09:46→20:03)
[2019-03-18] MEDS: Lisinopril 10 MG TAB PO SCH ×2 (09:46→20:06)
[2019-03-18] MEDS: levETIRAcetam 500 mg/5 ml Oral Solution PO SCH ×2 (09:47→20:01)
[2019-03-18] MEDS: Enoxaparin Sodium 40 MG/0.4 ML SYRINGE SC SCH (09:47)
[2019-03-18] MEDS: Nystatin Powder 15 GM BOT TOP SCH ×2 (09:49→20:08)
--- NOTE | 2019-03-18 11:28 | PRG ---
DATE OF SERVICE: 03/18/2019 SUBJECTIVE: Ana Rueda is clinically unchanged. She is awaiting placement. She is afebrile. OBJECTIVE: VITAL SIGNS: Blood pressure 120/87, heart rate 104, and respiratory rate is in the teens. GENERAL: She is comfortable. LUNGS: Clear. HEART: Regular rhythm. ABDOMEN: Soft. LABORATORY DATA: Lab over the weekend showed a white count of 12.8, hemoglobin 11.4, and platelets 412. Sodium 133, potassium 5.1, chloride 100, bicarb 22, BUN 27, and creatinine 0.57. IMPRESSION: 1. 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 2. Status epilepticus, brought on by EMS, and a new lesion. 3. Status post tracheostomy and percutaneous endoscopic gastrostomy placement. PLAN: She is clinically stable. Awaiting placement. Job ID: [id number]
--- NOTE | 2019-03-18 14:59 | PDOC.HOSPP ---
- Subjective Encounter Date: 03/18/19 Encounter Time: 10:30 Subjective: Ms. Rueda was seen today in follow-up of advanced MS, and seizures.She is non- verbal. She will track you in the room, she appears comfortable. - Objective Vital Signs & Weight: Vital Signs (12 hours) Temp BP Pulse Ox 03/18/19 11:16 96.8 F L 03/18/19 10:00 99 03/18/19 09:46 120/87 03/18/19 07:24 97.2 F L 03/18/19 04:00 97.2 F L Weight Admit Weight 170 lb Weight 163 lb 4.8 oz Most Recent Monitor Data Heart Rate from ECG 79 NIBP 100/71 NIBP BP-Mean 80 Respiration from ECG 17 SpO2 95 I&O: 03/17/19 03/18/19 03/19/19 06:59 06:59 06:59 Intake Total 1810 1894 30 Output Total 1070 850 Balance 740 1044 30 Result Diagrams: 03/17/19 03:26 03/17/19 03:26 Hospitalist ROS - Medication Medications: Active Medications Generic Name Dose Route Start Last Admin Trade Name Freq PRN Reason Stop Dose Admin Acetaminophen 650 mg 02/22/19 02:10 03/18/19 09:46 Tylenol PO 650 mg Q4H PRN Administration Headache/Fever/Mild Pain (1-3) Carvedilol 25 mg 03/08/19 10:52 03/18/19 09:46 Coreg PO 25 mg BID SONIA Administration Enoxaparin Sodium 40 mg 02/22/19 09:00 03/18/19 09:47 Lovenox SC 40 mg 09 SONIA Administration Famotidine 20 mg 02/26/19 21:00 03/18/19 09:46 Pepcid PER TUBE 20 mg Q12HR SONIA Administration Furosemide 40 mg 02/26/19 09:00 03/18/19 09:46 Lasix PER TUBE 40 mg DAILY SONIA Administration Levetiracetam 1,000 mg 03/09/19 21:00 03/18/19 09:47 Keppra Oral Solution PO 1,000 mg BID SONIA Administration Lisinopril 20 mg 03/14/19 21:00 03/18/19 09:46 Zestril PO 20 mg BID SONIA Administration Nystatin 0 gm 03/06/19 21:00 03/18/19 09:49 Mycostatin Powder TOP 1 applic BID SONIA Administration Phenytoin Sodium 200 mg 03/03/19 21:00 03/17/19 20:59 Dilantin PER TUBE 200 mg HS SONIA Administration Potassium Chloride 20 meq 03/01/19 08:00 03/18/19 09:47 Klor-Con PO 20 meq BID-WM SONIA Administration Scopolamine 1.5 mg 03/02/19 10:30 03/17/19 09:26 Transderm Scop TD 1.5 mg Q3D SONIA Administration Sodium Chloride 10 ml 03/01/19 09:00 03/18/19 09:48 Flush - Normal Saline IVF 10 ml Q12HR SONIA Administration - Exam Heart: RRR, no murmur, no gallops, no rubs, normal peripheral pulses Respiratory: CTAB, no wheezes, no rales, no ronchi, normal chest expansion, no tachypnea, normal percussion Gastrointestinal: soft, non-tender, non-distended, normal bowel sounds, no palpable masses, no hepatomegaly, no splenomegaly Extremities: no cyanosis, no clubbing, 1+ LE edema (bilateral non-pitting edema) Hosp A/P (1) Seizure disorder Code(s): G40.909 - EPILEPSY, UNSP, NOT INTRACTABLE, WITHOUT STATUS EPILEPTICUS Status: Acute (2) HTN (hypertension) Code(s): I10 - ESSENTIAL (PRIMARY) HYPERTENSION Status: Chronic Qualifiers: Hypertension type: essential hypertension Qualified Code(s): I10 - Essential (primary) hypertension (3) Chronic systolic heart failure Code(s): I50.22 - CHRONIC SYSTOLIC (CONGESTIVE) HEART FAILURE Status: Acute (4) Multiple sclerosis Code(s): G35 - MULTIPLE SCLEROSIS Status: Chronic - Plan * Seizures- stable on Dilantin and Keppra * Systolic heart failure- compensated- continue Lisinopril and Carvediolol * HTN- blood pressure is a bit elevated- continue current medications as well as Hydralazine as needed * Nutritional support via PEG * Continue DVT and GI Prophylaxis * Advanced MS- awaiting discharge placement
[2019-03-19] MEDS: Famotidine 20 MG TAB PER TUBE SCH ×2 (09:11→21:54)
[2019-03-19] MEDS: Carvedilol 25 MG TAB PO SCH ×2 (09:11→21:53)
[2019-03-19] MEDS: Furosemide 40 MG TAB PER TUBE SCH (09:11)
[2019-03-19] MEDS: Enoxaparin Sodium 40 MG/0.4 ML SYRINGE SC SCH (09:11)
[2019-03-19] MEDS: Lisinopril 10 MG TAB PO SCH ×2 (09:11→21:54)
[2019-03-19] MEDS: levETIRAcetam 500 mg/5 ml Oral Solution PO SCH ×2 (09:12→21:54)
[2019-03-19] MEDS: Nystatin Powder 15 GM BOT TOP SCH ×2 (09:12→21:55)
--- NOTE | 2019-03-19 13:59 | PRG ---
DATE OF SERVICE: 03/19/2019 SUBJECTIVE: Ana Rueda remains hemodynamically and respiratory ball stable. OBJECTIVE: VITAL SIGNS: Heart rate is 92, blood pressure 113/69, respiratory rate is in the teens. LUNGS: Clear. HEART: Regular rhythm. ABDOMEN: Soft. IMPRESSION: Advanced end-stage multiple sclerosis with status epilepticus on presentation. Apparently, long-term acute care has been denied. Placement still an issue. Family is never here when I am rounding and apparently per my discussion with the nurse, she is completely unable to deal with simple things like tracheal mucus and suctioning. I really cannot see how she is going to do well at home. I think there should be a transition to a correction once she qualifies for admission until family can prove that they can take care of her. We will sign off. Please feel free to reconsult us if there are something changes acutely. Job ID: [id number]
--- NOTE | 2019-03-19 17:58 | PDOC.HOSPP ---
- Subjective Encounter Date: 03/19/19 Encounter Time: 10:30 Subjective: Ms. Rueda was seen today in follow-up of advanced MS, and seziures. She is awake and alert. Appears to be a bit improved in that she tries to communicate by trying to talk. - Objective Vital Signs & Weight: Vital Signs (12 hours) BP Pulse Ox 03/19/19 09:11 127/85 03/19/19 08:00 95 Weight Admit Weight 170 lb Weight 163 lb 9.6 oz Most Recent Monitor Data Heart Rate from ECG 87 NIBP 116/76 NIBP BP-Mean 89 Respiration from ECG 20 SpO2 97 I&O: 03/18/19 03/19/19 03/20/19 06:59 06:59 06:59 Intake Total 1894 930 60 Output Total 850 905 Balance 1044 25 60 Result Diagrams: 03/17/19 03:26 03/17/19 03:26 Hospitalist ROS - Medication Medications: Active Medications Generic Name Dose Route Start Last Admin Trade Name Freq PRN Reason Stop Dose Admin Acetaminophen 650 mg 02/22/19 02:10 03/18/19 20:04 Tylenol PO 650 mg Q4H PRN Administration Headache/Fever/Mild Pain (1-3) Carvedilol 25 mg 03/08/19 10:52 03/19/19 09:11 Coreg PO 25 mg BID SONIA Administration Enoxaparin Sodium 40 mg 02/22/19 09:00 03/19/19 09:11 Lovenox SC 40 mg 0900 SONIA Administration Famotidine 20 mg 02/26/19 21:00 03/19/19 09:11 Pepcid PER TUBE 20 mg Q12HR SONIA Administration Furosemide 40 mg 02/26/19 09:00 03/19/19 09:11 Lasix PER TUBE 40 mg DAILY SONIA Administration Levetiracetam 1,000 mg 03/09/19 21:00 03/19/19 09:12 Keppra Oral Solution PO 1,000 mg BID SONIA Administration Lisinopril 20 mg 03/14/19 21:00 03/19/19 09:11 Zestril PO 20 mg BID SONIA Administration Nystatin 0 gm 03/06/19 21:00 03/19/19 09:12 Mycostatin Powder TOP 1 applic BID SONIA Administration Phenytoin Sodium 200 mg 03/03/19 21:00 03/18/19 20:01 Dilantin PER TUBE 200 mg HS SONIA Administration Potassium Chloride 20 meq 03/01/19 08:00 03/19/19 17:35 Klor-Con PO 20 meq BID-WM SONIA Administration Scopolamine 1.5 mg 03/02/19 10:30 03/17/19 09:26 Transderm Scop TD 1.5 mg Q3D SONIA Administration Sodium Chloride 10 ml 03/01/19 09:00 03/19/19 09:12 Flush - Normal Saline IVF 10 ml Q12HR SONIA Administration - Exam Eye: PERRL, anicteric sclera Heart: RRR, no murmur, no gallops, no rubs, normal peripheral pulses Respiratory: CTAB, no wheezes, no rales, no ronchi, normal chest expansion, no tachypnea, normal percussion Gastrointestinal: soft (PEG tube site ok), non-tender, non-distended, normal bowel sounds, no palpable masses, no hepatomegaly, no splenomegaly Extremities: no cyanosis, no clubbing Hosp A/P (1) Seizure disorder Code(s): G40.909 - EPILEPSY, UNSP, NOT INTRACTABLE, WITHOUT STATUS EPILEPTICUS Status: Acute (2) HTN (hypertension) Code(s): I10 - ESSENTIAL (PRIMARY) HYPERTENSION Status: Chronic Qualifiers: Hypertension type: essential hypertension Qualified Code(s): I10 - Essential (primary) hypertension (3) Chronic systolic heart failure Code(s): I50.22 - CHRONIC SYSTOLIC (CONGESTIVE) HEART FAILURE Status: Acute (4) Multiple sclerosis Code(s): G35 - MULTIPLE SCLEROSIS Status: Chronic - Plan * Seizures- stable on Dilantin and Keppra * Systolic heart failure- compensated- * HTN- blood pressure is stable * Nutritional support via PEG * Continue DVT and GI Prophylaxis * Advanced MS- awaiting discharge placement
[2019-03-20] MEDS: Furosemide 40 MG TAB PER TUBE SCH (09:05)
[2019-03-20] MEDS: Famotidine 20 MG TAB PER TUBE SCH ×2 (09:05→20:24)
[2019-03-20] MEDS: Lisinopril 10 MG TAB PO SCH ×2 (09:05→20:24)
[2019-03-20] MEDS: Carvedilol 25 MG TAB PO SCH ×2 (09:05→20:24)
[2019-03-20] MEDS: levETIRAcetam 500 mg/5 ml Oral Solution PO SCH ×2 (09:05→20:23)
[2019-03-20] MEDS: Enoxaparin Sodium 40 MG/0.4 ML SYRINGE SC SCH (09:06)
[2019-03-20] MEDS: Scopolamine 1.5 mg/72 hour Patch TD SCH (09:06)
[2019-03-20] MEDS: Nystatin Powder 15 GM BOT TOP SCH ×2 (09:07→20:25)
--- NOTE | 2019-03-20 09:55 | PRG ---
DATE OF SERVICE: 03/20/2019 SUBJECTIVE: Ms. Rueda has no new complaints. OBJECTIVE: VITAL SIGNS: Heart rate 82, blood pressure 115/83, respiratory rate 20s, oximetry is 100%. Still has strong cough. Lungs, heart, and abdomen are unchanged. IMPRESSION: 1. End-stage multiple sclerosis. 2. Status epilepticus. 3. Status post trach and PEG. Recommended changing her to a cuffless fenestrated trach today. Job ID: [id number]
--- NOTE | 2019-03-20 14:31 | PDOC.HOSPP ---
- Subjective Encounter Date: 03/20/19 Encounter Time: 14:30 Subjective: Ms. Rueda was seen today in follow-up of seizures. She is resting. No complaints voiced by staff. - Objective Vital Signs & Weight: Vital Signs (12 hours) Temp BP Pulse Ox 03/20/19 11:16 97.2 F L 03/20/19 09:05 133/88 03/20/19 07:57 100 03/20/19 07:33 97.2 F L 03/20/19 07:03 100 03/20/19 04:00 98.3 F Weight Admit Weight 170 lb Weight 159 lb 2.78 oz Most Recent Monitor Data Heart Rate from ECG 85 NIBP 101/76 NIBP BP-Mean 84 Respiration from ECG 22 SpO2 99 I&O: 03/19/19 03/20/19 03/21/19 06:59 06:59 06:59 Intake Total 930 960 60 Output Total 905 1150 Balance 25 -190 60 Result Diagrams: 03/17/19 03:26 03/17/19 03:26 Hospitalist ROS - Medication Medications: Active Medications Generic Name Dose Route Start Last Admin Trade Name Freq PRN Reason Stop Dose Admin Acetaminophen 650 mg 02/22/19 02:10 03/18/19 20:04 Tylenol PO 650 mg Q4H PRN Administration Headache/Fever/Mild Pain (1-3) Carvedilol 25 mg 03/08/19 10:52 03/20/19 09:05 Coreg PO 25 mg BID SONIA Administration Enoxaparin Sodium 40 mg 02/22/19 09:00 03/20/19 09:06 Lovenox SC 40 mg 0900 SONIA Administration Famotidine 20 mg 02/26/19 21:00 03/20/19 09:05 Pepcid PER TUBE 20 mg Q12HR SONIA Administration Furosemide 40 mg 02/26/19 09:00 03/20/19 09:05 Lasix PER TUBE 40 mg DAILY SONIA Administration Levetiracetam 1,000 mg 03/09/19 21:00 03/20/19 09:05 Keppra Oral Solution PO 1,000 mg BID SONIA Administration Lisinopril 20 mg 03/14/19 21:00 03/20/19 09:05 Zestril PO 20 mg BID SONIA Administration Nystatin 0 gm 03/06/19 21:00 03/20/19 09:07 Mycostatin Powder TOP 1 applic BID SONIA Administration Phenytoin Sodium 200 mg 03/03/19 21:00 03/19/19 21:54 Dilantin PER TUBE 200 mg HS SONIA Administration Potassium Chloride 20 meq 03/01/19 08:00 03/20/19 09:05 Klor-Con PO 20 meq BID-WM SONIA Administration Scopolamine 1.5 mg 03/02/19 10:30 03/20/19 09:06 Transderm Scop TD 1.5 mg Q3D SONIA Administration Sodium Chloride 10 ml 03/01/19 09:00 03/20/19 09:07 Flush - Normal Saline IVF 10 ml Q12HR SONIA Administration - Exam Eye: PERRL, anicteric sclera Neck: supple, symmetric, no JVD, no thyromegaly, no carotid bruit Heart: RRR, no murmur, no gallops, no rubs, normal peripheral pulses Respiratory: CTAB, no wheezes, no rales, no ronchi, normal chest expansion, no tachypnea, normal percussion Gastrointestinal: soft, non-tender, non-distended, normal bowel sounds, no palpable masses, no hepatomegaly, no splenomegaly Extremities: no cyanosis, 1+ LE edema (non-pitting edema) Hosp A/P (1) Seizure disorder Code(s): G40.909 - EPILEPSY, UNSP, NOT INTRACTABLE, WITHOUT STATUS EPILEPTICUS Status: Acute (2) HTN (hypertension) Code(s): I10 - ESSENTIAL (PRIMARY) HYPERTENSION Status: Chronic Qualifiers: Hypertension type: essential hypertension Qualified Code(s): I10 - Essential (primary) hypertension (3) Chronic systolic heart failure Code(s): I50.22 - CHRONIC SYSTOLIC (CONGESTIVE) HEART FAILURE Status: Acute (4) Multiple sclerosis Code(s): G35 - MULTIPLE SCLEROSIS Status: Chronic - Plan * Seizures- stable on Dilantin and Keppra * Systolic heart failure- stable * HTN- blood pressure is stable * Nutritional support via PEG * Continue DVT and GI Prophylaxis * Advanced MS- awaiting discharge placement
[2019-03-21] MEDS: Carvedilol 25 MG TAB PO SCH ×2 (08:53→21:43)
[2019-03-21] MEDS: Furosemide 40 MG TAB PER TUBE SCH (08:53)
[2019-03-21] MEDS: Famotidine 20 MG TAB PER TUBE SCH ×2 (08:54→21:43)
[2019-03-21] MEDS: Lisinopril 10 MG TAB PO SCH ×2 (08:54→21:42)
[2019-03-21] MEDS: levETIRAcetam 500 mg/5 ml Oral Solution PO SCH ×2 (08:54→21:43)
[2019-03-21] MEDS: Enoxaparin Sodium 40 MG/0.4 ML SYRINGE SC SCH (08:54)
[2019-03-21] MEDS: Nystatin Powder 15 GM BOT TOP SCH ×2 (08:55→21:47)
--- NOTE | 2019-03-21 15:23 | PDOC.HOSPP ---
- Subjective Encounter Date: 03/21/19 Encounter Time: 10:35 Subjective: Ms. Rueda was seen today in follow-up of seizure disorder. She is awake and alert. She will track me, but today she is not attemptomg to talk. - Objective Vital Signs & Weight: Vital Signs (12 hours) Temp BP Pulse Ox 03/21/19 08:54 125/79 03/21/19 08:00 100 03/21/19 06:51 97.5 F L 03/21/19 06:27 100 03/21/19 03:32 98.0 F Weight Admit Weight 170 lb 3.15 oz Weight 158 lb 4.67 oz Most Recent Monitor Data Heart Rate from ECG 86 NIBP 107/81 NIBP BP-Mean 89 Respiration from ECG 24 SpO2 100 I&O: 03/20/19 03/21/19 03/22/19 06:59 06:59 06:59 Intake Total 960 1533 60 Output Total 1150 1000 Balance -190 533 60 Result Diagrams: 03/17/19 03:26 03/17/19 03:26 Hospitalist ROS - Medication Medications: Active Medications Generic Name Dose Route Start Last Admin Trade Name Freq PRN Reason Stop Dose Admin Acetaminophen 650 mg 02/22/19 02:10 03/18/19 20:04 Tylenol PO 650 mg Q4H PRN Administration Headache/Fever/Mild Pain (1-3) Carvedilol 25 mg 03/08/19 10:52 03/21/19 08:53 Coreg PO 25 mg BID SONIA Administration Enoxaparin Sodium 40 mg 02/22/19 09:00 03/21/19 08:54 Lovenox SC 40 mg 0900 SONIA Administration Famotidine 20 mg 02/26/19 21:00 03/21/19 08:54 Pepcid PER TUBE 20 mg Q12HR SONIA Administration Furosemide 40 mg 02/26/19 09:00 03/21/19 08:53 Lasix PER TUBE 40 mg DAILY SONIA Administration Levetiracetam 1,000 mg 03/09/19 21:00 03/21/19 08:54 Keppra Oral Solution PO 1,000 mg BID SONIA Administration Lisinopril 20 mg 03/14/19 21:00 03/21/19 08:54 Zestril PO 20 mg BID SONIA Administration Nystatin 0 gm 03/06/19 21:00 03/21/19 08:55 Mycostatin Powder TOP 1 applic BID SONIA Administration Phenytoin Sodium 200 mg 03/03/19 21:00 03/20/19 20:24 Dilantin PER TUBE 200 mg HS SONIA Administration Potassium Chloride 20 meq 03/01/19 08:00 03/21/19 08:53 Klor-Con PO 20 meq BID-WM SONIA Administration Scopolamine 1.5 mg 03/02/19 10:30 03/20/19 09:06 Transderm Scop TD 1.5 mg Q3D SONIA Administration Sodium Chloride 10 ml 03/01/19 09:00 03/21/19 08:54 Flush - Normal Saline IVF 10 ml Q12HR SONIA Administration - Exam Eye: PERRL Heart: RRR, no murmur, no gallops, no rubs, normal peripheral pulses Respiratory: CTAB, no rales, rhonchi Gastrointestinal: soft, non-tender, non-distended, normal bowel sounds, no palpable masses, no hepatomegaly, no splenomegaly, no bruit, no guarding, no rigidity Extremities: no cyanosis, 1+ LE edema (non-pitting edema) Hosp A/P (1) Seizure disorder Code(s): G40.909 - EPILEPSY, UNSP, NOT INTRACTABLE, WITHOUT STATUS EPILEPTICUS Status: Acute (2) HTN (hypertension) Code(s): I10 - ESSENTIAL (PRIMARY) HYPERTENSION Status: Chronic Qualifiers: Hypertension type: essential hypertension Qualified Code(s): I10 - Essential (primary) hypertension (3) Chronic systolic heart failure Code(s): I50.22 - CHRONIC SYSTOLIC (CONGESTIVE) HEART FAILURE Status: Acute (4) Multiple sclerosis Code(s): G35 - MULTIPLE SCLEROSIS Status: Chronic - Plan * Seizures- stable * Systolic heart failure- stable * HTN- blood pressure is stable * Nutritional support via PEG * Continue DVT and GI Prophylaxis * Advanced MS- awaiting discharge placement
--- NOTE | 2019-03-21 18:13 | PRG ---
DATE OF SERVICE: 03/21/2019 SUBJECTIVE: Ms. Rueda's family has visited, but they only stay for 15 or 20 minutes. Tracheostomy tube has been changed to a cuffless tube. OBJECTIVE: VITAL SIGNS: Heart rate is in the 90s, blood pressure is 91 to 107, respiratory rate in the 20s, and oximetry is 100%. GENERAL: She is coughing and handling her secretions. Each day, she seems to be a little bit more interactive, but for all practical purposes, she is still quadriplegic. LUNGS: Clear. HEART: Regular rhythm. ABDOMEN: Soft and nontender. EXTREMITIES: Without asymmetry or edema. LABORATORY DATA: No new lab. IMPRESSION: 1. End-stage multiple sclerosis. 2. Status epilepticus secondary to new MS lesion. She has had no recurrent seizures. 3. Status post tracheostomy and percutaneous endoscopic gastrostomy. PLAN: Placement. We will see her as needed in the future. Job ID: [id number]
[2019-03-22] MEDS: Enoxaparin Sodium 40 MG/0.4 ML SYRINGE SC SCH (09:30)
[2019-03-22] MEDS: Famotidine 20 MG TAB PER TUBE SCH ×2 (09:30→20:37)
[2019-03-22] MEDS: Carvedilol 25 MG TAB PO SCH ×2 (09:30→20:37)
[2019-03-22] MEDS: Furosemide 40 MG TAB PER TUBE SCH (09:30)
[2019-03-22] MEDS: levETIRAcetam 500 mg/5 ml Oral Solution PO SCH ×2 (09:30→20:37)
[2019-03-22] MEDS: Lisinopril 10 MG TAB PO SCH ×2 (09:31→20:38)
[2019-03-22] MEDS: Nystatin Powder 15 GM BOT TOP SCH ×2 (09:31→20:37)
--- NOTE | 2019-03-22 18:22 | PDOC.HOSPP ---
- Subjective Encounter Date: 03/22/19 Encounter Time: 18:19 Subjective: Ms. Rueda was seen today in follow-up of seizure. She has not had any significant bladder changer the past few days. - Objective Vital Signs & Weight: Vital Signs (12 hours) Temp Pulse Ox 03/22/19 15:19 96.3 F L 03/22/19 11:31 97.4 F L 03/22/19 08:00 100 03/22/19 07:27 97.7 F 03/22/19 06:55 98 Weight Admit Weight 170 lb 3.15 oz Weight 158 lb 15.253 oz Most Recent Monitor Data Heart Rate from ECG 73 NIBP 98/65 NIBP BP-Mean 76 Respiration from ECG 22 SpO2 100 I&O: 03/21/19 03/22/19 03/23/19 06:59 06:59 06:59 Intake Total 1533 1590 60 Output Total 1000 900 Balance 533 690 60 Result Diagrams: 03/17/19 03:26 03/17/19 03:26 Hospitalist ROS - Medication Medications: Active Medications Generic Name Dose Route Start Last Admin Trade Name Freq PRN Reason Stop Dose Admin Acetaminophen 650 mg 02/22/19 02:10 03/18/19 20:04 Tylenol PO 650 mg Q4H PRN Administration Headache/Fever/Mild Pain (1-3) Carvedilol 25 mg 03/08/19 10:52 03/22/19 09:30 Coreg PO 25 mg BID SONIA Administration Enoxaparin Sodium 40 mg 02/22/19 09:00 03/22/19 09:30 Lovenox SC 40 mg 0900 SONIA Administration Famotidine 20 mg 02/26/19 21:00 03/22/19 09:30 Pepcid PER TUBE 20 mg Q12HR SONIA Administration Furosemide 40 mg 02/26/19 09:00 03/22/19 09:30 Lasix PER TUBE 40 mg DAILY SONIA Administration Levetiracetam 1,000 mg 03/09/19 21:00 03/22/19 09:30 Keppra Oral Solution PO 1,000 mg BID SONIA Administration Lisinopril 20 mg 03/14/19 21:00 03/22/19 09:31 Zestril PO 20 mg BID SONIA Administration Nystatin 0 gm 03/06/19 21:00 03/22/19 09:31 Mycostatin Powder TOP 1 applic BID SONIA Administration Phenytoin Sodium 200 mg 03/03/19 21:00 03/21/19 21:43 Dilantin PER TUBE 200 mg HS SONIA Administration Potassium Chloride 20 meq 03/01/19 08:00 03/22/19 17:45 Klor-Con PO 20 meq BID-WM SONIA Administration Scopolamine 1.5 mg 03/02/19 10:30 03/20/19 09:06 Transderm Scop TD 1.5 mg Q3D SONIA Administration Sodium Chloride 10 ml 03/01/19 09:00 03/22/19 09:32 Flush - Normal Saline IVF 10 ml Q12HR SONIA Administration - Exam Eye: PERRL, anicteric sclera Heart: RRR, no murmur, no gallops, no rubs, normal peripheral pulses Respiratory: CTAB (+ some mild upper airway noise), no wheezes, no rales, no ronchi, normal chest expansion, no tachypnea, normal percussion Gastrointestinal: soft (PEG tube sute is clean, no erythema no induration), non- tender, non-distended, normal bowel sounds, no palpable masses, no hepatomegaly , no splenomegaly Extremities: no cyanosis, no clubbing, no edema Hosp A/P (1) Seizure disorder Code(s): G40.909 - EPILEPSY, UNSP, NOT INTRACTABLE, WITHOUT STATUS EPILEPTICUS Status: Acute (2) HTN (hypertension) Code(s): I10 - ESSENTIAL (PRIMARY) HYPERTENSION Status: Chronic Qualifiers: Hypertension type: essential hypertension Qualified Code(s): I10 - Essential (primary) hypertension (3) Chronic systolic heart failure Code(s): I50.22 - CHRONIC SYSTOLIC (CONGESTIVE) HEART FAILURE Status: Acute (4) Multiple sclerosis Code(s): G35 - MULTIPLE SCLEROSIS Status: Chronic - Plan * Seizures- stable * Systolic heart failure- stable * HTN- blood pressure is stable * Nutritional support via PEG- tolerating tube feeds * Continue DVT and GI Prophylaxis * Advanced MS * Awaiting placement
[2019-03-23] MEDS: Furosemide 40 MG TAB PER TUBE SCH (08:51)
[2019-03-23] MEDS: Carvedilol 25 MG TAB PO SCH ×2 (08:51→21:03)
[2019-03-23] MEDS: Scopolamine 1.5 mg/72 hour Patch TD SCH (08:51)
[2019-03-23] MEDS: Famotidine 20 MG TAB PER TUBE SCH ×2 (08:51→21:03)
[2019-03-23] MEDS: Lisinopril 10 MG TAB PO SCH ×2 (08:51→21:04)
[2019-03-23] MEDS: Enoxaparin Sodium 40 MG/0.4 ML SYRINGE SC SCH (08:51)
[2019-03-23] MEDS: levETIRAcetam 500 mg/5 ml Oral Solution PO SCH ×2 (08:53→21:03)
[2019-03-23] MEDS: Nystatin Powder 15 GM BOT TOP SCH ×2 (09:07→21:05)
--- NOTE | 2019-03-23 09:49 | PDOC.HOSPP ---
- Subjective Encounter Date: 03/23/19 Encounter Time: 09:45 Subjective: Ms. Rueda was seen today in follow-up of Seizure. There has been no significant change. She appears comfortable. - Objective Vital Signs & Weight: Vital Signs (12 hours) Temp Pulse Ox 03/23/19 07:30 96 03/23/19 07:20 97.1 F L 03/23/19 04:00 98.1 F 03/22/19 23:53 98.5 F Weight Admit Weight 170 lb 3.15 oz Weight 159 lb 2.78 oz Most Recent Monitor Data Heart Rate from ECG 77 NIBP 97/67 NIBP BP-Mean 77 Respiration from ECG 29 SpO2 100 I&O: 03/22/19 03/23/19 03/24/19 06:59 06:59 06:59 Intake Total 1590 1500 30 Output Total 900 675 Balance 690 825 30 Result Diagrams: 03/17/19 03:26 03/17/19 03:26 Hospitalist ROS - Medication Medications: Active Medications Generic Name Dose Route Start Last Admin Trade Name Freq PRN Reason Stop Dose Admin Acetaminophen 650 mg 02/22/19 02:10 03/18/19 20:04 Tylenol PO 650 mg Q4H PRN Administration Headache/Fever/Mild Pain (1-3) Carvedilol 25 mg 03/08/19 10:52 03/23/19 08:51 Coreg PO 25 mg BID SONIA Administration Enoxaparin Sodium 40 mg 02/22/19 09:00 03/23/19 08:51 Lovenox SC 40 mg 0900 SONIA Administration Famotidine 20 mg 02/26/19 21:00 03/23/19 08:51 Pepcid PER TUBE 20 mg Q12HR SONIA Administration Furosemide 40 mg 02/26/19 09:00 03/23/19 08:51 Lasix PER TUBE 40 mg DAILY SONIA Administration Levetiracetam 1,000 mg 03/09/19 21:00 03/23/19 08:53 Keppra Oral Solution PO 1,000 mg BID SONIA Administration Lisinopril 20 mg 03/14/19 21:00 03/23/19 08:51 Zestril PO 20 mg BID SONIA Administration Nystatin 0 gm 03/06/19 21:00 03/23/19 09:07 Mycostatin Powder TOP 1 applic BID SONIA Administration Phenytoin Sodium 200 mg 03/03/19 21:00 03/22/19 20:37 Dilantin PER TUBE 200 mg HS SONIA Administration Potassium Chloride 20 meq 03/01/19 08:00 03/23/19 08:50 Klor-Con PO 20 meq BID-WM SONIA Administration Scopolamine 1.5 mg 03/02/19 10:30 03/23/19 08:51 Transderm Scop TD 1.5 mg Q3D SONIA Administration Sodium Chloride 10 ml 03/01/19 09:00 03/23/19 09:07 Flush - Normal Saline IVF 10 ml Q12HR SONIA Administration - Exam Eye: PERRL, anicteric sclera Heart: RRR, no murmur, no gallops, no rubs, normal peripheral pulses Respiratory: CTAB, no wheezes, no rales, no ronchi, normal chest expansion, no tachypnea, normal percussion Gastrointestinal: soft, non-distended, normal bowel sounds Extremities: no cyanosis, no clubbing Hosp A/P (1) Seizure disorder Code(s): G40.909 - EPILEPSY, UNSP, NOT INTRACTABLE, WITHOUT STATUS EPILEPTICUS Status: Acute (2) HTN (hypertension) Code(s): I10 - ESSENTIAL (PRIMARY) HYPERTENSION Status: Chronic Qualifiers: Hypertension type: essential hypertension Qualified Code(s): I10 - Essential (primary) hypertension (3) Chronic systolic heart failure Code(s): I50.22 - CHRONIC SYSTOLIC (CONGESTIVE) HEART FAILURE Status: Acute (4) Multiple sclerosis Code(s): G35 - MULTIPLE SCLEROSIS Status: Chronic - Plan * Patient admitted with status epilepticus. She was found to have very advanced MS.This is likely the cause of the seizures. * Systolic heart failure- stable * HTN- blood pressure is stable * Nutritional support via PEG- tolerating tube feeds * Continue DVT and GI Prophylaxis * Advanced MS * Will check some routine lab work * Awaiting placement- this has been difficult due to the presence of the trach- in the process of trying to find a skilled facility that can take her.
[2019-03-23 09:59] LABS: #Basophils 0.1 thou/uL (0.0-0.2); #Eosinphils 0.4 thou/uL (0.0-0.7); #Monocytes 0.9 thou/uL (0.11-0.59); #Neutrophils 8.2 thou/uL (1.40-6.50); %Basophils 0.5 % (0.0-1.0); %Eosinophils 3.4 % (0.0-10.0); %Lymphocytes 17.6 % (21.0-51.0); %Monocytes 7.9 % (0.0-10.0); %Neutrophils 70.6 % (42.0-75.0); Hemoglobin 10.8 g/dL (12.0-16.0); Mean Corpuscular HGB CONC 32.2 g/dL (32.0-36.0); Mean Corpuscular Volume 99.2 fL (78.0-98.0); Mean Platelet Volume 6.6 fL (7.4-10.4); Platelet Count 326 thou/uL (130-400); RBC Distribution Width 13.7 % (11.5-14.5); Red Blood Cell (RBC) Count 3.37 mill/uL (4.20-5.40); White Blood Cell (WBC) Count 11.6 thou/uL (4.8-10.8)
[2019-03-23 10:22] LABS: Anion Gap 14 mmol/L (10-20); BUN (Urea Nitrogen) 48 mg/dL (9.8-20.1); Calc. Creatinine Clearance 101 mL/min (70-130); Calcium 9.8 mg/dL (7.8-10.44); Carbon Dioxide 25 mmol/L (22-29); Chloride 100 mmol/L (98-107); Estimated GFR-MDRD Greater than 90; Glucose 139 mg/dL (70-105); Potassium 5.6 mmol/L (3.5-5.1); Sodium 133 mmol/L (136-145)
[2019-03-24] MEDS ORDERED: hydrALAZINE 20 MG/ML VIAL SLOW IVP PRN (07:46)
[2019-03-24] MEDS ORDERED: Calcium Carbonate 500 MG ChewTAB PER TUBE PRN (07:46)
[2019-03-24] MEDS ORDERED: Senokot S 8.6-50 MG TAB PER TUBE PRN (07:46)
[2019-03-24] MEDS ORDERED: Ondansetron ODT 4 MG TAB SL PRN (07:46)
[2019-03-24] MEDS ORDERED: Loperamide HCl 2 MG CAP PER TUBE PRN (07:46)
[2019-03-24] MEDS ORDERED: Loratadine 10 MG TAB PER TUBE PRN (07:46)
[2019-03-24] MEDS ORDERED: Bisacodyl 10 MG SUPP PR PRN (07:46)
[2019-03-24] MEDS ORDERED: Sodium Chloride 0.65% Nasal 44 ML BOT EA NARE PRN (07:46)
[2019-03-24] MEDS ORDERED: Metoclopramide HCl 10 MG/2 ML VIAL IVP PRN (07:46)
[2019-03-24] MEDS ORDERED: Cepastat Lozenges 1 LOZ PO PRN (07:46)
[2019-03-24] MEDS ORDERED: Acetaminophen 650 MG Suppository PR PRN (07:46)
[2019-03-24] MEDS ORDERED: Diabetic Tussin 200 MG/10 ML UDCUP PER TUBE PRN (07:46)
[2019-03-24] MEDS ORDERED: Lisinopril 10 MG TAB PER TUBE SCH (07:49)
[2019-03-24] MEDS: levETIRAcetam 500 mg/5 ml Oral Solution PER TUBE SCH ×2 (09:11→20:36)
[2019-03-24] MEDS: Furosemide 40 MG TAB PER TUBE SCH (09:12)
[2019-03-24] MEDS: Nystatin Powder 15 GM BOT TOP SCH ×2 (09:12→20:36)
[2019-03-24] MEDS: Famotidine 20 MG TAB PER TUBE SCH ×2 (09:12→20:35)
[2019-03-24] MEDS: Enoxaparin Sodium 40 MG/0.4 ML SYRINGE SC SCH (09:12)
[2019-03-24] MEDS: Carvedilol 25 MG TAB PER TUBE SCH ×2 (09:12→20:35)
--- NOTE | 2019-03-24 10:27 | PDOC.HOSPP ---
- Subjective Encounter Date: 03/24/19 Encounter Time: 09:45 Subjective: Patient seen and examined. No overnight events - Objective Vital Signs & Weight: Vital Signs (12 hours) Temp Pulse Ox 03/24/19 07:25 98 03/24/19 07:15 97.2 F L 03/24/19 03:38 98.2 F 03/24/19 00:01 97.5 F L Weight Admit Weight 170 lb 3.15 oz Weight 158 lb 8.198 oz Most Recent Monitor Data Heart Rate from ECG 82 NIBP 97/60 NIBP BP-Mean 72 Respiration from ECG 31 SpO2 100 I&O: 03/23/19 03/24/19 03/25/19 06:59 06:59 06:59 Intake Total 1500 1655 30 Output Total 675 700 Balance 825 955 30 Result Diagrams: 03/23/19 09:48 03/23/19 09:48 EKG Reviewed by me: Yes Hospitalist ROS - Review of Systems ROS unobtainable: due to mental status - Medication Medications: Active Medications Generic Name Dose Route Start Last Admin Trade Name Ilya PRN Reason Stop Dose Admin Carvedilol 25 mg 03/24/19 09:00 03/24/19 09:12 Coreg PER TUBE 25 mg BID SONIA Administration Enoxaparin Sodium 40 mg 02/22/19 09:00 03/24/19 09:12 Lovenox SC 40 mg 0900 SONIA Administration Famotidine 20 mg 02/26/19 21:00 03/24/19 09:12 Pepcid PER TUBE 20 mg Q12HR SONIA Administration Furosemide 40 mg 02/26/19 09:00 03/24/19 09:12 Lasix PER TUBE 40 mg DAILY SONIA Administration Levetiracetam 1,000 mg 03/24/19 09:00 03/24/19 09:11 Keppra Oral Solution PER TUBE 1,000 mg BID SONIA Administration Nystatin 0 gm 03/06/19 21:00 03/24/19 09:12 Mycostatin Powder TOP 1 applic BID SONIA Administration Phenytoin Sodium 200 mg 03/03/19 21:00 03/23/19 21:04 Dilantin PER TUBE 200 mg HS SONIA Administration Scopolamine 1.5 mg 03/02/19 10:30 03/23/19 08:51 Transderm Scop TD 1.5 mg Q3D SONIA Administration Sodium Chloride 10 ml 03/01/19 09:00 03/24/19 09:12 Flush - Normal Saline IVF 10 ml Q12HR SONIA Administration - Exam General Appearance: NAD, awake alert Eye: PERRL, anicteric sclera ENT: normocephalic atraumatic, no oropharyngeal lesions ENT - other findings: Neck: supple Neck - other findings: tracheostomy+ Heart: RRR, no murmur, no gallops, no rubs Respiratory: CTAB, no wheezes, no rales Gastrointestinal: soft, non-tender, non-distended Gastrointestinal - other findings: PEG+ Extremities: no cyanosis, no clubbing Skin: normal turgor Psychiatric: not oriented Hosp A/P (1) Acute respiratory failure Code(s): J96.00 - ACUTE RESPIRATORY FAILURE, UNSP W HYPOXIA OR HYPERCAPNIA Status: Resolved Qualifiers: Respiratory failure complication: hypoxia Qualified Code(s): J96.01 - Acute respiratory failure with hypoxia Plan: s/p tracheostomy and PEG (2) Anoxic encephalopathy Status: Acute (3) Status epilepticus Code(s): G40.901 - EPILEPSY, UNSP, NOT INTRACTABLE, WITH STATUS EPILEPTICUS Status: Resolved (4) H/O: CVA (cerebrovascular accident) Code(s): Z86.73 - PRSNL HX OF TIA (TIA), AND CEREB INFRC W/O RESID DEFICITS Status: Chronic (5) HTN (hypertension) Code(s): I10 - ESSENTIAL (PRIMARY) HYPERTENSION Status: Chronic Qualifiers: Hypertension type: essential hypertension Qualified Code(s): I10 - Essential (primary) hypertension (6) Multiple sclerosis Code(s): G35 - MULTIPLE SCLEROSIS Status: Chronic (7) Obesity (BMI 30-39.9) Code(s): E66.9 - OBESITY, UNSPECIFIED Status: Chronic (8) Seizure disorder Code(s): G40.909 - EPILEPSY, UNSP, NOT INTRACTABLE, WITHOUT STATUS EPILEPTICUS Status: Acute - Plan old records reviewed/req, medical social consultant 03/24/19: continue current medical treatment, medication reviewed as above symptomatic treatment, await placement. continue supportive care and trach and PEG care, DC potassium supplement and hold lisinopril today due to her hyperkalemia, repeat labs tomorrow
[2019-03-24] MEDS: Acetaminophen 650 MG/20.3 ML UDCUP PER TUBE PRN (18:09)
[2019-03-25 06:19] LABS: #Eosinphils 0.4 thou/uL (0.0-0.7); #Lymphocytes 1.6 thou/uL (1.20-3.40); #Monocytes 0.6 thou/uL (0.11-0.59); #Neutrophils 6.6 thou/uL (1.40-6.50); %Basophils 0.3 % (0.0-1.0); %Lymphocytes 16.9 % (21.0-51.0); %Monocytes 6.8 % (0.0-10.0); Hemoglobin 10.5 g/dL (12.0-16.0); Mean Corpuscular HGB CONC 32.8 g/dL (32.0-36.0); Mean Corpuscular Hemoglobin 32.2 pg (27.0-31.0); Mean Corpuscular Volume 98.3 fL (78.0-98.0); Mean Platelet Volume 8.1 fL (7.4-10.4); Platelet Count 270 thou/uL (130-400); RBC Distribution Width 13.6 % (11.5-14.5); Red Blood Cell (RBC) Count 3.26 mill/uL (4.20-5.40); White Blood Cell (WBC) Count 9.2 thou/uL (4.8-10.8)
[2019-03-25 06:45] LABS: Anion Gap 13 mmol/L (10-20); BUN (Urea Nitrogen) 48 mg/dL (9.8-20.1); Calc. Creatinine Clearance 120 mL/min (70-130); Calcium 9.4 mg/dL (7.8-10.44); Carbon Dioxide 24 mmol/L (22-29); Chloride 98 mmol/L (98-107); Estimated GFR-MDRD Greater than 90; Glucose 117 mg/dL (70-105); Potassium 4.6 mmol/L (3.5-5.1); Sodium 130 mmol/L (136-145)
[2019-03-25] MEDS: Famotidine 20 MG TAB PER TUBE SCH ×2 (10:07→21:05)
[2019-03-25] MEDS: Enoxaparin Sodium 40 MG/0.4 ML SYRINGE SC SCH (10:07)
[2019-03-25] MEDS: levETIRAcetam 500 mg/5 ml Oral Solution PER TUBE SCH ×2 (10:07→21:04)
[2019-03-25] MEDS: Nystatin Powder 15 GM BOT TOP SCH ×2 (10:09→21:06)
--- NOTE | 2019-03-25 11:08 | PDOC.HOSPP ---
- Subjective Encounter Date: 03/25/19 Encounter Time: 10:00 Subjective: Patient seen and examined. pt's BP and heart rate is on low side, No overnight events - Objective Vital Signs & Weight: Vital Signs (12 hours) Temp Pulse Ox 03/25/19 08:13 99 03/25/19 07:35 98.6 F 03/24/19 23:09 98.2 F Weight Admit Weight 170 lb 3.15 oz Weight 157 lb 6.561 oz Most Recent Monitor Data Heart Rate from ECG 76 NIBP 96/64 NIBP BP-Mean 74 Respiration from ECG 24 SpO2 100 I&O: 03/24/19 03/25/19 03/26/19 06:59 06:59 06:59 Intake Total 1655 1406 30 Output Total 700 1000 1400 Balance 955 406 1370 Result Diagrams: 03/25/19 05:27 03/25/19 05:27 EKG Reviewed by me: Yes Hospitalist ROS - Review of Systems ROS unobtainable: due to mental status - Medication Medications: Active Medications Generic Name Dose Route Start Last Admin Trade Name Freq PRN Reason Stop Dose Admin Acetaminophen 650 mg 03/24/19 07:49 03/24/19 18:09 Tylenol Elixir PER TUBE 650 mg Q4H PRN Administration Headache/Fever/Mild Pain (1-3) Enoxaparin Sodium 40 mg 02/22/19 09:00 03/25/19 10:07 Lovenox SC 40 mg 0900 SONIA Administration Famotidine 20 mg 02/26/19 21:00 03/25/19 10:07 Pepcid PER TUBE 20 mg Q12HR SONIA Administration Furosemide 40 mg 02/26/19 09:00 03/24/19 09:12 Lasix PER TUBE 40 mg DAILY SONIA Administration Levetiracetam 1,000 mg 03/24/19 09:00 03/25/19 10:07 Keppra Oral Solution PER TUBE 1,000 mg BID SONIA Administration Nystatin 0 gm 03/06/19 21:00 03/25/19 10:09 Mycostatin Powder TOP 1 applic BID SONIA Administration Phenytoin Sodium 200 mg 03/03/19 21:00 03/24/19 20:35 Dilantin PER TUBE 200 mg HS SONIA Administration Scopolamine 1.5 mg 03/02/19 10:30 03/23/19 08:51 Transderm Scop TD 1.5 mg Q3D SONIA Administration Sodium Chloride 10 ml 03/01/19 09:00 03/25/19 10:09 Flush - Normal Saline IVF 10 ml Q12HR SONIA Administration - Exam General Appearance: NAD Eye: PERRL, anicteric sclera ENT: normocephalic atraumatic, no oropharyngeal lesions Neck: supple, symmetric, no JVD Neck - other findings: tracheostomy+ Heart: RRR, no murmur, no gallops, no rubs Respiratory: CTAB, no wheezes, no rales, no ronchi Gastrointestinal: soft, non-distended Gastrointestinal - other findings: PEG+ Extremities: 1+ LE edema Skin: normal turgor Musculoskeletal: normal tone Psychiatric: normal affect Hosp A/P (1) Acute respiratory failure Code(s): J96.00 - ACUTE RESPIRATORY FAILURE, UNSP W HYPOXIA OR HYPERCAPNIA Status: Resolved Qualifiers: Respiratory failure complication: hypoxia Qualified Code(s): J96.01 - Acute respiratory failure with hypoxia (2) Anoxic encephalopathy Status: Acute (3) Status epilepticus Code(s): G40.901 - EPILEPSY, UNSP, NOT INTRACTABLE, WITH STATUS EPILEPTICUS Status: Resolved (4) H/O: CVA (cerebrovascular accident) Code(s): Z86.73 - PRSNL HX OF TIA (TIA), AND CEREB INFRC W/O RESID DEFICITS Status: Chronic (5) HTN (hypertension) Code(s): I10 - ESSENTIAL (PRIMARY) HYPERTENSION Status: Chronic Qualifiers: Hypertension type: essential hypertension Qualified Code(s): I10 - Essential (primary) hypertension (6) Multiple sclerosis Code(s): G35 - MULTIPLE SCLEROSIS Status: Chronic (7) Obesity (BMI 30-39.9) Code(s): E66.9 - OBESITY, UNSPECIFIED Status: Chronic (8) Seizure disorder Code(s): G40.909 - EPILEPSY, UNSP, NOT INTRACTABLE, WITHOUT STATUS EPILEPTICUS Status: Acute - Plan old records reviewed/req, PT/OT, social human services assistants 03/24/19: continue current medical treatment, medication reviewed as above symptomatic treatment, await placement. continue supportive care and trach and PEG care, DC potassium supplement and hold lisinopril today due to her hyperkalemia, repeat labs tomorrow 03/25/19- reduce coreg 3.125 mg per tube bid, supportive care, trach and peg care, placement is challenging, medication reviewed as above, symptomatic treatment
[2019-03-25] MEDS: Carvedilol 25 MG TAB PER TUBE SCH (13:37)
[2019-03-25] MEDS: Furosemide 40 MG TAB PER TUBE SCH (13:37)
[2019-03-25] MEDS: Carvedilol 3.125 MG TAB PER TUBE SCH (21:05)
[2019-03-26] MEDS: Enoxaparin Sodium 40 MG/0.4 ML SYRINGE SC SCH (10:21)
[2019-03-26] MEDS: Famotidine 20 MG TAB PER TUBE SCH ×2 (10:21→20:45)
[2019-03-26] MEDS: levETIRAcetam 500 mg/5 ml Oral Solution PER TUBE SCH ×2 (10:22→20:46)
[2019-03-26] MEDS: Furosemide 40 MG TAB PER TUBE SCH (10:23)
[2019-03-26] MEDS: Carvedilol 3.125 MG TAB PER TUBE SCH (10:23)
[2019-03-26] MEDS: Scopolamine 1.5 mg/72 hour Patch TD SCH (10:23)
--- NOTE | 2019-03-26 12:19 | PDOC.HOSPP ---
- Subjective Encounter Date: 03/26/19 Encounter Time: 10:30 Subjective: Patient seen and examined. pt's BP runs low, No overnight events - Objective Vital Signs & Weight: Vital Signs (12 hours) Temp Pulse Ox 03/26/19 08:30 100 03/26/19 08:00 97.7 F 03/26/19 03:25 97.9 F Weight Admit Weight 170 lb 3.15 oz Weight 156 lb 8.451 oz Most Recent Monitor Data Heart Rate from ECG 80 NIBP 105/69 NIBP BP-Mean 81 Respiration from ECG 24 SpO2 100 I&O: 03/25/19 03/26/19 03/27/19 06:59 06:59 06:59 Intake Total 1406 1620 30 Output Total 1000 850 Balance 406 770 30 Result Diagrams: 03/25/19 05:27 03/25/19 05:27 EKG Reviewed by me: Yes Hospitalist ROS - Review of Systems ROS unobtainable: due to mental status - Medication Medications: Active Medications Generic Name Dose Route Start Last Admin Trade Name Freq PRN Reason Stop Dose Admin Acetaminophen 650 mg 03/24/19 07:49 03/24/19 18:09 Tylenol Elixir PER TUBE 650 mg Q4H PRN Administration Headache/Fever/Mild Pain (1-3) Carvedilol 3.125 mg 03/25/19 21:00 03/26/19 10:23 Coreg PER TUBE Not Given BID SONIA Enoxaparin Sodium 40 mg 02/22/19 09:00 03/26/19 10:21 Lovenox SC 40 mg 0900 SONIA Administration Famotidine 20 mg 02/26/19 21:00 03/26/19 10:21 Pepcid PER TUBE 20 mg Q12HR SONIA Administration Furosemide 40 mg 02/26/19 09:00 03/26/19 10:23 Lasix PER TUBE Not Given DAILY SONIA Levetiracetam 1,000 mg 03/24/19 09:00 03/26/19 10:22 Keppra Oral Solution PER TUBE 1,000 mg BID SONIA Administration Nystatin 0 gm 03/06/19 21:00 03/25/19 21:06 Mycostatin Powder TOP 1 applic BID SONIA Administration Phenytoin Sodium 200 mg 03/03/19 21:00 03/25/19 21:04 Dilantin PER TUBE 200 mg HS SONIA Administration Scopolamine 1.5 mg 03/02/19 10:30 03/26/19 10:23 Transderm Scop TD 1.5 mg Q3D SONIA Administration Sodium Chloride 10 ml 03/01/19 09:00 03/25/19 21:05 Flush - Normal Saline IVF 10 ml Q12HR SONIA Administration - Exam General Appearance: NAD, ill appearing Eye: PERRL, anicteric sclera ENT: normocephalic atraumatic, no oropharyngeal lesions Neck: supple, symmetric Neck - other findings: trach+ Heart: RRR, no murmur, no gallops, no rubs, normal peripheral pulses Respiratory: CTAB, no wheezes, no rales Gastrointestinal: soft, non-distended, normal bowel sounds Gastrointestinal - other findings: PEG+ Extremities: no cyanosis, no clubbing Skin: normal turgor Hosp A/P (1) Acute respiratory failure Code(s): J96.00 - ACUTE RESPIRATORY FAILURE, UNSP W HYPOXIA OR HYPERCAPNIA Status: Resolved Qualifiers: Respiratory failure complication: hypoxia Qualified Code(s): J96.01 - Acute respiratory failure with hypoxia (2) Anoxic encephalopathy Status: Acute (3) Status epilepticus Code(s): G40.901 - EPILEPSY, UNSP, NOT INTRACTABLE, WITH STATUS EPILEPTICUS Status: Resolved (4) H/O: CVA (cerebrovascular accident) Code(s): Z86.73 - Status: Chronic (5) HTN (hypertension) Code(s): I10 - ESSENTIAL (PRIMARY) HYPERTENSION Status: Chronic Qualifiers: Hypertension type: essential hypertension Qualified Code(s): I10 - Essential (primary) hypertension (6) Multiple sclerosis Code(s): G35 - MULTIPLE SCLEROSIS Status: Chronic (7) Obesity (BMI 30-39.9) Code(s): E66.9 - OBESITY, UNSPECIFIED Status: Chronic (8) Seizure disorder Code(s): G40.909 - EPILEPSY, UNSP, NOT INTRACTABLE, WITHOUT STATUS EPILEPTICUS Status: Acute - Plan old records reviewed/req, social worker health services 03/24/19: continue current medical treatment, medication reviewed as above symptomatic treatment, await placement. continue supportive care and trach and PEG care, DC potassium supplement and hold lisinopril today due to her hyperkalemia, repeat labs tomorrow 03/25/19- reduce coreg 3.125 mg per tube bid, supportive care, trach and peg care, placement is challenging, medication reviewed as above, symptomatic treatment 03/26/19- DC coreg and lasix for low BP, continue supportive care, medication reviewed as above, symptomatic treatment
[2019-03-26] MEDS: Nystatin Powder 15 GM BOT TOP SCH ×2 (14:09→20:45)
[2019-03-27] MEDS: levETIRAcetam 500 mg/5 ml Oral Solution PER TUBE SCH ×2 (10:24→21:31)
[2019-03-27] MEDS: Enoxaparin Sodium 40 MG/0.4 ML SYRINGE SC SCH (10:25)
[2019-03-27] MEDS: Famotidine 20 MG TAB PER TUBE SCH ×2 (10:25→21:32)
[2019-03-27] MEDS: Nystatin Powder 15 GM BOT TOP SCH ×2 (10:25→21:33)
[2019-03-27] MEDS ORDERED: Furosemide 20 MG/2 ML VIAL SLOW IVP SCH (13:45)
--- NOTE | 2019-03-27 19:29 | PDOC.HOSPP ---
- Subjective Encounter Date: 03/27/19 Encounter Time: 16:20 Subjective: BP remains low; spoke to bedside RN at length; increased frothy quality to tracheal secretions noted. Requires frequent suctioning. - Objective Vital Signs & Weight: Vital Signs (12 hours) Temp Pulse Ox 03/27/19 19:20 97.4 F L 03/27/19 15:23 97.4 F L 03/27/19 11:23 97.0 F L 03/27/19 08:00 100 03/27/19 07:47 97.5 F L Weight Admit Weight 170 lb 3.15 oz Weight 159 lb 6.307 oz Most Recent Monitor Data Heart Rate from ECG 74 NIBP 114/68 NIBP BP-Mean 83 Respiration from ECG 21 SpO2 100 I&O: 03/26/19 03/27/19 03/28/19 06:59 06:59 06:59 Intake Total 1620 1660 910 Output Total 850 750 350 Balance 770 910 560 Result Diagrams: 03/25/19 05:27 03/25/19 05:27 Hospitalist ROS - Medication Medications: Active Medications Generic Name Dose Route Start Last Admin Trade Name Freq PRN Reason Stop Dose Admin Acetaminophen 650 mg 03/24/19 07:49 03/24/19 18:09 Tylenol Elixir PER TUBE 650 mg Q4H PRN Administration Headache/Fever/Mild Pain (1-3) Enoxaparin Sodium 40 mg 02/22/19 09:00 03/27/19 10:25 Lovenox SC 40 mg 0900 SONIA Administration Famotidine 20 mg 02/26/19 21:00 03/27/19 10:25 Pepcid PER TUBE 20 mg Q12HR SONIA Administration Levetiracetam 1,000 mg 03/24/19 09:00 03/27/19 10:24 Keppra Oral Solution PER TUBE 1,000 mg BID SONIA Administration Nystatin 0 gm 03/06/19 21:00 03/27/19 10:25 Mycostatin Powder TOP 1 applic BID SONIA Administration Phenytoin Sodium 200 mg 03/03/19 21:00 03/26/19 20:46 Dilantin PER TUBE 200 mg HS SONIA Administration Scopolamine 1.5 mg 03/02/19 10:30 03/26/19 10:23 Transderm Scop TD 1.5 mg Q3D SONIA Administration Sodium Chloride 10 ml 03/01/19 09:00 03/27/19 10:25 Flush - Normal Saline IVF 10 ml Q12HR SONIA Administration - Exam General - other findings: Opens eyes to stimulation Eye: anicteric sclera ENT: moist mucosa Neck: supple, no JVD Heart: RRR Respiratory - other findings: Course overlying breath sounds; trach in place, decreased BS LLL Gastrointestinal: soft, non-tender, non-distended Extremities: no edema Extremities - other findings: Bilateral drop feet Skin: no rashes Neurological: no focal deficits Musculoskeletal: diffuse muscle atrophy Psychiatric - other findings: opens eyes to stimulation Hosp A/P (1) Acute respiratory failure with hypoxia Code(s): J96.01 - ACUTE RESPIRATORY FAILURE WITH HYPOXIA Status: Acute (2) Anoxic encephalopathy Status: Acute (3) Chronic systolic heart failure Code(s): I50.22 - CHRONIC SYSTOLIC (CONGESTIVE) HEART FAILURE Status: Acute (4) Quadriparesis Code(s): G82.50 - QUADRIPLEGIA, UNSPECIFIED Status: Acute (5) Seizure disorder Code(s): G40.909 - EPILEPSY, UNSP, NOT INTRACTABLE, WITHOUT STATUS EPILEPTICUS Status: Acute (6) Status post tracheostomy Code(s): Z93.0 - TRACHEOSTOMY STATUS Status: Acute (7) H/O: CVA (cerebrovascular accident) Code(s): Z86.73 - PRSNL HX OF TIA (TIA), AND CEREB INFRC W/O RESID DEFICITS Status: Chronic (8) HTN (hypertension) Code(s): I10 - ESSENTIAL (PRIMARY) HYPERTENSION Status: Chronic Qualifiers: Hypertension type: essential hypertension Qualified Code(s): I10 - Essential (primary) hypertension (9) Multiple sclerosis Code(s): G35 - MULTIPLE SCLEROSIS Status: Chronic (10) Status epilepticus Code(s): G40.901 - EPILEPSY, UNSP, NOT INTRACTABLE, WITH STATUS EPILEPTICUS Status: Resolved - Plan Cards - reviewed echo from January; EF 10-15%; BP intolerant of coreg. Lisinopril placed on hold due to elevated potassium level. Lasix 20mg IV given. Check AM BMP. Placement continues to be an issue. Neuro - quadriplegia; trach/PEG Poor snf prognosis with high risk of complications.
[2019-03-28] MEDS: Acetaminophen 650 MG/20.3 ML UDCUP PER TUBE PRN (00:59)
[2019-03-28 06:23] LABS: #Basophils 0.1 thou/uL (0.0-0.2); #Eosinphils 0.4 thou/uL (0.0-0.7); #Lymphocytes 1.7 thou/uL (1.20-3.40); #Monocytes 0.9 thou/uL (0.11-0.59); #Neutrophils 6.6 thou/uL (1.40-6.50); %Basophils 0.8 % (0.0-1.0); %Eosinophils 3.8 % (0.0-10.0); %Lymphocytes 17.6 % (21.0-51.0); %Monocytes 9.2 % (0.0-10.0); %Neutrophils 68.6 % (42.0-75.0); Hemoglobin 10.6 g/dL (12.0-16.0); Mean Corpuscular Hemoglobin 32.3 pg (27.0-31.0); Mean Platelet Volume 7.5 fL (7.4-10.4); Platelet Count 304 thou/uL (130-400); RBC Distribution Width 13.7 % (11.5-14.5); Red Blood Cell (RBC) Count 3.27 mill/uL (4.20-5.40); White Blood Cell (WBC) Count 9.6 thou/uL (4.8-10.8)
[2019-03-28 06:46] LABS: Anion Gap 12 mmol/L (10-20); BUN (Urea Nitrogen) 49 mg/dL (9.8-20.1); Calc. Creatinine Clearance 105 mL/min (70-130); Calcium 9.7 mg/dL (7.8-10.44); Carbon Dioxide 27 mmol/L (22-29); Chloride 99 mmol/L (98-107); Estimated GFR-MDRD Greater than 90; Glucose 112 mg/dL (70-105); Potassium 4.3 mmol/L (3.5-5.1); Sodium 134 mmol/L (136-145)
[2019-03-28] MEDS: Famotidine 20 MG TAB PER TUBE SCH ×2 (09:18→21:03)
[2019-03-28] MEDS: levETIRAcetam 500 mg/5 ml Oral Solution PER TUBE SCH ×2 (09:18→21:02)
[2019-03-28] MEDS: Nystatin Powder 15 GM BOT TOP SCH ×2 (09:19→21:01)
[2019-03-28] MEDS: Enoxaparin Sodium 40 MG/0.4 ML SYRINGE SC SCH (09:19)
--- NOTE | 2019-03-28 09:20 | PDOC.HOSPP ---
- Subjective Encounter Date: 03/28/19 Encounter Time: : Subjective: Indicates she is ok. - Objective Vital Signs & Weight: Vital Signs (12 hours) Temp 03/28/19 07:27 97.9 F 03/28/19 04:08 98.0 F 03/28/19 00:15 97.5 F L Weight Admit Weight 170 lb 3.15 oz Weight 159 lb 2.78 oz Most Recent Monitor Data Heart Rate from ECG 87 NIBP 99/62 NIBP BP-Mean 74 Respiration from ECG 30 SpO2 96 I&O: 03/27/19 03/28/19 03/29/19 06:59 06:59 06:59 Intake Total 1660 1800 Output Total 750 450 Balance 910 1350 Result Diagrams: 03/28/19 06:02 03/28/19 06:02 Hospitalist ROS - Medication Medications: Active Medications Generic Name Dose Route Start Last Admin Trade Name Freq PRN Reason Stop Dose Admin Acetaminophen 650 mg 03/24/19 07:49 03/28/19 00:59 Tylenol Elixir PER TUBE 650 mg Q4H PRN Administration Headache/Fever/Mild Pain (1-3) Enoxaparin Sodium 40 mg 02/22/19 09:00 03/27/19 10:25 Lovenox SC 40 mg 0900 SONIA Administration Famotidine 20 mg 02/26/19 21:00 03/27/19 21:32 Pepcid PER TUBE 20 mg Q12HR SONIA Administration Levetiracetam 1,000 mg 03/24/19 09:00 03/27/19 21:31 Keppra Oral Solution PER TUBE 1,000 mg BID SONIA Administration Nystatin 0 gm 03/06/19 21:00 03/27/19 21:33 Mycostatin Powder TOP 1 applic BID SONIA Administration Phenytoin Sodium 200 mg 03/03/19 21:00 03/27/19 21:32 Dilantin PER TUBE 200 mg HS SONIA Administration Scopolamine 1.5 mg 03/02/19 10:30 03/26/19 10:23 Transderm Scop TD 1.5 mg Q3D SONIA Administration Sodium Chloride 10 ml 03/01/19 09:00 03/27/19 21:32 Flush - Normal Saline IVF 10 ml Q12HR SONIA Administration - Exam General Appearance: NAD General - other findings: Awake. Appears to engage. Neck: supple, symmetric, no JVD, no thyromegaly, no lymphadenopathy, no carotid bruit Heart: RRR, no murmur, no gallops, no rubs, normal peripheral pulses Respiratory: CTAB, no wheezes, no rales, no ronchi, normal chest expansion, no tachypnea, normal percussion Gastrointestinal: soft, non-tender, non-distended, normal bowel sounds, no palpable masses, no hepatomegaly, no splenomegaly, no bruit Extremities: 1+ LE edema Skin: normal turgor Musculoskeletal - other findings: Quadriplegia Psychiatric - other findings: Stares, blinks. Does track and interact slightly. Hosp A/P (1) Status epilepticus Code(s): G40.901 - EPILEPSY, UNSP, NOT INTRACTABLE, WITH STATUS EPILEPTICUS Status: Resolved (2) Brain lesion Code(s): G93.9 - DISORDER OF BRAIN, UNSPECIFIED Status: Deleted (3) H/O: CVA (cerebrovascular accident) Code(s): Z86.73 - PRSNL HX OF TIA (TIA), AND CEREB INFRC W/O RESID DEFICITS Status: Chronic (4) HTN (hypertension) Code(s): I10 - ESSENTIAL (PRIMARY) HYPERTENSION Status: Chronic Qualifiers: Hypertension type: essential hypertension Qualified Code(s): I10 - Essential (primary) hypertension (5) Multiple sclerosis Code(s): G35 - MULTIPLE SCLEROSIS Status: Chronic (6) Cardiomyopathy Code(s): I42.9 - CARDIOMYOPATHY, UNSPECIFIED Status: Deleted - Plan Tolerated the Lasix well. BP is low normal range and limiting the ability to aggressively treat her cardiomyopathy. Weight is down 11 pounds overall since admission. Difficult to assess the I's and O's. Has some dependent edema. May need another dose of lasix tomorrow if she has persistently normal vs. BUN is increasing. Will heme check stools. Start H2 antagonist.
[2019-03-29] MEDS: Enoxaparin Sodium 40 MG/0.4 ML SYRINGE SC SCH (09:15)
[2019-03-29] MEDS: Famotidine 20 MG TAB PER TUBE SCH ×2 (09:16→22:02)
[2019-03-29] MEDS: Scopolamine 1.5 mg/72 hour Patch TD SCH (09:16)
[2019-03-29] MEDS: Nystatin Powder 15 GM BOT TOP SCH ×2 (09:28→22:03)
[2019-03-29] MEDS: levETIRAcetam 500 mg/5 ml Oral Solution PER TUBE SCH ×2 (09:28→22:01)
--- NOTE | 2019-03-29 17:51 | PDOC.HOSPP ---
- Subjective Encounter Date: 03/29/19 Encounter Time: 14:40 Subjective: pt trached - Objective Vital Signs & Weight: Vital Signs (12 hours) Temp Pulse Ox 03/29/19 15:39 96.4 F L 03/29/19 11:40 97.3 F L 03/29/19 08:00 99 03/29/19 07:21 97.1 F L Weight Admit Weight 170 lb 3.15 oz Weight 159 lb 3.2 oz Most Recent Monitor Data Heart Rate from ECG 74 NIBP 93/54 NIBP BP-Mean 67 Respiration from ECG 16 SpO2 100 I&O: 03/28/19 03/29/19 03/30/19 06:59 06:59 06:59 Intake Total 1800 200 90 Output Total 450 700 Balance 1350 -500 90 Result Diagrams: 03/28/19 06:02 03/28/19 06:02 Hospitalist ROS - Review of Systems Other: unable to obtain - Medication Medications: Active Medications Generic Name Dose Route Start Last Admin Trade Name Freq PRN Reason Stop Dose Admin Acetaminophen 650 mg 03/24/19 07:49 03/28/19 00:59 Tylenol Elixir PER TUBE 650 mg Q4H PRN Administration Headache/Fever/Mild Pain (1-3) Enoxaparin Sodium 40 mg 02/22/19 09:00 03/29/19 09:15 Lovenox SC 40 mg 0900 SONIA Administration Famotidine 20 mg 02/26/19 21:00 03/29/19 09:16 Pepcid PER TUBE 20 mg Q12HR SONIA Administration Levetiracetam 1,000 mg 03/24/19 09:00 03/29/19 09:28 Keppra Oral Solution PER TUBE 1,000 mg BID SONIA Administration Nystatin 0 gm 03/06/19 21:00 03/29/19 09:28 Mycostatin Powder TOP 1 applic BID SONIA Administration Phenytoin Sodium 200 mg 03/03/19 21:00 03/28/19 21:02 Dilantin PER TUBE 200 mg HS SONIA Administration Scopolamine 1.5 mg 03/02/19 10:30 03/29/19 09:16 Transderm Scop TD 1.5 mg Q3D SONIA Administration Sodium Chloride 10 ml 03/01/19 09:00 03/29/19 09:28 Flush - Normal Saline IVF 10 ml Q12HR SONIA Administration - Exam Heart: negative: RRR, no murmur, no gallops, no rubs, normal peripheral pulses, irregular, diminshed peripheral pulses, murmur present, II/IV, III/IV Respiratory - other findings: mild rhonchi all over Gastrointestinal: negative: soft, non-tender, non-distended, normal bowel sounds , no palpable masses, no hepatomegaly, no splenomegaly, no bruit, no guarding, no rigidity, tender to palpation, distended, diminished bowl sounds, voluntary guarding Extremities: negative: no cyanosis, no clubbing, no edema, 1+ LE edema, 2+ LE edema, clubbing Hosp A/P (1) Acute respiratory failure with hypoxia Code(s): J96.01 - ACUTE RESPIRATORY FAILURE WITH HYPOXIA Status: Acute (2) Seizure disorder Code(s): G40.909 - EPILEPSY, UNSP, NOT INTRACTABLE, WITHOUT STATUS EPILEPTICUS Status: Acute (3) Status post tracheostomy Code(s): Z93.0 - TRACHEOSTOMY STATUS Status: Acute (4) HTN (hypertension) Code(s): I10 - ESSENTIAL (PRIMARY) HYPERTENSION Status: Chronic Qualifiers: Hypertension type: essential hypertension Qualified Code(s): I10 - Essential (primary) hypertension (5) Multiple sclerosis Code(s): G35 - MULTIPLE SCLEROSIS Status: Chronic (6) Obesity (BMI 30-39.9) Code(s): E66.9 - OBESITY, UNSPECIFIED Status: Chronic - Plan pt's bp low but stable, will continue to monitor. pt will need to be placed. pt on dvt ppx and pepcid.
[2019-03-30] MEDS: Enoxaparin Sodium 40 MG/0.4 ML SYRINGE SC SCH (09:33)
[2019-03-30] MEDS: Famotidine 20 MG TAB PER TUBE SCH ×2 (09:34→20:21)
[2019-03-30] MEDS: Nystatin Powder 15 GM BOT TOP SCH ×2 (09:34→20:22)
[2019-03-30] MEDS: levETIRAcetam 500 mg/5 ml Oral Solution PER TUBE SCH ×2 (09:34→20:20)
--- NOTE | 2019-03-30 11:21 | PDOC.HOSPP ---
- Subjective Encounter Date: 03/30/19 Encounter Time: 11:19 Subjective: Ms. Rueda was seen today in follow-up of seizures and hypoxic brain injury. She has not had any significant change since I last saw her a week ago. She will awaken, and track you in the room, at times appears she will try to speak. - Objective Vital Signs & Weight: Vital Signs (12 hours) Temp Pulse Ox 03/30/19 10:40 97.3 F L 03/30/19 08:00 98 03/30/19 07:16 97.1 F L 03/30/19 03:47 97.0 F L 03/30/19 00:00 97.4 F L Weight Admit Weight 170 lb 3.15 oz Weight 168 lb 14.4 oz Most Recent Monitor Data Heart Rate from ECG 89 NIBP 110/74 NIBP BP-Mean 86 Respiration from ECG 27 SpO2 99 I&O: 03/29/19 03/30/19 03/31/19 06:59 06:59 06:59 Intake Total 200 180 Output Total 700 850 Balance -500 -670 Result Diagrams: 03/28/19 06:02 03/28/19 06:02 Hospitalist ROS - Medication Medications: Active Medications Generic Name Dose Route Start Last Admin Trade Name Freq PRN Reason Stop Dose Admin Acetaminophen 650 mg 03/24/19 07:49 03/28/19 00:59 Tylenol Elixir PER TUBE 650 mg Q4H PRN Administration Headache/Fever/Mild Pain (1-3) Enoxaparin Sodium 40 mg 02/22/19 09:00 03/30/19 09:33 Lovenox SC 40 mg 0900 SONIA Administration Famotidine 20 mg 02/26/19 21:00 03/30/19 09:34 Pepcid PER TUBE 20 mg Q12HR SONIA Administration Levetiracetam 1,000 mg 03/24/19 09:00 03/30/19 09:34 Keppra Oral Solution PER TUBE 1,000 mg BID SONIA Administration Nystatin 0 gm 03/06/19 21:00 03/30/19 09:34 Mycostatin Powder TOP 1 applic BID SONIA Administration Phenytoin Sodium 200 mg 03/03/19 21:00 03/29/19 22:01 Dilantin PER TUBE 200 mg HS SONIA Administration Scopolamine 1.5 mg 03/02/19 10:30 03/29/19 09:16 Transderm Scop TD 1.5 mg Q3D SONIA Administration Sodium Chloride 10 ml 03/01/19 09:00 03/30/19 09:34 Flush - Normal Saline IVF 10 ml Q12HR SONIA Administration - Exam Eye: PERRL, anicteric sclera Respiratory: CTAB, no wheezes, no rales, no ronchi, normal chest expansion, no tachypnea (+ coarse breath sounds) Gastrointestinal: soft, non-tender (PEG site ok, no lesions, no drainage), non- distended, normal bowel sounds, no palpable masses, no hepatomegaly Hosp A/P (1) Seizure disorder Code(s): G40.909 - EPILEPSY, UNSP, NOT INTRACTABLE, WITHOUT STATUS EPILEPTICUS Status: Acute (2) HTN (hypertension) Code(s): I10 - ESSENTIAL (PRIMARY) HYPERTENSION Status: Chronic Qualifiers: Hypertension type: essential hypertension Qualified Code(s): I10 - Essential (primary) hypertension (3) Chronic systolic heart failure Code(s): I50.22 - CHRONIC SYSTOLIC (CONGESTIVE) HEART FAILURE Status: Acute (4) Multiple sclerosis Code(s): G35 - MULTIPLE SCLEROSIS Status: Chronic - Plan * Patient admitted with status epilepticus. Seizures are now controlled- continue Keppra * Systolic heart failure- stable * HTN- blood pressure is stable * Nutritional support via PEG- tolerating tube feeds * Continue DVT and GI Prophylaxis * Advanced MS * Awaiting placement- this has been difficult due to the presence of the trach- in the process of trying to find a skilled facility that can take her.
[2019-03-30] MEDS: Scopolamine 1.5 mg/72 hour Patch TOP SCH (20:17)
--- NOTE | 2019-03-31 07:37 | PDOC.HOSPP ---
- Subjective Encounter Date: 03/31/19 Encounter Time: 07:35 Subjective: Ms. Rueda was seen today in follow-up of seizures and anoxic brain injury. She is awake, she appears comfortable. - Objective Vital Signs & Weight: Weight Admit Weight 170 lb 3.15 oz Weight 168 lb 14.4 oz Most Recent Monitor Data Heart Rate from ECG 88 NIBP 123/80 NIBP BP-Mean 94 Respiration from ECG 30 SpO2 97 I&O: 03/30/19 03/31/19 04/01/19 06:59 06:59 06:59 Intake Total 180 950 Output Total 850 Balance -670 950 Result Diagrams: 03/28/19 06:02 03/28/19 06:02 Hospitalist ROS - Medication Medications: Active Medications Generic Name Dose Route Start Last Admin Trade Name Freq PRN Reason Stop Dose Admin Acetaminophen 650 mg 03/24/19 07:49 03/28/19 00:59 Tylenol Elixir PER TUBE 650 mg Q4H PRN Administration Headache/Fever/Mild Pain (1-3) Enoxaparin Sodium 40 mg 02/22/19 09:00 03/30/19 09:33 Lovenox SC 40 mg 0900 SONIA Administration Famotidine 20 mg 02/26/19 21:00 03/30/19 20:21 Pepcid PER TUBE 20 mg Q12HR SONIA Administration Levetiracetam 1,000 mg 03/24/19 09:00 03/30/19 20:20 Keppra Oral Solution PER TUBE 1,000 mg BID SONIA Administration Nystatin 0 gm 03/06/19 21:00 03/30/19 20:22 Mycostatin Powder TOP 1 applic BID SONIA Administration Phenytoin Sodium 200 mg 03/03/19 21:00 03/30/19 20:20 Dilantin PER TUBE 200 mg HS SONIA Administration Scopolamine 1.5 mg 03/02/19 10:30 03/29/19 09:16 Transderm Scop TD 1.5 mg Q3D SONIA Administration Scopolamine 3 mg 03/30/19 20:00 03/30/19 20:17 Transderm Scop TOP 3 mg Q3D SONIA Administration Sodium Chloride 10 ml 03/01/19 09:00 03/30/19 20:22 Flush - Normal Saline IVF 10 ml Q12HR SONIA Administration - Exam Eye: PERRL, anicteric sclera Heart: RRR, no murmur, no gallops, no rubs, normal peripheral pulses Respiratory: CTAB, no wheezes, no rales, no ronchi, normal chest expansion Gastrointestinal: soft, non-tender, non-distended, normal bowel sounds, no palpable masses Extremities: no cyanosis, no clubbing, 1+ LE edema (non-pitting edema in both lower extremities) Hosp A/P (1) Seizure disorder Code(s): G40.909 - EPILEPSY, UNSP, NOT INTRACTABLE, WITHOUT STATUS EPILEPTICUS Status: Acute (2) HTN (hypertension) Code(s): I10 - ESSENTIAL (PRIMARY) HYPERTENSION Status: Chronic Qualifiers: Hypertension type: essential hypertension Qualified Code(s): I10 - Essential (primary) hypertension (3) Chronic systolic heart failure Code(s): I50.22 - CHRONIC SYSTOLIC (CONGESTIVE) HEART FAILURE Status: Acute (4) Multiple sclerosis Code(s): G35 - MULTIPLE SCLEROSIS Status: Chronic - Plan * Seizure disorder- continue Keppra * Systolic heart failure- stable * HTN- blood pressure is stable * Nutritional support via PEG- tolerating tube feeds * Continue DVT and GI Prophylaxis * Advanced MS * Awaiting placement
[2019-03-31] MEDS: Famotidine 20 MG TAB PER TUBE SCH ×2 (08:22→19:42)
[2019-03-31] MEDS: levETIRAcetam 500 mg/5 ml Oral Solution PER TUBE SCH ×2 (08:22→19:42)
[2019-03-31] MEDS: Enoxaparin Sodium 40 MG/0.4 ML SYRINGE SC SCH (08:23)
[2019-03-31] MEDS: Nystatin Powder 15 GM BOT TOP SCH ×2 (08:24→19:40)
[2019-03-31] MEDS: Acetaminophen 650 MG/20.3 ML UDCUP PER TUBE PRN (19:41)
[2019-04-01] MEDS: Scopolamine 1.5 mg/72 hour Patch TD SCH (09:35)
[2019-04-01] MEDS: Famotidine 20 MG TAB PER TUBE SCH ×2 (09:37→19:48)
[2019-04-01] MEDS: Enoxaparin Sodium 40 MG/0.4 ML SYRINGE SC SCH (09:37)
[2019-04-01] MEDS: levETIRAcetam 500 mg/5 ml Oral Solution PER TUBE SCH ×2 (09:37→19:48)
[2019-04-01] MEDS: Nystatin Powder 15 GM BOT TOP SCH ×2 (09:38→19:48)
--- NOTE | 2019-04-01 15:15 | PDOC.HOSPP ---
- Subjective Encounter Date: 04/01/19 Encounter Time: 15:13 Subjective: Ms. Rueda was seen today in follow-up of seizure disorder. She is clinically stable. No significant change. - Objective Vital Signs & Weight: Vital Signs (12 hours) Temp Pulse Resp BP Pulse Ox 04/01/19 09:30 97.2 F L 82 28 H 111/54 L 94 L Weight Admit Weight 170 lb 3.15 oz Weight 168 lb 14.4 oz Most Recent Monitor Data Heart Rate from ECG 88 NIBP 123/80 NIBP BP-Mean 94 Respiration from ECG 30 SpO2 97 I&O: 03/31/19 04/01/19 04/02/19 06:59 06:59 06:59 Intake Total 950 1415 30 Balance 950 1415 30 Result Diagrams: 03/28/19 06:02 03/28/19 06:02 Hospitalist ROS - Medication Medications: Active Medications Generic Name Dose Route Start Last Admin Trade Name Freq PRN Reason Stop Dose Admin Acetaminophen 650 mg 03/24/19 07:49 03/31/19 19:41 Tylenol Elixir PER TUBE 650 mg Q4H PRN Administration Headache/Fever/Mild Pain (1-3) Enoxaparin Sodium 40 mg 02/22/19 09:00 04/01/19 09:37 Lovenox SC 40 mg 0900 SONIA Administration Famotidine 20 mg 02/26/19 21:00 04/01/19 09:37 Pepcid PER TUBE 20 mg Q12HR SONIA Administration Levetiracetam 1,000 mg 03/24/19 09:00 04/01/19 09:37 Keppra Oral Solution PER TUBE 1,000 mg BID SONIA Administration Nystatin 0 gm 03/06/19 21:00 04/01/19 09:38 Mycostatin Powder TOP 1 applic BID SONIA Administration Phenytoin Sodium 200 mg 03/03/19 21:00 03/31/19 19:42 Dilantin PER TUBE 200 mg HS SONIA Administration Scopolamine 1.5 mg 03/02/19 10:30 04/01/19 09:35 Transderm Scop TD 1.5 mg Q3D SONIA Administration Scopolamine 3 mg 03/30/19 20:00 03/30/19 20:17 Transderm Scop TOP 3 mg Q3D SONIA Administration Sodium Chloride 10 ml 03/01/19 09:00 04/01/19 09:38 Flush - Normal Saline IVF 10 ml Q12HR SONIA Administration - Exam Eye: PERRL, anicteric sclera Heart: RRR, no murmur, no gallops, no rubs, normal peripheral pulses Respiratory: CTAB, no wheezes, no rales, no ronchi, normal chest expansion Gastrointestinal: soft, non-tender, non-distended, normal bowel sounds Extremities: no cyanosis, 1+ LE edema Hosp A/P (1) Seizure disorder Code(s): G40.909 - EPILEPSY, UNSP, NOT INTRACTABLE, WITHOUT STATUS EPILEPTICUS Status: Acute (2) HTN (hypertension) Code(s): I10 - ESSENTIAL (PRIMARY) HYPERTENSION Status: Chronic Qualifiers: Hypertension type: essential hypertension Qualified Code(s): I10 - Essential (primary) hypertension (3) Chronic systolic heart failure Code(s): I50.22 - CHRONIC SYSTOLIC (CONGESTIVE) HEART FAILURE Status: Acute (4) Multiple sclerosis Code(s): G35 - MULTIPLE SCLEROSIS Status: Chronic - Plan * No change in overall plan- patient was visited by family today * Seizure disorder- continue Keppra * Systolic heart failure- stable * HTN- blood pressure is stable * Nutritional support via PEG- tolerating tube feeds * Continue DVT and GI Prophylaxis * Advanced MS * Awaiting placement
[2019-04-01] MEDS: Acetaminophen 650 MG/20.3 ML UDCUP PER TUBE PRN (19:48)
[2019-04-02] MEDS: Nystatin Powder 15 GM BOT TOP SCH ×2 (09:53→20:42)
[2019-04-02] MEDS: levETIRAcetam 500 mg/5 ml Oral Solution PER TUBE SCH ×2 (09:53→20:41)
[2019-04-02] MEDS: Enoxaparin Sodium 40 MG/0.4 ML SYRINGE SC SCH (09:53)
[2019-04-02] MEDS: Famotidine 20 MG TAB PER TUBE SCH ×2 (09:53→20:38)
[2019-04-02 10:09] VITALS: BMI 31.8
--- NOTE | 2019-04-02 13:19 | PDOC.HOSPP ---
- Subjective Encounter Date: 04/02/19 Encounter Time: 13:17 Subjective: Ms. Rueda was seen today in follow-up of seizure disorder and anoxic brain injury. There has not been any significant change overnight. - Objective Vital Signs & Weight: Vital Signs (12 hours) Temp Pulse Resp BP Pulse Ox 04/02/19 09:45 98 F 99 20 176/83 H 91 L 04/02/19 08:00 93 L Weight Admit Weight 170 lb 3.15 oz Weight 168 lb 14.4 oz Most Recent Monitor Data Heart Rate from ECG 88 NIBP 123/80 NIBP BP-Mean 94 Respiration from ECG 30 SpO2 97 I&O: 04/01/19 04/02/19 04/03/19 06:59 06:59 06:59 Intake Total 1415 730 30 Balance 1415 730 30 Result Diagrams: 03/28/19 06:02 03/28/19 06:02 Hospitalist ROS - Medication Medications: Active Medications Generic Name Dose Route Start Last Admin Trade Name Freq PRN Reason Stop Dose Admin Acetaminophen 650 mg 03/24/19 07:49 04/01/19 19:48 Tylenol Elixir PER TUBE 650 mg Q4H PRN Administration Headache/Fever/Mild Pain (1-3) Enoxaparin Sodium 40 mg 02/22/19 09:00 04/02/19 09:53 Lovenox SC 40 mg 0900 SONIA Administration Famotidine 20 mg 02/26/19 21:00 04/02/19 09:53 Pepcid PER TUBE 20 mg Q12HR SONIA Administration Levetiracetam 1,000 mg 03/24/19 09:00 04/02/19 09:53 Keppra Oral Solution PER TUBE 1,000 mg BID SONIA Administration Nystatin 0 gm 03/06/19 21:00 04/02/19 09:53 Mycostatin Powder TOP 1 applic BID SONIA Administration Phenytoin Sodium 200 mg 03/03/19 21:00 04/01/19 19:47 Dilantin PER TUBE 200 mg HS SONIA Administration Scopolamine 1.5 mg 03/02/19 10:30 04/01/19 09:35 Transderm Scop TD 1.5 mg Q3D SONIA Administration Scopolamine 3 mg 03/30/19 20:00 03/30/19 20:17 Transderm Scop TOP 3 mg Q3D SONIA Administration Sodium Chloride 10 ml 03/01/19 09:00 04/02/19 09:54 Flush - Normal Saline IVF Not Given Q12HR SONIA - Exam Eye: PERRL, anicteric sclera Heart: RRR, no murmur, no gallops, no rubs, normal peripheral pulses Respiratory: CTAB (With occasional rhonchi), no wheezes, no rales Gastrointestinal: soft (PEG site ok), non-tender, non-distended, normal bowel sounds, no palpable masses, no hepatomegaly, no splenomegaly Extremities: no cyanosis, no clubbing, 1+ LE edema (trace pedal edema) Hosp A/P (1) Seizure disorder Code(s): G40.909 - EPILEPSY, UNSP, NOT INTRACTABLE, WITHOUT STATUS EPILEPTICUS Status: Acute (2) HTN (hypertension) Code(s): I10 - ESSENTIAL (PRIMARY) HYPERTENSION Status: Chronic Qualifiers: Hypertension type: essential hypertension Qualified Code(s): I10 - Essential (primary) hypertension (3) Chronic systolic heart failure Code(s): I50.22 - CHRONIC SYSTOLIC (CONGESTIVE) HEART FAILURE Status: Acute (4) Multiple sclerosis Code(s): G35 - MULTIPLE SCLEROSIS Status: Chronic - Plan * * Continue the current management * Seizure disorder- continue Keppra * Systolic heart failure- stable * HTN- blood pressure is stable * Nutritional support via PEG- tolerating tube feeds * Continue DVT and GI Prophylaxis * Advanced MS * Awaiting placement
[2019-04-02] MEDS: Scopolamine 1.5 mg/72 hour Patch TOP SCH (20:38)
[2019-04-03] MEDS: Acetaminophen 650 MG/20.3 ML UDCUP PER TUBE PRN (02:07)
--- NOTE | 2019-04-03 07:06 | PDOC.HOSPP ---
- Subjective Encounter Date: 04/03/19 Encounter Time: 07:04 Subjective: Ms. Rueda was seen today in follow-up of seizure disorder, and anoxic brain injury. She is clinically unchanged. - Objective Vital Signs & Weight: Vital Signs (12 hours) Temp Pulse Resp BP Pulse Ox 04/03/19 02:03 95 04/02/19 23:00 94 L 04/02/19 20:00 95 04/02/19 19:50 94 L 04/02/19 19:25 98.8 F 92 20 118/64 94 L Weight Admit Weight 170 lb 3.15 oz Weight 168 lb 14.4 oz Most Recent Monitor Data Heart Rate from ECG 88 NIBP 123/80 NIBP BP-Mean 94 Respiration from ECG 30 SpO2 97 I&O: 04/02/19 04/03/19 04/04/19 06:59 06:59 06:59 Intake Total 730 1650 Balance 730 1650 Result Diagrams: 03/28/19 06:02 03/28/19 06:02 Hospitalist ROS - Medication Medications: Active Medications Generic Name Dose Route Start Last Admin Trade Name Freq PRN Reason Stop Dose Admin Acetaminophen 650 mg 03/24/19 07:49 04/03/19 02:07 Tylenol Elixir PER TUBE 650 mg Q4H PRN Administration Headache/Fever/Mild Pain (1-3) Enoxaparin Sodium 40 mg 02/22/19 09:00 04/02/19 09:53 Lovenox SC 40 mg 0900 SONIA Administration Famotidine 20 mg 02/26/19 21:00 04/02/19 20:38 Pepcid PER TUBE 20 mg Q12HR SONIA Administration Levetiracetam 1,000 mg 03/24/19 09:00 04/02/19 20:41 Keppra Oral Solution PER TUBE 1,000 mg BID SONIA Administration Nystatin 0 gm 03/06/19 21:00 04/02/19 20:42 Mycostatin Powder TOP 1 applic BID SONIA Administration Phenytoin Sodium 200 mg 03/03/19 21:00 04/02/19 20:41 Dilantin PER TUBE 200 mg HS SONIA Administration Scopolamine 1.5 mg 03/02/19 10:30 04/01/19 09:35 Transderm Scop TD 1.5 mg Q3D SONIA Administration Scopolamine 3 mg 03/30/19 20:00 04/02/19 20:38 Transderm Scop TOP 3 mg Q3D SONIA Administration Sodium Chloride 10 ml 03/01/19 09:00 04/02/19 20:41 Flush - Normal Saline IVF 10 ml Q12HR SONIA Administration - Exam Eye: PERRL, anicteric sclera Heart: RRR, no murmur, no gallops, no rubs, normal peripheral pulses Respiratory: CTAB, no wheezes, normal chest expansion, rhonchi Gastrointestinal: soft, non-tender, non-distended, normal bowel sounds, no palpable masses, no hepatomegaly, no splenomegaly Extremities: no cyanosis, no clubbing, 1+ LE edema Hosp A/P (1) Seizure disorder Code(s): G40.909 - EPILEPSY, UNSP, NOT INTRACTABLE, WITHOUT STATUS EPILEPTICUS Status: Acute (2) HTN (hypertension) Code(s): I10 - ESSENTIAL (PRIMARY) HYPERTENSION Status: Chronic Qualifiers: Hypertension type: essential hypertension Qualified Code(s): I10 - Essential (primary) hypertension (3) Chronic systolic heart failure Code(s): I50.22 - CHRONIC SYSTOLIC (CONGESTIVE) HEART FAILURE Status: Acute (4) Multiple sclerosis Code(s): G35 - MULTIPLE SCLEROSIS Status: Chronic - Plan * No change in overall management * Seizure disorder- continue Keppra * Systolic heart failure- stable * HTN- blood pressure is stable * Nutritional support via PEG- tolerating tube feeds * Continue DVT and GI Prophylaxis * Advanced MS * Awaiting placement
[2019-04-03] MEDS: Famotidine 20 MG TAB PER TUBE SCH ×2 (09:05→22:24)
[2019-04-03] MEDS: levETIRAcetam 500 mg/5 ml Oral Solution PER TUBE SCH ×2 (09:08→21:50)
[2019-04-03] MEDS: Enoxaparin Sodium 40 MG/0.4 ML SYRINGE SC SCH (09:08)
[2019-04-03] MEDS: Nystatin Powder 15 GM BOT TOP SCH ×2 (14:00→22:17)
[2019-04-04] MEDS: Nystatin Powder 15 GM BOT TOP SCH ×2 (08:31→21:11)
[2019-04-04] MEDS: Famotidine 20 MG TAB PER TUBE SCH ×2 (08:31→21:11)
[2019-04-04] MEDS: Enoxaparin Sodium 40 MG/0.4 ML SYRINGE SC SCH (08:32)
[2019-04-04] MEDS: levETIRAcetam 500 mg/5 ml Oral Solution PER TUBE SCH ×2 (08:32→21:10)
[2019-04-04] MEDS: Scopolamine 1.5 mg/72 hour Patch TD SCH (11:24)
--- NOTE | 2019-04-04 14:09 | PDOC.HOSPP ---
- Subjective Encounter Date: 04/04/19 Encounter Time: 14:08 Subjective: Ms. Rueda was seen today in follow-up of seizure disorder and anoxic brain injury. She has not had significant change overnight. Her nurse notes continued heavy secretions. They are clear in color. - Objective Vital Signs & Weight: Vital Signs (12 hours) Temp Pulse Resp BP Pulse Ox 04/04/19 07:48 98.1 F 90 19 133/84 94 L Weight Admit Weight 170 lb 3.15 oz Weight 168 lb 14.4 oz Most Recent Monitor Data Heart Rate from ECG 88 NIBP 123/80 NIBP BP-Mean 94 Respiration from ECG 30 SpO2 97 I&O: 04/03/19 04/04/19 04/05/19 06:59 06:59 06:59 Intake Total 1650 120 30 Output Total 650 Balance 1650 -530 30 Result Diagrams: 03/28/19 06:02 03/28/19 06:02 Hospitalist ROS - Medication Medications: Active Medications Generic Name Dose Route Start Last Admin Trade Name Freq PRN Reason Stop Dose Admin Acetaminophen 650 mg 03/24/19 07:49 04/03/19 02:07 Tylenol Elixir PER TUBE 650 mg Q4H PRN Administration Headache/Fever/Mild Pain (1-3) Enoxaparin Sodium 40 mg 02/22/19 09:00 04/04/19 08:32 Lovenox SC 40 mg 0900 SONIA Administration Famotidine 20 mg 02/26/19 21:00 04/04/19 08:31 Pepcid PER TUBE 20 mg Q12HR SONIA Administration Levetiracetam 1,000 mg 03/24/19 09:00 04/04/19 08:32 Keppra Oral Solution PER TUBE 1,000 mg BID SONIA Administration Nystatin 0 gm 03/06/19 21:00 04/04/19 08:31 Mycostatin Powder TOP 1 applic BID SONIA Administration Phenytoin Sodium 200 mg 03/03/19 21:00 04/03/19 21:50 Dilantin PER TUBE 200 mg HS SONIA Administration Scopolamine 3 mg 03/30/19 20:00 04/02/19 20:38 Transderm Scop TOP 3 mg Q3D SONIA Administration Sodium Chloride 10 ml 03/01/19 09:00 04/03/19 22:17 Flush - Normal Saline IVF 10 ml Q12HR SONIA Administration - Exam Eye: PERRL, anicteric sclera Heart: RRR, no murmur, no gallops, no rubs, normal peripheral pulses Respiratory: CTAB (except for some rhonchi- bilaterally) Gastrointestinal: soft (PEG- site ok, no induration or erythema), non-tender, non-distended, normal bowel sounds, no palpable masses, no hepatomegaly Extremities: no cyanosis, 1+ LE edema (non-pitting) Hosp A/P (1) Seizure disorder Code(s): G40.909 - EPILEPSY, UNSP, NOT INTRACTABLE, WITHOUT STATUS EPILEPTICUS Status: Acute (2) HTN (hypertension) Code(s): I10 - ESSENTIAL (PRIMARY) HYPERTENSION Status: Chronic Qualifiers: Hypertension type: essential hypertension Qualified Code(s): I10 - Essential (primary) hypertension (3) Chronic systolic heart failure Code(s): I50.22 - CHRONIC SYSTOLIC (CONGESTIVE) HEART FAILURE Status: Acute (4) Multiple sclerosis Code(s): G35 - MULTIPLE SCLEROSIS Status: Chronic - Plan * Excessive secretions- will add Robinul * Seizure disorder- continue Keppra * Systolic heart failure- stable * HTN- blood pressure is stable * Nutritional support via PEG- tolerating tube feeds * Continue DVT and GI Prophylaxis * Advanced MS * Awaiting placement
[2019-04-04] MEDS: Glycopyrrolate 1 MG TAB PER TUBE SCH ×2 (15:32→21:11)
[2019-04-05] MEDS: Nystatin Powder 15 GM BOT TOP SCH ×2 (09:10→21:10)
[2019-04-05] MEDS: Famotidine 20 MG TAB PER TUBE SCH ×2 (10:10→21:10)
[2019-04-05] MEDS: Glycopyrrolate 1 MG TAB PER TUBE SCH ×4 (10:11→21:09)
[2019-04-05] MEDS: Enoxaparin Sodium 40 MG/0.4 ML SYRINGE SC SCH (10:11)
[2019-04-05] MEDS: levETIRAcetam 500 mg/5 ml Oral Solution PER TUBE SCH ×2 (10:12→21:10)
[2019-04-05] MEDS ORDERED: Glycopyrrolate 1 MG TAB ONE (10:13)
--- NOTE | 2019-04-05 14:17 | PDOC.HOSPP ---
- Subjective Encounter Date: 04/05/19 Encounter Time: 14:16 Subjective: Ms. Rueda was seen today in follow-up of seizure disorder. She continues to have increased tracheal secretions. - Objective Vital Signs & Weight: Vital Signs (12 hours) Temp Pulse Resp BP Pulse Ox 04/05/19 11:05 97 04/05/19 07:46 97.6 F 85 16 131/82 97 Weight Admit Weight 170 lb 3.15 oz Weight 168 lb 14.4 oz Most Recent Monitor Data Heart Rate from ECG 88 NIBP 123/80 NIBP BP-Mean 94 Respiration from ECG 30 SpO2 97 I&O: 04/04/19 04/05/19 04/06/19 06:59 06:59 06:59 Intake Total 120 750 Output Total 650 850 Balance -530 -100 Result Diagrams: 03/28/19 06:02 03/28/19 06:02 Hospitalist ROS - Medication Medications: Active Medications Generic Name Dose Route Start Last Admin Trade Name Freq PRN Reason Stop Dose Admin Acetaminophen 650 mg 03/24/19 07:49 04/03/19 02:07 Tylenol Elixir PER TUBE 650 mg Q4H PRN Administration Headache/Fever/Mild Pain (1-3) Enoxaparin Sodium 40 mg 02/22/19 09:00 04/05/19 10:11 Lovenox SC 40 mg 0900 SONIA Administration Famotidine 20 mg 02/26/19 21:00 04/05/19 10:10 Pepcid PER TUBE 20 mg Q12HR SONIA Administration Glycopyrrolate 2 mg 04/05/19 09:00 04/05/19 10:11 Robinul PER TUBE 2 mg TID SONIA Administration Levetiracetam 1,000 mg 03/24/19 09:00 04/05/19 10:12 Keppra Oral Solution PER TUBE 1,000 mg BID SONIA Administration Nystatin 0 gm 03/06/19 21:00 04/04/19 21:11 Mycostatin Powder TOP 1 applic BID SONIA Administration Phenytoin Sodium 200 mg 03/03/19 21:00 04/04/19 21:11 Dilantin PER TUBE 200 mg HS SONIA Administration Scopolamine 3 mg 03/30/19 20:00 04/02/19 20:38 Transderm Scop TOP 3 mg Q3D SONIA Administration Sodium Chloride 10 ml 03/01/19 09:00 04/05/19 10:10 Flush - Normal Saline IVF 10 ml Q12HR SONIA Administration - Exam Eye: PERRL, anicteric sclera Heart: RRR, no murmur, no gallops, no rubs, normal peripheral pulses Respiratory: CTAB, no wheezes (but occasional rhonchi), no rales, normal chest expansion Gastrointestinal: soft, non-tender, non-distended, normal bowel sounds, no palpable masses, no hepatomegaly, no splenomegaly Extremities: no cyanosis, no clubbing, no edema Hosp A/P (1) Seizure disorder Code(s): G40.909 - EPILEPSY, UNSP, NOT INTRACTABLE, WITHOUT STATUS EPILEPTICUS Status: Acute (2) HTN (hypertension) Code(s): I10 - ESSENTIAL (PRIMARY) HYPERTENSION Status: Chronic Qualifiers: Hypertension type: essential hypertension Qualified Code(s): I10 - Essential (primary) hypertension (3) Chronic systolic heart failure Code(s): I50.22 - CHRONIC SYSTOLIC (CONGESTIVE) HEART FAILURE Status: Acute (4) Multiple sclerosis Code(s): G35 - MULTIPLE SCLEROSIS Status: Chronic - Plan * Excessive secretions- will increase the dose of Robinul * Seizure disorder- continue Keppra * Systolic heart failure- stable * HTN- blood pressure is stable * Nutritional support via PEG- tolerating tube feeds * Continue DVT and GI Prophylaxis * Advanced MS * Awaiting placement
[2019-04-05] MEDS ORDERED: Sodium Chloride 0.9% 1,000 ML IV SCH (17:45)
[2019-04-05 19:27] LABS: Bilirubin Negative (Negative); Blood, Urine Negative (Negative); Clarity Turbid (Clear); Glucose, Urine (Dipstick) Normal (Negative); Leukocyte 500 Leu/uL (Negative); Nitrite Negative (Negative); Protein, Urine (Dipstick) 200 mg/dL (Neg-Trace); RBC/HPF 0-3 HPF (0-3); Squamous Epithelial 0-3 HPF (0-3); Triple Phosphate Crystal 3+ HPF (None Seen); WBC/HPF 0-3 HPF (0-3)
[2019-04-05 19:34] LABS: Bacteria/HPF 4+ HPF (None Seen)
[2019-04-05 19:36] LABS: Urine Culture Reflex Yes Yes
[2019-04-05] MEDS: Scopolamine 1.5 mg/72 hour Patch TOP SCH (21:09)
[2019-04-06] MEDS: levETIRAcetam 500 mg/5 ml Oral Solution PER TUBE SCH ×2 (08:50→21:32)
[2019-04-06] MEDS: Nystatin Powder 15 GM BOT TOP SCH ×2 (08:51→21:33)
[2019-04-06] MEDS: Famotidine 20 MG TAB PER TUBE SCH ×2 (08:51→21:32)
[2019-04-06] MEDS: Glycopyrrolate 1 MG TAB PER TUBE SCH ×3 (08:51→21:33)
[2019-04-06] MEDS: Enoxaparin Sodium 40 MG/0.4 ML SYRINGE SC SCH (08:52)
--- NOTE | 2019-04-06 20:01 | PDOC.HOSPP ---
- Subjective Encounter Date: 04/06/19 Encounter Time: 09:45 Subjective: pt up in bed nonverbal. - Objective Vital Signs & Weight: Vital Signs (12 hours) Temp Pulse Resp BP Pulse Ox 04/06/19 19:52 98.4 F 84 20 142/88 H 96 04/06/19 08:40 99 Weight Admit Weight 170 lb 3.15 oz Weight 168 lb 14.4 oz Most Recent Monitor Data Heart Rate from ECG 88 NIBP 123/80 NIBP BP-Mean 94 Respiration from ECG 30 SpO2 97 I&O: 04/05/19 04/06/19 04/07/19 06:59 06:59 06:59 Intake Total 750 1484 750 Output Total 850 651 Balance -100 833 750 Result Diagrams: 03/28/19 06:02 03/28/19 06:02 Hospitalist ROS - Review of Systems Other: unable to obtain - Medication Medications: Active Medications Generic Name Dose Route Start Last Admin Trade Name Freq PRN Reason Stop Dose Admin Acetaminophen 650 mg 03/24/19 07:49 04/03/19 02:07 Tylenol Elixir PER TUBE 650 mg Q4H PRN Administration Headache/Fever/Mild Pain (1-3) Enoxaparin Sodium 40 mg 02/22/19 09:00 04/06/19 08:52 Lovenox SC 40 mg 0900 SONIA Administration Famotidine 20 mg 02/26/19 21:00 04/06/19 08:51 Pepcid PER TUBE 20 mg Q12HR SONIA Administration Glycopyrrolate 2 mg 04/05/19 09:00 04/06/19 14:36 Robinul PER TUBE 2 mg TID SONIA Administration Levetiracetam 1,000 mg 03/24/19 09:00 04/06/19 08:50 Keppra Oral Solution PER TUBE 1,000 mg BID SONIA Administration Nystatin 0 gm 03/06/19 21:00 04/06/19 08:51 Mycostatin Powder TOP 1 applic BID SONIA Administration Phenytoin Sodium 200 mg 03/03/19 21:00 04/05/19 21:10 Dilantin PER TUBE 200 mg HS SONIA Administration Scopolamine 3 mg 03/30/19 20:00 04/05/19 21:09 Transderm Scop TOP 3 mg Q3D SONIA Administration Sodium Chloride 10 ml 03/01/19 09:00 04/06/19 08:52 Flush - Normal Saline IVF 10 ml Q12HR SONIA Administration Sodium Chloride 10 ml 03/01/19 07:41 04/05/19 19:09 Flush - Normal Saline IVF 10 ml PRN PRN Administration Saline Flush - Exam Neck: negative: supple, symmetric, no JVD, no thyromegaly, no lymphadenopathy, no carotid bruit, JVD Heart: negative: RRR, no murmur, no gallops, no rubs, normal peripheral pulses, irregular, diminshed peripheral pulses, murmur present, II/IV, III/IV Respiratory: negative: CTAB, no wheezes, no rales, no ronchi, normal chest expansion, no tachypnea, normal percussion, rales, rhonchi, tachypneic, wheezes Hosp A/P (1) Acute respiratory failure with hypoxia Code(s): J96.01 - ACUTE RESPIRATORY FAILURE WITH HYPOXIA Status: Acute (2) Seizure disorder Code(s): G40.909 - EPILEPSY, UNSP, NOT INTRACTABLE, WITHOUT STATUS EPILEPTICUS Status: Acute (3) Status post tracheostomy Code(s): Z93.0 - TRACHEOSTOMY STATUS Status: Acute (4) HTN (hypertension) Code(s): I10 - ESSENTIAL (PRIMARY) HYPERTENSION Status: Chronic Qualifiers: Hypertension type: essential hypertension Qualified Code(s): I10 - Essential (primary) hypertension (5) Multiple sclerosis Code(s): G35 - MULTIPLE SCLEROSIS Status: Chronic (6) Obesity (BMI 30-39.9) Code(s): E66.9 - OBESITY, UNSPECIFIED Status: Chronic - Plan pt's bp low but stable, will continue to monitor. pt will need to be placed. pt on dvt ppx and pepcid. 04/06 will continue current tx, no new changes. awaiting placement.
[2019-04-07] MEDS: Glycopyrrolate 1 MG TAB PER TUBE SCH ×3 (09:16→21:01)
[2019-04-07] MEDS: Nystatin Powder 15 GM BOT TOP SCH ×2 (09:16→21:02)
[2019-04-07] MEDS: Famotidine 20 MG TAB PER TUBE SCH ×2 (09:16→21:01)
[2019-04-07] MEDS: levETIRAcetam 500 mg/5 ml Oral Solution PER TUBE SCH ×2 (09:16→21:04)
[2019-04-07] MEDS: Enoxaparin Sodium 40 MG/0.4 ML SYRINGE SC SCH (09:17)
[2019-04-07] MEDS: cefTRIAXone\\ROCEPHIN 1 GM in Sodium Chloride 0.9% 100 ML IVPB SCH (09:41)
[2019-04-07 11:16] LABS: Anion Gap 14 mmol/L (10-20); BUN (Urea Nitrogen) 21 mg/dL (9.8-20.1); Calc. Creatinine Clearance 142 mL/min (70-130); Calcium 9.3 mg/dL (7.8-10.44); Carbon Dioxide 19 mmol/L (22-29); Chloride 106 mmol/L (98-107); Estimated GFR-MDRD Greater than 90; Glucose 105 mg/dL (70-105); Potassium 4.3 mmol/L (3.5-5.1); Sodium 135 mmol/L (136-145)
--- NOTE | 2019-04-07 12:29 | PDOC.HOSPP ---
- Subjective Encounter Date: 04/07/19 Encounter Time: 08:45 Subjective: pt up in bed nonverbal. per nursing, speech noticed pt was staring for 45sec, nurse did not witness the episode and was back to baseline when she talked with the patient. - Objective Vital Signs & Weight: Vital Signs (12 hours) Temp Pulse Resp BP Pulse Ox 04/07/19 08:07 98.2 F 91 18 142/88 H 94 L Weight Admit Weight 170 lb 3.15 oz Weight 168 lb 14.4 oz Most Recent Monitor Data Heart Rate from ECG 88 NIBP 123/80 NIBP BP-Mean 94 Respiration from ECG 30 SpO2 97 I&O: 04/06/19 04/07/19 04/08/19 06:59 06:59 06:59 Intake Total 1484 1590 Output Total 651 Balance 833 1590 Result Diagrams: 03/28/19 06:02 04/07/19 10:43 Hospitalist ROS - Review of Systems Other: unable to obtain - Medication Medications: Active Medications Generic Name Dose Route Start Last Admin Trade Name Freq PRN Reason Stop Dose Admin Acetaminophen 650 mg 03/24/19 07:49 04/03/19 02:07 Tylenol Elixir PER TUBE 650 mg Q4H PRN Administration Headache/Fever/Mild Pain (1-3) Enoxaparin Sodium 40 mg 02/22/19 09:00 04/07/19 09:17 Lovenox SC 40 mg 0900 SONIA Administration Famotidine 20 mg 02/26/19 21:00 04/07/19 09:16 Pepcid PER TUBE 20 mg Q12HR SONIA Administration Glycopyrrolate 2 mg 04/05/19 09:00 04/07/19 09:16 Robinul PER TUBE 2 mg TID SONIA Administration Guaifenesin 200 mg 03/24/19 07:46 04/07/19 03:50 Robitussin Sf PER TUBE 200 mg Q4H PRN Administration Cough Ceftriaxone Sodium 1 gm/ 100 mls @ 200 mls/hr 04/07/19 09:00 04/07/19 09:41 Sodium Chloride IVPB 100 mls Q24HR SONIA Administration Levetiracetam 1,000 mg 03/24/19 09:00 04/07/19 09:16 Keppra Oral Solution PER TUBE 1,000 mg BID SONIA Administration Nystatin 0 gm 03/06/19 21:00 04/07/19 09:16 Mycostatin Powder TOP 1 applic BID SONIA Administration Phenytoin Sodium 200 mg 03/03/19 21:00 04/06/19 21:32 Dilantin PER TUBE 200 mg HS SONIA Administration Scopolamine 3 mg 03/30/19 20:00 04/05/19 21:09 Transderm Scop TOP 3 mg Q3D SONIA Administration Sodium Chloride 10 ml 03/01/19 09:00 04/07/19 09:16 Flush - Normal Saline IVF 10 ml Q12HR SONIA Administration Sodium Chloride 10 ml 03/01/19 07:41 04/05/19 19:09 Flush - Normal Saline IVF 10 ml PRN PRN Administration Saline Flush - Exam Neck: negative: supple, symmetric, no JVD, no thyromegaly, no lymphadenopathy, no carotid bruit, JVD Heart: negative: RRR, no murmur, no gallops, no rubs, normal peripheral pulses, irregular, diminshed peripheral pulses, murmur present, II/IV, III/IV Respiratory: negative: CTAB, no wheezes, no rales, no ronchi, normal chest expansion, no tachypnea, normal percussion, rales, rhonchi, tachypneic, wheezes Hosp A/P (1) Acute respiratory failure with hypoxia Code(s): J96.01 - ACUTE RESPIRATORY FAILURE WITH HYPOXIA Status: Acute (2) Seizure disorder Code(s): G40.909 - EPILEPSY, UNSP, NOT INTRACTABLE, WITHOUT STATUS EPILEPTICUS Status: Acute (3) Status post tracheostomy Code(s): Z93.0 - TRACHEOSTOMY STATUS Status: Acute (4) HTN (hypertension) Code(s): I10 - ESSENTIAL (PRIMARY) HYPERTENSION Status: Chronic Qualifiers: Hypertension type: essential hypertension Qualified Code(s): I10 - Essential (primary) hypertension (5) Multiple sclerosis Code(s): G35 - MULTIPLE SCLEROSIS Status: Chronic (6) Obesity (BMI 30-39.9) Code(s): E66.9 - OBESITY, UNSPECIFIED Status: Chronic - Plan pt's bp low but stable, will continue to monitor. pt will need to be placed. pt on dvt ppx and pepcid. 04/06 will continue current tx, no new changes. awaiting placement. 04/07 will continue current tx, ceftriaxone added 07/02 for her Proteus mirabalis. bmp stable. post void 130ml will monitor. she needs placement.
[2019-04-07] MEDS: Acetaminophen 650 MG/20.3 ML UDCUP PER TUBE PRN (17:52)
[2019-04-08] MEDS: Acetaminophen 650 MG/20.3 ML UDCUP PER TUBE PRN ×2 (04:36→21:00)
[2019-04-08] MEDS: Glycopyrrolate 1 MG TAB PER TUBE SCH ×3 (08:58→20:35)
[2019-04-08] MEDS: levETIRAcetam 500 mg/5 ml Oral Solution PER TUBE SCH ×2 (08:59→20:34)
[2019-04-08] MEDS: Famotidine 20 MG TAB PER TUBE SCH ×2 (08:59→20:35)
[2019-04-08] MEDS: cefTRIAXone\\ROCEPHIN 1 GM in Sodium Chloride 0.9% 100 ML IVPB SCH (09:14)
[2019-04-08] MEDS: Nystatin Powder 15 GM BOT TOP SCH ×2 (09:18→20:35)
[2019-04-08] MEDS: Enoxaparin Sodium 40 MG/0.4 ML SYRINGE SC SCH (09:23)
--- NOTE | 2019-04-08 14:54 | PDOC.HOSPP ---
- Subjective Encounter Date: 04/08/19 Encounter Time: 12:30 Subjective: pt up in bed nonverbal - Objective Vital Signs & Weight: Vital Signs (12 hours) Temp Pulse Resp BP Pulse Ox 04/08/19 06:57 98.7 F 87 16 135/78 97 Weight Admit Weight 170 lb 3.15 oz Weight 168 lb 14.4 oz Most Recent Monitor Data Heart Rate from ECG 88 NIBP 123/80 NIBP BP-Mean 94 Respiration from ECG 30 SpO2 97 I&O: 04/07/19 04/08/19 04/09/19 06:59 06:59 06:59 Intake Total 1590 1470 60 Balance 1590 1470 60 Result Diagrams: 03/28/19 06:02 04/07/19 10:43 Hospitalist ROS - Review of Systems Other: unable to obtain - Medication Medications: Active Medications Generic Name Dose Route Start Last Admin Trade Name Freq PRN Reason Stop Dose Admin Acetaminophen 650 mg 03/24/19 07:49 04/08/19 04:36 Tylenol Elixir PER TUBE 650 mg Q4H PRN Administration Headache/Fever/Mild Pain (1-3) Enoxaparin Sodium 40 mg 02/22/19 09:00 04/08/19 09:23 Lovenox SC 40 mg 0900 SONIA Administration Famotidine 20 mg 02/26/19 21:00 04/08/19 08:59 Pepcid PER TUBE 20 mg Q12HR SONIA Administration Glycopyrrolate 2 mg 04/05/19 09:00 04/08/19 08:58 Robinul PER TUBE 2 mg TID SONIA Administration Guaifenesin 200 mg 03/24/19 07:46 04/07/19 03:50 Robitussin Sf PER TUBE 200 mg Q4H PRN Administration Cough Ceftriaxone Sodium 1 gm/ 100 mls @ 200 mls/hr 04/07/19 09:00 04/08/19 09:14 Sodium Chloride IVPB 100 mls Q24HR SONIA Administration Levetiracetam 1,000 mg 03/24/19 09:00 04/08/19 08:59 Keppra Oral Solution PER TUBE 1,000 mg BID SONIA Administration Nystatin 0 gm 03/06/19 21:00 04/08/19 09:18 Mycostatin Powder TOP 1 applic BID SONIA Administration Phenytoin Sodium 200 mg 03/03/19 21:00 04/07/19 21:04 Dilantin PER TUBE 200 mg HS SONIA Administration Scopolamine 3 mg 03/30/19 20:00 04/05/19 21:09 Transderm Scop TOP 3 mg Q3D SONIA Administration Sodium Chloride 10 ml 03/01/19 09:00 04/08/19 09:18 Flush - Normal Saline IVF 10 ml Q12HR SONIA Administration Sodium Chloride 10 ml 03/01/19 07:41 04/05/19 19:09 Flush - Normal Saline IVF 10 ml PRN PRN Administration Saline Flush - Exam Neck: negative: supple, symmetric, no JVD, no thyromegaly, no lymphadenopathy, no carotid bruit, JVD Heart: negative: RRR, no murmur, no gallops, no rubs, normal peripheral pulses, irregular, diminshed peripheral pulses, murmur present, II/IV, III/IV Respiratory: negative: CTAB, no wheezes, no rales, no ronchi, normal chest expansion, no tachypnea, normal percussion, rales, rhonchi, tachypneic, wheezes Gastrointestinal: negative: soft, non-tender, non-distended, normal bowel sounds , no palpable masses, no hepatomegaly, no splenomegaly, no bruit, no guarding, no rigidity, tender to palpation, distended, diminished bowl sounds, voluntary guarding Hosp A/P (1) Acute respiratory failure with hypoxia Code(s): J96.01 - ACUTE RESPIRATORY FAILURE WITH HYPOXIA Status: Acute (2) Seizure disorder Code(s): G40.909 - EPILEPSY, UNSP, NOT INTRACTABLE, WITHOUT STATUS EPILEPTICUS Status: Acute (3) Status post tracheostomy Code(s): Z93.0 - TRACHEOSTOMY STATUS Status: Acute (4) HTN (hypertension) Code(s): I10 - ESSENTIAL (PRIMARY) HYPERTENSION Status: Chronic Qualifiers: Hypertension type: essential hypertension Qualified Code(s): I10 - Essential (primary) hypertension (5) Multiple sclerosis Code(s): G35 - MULTIPLE SCLEROSIS Status: Chronic (6) Obesity (BMI 30-39.9) Code(s): E66.9 - OBESITY, UNSPECIFIED Status: Chronic - Plan pt's bp low but stable, will continue to monitor. pt will need to be placed. pt on dvt ppx and pepcid. 04/06 will continue current tx, no new changes. awaiting placement. 04/07 will continue current tx, ceftriaxone added 07/02 for her Proteus mirabalis. bmp stable. post void 130ml will monitor. she needs placement. 04/08 abx ceftriaxone 2/7 will monitor.
[2019-04-08] MEDS: Scopolamine 1.5 mg/72 hour Patch TOP SCH (20:35)
[2019-04-09] MEDS: Glycopyrrolate 1 MG TAB PER TUBE SCH ×3 (09:11→20:39)
[2019-04-09] MEDS: Enoxaparin Sodium 40 MG/0.4 ML SYRINGE SC SCH (09:11)
[2019-04-09] MEDS: levETIRAcetam 500 mg/5 ml Oral Solution PER TUBE SCH ×2 (09:11→20:39)
[2019-04-09] MEDS: Famotidine 20 MG TAB PER TUBE SCH ×2 (09:11→20:39)
[2019-04-09] MEDS: Nystatin Powder 15 GM BOT TOP SCH ×2 (09:30→20:41)
[2019-04-09] MEDS: cefTRIAXone\\ROCEPHIN 1 GM in Sodium Chloride 0.9% 100 ML IVPB SCH (09:30)
[2019-04-09] MEDS: Acetaminophen 650 MG/20.3 ML UDCUP PER TUBE PRN (20:40)
--- NOTE | 2019-04-10 09:08 | PDOC.HOSPP ---
- Subjective Encounter Date: 04/09/19 Encounter Time: 10:30 Subjective: pt trached - Objective Vital Signs & Weight: Weight Admit Weight 170 lb 3.15 oz Weight 168 lb 14.4 oz Most Recent Monitor Data Heart Rate from ECG 88 NIBP 123/80 NIBP BP-Mean 94 Respiration from ECG 30 SpO2 97 I&O: 04/09/19 04/10/19 04/11/19 06:59 06:59 06:59 Intake Total 940 1610 Balance 940 1610 Result Diagrams: 03/28/19 06:02 04/07/19 10:43 Hospitalist ROS - Review of Systems Other: unable to response - Medication Medications: Active Medications Generic Name Dose Route Start Last Admin Trade Name Freq PRN Reason Stop Dose Admin Acetaminophen 650 mg 03/24/19 07:49 04/09/19 20:40 Tylenol Elixir PER TUBE 650 mg Q4H PRN Administration Headache/Fever/Mild Pain (1-3) Enoxaparin Sodium 40 mg 02/22/19 09:00 04/09/19 09:11 Lovenox SC 40 mg 0900 SONIA Administration Famotidine 20 mg 02/26/19 21:00 04/09/19 20:39 Pepcid PER TUBE 20 mg Q12HR SONIA Administration Glycopyrrolate 2 mg 04/05/19 09:00 04/09/19 20:39 Robinul PER TUBE 2 mg TID SONIA Administration Guaifenesin 200 mg 03/24/19 07:46 04/07/19 03:50 Robitussin Sf PER TUBE 200 mg Q4H PRN Administration Cough Ceftriaxone Sodium 1 gm/ 100 mls @ 200 mls/hr 04/07/19 09:00 04/09/19 09:30 Sodium Chloride IVPB 100 mls Q24HR SONIA Administration Levetiracetam 1,000 mg 03/24/19 09:00 04/09/19 20:39 Keppra Oral Solution PER TUBE 1,000 mg BID SONIA Administration Nystatin 0 gm 03/06/19 21:00 04/09/19 20:41 Mycostatin Powder TOP 1 applic BID SONIA Administration Phenytoin Sodium 200 mg 03/03/19 21:00 04/09/19 20:39 Dilantin PER TUBE 200 mg HS SONIA Administration Scopolamine 3 mg 03/30/19 20:00 04/08/19 20:35 Transderm Scop TOP 3 mg Q3D SONIA Administration Sodium Chloride 10 ml 03/01/19 09:00 04/09/19 20:40 Flush - Normal Saline IVF 10 ml Q12HR SONIA Administration Sodium Chloride 10 ml 03/01/19 07:41 04/05/19 19:09 Flush - Normal Saline IVF 10 ml PRN PRN Administration Saline Flush - Exam ENT: negative: normocephalic atraumatic, no oropharyngeal lesions, moist mucosa , dry oral mucosa Neck: negative: supple, symmetric, no JVD, no thyromegaly, no lymphadenopathy, no carotid bruit, JVD Heart: negative: RRR, no murmur, no gallops, no rubs, normal peripheral pulses, irregular, diminshed peripheral pulses, murmur present, II/IV, III/IV Hosp A/P (1) Acute respiratory failure with hypoxia Code(s): J96.01 - ACUTE RESPIRATORY FAILURE WITH HYPOXIA Status: Acute (2) Seizure disorder Code(s): G40.909 - EPILEPSY, UNSP, NOT INTRACTABLE, WITHOUT STATUS EPILEPTICUS Status: Acute (3) Status post tracheostomy Code(s): Z93.0 - TRACHEOSTOMY STATUS Status: Acute (4) HTN (hypertension) Code(s): I10 - ESSENTIAL (PRIMARY) HYPERTENSION Status: Chronic Qualifiers: Hypertension type: essential hypertension Qualified Code(s): I10 - Essential (primary) hypertension (5) Multiple sclerosis Code(s): G35 - MULTIPLE SCLEROSIS Status: Chronic (6) Obesity (BMI 30-39.9) Code(s): E66.9 - OBESITY, UNSPECIFIED Status: Chronic - Plan pt's bp low but stable, will continue to monitor. pt will need to be placed. pt on dvt ppx and pepcid. 04/06 will continue current tx, no new changes. awaiting placement. 04/07 will continue current tx, ceftriaxone added 07/02 for her Proteus mirabalis. bmp stable. post void 130ml will monitor. she needs placement. 04/08 abx ceftriaxone 2/7 will monitor. 04/09 will continue current tx.
[2019-04-10 09:27] VITALS: BP 116/73; TEMP 98.3
[2019-04-10] MEDS: Enoxaparin Sodium 40 MG/0.4 ML SYRINGE SC SCH (10:04)
[2019-04-10] MEDS: Glycopyrrolate 1 MG TAB PER TUBE SCH (10:04)
[2019-04-10] MEDS: Famotidine 20 MG TAB PER TUBE SCH (10:05)
[2019-04-10] MEDS: levETIRAcetam 500 mg/5 ml Oral Solution PER TUBE SCH (10:05)
[2019-04-10] MEDS: cefTRIAXone\\ROCEPHIN 1 GM in Sodium Chloride 0.9% 100 ML IVPB SCH (12:46)
[2019-04-10] MEDS: Nystatin Powder 15 GM BOT TOP SCH (12:47)
== END 2019-04-10 13:42 | DRG 4 ==
LOC: ERS 22:14 → CCU 23:45 → IMCU/EMU 03-10 17:48 → ONC 03-30 16:12
PROVIDERS: ADMIT Internal Medicine; ATTEND Internal Medicine
PROC: 0BH17EZ Insertion of Endotracheal Airway into Trachea, Via Natural or Artificial Opening (ICD-10-PCS; 2019-02-20)
PROC: 5A1955Z Respiratory Ventilation, Greater than 96 Consecutive Hours (ICD-10-PCS; principal; 2019-02-21)
PROC: 0B110F4 Bypass Trachea to Cutaneous with Tracheostomy Device, Open Approach (ICD-10-PCS; 2019-02-27)
PROC: 0DH63UZ Insertion of Feeding Device into Stomach, Percutaneous Approach (ICD-10-PCS; 2019-03-09)
DX: G35 Multiple sclerosis (principal); J96.01 Acute respiratory failure with hypoxia; G82.50 Quadriplegia, unspecified; R40.2312 Coma scale, best motor response, none, at arrival to emergency department; R40.2112 Coma scale, eyes open, never, at arrival to emergency department; R40.2212 Coma scale, best verbal response, none, at arrival to emergency department; I69.351 Hemiplegia and hemiparesis following cerebral infarction affecting right dominant side; I42.9 Cardiomyopathy, unspecified; G93.1 Anoxic brain damage, not elsewhere classified; E87.2 Acidosis; I50.22 Chronic systolic (congestive) heart failure; J91.8 Pleural effusion in other conditions classified elsewhere; G40.901 Epilepsy, unspecified, not intractable, with status epilepticus; E66.9 Obesity, unspecified; I11.0 Hypertensive heart disease with heart failure; E87.6 Hypokalemia; R19.7 Diarrhea, unspecified; E87.5 Hyperkalemia; B96.4 Proteus (mirabilis) (morganii) as the cause of diseases classified elsewhere; Z68.31 Body mass index [BMI] 31.0-31.9, adult; Z74.01 Bed confinement status; Z79.899 Other long term (current) drug therapy; Z79.82 Long term (current) use of aspirin; Z78.1 Physical restraint status; Z99.3 Dependence on wheelchair
CPT/HCPCS: 31500; 36415; 36416; 51702; 70450; 70553; 71045; 80048; 80053; 80185; 80202; 80306; 81001; 81003; 81015; 82274; 82550; 82553; 82805; 83605; 83735; 84100; 84146; 84443; 84484; 85007; 85025; 85027; 85610; 85730; 87040; 87077; 87086; 87149; 87186; 87324; 87449; 93005; 93306; 94002; 94003; 95816; 95819; 96361; 96365; 96366; 96367; 96374; 96375; 99292; A9577; J0696; J1650; J1940; J1953; J2060; J2250; J2543; J2704; J3370; J3475; J3480; J3490; J7050; J7070; J7626; S0028

== ENCOUNTER 2019-07-02 20:07 | Inpatient (IN) | payer OTHER ==
[2019-07-02 20:50] LABS: Bacteria/HPF 4+ HPF (None Seen); Bilirubin Negative (Negative); Blood, Urine Trace (Negative); Clarity Turbid (Clear); Glucose, Urine (Dipstick) Normal (Negative); Leukocyte 500 Leu/uL (Negative); Nitrite 2+ (Negative); Protein, Urine (Dipstick) 100 mg/dL (Neg-Trace); RBC/HPF 21-50 HPF (0-3); Urobilinogen Normal mg/dL (Less than 2); WBC/HPF Greater than 50 HPF (0-3)
[2019-07-02 20:58] LABS: Hemoglobin 14.5 g/dL (12.0-16.0); RBC Distribution Width 13.1 % (11.5-14.5); Red Blood Cell (RBC) Count 4.53 mill/uL (4.20-5.40)
--- NOTE | 2019-07-02 21:00 | RAD ---
PORTABLE AP CHEST X-RAY 07/02/19 HISTORY: Dyspnea, elevated heart rate. COMPARISON: 03/05/19. FINDINGS: Endotracheal tube and nasogastric tubes have been removed. Tracheostomy device is now noted in place. Cardiac silhouette is magnified by projection but does appear mildly enlarged on this exam. There is a left pleural effusion and associated atelectasis. Superimposed pneumonia at the left lung base can not be excluded. There is minimal patchy density present in the right mid lung zone in a perihilar lo cation which also could be related to infectious process. Continued follow-up to resolution is recomm ended. No other interval change. IMPRESSION: 1. Dense opacity left lung base probably related to left pleural effusion and atelectasis. Super imposed pneumonia cannot be entirely excluded. 2. Patchy density right mid lung zone in a perihilar location which could be related to vascular structures, but this is slightly more prominent and pneumonitis is suggested. 3. Follow-up to resolution is recommended. POS: SANDEE
[2019-07-02 21:13] LABS: ALT (SGPT) 19 U/L (8-55); AST (SGOT) 28 U/L (5-34); Albumin 3.9 g/dL (3.5-5.0); Alkaline Phosphatase 164 U/L (40-110); Anion Gap 18 mmol/L (10-20); BUN (Urea Nitrogen) 17 mg/dL (9.8-20.1); Bilirubin, Total 0.3 mg/dL (0.2-1.2); CK (CPK) 61 U/L (29-168); Calc. Creatinine Clearance 0 mL/min (70-130); Calcium 9.7 mg/dL (7.8-10.44); Carbon Dioxide 20 mmol/L (22-29); Chloride 95 mmol/L (98-107); Estimated GFR-MDRD Greater than 90; Globulin 4.1 g/dL (2.4-3.5); Glucose 129 mg/dL (70-105); Sodium 127 mmol/L (136-145)
[2019-07-02] MEDS ORDERED: cefTRIAXone\\ROCEPHIN 2 GM VIAL ONE (21:14)
[2019-07-02 21:21] LABS: Band 8 % (5-11); Lymphocytes 3 % (21-51); MDiff Complete? YES; Mean Platelet Volume 8.5 fL (7.4-10.4); Monocytes 7 % (0-10); Neutrophil 82 % (42-75); Platelet Count 287 thou/uL (130-400); White Blood Cell (WBC) Count 22.1 thou/uL (4.8-10.8)
[2019-07-02 21:37] LABS: CKMB 2.3 ng/mL (0-6.6)
--- NOTE | 2019-07-02 22:34 | RAD ---
PORTABLE AP CHEST X-RAY: 07/02/19 HISTORY: Post central line placement. COMPARISON: 07/02/19 at 2013 hours. FINDINGS: Tracheostomy device remains in place. There has been interval placement of a left subclavian central venous catheter with tip overlying the expected location of the cavoatrial junction. Cardiac silhoue tte remains enlarged. There is dense opacity again seen at the left lung base likely related to left pleural effusion and a telectasis. Superimposed pneumonia is a possibility. There is mild increase in perihilar interstitial densities with greater patchy parenchymal changes in the right perihilar region and right mid lung z one also worrisome for infectious process. No other interval change. IMPRESSION: 1. Interval placement of left subclavian central venous catheter without obvious pneumothorax se en on this supine image. Supine imaging does limit evaluation for pneumothorax. 2. Dense opacity left lung base which may represent left pleural effusion and atelectasis, but s uperimposed pneumonia is a possibility. Follow-up to resolution is recommended. 3. Patchy parenchymal changes right mid lung zone and perihilar region, worrisome for infectious process. Follow-up to resolution is recommended. 4. Mild cardiomegaly. 5. Increased density focus overlying right upper quadrant which is difficult to further localize . This could potentially represent renal calculus. POS: SANDEE
[2019-07-02] MEDS ORDERED: Acetaminophen 325 MG TAB PO PRN (23:41)
[2019-07-02] MEDS ORDERED: Ondansetron PF 4 MG/2 ML Vial IVP PRN (23:41)
[2019-07-02] MEDS ORDERED: Ondansetron ODT 4 MG TAB SL PRN (23:41)
[2019-07-02 23:44] VITALS: BMI 31.3
[2019-07-02 23:53] LABS: Lactic Acid 1.1 mmol/L (0.5-2.2)
[2019-07-02] MEDS ORDERED: Cefepime 2 GM in Sodium Chloride 0.9% 100 ML IVPB SCH (23:59)
[2019-07-02] MEDS ORDERED: Vancomycin HCl 500 MG in Sodium Chloride 0.9% 100 ML IVPB SCH (23:59)
[2019-07-03] MEDS: Sodium Chloride 0.9% 1,000 ML IV SCH ×5 (00:22→13:59)
[2019-07-03 01:02] LABS: Troponin I 0.673 ng/mL (< 0.028)
--- NOTE | 2019-07-03 01:33 | HP ---
PRIMARY CARE PHYSICIAN: Unknown. CHIEF COMPLAINT: Shortness of breath. HISTORY OF PRESENT ILLNESS: This is a 54-year-old Afro-[place] female, assisted resident at [facility], chronically bed-bound secondary to stroke with right-sided neurological deficits and advanced multiple sclerosis, who is status post tracheostomy and PEG tube placement and nonverbal at baseline, fully dependent on activities of daily living, seizure disorder, hypertension, who was brought into [facility] ER via EMS after patient was noted to be tachypneic and short of breath and hypoxic without improvement of oxygen saturation with supportive measures on nasal cannula with ongoing desaturation of 76% at facility. In the ER, the patient was placed on a Venturi mask with improvement in oxygenation. She was noted to have initial pulse of 140, sinus tachycardia, leukocytosis of 22, lactic acidosis, elevated troponin and had secretions suctioned from tracheostomy. The left subclavian triple-lumen catheter was placed. White cultures were obtained with urinalysis suggesting gross urinary tract infection and the patient was administered 3 L IV fluid bolus, IV vancomycin, IV Rocephin, placement of indwelling Roberts catheter, and admitted to ICU. At bedside, the patient is awake, and nonverbal. She is reported to have normotensive blood pressure readings by nursing staff. No further history can be obtained from the patient. Collateral information was obtained in the waiting room and discussed with the patient's daughter, Figueroa. She corroborates history. She states her mother is a full code. She notes her mother had a seizure back in January, requiring tracheostomy and PEG tube placement, but is not having problems with infections in the past several months. intermediate reports no skin breakdown. PAST MEDICAL HISTORY: Chronic bed-bound state secondary to stroke with residual right-sided neurological deficits and advanced multiple sclerosis, status post tracheostomy, PEG tube placement, seizure disorder, hypertension. PAST SURGICAL HISTORY: Tracheostomy, PEG tube. SOCIAL HISTORY: The patient is a assisted resident at [facility]. No reported tobacco or alcohol use. She is currently bedbound and dependent on activities of daily living. ALLERGIES: NONE DOCUMENTED. REVIEW OF SYSTEMS: Unable to obtain due to the patient's nonverbal state. MEDICATIONS: Will be reviewed once assisted medications are reconciled. FAMILY HISTORY: No premature history of sudden cardiac reported. PHYSICAL EXAMINATION: VITAL SIGNS: T-max 99.1, pulse initially 140, sinus tachycardia; currently 116, sinus tachycardia. Blood pressure ranges from 109 to 140s over 90s to 100s, oxygen saturation 100% on Venturi mask. GENERAL APPEARANCE: This is an elderly, chronically ill-appearing patient, bed-bound, nonverbal with head lying in right lateral decubitus position. HEENT: Normocephalic, atraumatic. No obvious facial asymmetry, Teeth clenched. NECK: Supple. There is tracheostomy noted. CARDIOVASCULAR SYSTEM: S1, S2. Tachycardic. No harsh murmurs. No reproducible chest wall tenderness. LUNGS: Decreased air entry on bilateral anterior auscultation. Increased work of breathing noted. Scattered rhonchi and no wheezing. ABDOMEN: Soft. Appears tender to mild palpation. No obvious distention. PEG tube noted. There is a prior surgical scar noted. Bowel sounds appreciated. EXTREMITIES: Bilateral upper extremities are contracted and stiffened with fists clenched. No seizure activity appreciated. No cyanosis or edema of lower extremities. GENITOURINARY: Indwelling Roberts catheter with turbid appearing urine LABORATORY DATA: WBC 22.1, H and H 14.5/44.0, platelets 287. Sodium 127, potassium 6, chloride 95, bicarb 20, glucose 129, BUN and creatinine 17/0.62, GFR of greater than 90. Lactic acid initially 3.1 with repeat 1.1. Troponin I 0.373. BNP 13. Albumin 3.9. Urinalysis reveals turbid urine with 2+ nitrites, 500 leukocyte esterase, greater than 50 white blood cells, 4+ bacteria and minimal squamous epithelial cells. IMAGING STUDIES: Serial chest x-rays done on 07/02/2019 suggests a dense left lower lobe pneumonia and right perihilar pneumonia. Increased density overlying right upper quadrant, which is difficult to further localize, which could potentially represent a renal calculus. ASSESSMENT: 1. Severe sepsis secondary to healthcare associated pneumonia and urinary tract infection. The patient will be admitted as inpatient status to Intensive Care Unit. She has received early goal-directed therapy with appropriate IV fluid bolus, broad-spectrum antibiotics with IV vancomycin and Rocephin and is awaiting subsequent administration. We will continue vancomycin, cefepime, and Levaquin. We will trend serial lactic acid levels. The patient had thick secretions from tracheostomy suction in the emergency room. Continue deep suctioning as well as nebulized bronchodilators. We will follow respiratory sputum cultures and urine cultures as well as blood cultures. We will continue frequent turning or repositioning and compressions to monitor for any potential skin breakdown. 2. Acute on chronic respiratory failure with hypoxia. The patient has known tracheostomy in place since late 2018 notably on trach collar at home. Continue oxygen modalities to maintain appropriate oxygenation. Code status discussed with patient's daughter, who would like full resuscitative measures. Continue appropriate treatment for pneumonia, out of bed positioning, nebulized bronchodilators, and frequent suctioning as aforementioned. 3. Multifocal pneumonia, suspect healthcare associated pneumonia. Continue antibiotics for pneumonia treatment. Follow respiratory sputum cultures. ICU doctor consulted for further management. 4. Urinary tract infection. Unclear if the patient has chronic indwelling Roberts catheter as neither the family nor nursing staff could clarify. Continue broad-spectrum antibiotics. Follow urine cultures and deescalate as appropriate. 5. Hyponatremia: Secondary to intravascular depletion. Continue IV fluid resuscitation and monitor serum electrolytes. 6. Lactic acidosis likely secondary to severe sepsis and hypoxic respiratory failure. Trend serial lactic acid levels, notably downtrending. 7. Elevated troponin of unspecified etiology. Suspect secondary to mismatch from severe sepsis and hypoxia. We will trend serial cardiac biomarkers to evaluate for any concerns of acute coronary syndrome. 8. Functional quadriplegia secondary to multiple sclerosis and chronic bedridden state from stroke. 9. History of multiple sclerosis, reportedly advanced. 10. History of stroke with baseline right-sided neurological deficits. 11. History of seizure disorder. 12. History of tracheostomy and PEG tube status. DVT prophylaxis with Lovenox. Check a.m. labs, 07/03/2019. CODE STATUS: Full code as discussed with the patient's daughter. DISPOSITION: The patient will be admitted as inpatient status to ICU. The patient seen and examined on 07/02/2019. Job ID: [id number] MTDD
[2019-07-03 04:48] LABS: Anion Gap 10 mmol/L (10-20); BUN (Urea Nitrogen) 13 mg/dL (9.8-20.1); Calc. Creatinine Clearance 171 mL/min (70-130); Calcium 8.7 mg/dL (7.8-10.44); Carbon Dioxide 22 mmol/L (22-29); Chloride 101 mmol/L (98-107); Estimated GFR-MDRD Greater than 90; Glucose 105 mg/dL (70-105); Potassium 4.4 mmol/L (3.5-5.1); Sodium 129 mmol/L (136-145)
[2019-07-03 04:58] LABS: #Lymphocytes 1.1 thou/uL (1.20-3.40); #Neutrophils 8.7 thou/uL (1.40-6.50); %Basophils 0.2 % (0.0-1.0); %Eosinophils 0.4 % (0.0-10.0); %Lymphocytes 10.5 % (21.0-51.0); %Monocytes 9.1 % (0.0-10.0); %Neutrophils 79.8 % (42.0-75.0); Mean Corpuscular HGB CONC 33.6 g/dL (32.0-36.0); Mean Corpuscular Hemoglobin 32.3 pg (27.0-31.0); Mean Platelet Volume 7.1 fL (7.4-10.4); Platelet Count 225 thou/uL (130-400); RBC Distribution Width 12.8 % (11.5-14.5); Red Blood Cell (RBC) Count 3.73 mill/uL (4.20-5.40); White Blood Cell (WBC) Count 10.9 thou/uL (4.8-10.8)
[2019-07-03 05:26] LABS: Critical Call Chem Troponin I RESULT DECREASING; Troponin I 0.607 ng/mL (< 0.028)
[2019-07-03] MEDS ORDERED: FLU VACC QS2019-20(6MOS UP)/PF 60 MCG/0.5 ML SYRINGE IM ONE (09:00)
[2019-07-03] MEDS ORDERED: Vancomycin 1.5 GRAM/300 ML BAG 1.5 GM in Premix Bag 1 BAG IVPB SCH (09:00)
--- NOTE | 2019-07-03 09:01 | CON ---
DATE OF CONSULTATION: 07/03/2019 REASON FOR CONSULTATION: The patient is in the ICU with pneumonia and a urinary tract infection. HISTORY OF PRESENT ILLNESS: Ms. Rueda is a 54[facility]-old jail resident, who was brought to the hospital yesterday with increasing shortness of breath. She was found to be hypoxic and tachycardic. She had increased suctions in her tracheostomy. She had a central line placed for sepsis and was started on antibiotics and fluids. She does not require initiation of mechanical ventilation. PAST MEDICAL HISTORY: 1. Multiple sclerosis. 2. History of a tracheostomy placement. 3. History of PEG tube placement. 4. Seizure disorder. 5. Hypertension. SOCIAL HISTORY: half-way resident, Melonie Baer. Does not smoke. Does not consume alcohol. ALLERGIES: NONE. REVIEW OF SYSTEMS: Unable to obtain because the patient cannot speak. FAMILY MEDICAL HISTORY: Unremarkable. MEDICATIONS: Prior to admission; 1. Tylenol No. 3. 2. DuoNeb. 3. Coreg. 4. Lipitor. 5. Lasix. 6. Pepcid. 7. Questran. 8. Mycostatin powder. 9. Lisinopril. 10. Robinul. 11. Dilantin. 12. Scopolamine patch. 13. Potassium chloride. 14. Keppra. PHYSICAL EXAMINATION: VITAL SIGNS: Temperature 99.4, pulse 88, blood pressure 142/97, and O2 saturation 100% on a trach collar. GENERAL: She will awaken. She tries to mouth some words. HEENT: Pupils are reactive. Sclerae are anicteric. Oropharynx with some thrush. NECK: No adenopathy or JVD. Tracheostomy midline, clean. CARDIOVASCULAR: S1 and S2. Regular without audible murmur. LUNGS: Slightly diminished breath sounds at both bases. ABDOMEN: Large midline surgical scar well healed. She has a PEG tube in place. : She has a Roberts in place. EXTREMITIES: No clubbing, cyanosis, or edema. LABORATORY DATA: White blood cell count 10.9 down from 22.1, hematocrit 35.8, and platelet count 225. Sodium 129, potassium 4.4, chloride 101, CO2 of 22, BUN 13, creatinine 0.4, and glucose 105. Troponin 0.6. Urinalysis showed too numerous to count white blood cells. Chest x-ray shows questionable left lower lobe infiltrate. ASSESSMENT: 1. half-way-acquired pneumonia. 2. Multiple sclerosis. 3. Urinary tract infection. 4. Hyponatremia. PLAN: 1. The patient seems to be responding well to the vancomycin, cefepime, and Levaquin combination. I would go ahead and add some Diflucan given the appearance of her mouth. 2. At the current time, does not require mechanical ventilation and can be transferred to the IMCU. 3. Trend her labs. 4. DVT prophylaxis with enoxaparin. 5. GI prophylaxis with Pepcid. Job ID: [id number]
[2019-07-03] MEDS: Enoxaparin Sodium 40 MG/0.4 ML SYRINGE SC SCH (09:27)
[2019-07-03] MEDS: Fluconazole 100 MG TAB PER TUBE SCH (09:46)
[2019-07-03] MEDS: Famotidine 20 MG TAB PER TUBE SCH ×2 (09:46→19:35)
[2019-07-03] MEDS: Morphine 2 MG/ML SYRINGE SLOW IVP PRN ×2 (10:06→19:33)
--- NOTE | 2019-07-03 11:39 | PDOC.HOSPP ---
- Subjective Encounter Date: 07/03/19 Encounter Time: 11:00 Subjective: on trach collar, does not communicate she apparently talks with a speaking valve per daughter - Objective Vital Signs & Weight: Vital Signs (12 hours) Temp Pulse Resp Pulse Ox 07/03/19 10:51 89 19 100 07/03/19 08:24 100 07/03/19 08:22 94 28 H 98 07/03/19 08:00 99.0 F 100 07/03/19 04:00 99.4 F 07/03/19 02:49 94 20 100 07/03/19 01:50 100 07/03/19 00:00 99.2 F Weight Weight 171 lb 1.259 oz Most Recent Monitor Data Heart Rate from ECG 81 NIBP 120/91 NIBP BP-Mean 100 Respiration from ECG 22 SpO2 100 I&O: 07/02/19 07/03/19 07/04/19 06:59 06:59 06:59 Intake Total 878 100 Output Total 750 760 Balance 128 -660 Result Diagrams: 07/03/19 04:00 07/03/19 04:00 Hospitalist ROS - Medication Medications: Active Medications Generic Name Dose Route Start Last Admin Trade Name Freq PRN Reason Stop Dose Admin Albuterol/Ipratropium 3 ml 07/03/19 02:30 07/03/19 10:51 Duoneb NEB 3 ml [id number] SONIA Administration Enoxaparin Sodium 40 mg 07/03/19 09:00 07/03/19 09:27 Lovenox SC 40 mg 0900 SONIA Administration Famotidine 20 mg 07/03/19 09:00 07/03/19 09:46 Pepcid PER TUBE 20 mg BID SONIA Administration Fluconazole 100 mg 07/03/19 09:00 07/03/19 09:46 Diflucan PER TUBE 07/06/19 09:01 100 mg DAILY SONIA Administration Sodium Chloride 1,000 mls @ 125 mls/hr 07/02/19 23:45 07/03/19 09:30 Normal Saline 0.9% IV 1,000 mls .Q8H SONIA Administration Levofloxacin 750 mg/ Device 150 mls @ 100 mls/hr 07/03/19 01:00 07/03/19 00: 23 IVPB 150 mls Q24HR SONIA Administration Morphine Sulfate 2 mg 07/03/19 00:12 07/03/19 10:06 Morphine SLOW IVP 2 mg Q4H PRN Administration Severe Pain (7-10) - Exam General Appearance: awake alert Eye: PERRL, anicteric sclera ENT: no oropharyngeal lesions, moist mucosa Neck - other findings: trach+ Heart: RRR, no murmur Respiratory: no wheezes, no rales, rhonchi Gastrointestinal: soft, non-tender, non-distended, normal bowel sounds Gastrointestinal - other findings: peg+ Extremities - other findings: contractures of extremities Neurological - other findings: right hemiplegia, left are contracted with min movement of left UE Hosp A/P (1) Acute respiratory failure Code(s): J96.00 - ACUTE RESPIRATORY FAILURE, UNSP W HYPOXIA OR HYPERCAPNIA Status: Acute Qualifiers: Respiratory failure complication: hypoxia Qualified Code(s): J96.01 - Acute respiratory failure with hypoxia (2) PNA (pneumonia) Code(s): J18.9 - PNEUMONIA, UNSPECIFIED ORGANISM Status: Acute Qualifiers: Pneumonia type: due to unspecified organism (3) Chronic systolic heart failure Code(s): I50.22 - CHRONIC SYSTOLIC (CONGESTIVE) HEART FAILURE Status: Chronic (4) Quadriparesis Code(s): G82.50 - QUADRIPLEGIA, UNSPECIFIED Status: Chronic (5) Seizure disorder Code(s): G40.909 - EPILEPSY, UNSP, NOT INTRACTABLE, WITHOUT STATUS EPILEPTICUS Status: Chronic (6) H/O: CVA (cerebrovascular accident) Code(s): Z86.73 - PRSNL HX OF TIA (TIA), AND CEREB INFRC W/O RESID DEFICITS Status: Chronic (7) HTN (hypertension) Code(s): I10 - ESSENTIAL (PRIMARY) HYPERTENSION Status: Chronic Qualifiers: Hypertension type: essential hypertension Qualified Code(s): I10 - Essential (primary) hypertension (8) Multiple sclerosis Code(s): G35 - MULTIPLE SCLEROSIS Status: Chronic (9) Obesity (BMI 30-39.9) Code(s): E66.9 - OBESITY, UNSPECIFIED Status: Chronic - Plan has chr trach and peg, currently on trach collar has right hemiplegia with contracture of left extremities as well, functional quadriplegia, bed bound status is on cefipime, levaquin, diflucan, nebs continue home doses of keppra, dilantin, coreg, lisinopril and lipitor d/w daughter over phone, are aware of patients poor physical condition ( quadriparesis) and being full code with multiple med issues Palliative care for code status and goals of care start peg feeding jevity 1 can tid with free water 200ml tid for today prognosis guarded
[2019-07-03] MEDS ORDERED: Sodium Bicarbonate Tab 325 MG TAB PER TUBE PRN ×2 (11:42→16:39)
[2019-07-03] MEDS ORDERED: Bisacodyl 10 MG SUPP PR PRN (11:42)
[2019-07-03] MEDS: Scopolamine 1.5 mg/72 hour Patch TOP SCH (12:40)
[2019-07-03] MEDS: Cefepime 1 GM in Sodium Chloride 0.9% 100 ML IVPB SCH (14:13)
--- NOTE | 2019-07-03 16:10 | PDOC.PALCO ---
Palliative Care Consult - Consult Details Requesting Physician: Dr De Los Santos Reason for Consult: goals of care, advance directives assistance, assistance with communication prognosis/disease Family Members Present: Two of patients daughters at bedside, she has a total of 4 daughters 1son - Pertinent HPI Well known to the palliative care team. Patient is a 54 year old female who resides at [facility] who is bedbound, trach dependent, Peg for nutritional support secondary to progressive multiple sclerosis and pronounced right sided weakness secondary to neurological deficits. Max assist for ADL. Facility reports onsed to increase of shortness of breath with increase in respiratory rate, transported to [facility] emergency for evaluation. Identified to have elevated troponin, copious secretions from trach, UTI, fluid deficit. Admitted to CCU for sepsis, respiratory failure, pnuemonia, UTI. - Social History Smoking Status: Never smoker Smoking: no tobacco exposure Alcohol Use: none Drug Use History: none Living Situation: [facility] resident - Medications MAR Reviewed: Yes - Allergies Allergies/Adverse Reactions: Allergies Allergy/AdvReac Type Severity Reaction Status Date / Time No Known Drug Allergies Allergy Verified 02/25/19 17:18 - Subjective Awake, eye movement with minimal shake of head. Unable to obtain full review of systems secondary to aphagic and trach. - ROS Constitutional: alert - Objective Vital Signs: Vital Signs - Most Recent Temp Pulse Resp BP Pulse Ox 98.7 F 76 19 10 L 07/03/19 12:00 07/03/19 13:59 07/03/19 13:59 07/03/19 13:59 Palliative Performance Scale: 20 - Physical Exam Constitutional: ill appearing, mild distress HEENT: EOMI, moist MMs, sclera anicteric Respiratory: no wheezing, labored respirations Deviation from normal: trach with secretions Cardiovascular: RRR Gastrointestinal: non-tender (PEG), positive bowel sounds Genitourinary: bryan catheter Musculoskeletal: pulses present, edema present, diffuse muscle atrophy, muscle wasting Deviation from normal: contractures to hands, Deviation from normal: Fasciculations observed right upper ext Deviation from normal: anxious - Problem List (1) Sepsis due to pneumonia Code(s): J18.9 - PNEUMONIA, UNSPECIFIED ORGANISM; A41.9 - SEPSIS, UNSPECIFIED ORGANISM Current Visit: Yes Status: Acute (2) Sepsis due to urinary tract infection Code(s): A41.9 - SEPSIS, UNSPECIFIED ORGANISM; N39.0 - URINARY TRACT INFECTION, SITE NOT SPECIFIED Current Visit: Yes Status: Acute (3) PNA (pneumonia) Code(s): J18.9 - PNEUMONIA, UNSPECIFIED ORGANISM Current Visit: Yes Status: Acute Qualifiers: Pneumonia type: due to unspecified organism (4) Acute respiratory failure Code(s): J96.00 - ACUTE RESPIRATORY FAILURE, UNSP W HYPOXIA OR HYPERCAPNIA Current Visit: No Status: Acute Qualifiers: Respiratory failure complication: hypoxia Qualified Code(s): J96.01 - Acute respiratory failure with hypoxia (5) H/O: CVA (cerebrovascular accident) Code(s): Z86.73 - PRSNL HX OF TIA (TIA), AND CEREB INFRC W/O RESID DEFICITS Current Visit: No Status: Chronic (6) Multiple sclerosis Code(s): G35 - MULTIPLE SCLEROSIS Current Visit: No Status: Chronic (7) Obesity (BMI 30-39.9) Code(s): E66.9 - OBESITY, UNSPECIFIED Current Visit: No Status: Chronic (8) Seizure disorder Code(s): G40.909 - EPILEPSY, UNSP, NOT INTRACTABLE, WITHOUT STATUS EPILEPTICUS Current Visit: No Status: Chronic - Plan/Recommendations Plan: Initial visit with patient and two daughters at bedside, discussed disease trajectory and decline related to Multiple Sclerosis, S/P CVA and associated chronic conditions. Daughters appear limited in capacity to fully understand disease processes. Gently revisited resuscitation status. Daughters adamant to pursue all aggressive measures. RN caring for patient reports that patient is able to communicate with slight movement of her head. Will follow up with patient and allow for time to discuss disease progression and attempt to identify if patient has specifics she desires in relation to goal of care with chronic conditions and continued decline. Communicated with Dr Tavares [[id number]] minutes spent on this encounter with >50% of the time in counseling and coordination of care. Thank you for this very appropriate consult.
[2019-07-03] MEDS ORDERED: Pancrelipase DR 12000 1 CAP FS PRN (16:39)
[2019-07-03] MEDS: levETIRAcetam 500 mg/5 ml Oral Solution PER TUBE SCH (19:35)
[2019-07-03] MEDS: Carvedilol 6.25 MG TAB PO SCH (19:35)
[2019-07-03] MEDS: Atorvastatin Calcium 10 MG TAB PO SCH (19:35)
[2019-07-03] MEDS: Cholestyramine/Aspartame 4 gm Packet PO SCH (19:36)
[2019-07-03] MEDS ORDERED: Famotidine 20 MG TAB PER TUBE SCH (21:00)
[2019-07-04] MEDS: Cefepime 1 GM in Sodium Chloride 0.9% 100 ML IVPB SCH ×2 (01:15→14:59)
[2019-07-04] MEDS: Sodium Chloride 0.9% 1,000 ML IV SCH ×2 (03:47→19:05)
[2019-07-04 07:22] LABS: #Eosinphils 0.2 thou/uL (0.0-0.7); #Lymphocytes 1.2 thou/uL (1.20-3.40); #Monocytes 0.7 thou/uL (0.11-0.59); #Neutrophils 4.8 thou/uL (1.40-6.50); %Basophils 0.1 % (0.0-1.0); %Eosinophils 2.4 % (0.0-10.0); %Lymphocytes 17.5 % (21.0-51.0); %Monocytes 10.3 % (0.0-10.0); %Neutrophils 69.8 % (42.0-75.0); Hemoglobin 11.1 g/dL (12.0-16.0); Mean Corpuscular HGB CONC 33.3 g/dL (32.0-36.0); Mean Corpuscular Hemoglobin 31.9 pg (27.0-31.0); Mean Corpuscular Volume 95.9 fL (78.0-98.0); Mean Platelet Volume 6.8 fL (7.4-10.4); Platelet Count 173 thou/uL (130-400); RBC Distribution Width 12.6 % (11.5-14.5); Red Blood Cell (RBC) Count 3.46 mill/uL (4.20-5.40); White Blood Cell (WBC) Count 6.9 thou/uL (4.8-10.8)
[2019-07-04 08:00] LABS: ALT (SGPT) 17 U/L (8-55); AST (SGOT) 17 U/L (5-34); Albumin 3.1 g/dL (3.5-5.0); Alkaline Phosphatase 110 U/L (40-110); Anion Gap 10 mmol/L (10-20); BUN (Urea Nitrogen) 10 mg/dL (9.8-20.1); Bilirubin, Total 0.4 mg/dL (0.2-1.2); Calc. Creatinine Clearance 171 mL/min (70-130); Calcium 8.6 mg/dL (7.8-10.44); Carbon Dioxide 22 mmol/L (22-29); Chloride 103 mmol/L (98-107); Estimated GFR-MDRD Greater than 90; Globulin 2.8 g/dL (2.4-3.5); Glucose 86 mg/dL (70-105); Potassium 3.8 mmol/L (3.5-5.1); Protein, Total 5.9 g/dL (6.0-8.3); Sodium 131 mmol/L (136-145)
[2019-07-04] MEDS ORDERED: Cefepime 1 GM in Sodium Chloride 0.9% 100 ML IVPB SCH (08:00)
[2019-07-04] MEDS: Lisinopril 10 MG TAB PO SCH (09:43)
[2019-07-04] MEDS: Famotidine 20 MG TAB PER TUBE SCH ×2 (09:43→20:50)
[2019-07-04] MEDS: Morphine 2 MG/ML SYRINGE SLOW IVP PRN (09:43)
[2019-07-04] MEDS: levETIRAcetam 500 mg/5 ml Oral Solution PER TUBE SCH ×2 (09:43→20:49)
[2019-07-04] MEDS: Fluconazole 100 MG TAB PER TUBE SCH (09:43)
[2019-07-04] MEDS: Enoxaparin Sodium 40 MG/0.4 ML SYRINGE SC SCH (09:44)
[2019-07-04] MEDS: Carvedilol 6.25 MG TAB PO SCH ×2 (09:44→20:50)
[2019-07-04] MEDS: Cholestyramine/Aspartame 4 gm Packet PO SCH ×2 (11:00→21:05)
--- NOTE | 2019-07-04 11:44 | PDOC.HOSPP ---
- Subjective Encounter Date: 07/04/19 Encounter Time: 10:25 Subjective: awakens to touch, not oriented on trach with increased secretions - Objective Vital Signs & Weight: Vital Signs (12 hours) Temp Pulse Resp BP BP Pulse Ox 07/04/19 11:36 98.3 F 94 16 144/94 H 100 07/04/19 11:03 97 07/04/19 10:59 93 20 98 07/04/19 09:44 148/93 H 07/04/19 09:43 148/93 H 07/04/19 07:44 98.1 F 93 18 148/93 H 98 07/04/19 07:03 99 07/04/19 07:01 90 20 99 07/04/19 04:20 97.6 F 84 17 143/93 H 100 07/04/19 02:19 84 20 93 L Weight Admit Weight 171 lb Weight 171 lb 1.259 oz Most Recent Monitor Data Heart Rate from ECG 90 NIBP 138/102 NIBP BP-Mean 114 Respiration from ECG 23 SpO2 100 I&O: 07/03/19 07/04/19 07/05/19 06:59 06:59 06:59 Intake Total 878 4104 Output Total 750 2009 Balance 128 4 Result Diagrams: 07/04/19 07:02 07/04/19 07:02 Hospitalist ROS - Medication Medications: Active Medications Generic Name Dose Route Start Last Admin Trade Name Freq PRN Reason Stop Dose Admin Albuterol/Ipratropium 3 ml 07/03/19 02:30 07/04/19 10:59 Duoneb NEB 3 ml [id number] SONIA Administration Atorvastatin Calcium 10 mg 07/03/19 21:00 07/03/19 19:35 Lipitor PO 10 mg HS SONIA Administration Carvedilol 6.25 mg 07/03/19 21:00 07/04/19 09:44 Coreg PO 6.25 mg BID SONIA Administration Cholestyramine Resin 4 gm 07/03/19 22:00 07/04/19 09:44 Questran Light PO 4 gm 1000,2200 SONIA Administration Enoxaparin Sodium 40 mg 07/03/19 09:00 07/04/19 09:44 Lovenox SC 40 mg 0900 SONIA Administration Famotidine 20 mg 07/03/19 09:00 07/04/19 09:43 Pepcid PER TUBE 20 mg BID SONIA Administration Fluconazole 100 mg 07/03/19 09:00 07/04/19 09:43 Diflucan PER TUBE 07/06/19 09:01 100 mg DAILY SONIA Administration Sodium Chloride 1,000 mls @ 70 mls/hr 07/03/19 14:00 07/04/19 03:47 Normal Saline 0.9% IV 1,000 mls .[id number] SONIA Administration Cefepime HCl 1 gm/ Sodium 100 mls @ 200 mls/hr 07/03/19 14:00 07/04/19 01:15 Chloride IVPB 100 mls 0200,1400 SONIA Administration Levetiracetam 1,000 mg 07/03/19 21:00 07/04/19 09:43 Keppra Oral Solution PER TUBE 1,000 mg BID SONIA Administration Levofloxacin 500 mg 07/04/19 06:00 07/04/19 06:03 Levaquin PO 500 mg 0600 SONIA Administration Lisinopril 10 mg 07/04/19 09:00 07/04/19 09:43 Zestril PO 10 mg DAILY SONIA Administration Morphine Sulfate 2 mg 07/03/19 00:12 07/04/19 09:43 Morphine SLOW IVP 2 mg Q4H PRN Administration Severe Pain (7-10) Phenytoin Sodium 200 mg 07/03/19 21:00 07/03/19 19:35 Dilantin PER TUBE 200 mg HS SONIA Administration Scopolamine 3 mg 07/03/19 12:00 07/03/19 12:40 Transderm Scop TOP 3 mg Q3D SONIA Administration - Exam General Appearance: ill appearing Eye: anicteric sclera ENT: no oropharyngeal lesions, moist mucosa Neck: no JVD Neck - other findings: trach+ Heart: RRR, no murmur Respiratory: no wheezes, no rales, rhonchi Gastrointestinal: soft, non-tender, non-distended, normal bowel sounds Gastrointestinal - other findings: peg+ Extremities: no cyanosis, no edema Neurological: hemiplegia Neurological - other findings: functional quadriparesis Hosp A/P (1) Acute respiratory failure Code(s): J96.00 - ACUTE RESPIRATORY FAILURE, UNSP W HYPOXIA OR HYPERCAPNIA Status: Acute Qualifiers: Respiratory failure complication: hypoxia Qualified Code(s): J96.01 - Acute respiratory failure with hypoxia (2) PNA (pneumonia) Code(s): J18.9 - PNEUMONIA, UNSPECIFIED ORGANISM Status: Acute Qualifiers: Pneumonia type: due to unspecified organism (3) Chronic systolic heart failure Code(s): I50.22 - CHRONIC SYSTOLIC (CONGESTIVE) HEART FAILURE Status: Chronic (4) Quadriparesis Code(s): G82.50 - QUADRIPLEGIA, UNSPECIFIED Status: Chronic (5) Seizure disorder Code(s): G40.909 - EPILEPSY, UNSP, NOT INTRACTABLE, WITHOUT STATUS EPILEPTICUS Status: Chronic (6) H/O: CVA (cerebrovascular accident) Code(s): Z86.73 - PRSNL HX OF TIA (TIA), AND CEREB INFRC W/O RESID DEFICITS Status: Chronic (7) HTN (hypertension) Code(s): I10 - ESSENTIAL (PRIMARY) HYPERTENSION Status: Chronic Qualifiers: Hypertension type: essential hypertension Qualified Code(s): I10 - Essential (primary) hypertension (8) Multiple sclerosis Code(s): G35 - MULTIPLE SCLEROSIS Status: Chronic (9) Obesity (BMI 30-39.9) Code(s): E66.9 - OBESITY, UNSPECIFIED Status: Chronic - Plan has chr trach and peg, currently on trach collar has right hemiplegia with contracture of left extremities as well, functional quadriplegia, bed bound status is on cefipime, levaquin, diflucan, nebs continue home doses of keppra, dilantin, coreg, lisinopril and lipitor d/w daughter over phone, are aware of patients poor physical condition ( quadriparesis) and being full code with multiple med issues (07/03/2019) Palliative care for code status and goals of care peg feeding jevity with free water prognosis guarded
--- NOTE | 2019-07-04 20:04 | PRG ---
DATE OF SERVICE: 07/04/2019 SUBJECTIVE: Ana Rueda has changed a very little from last time I saw her. She is in the hospital. She is nonverbal. She will briefly make eye contact and nod, which she did last time I saw her. She has a tracheostomy in place. She is in no distress. Chest x-ray reviewed shows haziness at her left lung base. This is subtle. Prognosis obviously still dismal. OBJECTIVE: LUNGS: She has rhonchi on exam secondary to tracheobronchial secretions. HEART: Regular rhythm. ABDOMEN: Soft. EXTREMITIES: Without asymmetry. LABORATORY DATA: White count 6.9, hemoglobin 11.1, platelets 173. Electrolytes are unremarkable. IMPRESSION: 1. Advanced and near end-stage or end-stage multiple sclerosis. 2. Chronically bedridden. 3. Status post tracheostomy. 4. Chest x-ray abnormalities. This could be pneumonia or could be simply secondary to mucus plugging. It is reasonable to convert her to p.o. or enteral antimicrobial therapy within the next 24 hours and consider transfer back to her care environment if she is stable in 48 hours. Job ID: [id number]
[2019-07-04] MEDS: Atorvastatin Calcium 10 MG TAB PO SCH (20:50)
[2019-07-05] MEDS: Cefepime 1 GM in Sodium Chloride 0.9% 100 ML IVPB SCH (01:18)
[2019-07-05] MEDS: Sodium Chloride 0.9% 1,000 ML IV SCH (05:08)
[2019-07-05] MEDS: Cholestyramine/Aspartame 4 gm Packet PO SCH ×2 (09:50→21:13)
[2019-07-05] MEDS: Famotidine 20 MG TAB PER TUBE SCH ×2 (09:50→20:15)
[2019-07-05] MEDS: levETIRAcetam 500 mg/5 ml Oral Solution PER TUBE SCH ×2 (09:50→20:14)
[2019-07-05] MEDS: Enoxaparin Sodium 40 MG/0.4 ML SYRINGE SC SCH (09:50)
[2019-07-05] MEDS: Fluconazole 100 MG TAB PER TUBE SCH (09:50)
--- NOTE | 2019-07-05 10:10 | PDOC.PALPN ---
Palliative Progress Note - Subjective resting, lethargic, trach with copious secretions. - Objective Vital Signs: Vital Signs - Most Recent Temp Pulse Resp BP Pulse Ox 97.9 F 100 18 147/97 H 98 07/05/19 07:27 07/05/19 07:27 07/05/19 07:27 07/05/19 07:27 07/05/19 07:27 - Physical Exam Constitutional: ill appearing HEENT: moist MMs, sclera anicteric, poor dentition Deviation from normal: copious secretions to trach Cardiovascular: RRR Gastrointestinal: soft, non-tender, incontinent Musculoskeletal: edema present, diffuse muscle atrophy, muscle wasting Deviation from normal: funcitional quadriparesis Skin: no lesions, no rash, normal turgor Psychiatric: flat affect - Assessment (1) Sepsis due to pneumonia Code(s): J18.9 - PNEUMONIA, UNSPECIFIED ORGANISM; A41.9 - SEPSIS, UNSPECIFIED ORGANISM Current Visit: Yes Status: Acute (2) Sepsis due to urinary tract infection Code(s): A41.9 - SEPSIS, UNSPECIFIED ORGANISM; N39.0 - URINARY TRACT INFECTION, SITE NOT SPECIFIED Current Visit: Yes Status: Acute (3) PNA (pneumonia) Code(s): J18.9 - PNEUMONIA, UNSPECIFIED ORGANISM Current Visit: Yes Status: Acute Qualifiers: Pneumonia type: due to unspecified organism (4) Acute respiratory failure Code(s): J96.00 - ACUTE RESPIRATORY FAILURE, UNSP W HYPOXIA OR HYPERCAPNIA Current Visit: No Status: Acute Qualifiers: Respiratory failure complication: hypoxia Qualified Code(s): J96.01 - Acute respiratory failure with hypoxia (5) H/O: CVA (cerebrovascular accident) Code(s): Z86.73 - PRSNL HX OF TIA (TIA), AND CEREB INFRC W/O RESID DEFICITS Current Visit: No Status: Chronic (6) Multiple sclerosis Code(s): G35 - MULTIPLE SCLEROSIS Current Visit: No Status: Chronic (7) Obesity (BMI 30-39.9) Code(s): E66.9 - OBESITY, UNSPECIFIED Current Visit: No Status: Chronic (8) Seizure disorder Code(s): G40.909 - EPILEPSY, UNSP, NOT INTRACTABLE, WITHOUT STATUS EPILEPTICUS Current Visit: No Status: Chronic - Plan Plan: Patient has in the past been able to communicate by slight shake of her head to yes or no questions. Attempted to communicate with patient however, she had received medication for pain and was resting, unable to arouse. Will follow up . Communicated with Rn caring for patient. [20] minutes spent on this encounter with >50% of the time in counseling and coordination of care. - ROS Non Response: due to mental status
--- NOTE | 2019-07-05 10:13 | PRG ---
DATE OF SERVICE: 07/05/2019 SUBJECTIVE: Ana Rueda is in no distress. OBJECTIVE: VITAL SIGNS: She is afebrile. Heart rate is 100, respiratory rate is 18, oximetry is 98%, and blood pressure 147/97. LUNGS: Still has rhonchi on exam. HEART: Regular rhythm. ABDOMEN: Soft. LABORATORY DATA: There is no new lab today. IMPRESSION: End-stage multiple sclerosis, bedridden with a tracheostomy. I have little in the way of recommendations at this point. I would consider switching her to enteral antimicrobial therapy. We will sign off. Job ID: [id number]
--- NOTE | 2019-07-05 10:21 | PDOC.PALPN ---
Palliative Progress Note - Subjective Patient is bed bound requiring full assist for all ADL's secondary to functional quadriparesis. Receives nutritional support and medication via PEG, and Trach in place to maintain airway. Able to communicate with a shake of her head. - Objective Vital Signs: Vital Signs - Most Recent Temp Pulse Resp BP Pulse Ox 97.9 F 100 18 147/97 H 98 07/05/19 07:27 07/05/19 07:27 07/05/19 07:27 07/05/19 07:27 07/05/19 07:27 - Physical Exam Constitutional: ill appearing, mild distress HEENT: moist MMs, sclera anicteric Respiratory: diminished lung sound Deviation from normal: copious secretions via trach. Cardiovascular: RRR Gastrointestinal: soft, non-tender, incontinent Genitourinary: bryan catheter Musculoskeletal: edema present, diffuse muscle atrophy, muscle wasting Neurology: hemiplegia Deviation from normal: functional quadriparesis Skin: no lesions, no rash Psychiatric: flat affect - Assessment (1) Sepsis due to pneumonia Code(s): J18.9 - PNEUMONIA, UNSPECIFIED ORGANISM; A41.9 - SEPSIS, UNSPECIFIED ORGANISM Current Visit: Yes Status: Acute (2) Sepsis due to urinary tract infection Code(s): A41.9 - SEPSIS, UNSPECIFIED ORGANISM; N39.0 - URINARY TRACT INFECTION, SITE NOT SPECIFIED Current Visit: Yes Status: Acute (3) PNA (pneumonia) Code(s): J18.9 - PNEUMONIA, UNSPECIFIED ORGANISM Current Visit: Yes Status: Acute Qualifiers: Pneumonia type: due to unspecified organism (4) Acute respiratory failure Code(s): J96.00 - ACUTE RESPIRATORY FAILURE, UNSP W HYPOXIA OR HYPERCAPNIA Current Visit: No Status: Acute Qualifiers: Respiratory failure complication: hypoxia Qualified Code(s): J96.01 - Acute respiratory failure with hypoxia (5) H/O: CVA (cerebrovascular accident) Code(s): Z86.73 - PRSNL HX OF TIA (TIA), AND CEREB INFRC W/O RESID DEFICITS Current Visit: No Status: Chronic (6) Multiple sclerosis Code(s): G35 - MULTIPLE SCLEROSIS Current Visit: No Status: Chronic (7) Obesity (BMI 30-39.9) Code(s): E66.9 - OBESITY, UNSPECIFIED Current Visit: No Status: Chronic (8) Seizure disorder Code(s): G40.909 - EPILEPSY, UNSP, NOT INTRACTABLE, WITHOUT STATUS EPILEPTICUS Current Visit: No Status: Chronic - Plan Plan: Visited with patient, she is able to communicate with a shake of her head. * Discussed resuscitation status as well as if she desires to continue with aggressive measures to manage symptoms related to chronic conditions. She shakes her head yes to all questions. *Provided information in relation to hospice care and opportunity to manage symptoms and prevent recurrent stays to the hospital. In asking if patient desires to have an information visit in relation to hospice she shook her head no. *In asking if she desires to designate on of her children as MPOA she nodded no , when asked if she desired to have all her children come to decisions if needed to make decisions for her she shook her head yes. *Education in relation to disease progression of MS paired with her multiple morbidities *Information in relation to overview of hospice services in the event she would consider in the future Communicated with Dr Tavares and Ne OROZCO *palliative care team will sign off, however if we can assist in the future please reconsult us. [75] minutes spent on this encounter with >50% of the time in counseling and coordination of care. - ROS Non Response: due to endotracheal tube Constitutional: alert, weakness ENT: alteration in dentition
[2019-07-05] MEDS: Lisinopril 10 MG TAB PO SCH (11:53)
[2019-07-05] MEDS: Carvedilol 6.25 MG TAB PO SCH ×2 (11:53→20:15)
--- NOTE | 2019-07-05 13:52 | PDOC.HOSPP ---
- Subjective Encounter Date: 07/05/19 Encounter Time: 10:00 Subjective: awakens to touch, is nonverbal - Objective Vital Signs & Weight: Vital Signs (12 hours) Temp Pulse Resp BP BP Pulse Ox 07/05/19 11:53 159/106 H 07/05/19 11:12 89 20 98 07/05/19 10:54 97.9 F 88 18 159/106 H 99 07/05/19 08:00 98 07/05/19 07:27 97.9 F 100 18 147/97 H 98 07/05/19 06:40 98 07/05/19 06:38 98 20 98 07/05/19 04:19 98.2 F 92 18 141/96 H 97 07/05/19 02:40 98 20 99 Weight Admit Weight 171 lb Weight 171 lb 1.259 oz Most Recent Monitor Data Heart Rate from ECG 90 NIBP 138/102 NIBP BP-Mean 114 Respiration from ECG 23 SpO2 100 I&O: 07/04/19 07/05/19 07/06/19 06:59 06:59 06:59 Intake Total 4104 3080 Output Total 2009 1300 Balance 2094 1780 Result Diagrams: 07/04/19 07:02 07/04/19 07:02 Hospitalist ROS - Medication Medications: Active Medications Generic Name Dose Route Start Last Admin Trade Name Edilsonq PRN Reason Stop Dose Admin Albuterol/Ipratropium 3 ml 07/03/19 02:30 07/05/19 11:12 Duoneb NEB 3 ml [id number] SONIA Administration Atorvastatin Calcium 10 mg 07/03/19 21:00 07/04/19 20:50 Lipitor PO 10 mg HS SONIA Administration Carvedilol 6.25 mg 07/03/19 21:00 07/05/19 11:53 Coreg PO 6.25 mg BID SONIA Administration Cholestyramine Resin 4 gm 07/03/19 22:00 07/05/19 09:50 Questran Light PO 4 gm 1000,2200 SONIA Administration Enoxaparin Sodium 40 mg 07/03/19 09:00 07/05/19 09:50 Lovenox SC 40 mg 0900 SONIA Administration Famotidine 20 mg 07/03/19 09:00 07/05/19 09:50 Pepcid PER TUBE 20 mg BID SONIA Administration Fluconazole 100 mg 07/03/19 09:00 07/05/19 09:50 Diflucan PER TUBE 07/06/19 09:01 100 mg DAILY SONIA Administration Levetiracetam 1,000 mg 07/03/19 21:00 07/05/19 09:50 Keppra Oral Solution PER TUBE 1,000 mg BID SONIA Administration Levofloxacin 500 mg 07/04/19 06:00 07/05/19 05:08 Levaquin PO 500 mg 0600 SONIA Administration Lisinopril 10 mg 07/04/19 09:00 07/05/19 11:53 Zestril PO 10 mg DAILY SONIA Administration Morphine Sulfate 2 mg 07/03/19 00:12 07/04/19 09:43 Morphine SLOW IVP 2 mg Q4H PRN Administration Severe Pain (7-10) Phenytoin Sodium 200 mg 07/03/19 21:00 07/04/19 20:49 Dilantin PER TUBE 200 mg HS SONIA Administration Scopolamine 3 mg 07/03/19 12:00 07/03/19 12:40 Transderm Scop TOP 3 mg Q3D SONIA Administration - Exam General Appearance: awake alert Eye: PERRL, anicteric sclera ENT: no oropharyngeal lesions, moist mucosa Neck: no JVD Neck - other findings: trach+ Heart: no murmur, no gallops Respiratory: no wheezes, no rales, rhonchi Gastrointestinal: soft, non-tender, non-distended Gastrointestinal - other findings: peg+ Extremities: no clubbing, no edema Neurological: hemiplegia Neurological - other findings: functional quadriplegia Hosp A/P (1) Acute respiratory failure Code(s): J96.00 - ACUTE RESPIRATORY FAILURE, UNSP W HYPOXIA OR HYPERCAPNIA Status: Acute Qualifiers: Respiratory failure complication: hypoxia Qualified Code(s): J96.01 - Acute respiratory failure with hypoxia (2) PNA (pneumonia) Code(s): J18.9 - PNEUMONIA, UNSPECIFIED ORGANISM Status: Acute Qualifiers: Pneumonia type: due to unspecified organism (3) Chronic systolic heart failure Code(s): I50.22 - CHRONIC SYSTOLIC (CONGESTIVE) HEART FAILURE Status: Chronic (4) Quadriparesis Code(s): G82.50 - QUADRIPLEGIA, UNSPECIFIED Status: Chronic (5) Seizure disorder Code(s): G40.909 - EPILEPSY, UNSP, NOT INTRACTABLE, WITHOUT STATUS EPILEPTICUS Status: Chronic (6) H/O: CVA (cerebrovascular accident) Code(s): Z86.73 - PRSNL HX OF TIA (TIA), AND CEREB INFRC W/O RESID DEFICITS Status: Chronic (7) HTN (hypertension) Code(s): I10 - ESSENTIAL (PRIMARY) HYPERTENSION Status: Chronic Qualifiers: Hypertension type: essential hypertension Qualified Code(s): I10 - Essential (primary) hypertension (8) Multiple sclerosis Code(s): G35 - MULTIPLE SCLEROSIS Status: Chronic (9) Obesity (BMI 30-39.9) Code(s): E66.9 - OBESITY, UNSPECIFIED Status: Chronic - Plan has chr trach and peg, currently on trach collar has right hemiplegia with contracture of left extremities as well, functional quadriplegia, bed bound status is on levaquin, diflucan, nebs, scopalamine patch continue home doses of keppra, dilantin, coreg, lisinopril and lipitor d/w daughter over phone, are aware of patients poor physical condition ( quadriparesis) and being full code with multiple med issues (07/03/2019) Palliative care for code status and goals of care, is full code. peg feeding jevity with free water prognosis guarded dc plan when trach secretions get less
[2019-07-05] MEDS: Atorvastatin Calcium 10 MG TAB PO SCH (20:15)
[2019-07-06] MEDS: levETIRAcetam 500 mg/5 ml Oral Solution PER TUBE SCH ×2 (09:49→20:18)
[2019-07-06] MEDS: Famotidine 20 MG TAB PER TUBE SCH ×2 (09:49→20:18)
[2019-07-06] MEDS: Fluconazole 100 MG TAB PER TUBE SCH (09:49)
[2019-07-06] MEDS: Enoxaparin Sodium 40 MG/0.4 ML SYRINGE SC SCH (09:50)
[2019-07-06] MEDS: Carvedilol 6.25 MG TAB PO SCH ×2 (09:50→20:19)
[2019-07-06] MEDS: Lisinopril 10 MG TAB PO SCH (09:50)
[2019-07-06] MEDS: Cholestyramine/Aspartame 4 gm Packet PO SCH ×2 (09:50→21:01)
[2019-07-06] MEDS: Scopolamine 1.5 mg/72 hour Patch TOP SCH (13:16)
[2019-07-06] MEDS: Morphine 2 MG/ML SYRINGE SLOW IVP PRN (15:21)
--- NOTE | 2019-07-06 16:02 | PDOC.HOSPP ---
- Subjective Encounter Date: 07/06/19 Encounter Time: 16:01 Subjective: Ms. Rueda was seen today in follow-up of of pneumonia. She is non-verbal, she appears uncomfortable. Her nurse has just given her Morphine IV, and re- positioned her. - Objective Vital Signs & Weight: Vital Signs (12 hours) Temp Pulse Resp BP BP Pulse Ox 07/06/19 15:01 79 14 96 07/06/19 10:14 78 18 97 07/06/19 09:50 127/85 07/06/19 08:00 97 07/06/19 07:50 98.2 F 95 18 127/85 91 L 07/06/19 07:01 94 16 98 Weight Admit Weight 171 lb Weight 171 lb 1.259 oz Most Recent Monitor Data Heart Rate from ECG 90 NIBP 138/102 NIBP BP-Mean 114 Respiration from ECG 23 SpO2 100 I&O: 07/05/19 07/06/19 07/07/19 06:59 06:59 06:59 Intake Total 3080 2160 540 Output Total 1300 1000 Balance 1780 1160 540 Result Diagrams: 07/04/19 07:02 07/04/19 07:02 Hospitalist ROS - Medication Medications: Active Medications Generic Name Dose Route Start Last Admin Trade Name Freq PRN Reason Stop Dose Admin Albuterol/Ipratropium 3 ml 07/03/19 02:30 07/06/19 15:01 Duoneb NEB 3 ml [id number] SONIA Administration Atorvastatin Calcium 10 mg 07/03/19 21:00 07/05/19 20:15 Lipitor PO 10 mg HS SONIA Administration Carvedilol 6.25 mg 07/03/19 21:00 07/06/19 09:50 Coreg PO 6.25 mg BID SONIA Administration Cholestyramine Resin 4 gm 07/03/19 22:00 07/06/19 09:50 Questran Light PO 4 gm 1000,2200 SONIA Administration Enoxaparin Sodium 40 mg 07/03/19 09:00 07/06/19 09:50 Lovenox SC 40 mg 0900 SONIA Administration Famotidine 20 mg 07/03/19 09:00 07/06/19 09:49 Pepcid PER TUBE 20 mg BID SONIA Administration Levetiracetam 1,000 mg 07/03/19 21:00 07/06/19 09:49 Keppra Oral Solution PER TUBE 1,000 mg BID SONIA Administration Levofloxacin 500 mg 07/04/19 06:00 07/06/19 05:12 Levaquin PO 500 mg 0600 SONIA Administration Lisinopril 10 mg 07/04/19 09:00 07/06/19 09:50 Zestril PO 10 mg DAILY SONIA Administration Morphine Sulfate 2 mg 07/03/19 00:12 07/06/19 15:21 Morphine SLOW IVP 2 mg Q4H PRN Administration Severe Pain (7-10) Phenytoin Sodium 200 mg 07/03/19 21:00 07/05/19 20:15 Dilantin PER TUBE 200 mg HS SONIA Administration Scopolamine 3 mg 07/03/19 12:00 07/06/19 13:16 Transderm Scop TOP 3 mg Q3D SONIA Administration - Exam Eye: PERRL Heart: RRR Respiratory: rhonchi (+ bilateral rhonchi and rales at the bases) Gastrointestinal: soft, non-tender, non-distended, normal bowel sounds, no palpable masses Extremities: no cyanosis, 1+ LE edema Hosp A/P (1) PNA (pneumonia) Code(s): J18.9 - PNEUMONIA, UNSPECIFIED ORGANISM Status: Acute Qualifiers: Pneumonia type: due to unspecified organism (2) Status post tracheostomy Code(s): Z93.0 - TRACHEOSTOMY STATUS Status: Chronic (3) HTN (hypertension) Code(s): I10 - ESSENTIAL (PRIMARY) HYPERTENSION Status: Chronic Qualifiers: Hypertension type: essential hypertension Qualified Code(s): I10 - Essential (primary) hypertension (4) Multiple sclerosis Code(s): G35 - MULTIPLE SCLEROSIS Status: Chronic (5) Quadriparesis Code(s): G82.50 - QUADRIPLEGIA, UNSPECIFIED Status: Chronic (6) Seizure disorder Code(s): G40.909 - EPILEPSY, UNSP, NOT INTRACTABLE, WITHOUT STATUS EPILEPTICUS Status: Chronic - Plan * Ms. Rueda has end stage MS, with functional Quadreplegia. She was admitted with recurrent respiratory failure, and increased tracheal secretions * Will continue Levaquin via the PEG tube * HTN- blood pressure is controlled * Symptom management * Likely back to the [place] soon
[2019-07-06] MEDS: Atorvastatin Calcium 10 MG TAB PO SCH (20:18)
[2019-07-06] MEDS: Acetaminophen 650 MG/20.3 ML UDCUP PER TUBE PRN (21:00)
[2019-07-07] MEDS: Lisinopril 10 MG TAB PO SCH (08:14)
[2019-07-07] MEDS: Enoxaparin Sodium 40 MG/0.4 ML SYRINGE SC SCH (08:14)
[2019-07-07] MEDS: Famotidine 20 MG TAB PER TUBE SCH ×2 (08:14→21:37)
[2019-07-07] MEDS: levETIRAcetam 500 mg/5 ml Oral Solution PER TUBE SCH ×2 (08:14→21:38)
[2019-07-07] MEDS: Carvedilol 6.25 MG TAB PO SCH ×2 (08:14→21:37)
[2019-07-07] MEDS: Cholestyramine/Aspartame 4 gm Packet PO SCH ×2 (08:15→21:38)
[2019-07-07] MEDS: Acetaminophen 650 MG/20.3 ML UDCUP PER TUBE PRN ×2 (14:38→23:55)
--- NOTE | 2019-07-07 15:19 | PDOC.HOSPP ---
- Subjective Encounter Date: 07/07/19 Encounter Time: 15:17 Subjective: was seen today in follow-up of acute respiratory failure. He appears much more comfortable today. Less secretions noted. - Objective Vital Signs & Weight: Vital Signs (12 hours) Temp Pulse Resp BP BP Pulse Ox 07/07/19 13:54 80 16 99 07/07/19 10:09 89 18 100 07/07/19 08:14 149/90 H 07/07/19 08:00 99 07/07/19 07:53 98.7 F 89 16 139/96 H 99 07/07/19 06:58 94 16 99 07/07/19 03:59 98.3 F 82 17 142/90 H 95 Weight Admit Weight 171 lb Weight 171 lb 1.259 oz Most Recent Monitor Data Heart Rate from ECG 90 NIBP 138/102 NIBP BP-Mean 114 Respiration from ECG 23 SpO2 100 I&O: 07/06/19 07/07/19 07/08/19 06:59 06:59 06:59 Intake Total 2160 2140 540 Output Total 1000 500 Balance 1160 1640 540 Result Diagrams: 07/04/19 07:02 07/04/19 07:02 Hospitalist ROS - Medication Medications: Active Medications Generic Name Dose Route Start Last Admin Trade Name Freq PRN Reason Stop Dose Admin Acetaminophen 650 mg 07/03/19 11:42 07/07/19 14:38 Tylenol Elixir PER TUBE 650 mg Q4H PRN Administration Headache/Fever/Mild Pain (1-3) Albuterol/Ipratropium 3 ml 07/03/19 02:30 07/07/19 13:54 Duoneb NEB 3 ml [id number] SONIA Administration Atorvastatin Calcium 10 mg 07/03/19 21:00 07/06/19 20:18 Lipitor PO 10 mg HS SONIA Administration Carvedilol 6.25 mg 07/03/19 21:00 07/07/19 08:14 Coreg PO 6.25 mg BID SONIA Administration Cholestyramine Resin 4 gm 07/03/19 22:00 07/07/19 08:15 Questran Light PO 4 gm 1000,2200 SONIA Administration Enoxaparin Sodium 40 mg 07/03/19 09:00 07/07/19 08:14 Lovenox SC 40 mg 0900 SONIA Administration Famotidine 20 mg 07/03/19 09:00 07/07/19 08:14 Pepcid PER TUBE 20 mg BID SONIA Administration Levetiracetam 1,000 mg 07/03/19 21:00 07/07/19 08:14 Keppra Oral Solution PER TUBE 1,000 mg BID SONIA Administration Levofloxacin 500 mg 07/04/19 06:00 07/07/19 05:11 Levaquin PO 500 mg 0600 SONIA Administration Lisinopril 10 mg 07/04/19 09:00 07/07/19 08:14 Zestril PO 10 mg DAILY SONIA Administration Morphine Sulfate 2 mg 07/03/19 00:12 07/06/19 15:21 Morphine SLOW IVP 2 mg Q4H PRN Administration Severe Pain (7-10) Phenytoin Sodium 200 mg 07/03/19 21:00 07/06/19 20:18 Dilantin PER TUBE 200 mg HS SONIA Administration Scopolamine 3 mg 07/03/19 12:00 07/06/19 13:16 Transderm Scop TOP 3 mg Q3D SONIA Administration - Exam Eye: PERRL Heart: RRR, no murmur, no gallops, no rubs, normal peripheral pulses Respiratory: CTAB, no rales, rhonchi Gastrointestinal: soft, non-tender, non-distended, normal bowel sounds, no palpable masses (PEG tube site ok), no hepatomegaly Extremities: no cyanosis, no edema Hosp A/P (1) PNA (pneumonia) Code(s): J18.9 - PNEUMONIA, UNSPECIFIED ORGANISM Status: Acute Qualifiers: Pneumonia type: due to unspecified organism (2) Status post tracheostomy Code(s): Z93.0 - TRACHEOSTOMY STATUS Status: Chronic (3) HTN (hypertension) Code(s): I10 - ESSENTIAL (PRIMARY) HYPERTENSION Status: Chronic Qualifiers: Hypertension type: essential hypertension Qualified Code(s): I10 - Essential (primary) hypertension (4) Multiple sclerosis Code(s): G35 - MULTIPLE SCLEROSIS Status: Chronic (5) Quadriparesis Code(s): G82.50 - QUADRIPLEGIA, UNSPECIFIED Status: Chronic (6) Seizure disorder Code(s): G40.909 - EPILEPSY, UNSP, NOT INTRACTABLE, WITHOUT STATUS EPILEPTICUS Status: Chronic - Plan * Respiratory failure- improving- continue local care, and Levaquin * HTN- blood pressure is controlled * Symptom management * Likely back to the [facility] tomorrow if stable
[2019-07-07] MEDS: Atorvastatin Calcium 10 MG TAB PO SCH (21:37)
[2019-07-08] MEDS: Acetaminophen 650 MG/20.3 ML UDCUP PER TUBE PRN (04:40)
[2019-07-08] MEDS: Carvedilol 6.25 MG TAB PO SCH (08:11)
[2019-07-08] MEDS: Lisinopril 10 MG TAB PO SCH (08:11)
[2019-07-08] MEDS: Famotidine 20 MG TAB PER TUBE SCH (08:11)
[2019-07-08] MEDS: Enoxaparin Sodium 40 MG/0.4 ML SYRINGE SC SCH (08:12)
[2019-07-08] MEDS: Cholestyramine/Aspartame 4 gm Packet PO SCH (08:13)
[2019-07-08] MEDS: levETIRAcetam 500 mg/5 ml Oral Solution PER TUBE SCH (08:14)
[2019-07-08 08:26] LABS: #Basophils 0.1 thou/uL (0.0-0.2); #Eosinphils 0.5 thou/uL (0.0-0.7); #Lymphocytes 1.6 thou/uL (1.20-3.40); #Monocytes 0.7 thou/uL (0.11-0.59); %Basophils 0.8 % (0.0-1.0); %Eosinophils 4.7 % (0.0-10.0); %Lymphocytes 16.5 % (21.0-51.0); %Monocytes 7.2 % (0.0-10.0); %Neutrophils 70.8 % (42.0-75.0); Hemoglobin 11.8 g/dL (12.0-16.0); Mean Corpuscular HGB CONC 32.8 g/dL (32.0-36.0); Mean Corpuscular Volume 97.7 fL (78.0-98.0); Mean Platelet Volume 6.8 fL (7.4-10.4); Platelet Count 235 thou/uL (130-400); RBC Distribution Width 13.2 % (11.5-14.5); Red Blood Cell (RBC) Count 3.68 mill/uL (4.20-5.40); White Blood Cell (WBC) Count 9.9 thou/uL (4.8-10.8)
[2019-07-08 08:50] LABS: Anion Gap 10 mmol/L (10-20); BUN (Urea Nitrogen) 9 mg/dL (9.8-20.1); Calc. Creatinine Clearance 179 mL/min (70-130); Calcium 8.9 mg/dL (7.8-10.44); Carbon Dioxide 26 mmol/L (22-29); Chloride 96 mmol/L (98-107); Estimated GFR-MDRD Greater than 90; Glucose 89 mg/dL (70-105); Sodium 128 mmol/L (136-145)
[2019-07-08] MEDS: Morphine 2 MG/ML SYRINGE SLOW IVP PRN (11:54)
--- NOTE | 2019-07-08 13:45 | PDOC.HOSPP ---
- Subjective Encounter Date: 07/08/19 Encounter Time: 13:43 Subjective: Ms. Rueda was seen today in follow-up of respiratory failure. She is non- verbal. She appears mostly comfortable. Secretions are manageable. - Objective Vital Signs & Weight: Vital Signs (12 hours) Temp Pulse Resp BP BP Pulse Ox 07/08/19 10:48 84 20 98 07/08/19 08:11 145/97 H 07/08/19 08:02 83 22 H 98 07/08/19 08:00 98 07/08/19 07:37 97.8 F 83 18 145/97 H 98 07/08/19 05:56 99 F 86 18 138/94 H 97 Weight Admit Weight 171 lb Weight 171 lb 1.259 oz Most Recent Monitor Data Heart Rate from ECG 90 NIBP 138/102 NIBP BP-Mean 114 Respiration from ECG 23 SpO2 100 I&O: 07/07/19 07/08/19 07/09/19 06:59 06:59 06:59 Intake Total 2140 1420 Output Total 500 850 Balance 1640 570 Result Diagrams: 07/08/19 08:13 07/08/19 08:13 Additional Labs: Accuchecks 07/08/19 05:06 POC Glucose 87 Hospitalist ROS - Medication Medications: Active Medications Generic Name Dose Route Start Last Admin Trade Name Freq PRN Reason Stop Dose Admin Acetaminophen 650 mg 07/03/19 11:42 07/08/19 04:40 Tylenol Elixir PER TUBE 650 mg Q4H PRN Administration Headache/Fever/Mild Pain (1-3) Albuterol/Ipratropium 3 ml 07/03/19 02:30 07/08/19 10:48 Duoneb NEB 3 ml [id number] SONIA Administration Atorvastatin Calcium 10 mg 07/03/19 21:00 07/07/19 21:37 Lipitor PO 10 mg HS SONIA Administration Carvedilol 6.25 mg 07/03/19 21:00 07/08/19 08:11 Coreg PO 6.25 mg BID SONIA Administration Cholestyramine Resin 4 gm 07/03/19 22:00 07/08/19 08:13 Questran Light PO 4 gm 1000,2200 SONIA Administration Enoxaparin Sodium 40 mg 07/03/19 09:00 07/08/19 08:12 Lovenox SC 40 mg 0900 SONIA Administration Famotidine 20 mg 07/03/19 09:00 07/08/19 08:11 Pepcid PER TUBE 20 mg BID SONIA Administration Levetiracetam 1,000 mg 07/03/19 21:00 07/08/19 08:14 Keppra Oral Solution PER TUBE 1,000 mg BID SONIA Administration Levofloxacin 500 mg 07/04/19 06:00 07/08/19 04:40 Levaquin PO 500 mg 0600 SONIA Administration Lisinopril 10 mg 07/04/19 09:00 07/08/19 08:11 Zestril PO 10 mg DAILY SONIA Administration Morphine Sulfate 2 mg 07/03/19 00:12 07/08/19 11:54 Morphine SLOW IVP 2 mg Q4H PRN Administration Severe Pain (7-10) Phenytoin Sodium 200 mg 07/03/19 21:00 07/07/19 21:39 Dilantin PER TUBE 200 mg HS SONIA Administration Scopolamine 3 mg 07/03/19 12:00 07/06/19 13:16 Transderm Scop TOP 3 mg Q3D SONIA Administration - Exam Eye: PERRL Heart: RRR, no murmur, no gallops, no rubs, normal peripheral pulses Respiratory: CTAB, no wheezes, no rales, normal chest expansion, no tachypnea, normal percussion, rhonchi Gastrointestinal: soft, non-tender, non-distended, normal bowel sounds, no palpable masses Hosp A/P (1) PNA (pneumonia) Code(s): J18.9 - PNEUMONIA, UNSPECIFIED ORGANISM Status: Acute Qualifiers: Pneumonia type: due to unspecified organism (2) Status post tracheostomy Code(s): Z93.0 - TRACHEOSTOMY STATUS Status: Chronic (3) HTN (hypertension) Code(s): I10 - ESSENTIAL (PRIMARY) HYPERTENSION Status: Chronic Qualifiers: Hypertension type: essential hypertension Qualified Code(s): I10 - Essential (primary) hypertension (4) Multiple sclerosis Code(s): G35 - MULTIPLE SCLEROSIS Status: Chronic (5) Quadriparesis Code(s): G82.50 - QUADRIPLEGIA, UNSPECIFIED Status: Chronic (6) Seizure disorder Code(s): G40.909 - EPILEPSY, UNSP, NOT INTRACTABLE, WITHOUT STATUS EPILEPTICUS Status: Chronic - Plan * Respiratory failure- improved * HTN- blood pressure is controlled * Symptom management * Back to the ID today
[2019-07-08 15:23] VITALS: BP 137/57; TEMP 98.3
--- NOTE | 2019-07-08 15:55 | DIS ---
DATE OF ADMISSION: 07/02/2019 DATE OF DISCHARGE: 07/08/2019 PRIMARY CARE PHYSICIAN: Dr. Erik Buck. DISCHARGE DISPOSITION: Home to the nursing facility. DISCHARGE DIAGNOSES: 1. Acute on chronic respiratory failure with hypoxemia. 2. Healthcare-associated pneumonia. 3. End-stage multiple sclerosis. 4. History of tracheostomy. 5. Status post percutaneous endoscopic gastrostomy placement. 6. Seizure disorder. 7. Hypertension. DISCHARGE MEDICATIONS: Include; 1. Levaquin 500 mg per tube daily for 4 more days. 2. Sodium bicarbonate 650 mg daily. 3. Scopolamine patch 3 mg every 3 days. 4. Klor-Con 20 mEq twice daily. 5. Phenytoin 200 mg per tube at bedtime. 6. Lisinopril 10 mg daily. 7. Keppra 500 mg twice a day. 8. Robinul 2 mg as needed. 9. Pepcid 20 mg twice a day. 10. Cholestyramine 4 mg daily. 11. Carvedilol 6.25 mg twice daily. 12. Lipitor 10 mg daily. 13. Magnesium hydroxide p.r.n. 14. Ibuprofen 800 mg q.8 as needed. 15. Lasix 20 mg daily. 16. Tylenol No. 3 as needed. CODE STATUS: Full code. ALLERGIES: NO KNOWN DRUG ALLERGIES. HOSPITAL COURSE: Ms. uReda is a pleasant 54-year-old female, who was admitted to the hospital after she was noted to have decreased oxygen saturations in the nursing facility and elevated heart rate. When she was evaluated in the ER, she was found to have leukocytosis and elevated lactic acid level. She was admitted for recurrent respiratory failure likely due to healthcare-associated pneumonia, started on IV antibiotics and aggressive respiratory toilet. She was visited by the Palliative Care Team as well as her family members to discuss code status and overall goals of care given that she is in a chronic bed-bound state and has end-stage multiple sclerosis. The family has decided to continue with full code status and continue with aggressive active management. This was then undertaken during her hospital stay. She was stabilized and ultimately able to be discharged back to the nursing facility. Job ID: [id number]
--- NOTE | 2019-07-10 03:01 | PQF ---
OLGA HEDRICK TONI MD [id number] CLINICAL DOCUMENTATION CLARIFICATION FORM: POST DISCHARGE Addendum to original discharge summary date: ____ Late entry note date: __ DATE: 07/02/19 ATTN: Chris Trotter Please exercise your independent, professional judgment in responding to the clarification form. Clinical indicators are provided on the bottom of this form for your review Can you please further clarify if Severe Sepsis is ruled in or ruled out? Severe Sepsis [ ] Ruled in diagnosis [ ] Continue to treat [ ] Resolved [ ] Ruled out diagnosis [ ] Cannot rule out diagnosis [ ] Other diagnosis [ ] Unable to determine In addition, please specify: Present on Admission (POA): [ ] Yes [ ] No [ ] Unable to determine For continuity of documentation, please document condition throughout progress notes and discharge summary. Thank You. CLINICAL INDICATORS - SIGNS / SYMPTOMS / LABS H and P pg.1-she was noted to have initial pulse of of 140, sinus tachycardia , leukocytosis of 22, lactic acidosis H and P pg.3- severe sepsis secondary to healthcare pneumonia and UTI H and P pg.3- lactic acidosis likely secondary to sevre sepsis Palliative Care PN pg.1- Sepsis due to pneumonia Palliative Care PN pg.1- Sepsis due to UTI DS pg.1- Acute on chronic respiratory failure with hypoxemia DS pg.1- Healthcare-associated pneumonia RISK FACTORS Chronic bed bound- H and P pg.1 status post tracheostomy- H and P pg.1 Acute respiratory failure- H and P pg.3 Multiple sclerosis- H and P pg.3 Pneumonia- Consult pg.2 UTI- Consult pg.2 TREATMENTS Chest X ray 07/02 Pulmonary Consult 07/03 Dr. Eli Palliative Consult Dr. Mesa 07/03 Aggressive pulmonary toilet- DS pg.1 IV antibiotics- MAR IV fluids- MAR Sputum culture- Microbiology Urine Culture- Microbiology (This form is maintained as a part of the permanent medical record) 2014 [email or web address], [employer]. All Rights Reserved [email or web address] [not provided] MTDD
--- NOTE | 2019-07-13 10:48 | EKG ---
Test Reason : Blood Pressure : / mmHG Vent. Rate : 129 BPM Atrial Rate : 129 BPM P-R Int : 156 ms QRS Dur : 088 ms QT Int : 294 ms P-R-T Axes : 045 -30 071 degrees QTc Int : 430 ms Sinus tachycardia Left axis deviation Minimal voltage criteria for LVH, may be normal variant Inferior infarct , age undetermined Anterolateral infarct , age undetermined Abnormal ECG Biatrial enlargement Confirmed by PAIGE EMANUEL, PERCY Nguyen ([id number]), state editor LARS VAUGHN ([id number]) on 07/13/2019 10:47:48 AM Referred By: Confirmed By:PERCY GIBSON MD
== END 2019-07-08 17:47 | DRG 193 ==
LOC: ERS 20:07 → CCU 22:16 → T4-B 07-03 15:38
PROVIDERS: ADMIT Hospitalist; ATTEND Hospitalist
DX: J18.9 Pneumonia, unspecified organism (principal); J96.21 Acute and chronic respiratory failure with hypoxia; R53.2 Functional quadriplegia; E87.2 Acidosis; N39.0 Urinary tract infection, site not specified; E87.1 Hypo-osmolality and hyponatremia; I50.22 Chronic systolic (congestive) heart failure; I69.351 Hemiplegia and hemiparesis following cerebral infarction affecting right dominant side; I11.0 Hypertensive heart disease with heart failure; E66.9 Obesity, unspecified; Y95 Nosocomial condition; G40.909 Epilepsy, unspecified, not intractable, without status epilepticus; G35 Multiple sclerosis; Z74.01 Bed confinement status; Z93.0 Tracheostomy status; Z93.1 Gastrostomy status; Z79.899 Other long term (current) drug therapy; Z79.51 Long term (current) use of inhaled steroids; Z68.31 Body mass index [BMI] 31.0-31.9, adult
CPT/HCPCS: 36415; 36416; 36556; 51702; 71045; 80048; 80053; 81003; 81015; 82550; 82553; 83605; 83880; 84484; 85025; 87040; 87070; 87077; 87086; 87149; 87186; 87205; 93005; 94640; 96365; 96367; 99292; J0692; J0696; J1650; J1956; J2270; J3370; J3490; J7620

== ENCOUNTER 2019-07-10 05:58 | Inpatient (IN) | payer OTHER ==
[2019-07-10 06:54] LABS: #Basophils 0.1 thou/uL (0.0-0.2); #Eosinphils 0.2 thou/uL (0.0-0.7); #Lymphocytes 1.5 thou/uL (1.20-3.40); #Monocytes 0.6 thou/uL (0.11-0.59); #Neutrophils 6.1 thou/uL (1.40-6.50); %Basophils 1.2 % (0.0-1.0); %Eosinophils 2.6 % (0.0-10.0); %Monocytes 7.1 % (0.0-10.0); Hemoglobin 12.3 g/dL (12.0-16.0); Mean Corpuscular HGB CONC 32.9 g/dL (32.0-36.0); Mean Corpuscular Hemoglobin 32.4 pg (27.0-31.0); Mean Corpuscular Volume 98.4 fL (78.0-98.0); Mean Platelet Volume 6.2 fL (7.4-10.4); Platelet Count 239 thou/uL (130-400); RBC Distribution Width 14.3 % (11.5-14.5); Red Blood Cell (RBC) Count 3.81 mill/uL (4.20-5.40); White Blood Cell (WBC) Count 8.5 thou/uL (4.8-10.8)
[2019-07-10 07:04] LABS: ALT (SGPT) 13 U/L (8-55); AST (SGOT) 16 U/L (5-34); Albumin 3.2 g/dL (3.5-5.0); Alkaline Phosphatase 103 U/L (40-110); Anion Gap 11 mmol/L (10-20); BUN (Urea Nitrogen) 11 mg/dL (9.8-20.1); Bilirubin, Total 0.4 mg/dL (0.2-1.2); Calc. Creatinine Clearance 0 mL/min (70-130); Calcium 8.6 mg/dL (7.8-10.44); Carbon Dioxide 22 mmol/L (22-29); Chloride 100 mmol/L (98-107); Estimated GFR-MDRD Greater than 90; Globulin 3.2 g/dL (2.4-3.5); Glucose 97 mg/dL (70-105); Potassium 4.5 mmol/L (3.5-5.1); Protein, Total 6.4 g/dL (6.0-8.3); Sodium 128 mmol/L (136-145)
[2019-07-10 07:10] LABS: Bilirubin Negative (Negative); Blood, Urine Small (Negative); Glucose, Urine (Dipstick) Negative (Negative); Leukocyte Moderate (Negative); Nitrite Negative (Negative); Protein, Urine (Dipstick) Trace mg/dL (Neg-Trace); Urobilinogen 0.2 mg/dL (Less than 2)
[2019-07-10] MEDS ORDERED: Piperacillin/Tazobactam 4.5 GM VIAL ONE (07:16)
[2019-07-10 07:17] LABS: Clarity Cloudy (Clear)
--- NOTE | 2019-07-10 07:39 | RAD ---
EXAM: Single view of the chest HISTORY: Sepsis COMPARISON: 07/02/2019 FINDINGS: Single view of the chest shows an enlarged but stable cardiomediastinal silhouette. The tr acheostomy is in good position. There is obscurity of the left hemidiaphragm which may represent atelectasis or a left lower lobe infiltrate. The bones are unremarkable. IMPRESSION: Left basilar atelectasis versus infiltrate.
--- NOTE | 2019-07-10 10:55 | HP ---
PRIMARY CARE PHYSICIAN: Dr. Erik Buck. CHIEF COMPLAINT: Fever and hypoxemia. HISTORY OF PRESENT ILLNESS: Ms. Rueda is a pleasant 54-year-old female, who has end-stage multiple sclerosis and is essentially quadriplegic. She also has a chronic bed-bound status. She was just recently discharged from our facility for a previous admission for hypoxic respiratory failure. At that time, she was treated with IV antibiotics and then transitioned to antibiotics via PEG tube and was successfully discharged back to the snf. It is noted that she has excessive secretions. Apparently, she was evaluated in the snf and found to be hypoxic once again and had developed a high temperature or fever and was transferred back to the emergency room. In the ER, she was suctioned and it was felt that she may have had a mucus plug and was given a dose of vancomycin and Zosyn. When I am seeing her, she looks actually better than she looked when she was discharged last. She is actually more responsive and smiling and trying to mouth some words. She appears more comfortable. However, due to her initial presentation, we will go ahead and admit her to the hospital and have Pulmonology to see her and try to get her stabilized once again. REVIEW OF SYSTEMS: This is unobtainable as the patient is nonverbal. PAST MEDICAL HISTORY: Taken from previous records and her last history and physical by Dr. De Los Santos and includes chronic bed-bound status secondary to previous stroke, also has advanced multiple sclerosis. She is status post trach and PEG placement, history of seizure disorder, hypertension, chronic diastolic heart failure. PAST SURGICAL HISTORY: She has had a tracheostomy and PEG tube placement. SOCIAL HISTORY: She resides at [facility] [place]. She is a nonsmoker and nondrinker. She is bed-bound and completely dependent on all activities of daily living. ALLERGIES: NO KNOWN DRUG ALLERGIES. FAMILY HISTORY: No history of any heritable diseases. MEDICATIONS: As taken recently from her discharge include; 1. Levaquin 500 mg daily. 2. Sodium bicarbonate 650 mg daily. 3. Scopolamine patch 3 mg every 3 days. 4. Potassium chloride 20 mEq twice a day. 5. Phenytoin 200 mg at bedtime. 6. Lisinopril 10 mg daily. 7. Keppra 500 mg twice a day. 8. Robinul 2 mg as needed. 9. Pepcid 20 mg twice a day. 10. Cholestyramine 4 mg daily. 11. Carvedilol 6.25 mg twice daily. 12. Lipitor 10 mg daily. 13. Magnesium hydroxide. 14. Ibuprofen 800 mg q.8 as needed. 15. Lasix 20 mg daily. 16. Tylenol as needed. PHYSICAL EXAMINATION: GENERAL: She is awake and alert. She is nonverbal, unable to assess orientation. VITAL SIGNS: Blood pressure initially was 164/110, heart rate of 96, respiratory rate of 25, temperature is 99.2, and O2 saturation is 100%. HEENT: Pupils are equal, round, and reactive. Extraocular muscles are intact. Her sclerae are anicteric. NECK: No adenopathy. No bruits. LUNGS: She has bilateral rales as well as some rhonchi and scattered wheezing, which is minimal. CARDIOVASCULAR: She has a normal S1 and S2. I did not appreciate an S3 or S4. No murmurs, clicks, or rubs. ABDOMEN: Soft, nontender, and nondistended. Positive for bowel sounds. No rebound. No guarding. No organomegaly. EXTREMITIES: There is no clubbing or cyanosis. No edema. NEUROLOGICAL: She has some muscle weakness in both her upper and lower extremities as well as some generalized muscle atrophy and again some nonpitting edema in the lower extremities. LABORATORY RESULTS: Sodium 128, potassium 4.5, chloride is 100, CO2 is 22, BUN of 11, creatinine 0.49, glucose is 97. White blood cell count is 8.5, hemoglobin 12.3, hematocrit is 37.5, and platelet count is 239. Natriuretic peptide is 0.010 and urinalysis shows moderate leukocyte esterase and 11 to 12 wbc's. On the chest x-ray, there is evidence of a left lower lobe infiltrate. ASSESSMENT: 1. Ms. Rueda is a pleasant 54-year-old female, who has functional quadriplegia from both stroke as well as advanced multiple sclerosis, who has had a trach and a PEG. She has been plagued by increased tracheal secretions since her hospitalization late last year. She is at high risk of repeated infections due to the excessive secretions, and unfortunately, she has developed an infection once again. She will be admitted to the [facility] since she was initially very hypoxic. The family has stated in the previous admissions just recently that they want to continue with aggressive care. Therefore, again, she will be admitted to the [facility]. We will broaden her antibiotic coverage. Consult Pulmonology for recommendations. 2. Possible urinary tract infection. We will get a urine culture and then base antibiotic coverage on the results. 3. Seizure disorder. Continue phenytoin and Keppra. 4. Hypertension. We will continue her usual hypertension medications as well as p.r.n. medications. Job ID: [id number]
[2019-07-10] MEDS ORDERED: Ondansetron ODT 4 MG TAB SL PRN (11:39)
[2019-07-10] MEDS ORDERED: Acetaminophen 325 MG TAB PO PRN ×2 (11:39→12:11)
[2019-07-10] MEDS ORDERED: Ondansetron PF 4 MG/2 ML Vial IVP PRN (11:39)
[2019-07-10] MEDS ORDERED: hydrALAZINE 20 MG/ML VIAL SLOW IVP PRN (12:11)
[2019-07-10] MEDS ORDERED: Piperacillin/Tazobactam 3.375 GM in Sodium Chloride 0.9% 100 ML IVPB SCH ×2 (14:00→17:00)
[2019-07-10] MEDS ORDERED: Sodium Bicarbonate Tab 325 MG TAB PER TUBE PRN (17:12)
[2019-07-10] MEDS ORDERED: Bisacodyl 10 MG SUPP PR PRN (17:12)
[2019-07-10] MEDS ORDERED: Ibuprofen 800 MG TAB PO PRN (17:12)
[2019-07-10] MEDS ORDERED: Acetaminophen 650 MG/20.3 ML UDCUP PER TUBE PRN (17:12)
[2019-07-10] MEDS ORDERED: Milk Of Magnesia 30 ML UDCUP PER TUBE PRN (17:12)
[2019-07-10] MEDS ORDERED: Scopolamine 1.5 mg/72 hour Patch TOP SCH (18:00)
[2019-07-10] MEDS: Vancomycin 1.5 GRAM/300 ML BAG 1.5 GM in Premix Bag 1 BAG IVPB SCH (20:23)
[2019-07-10] MEDS: levETIRAcetam 500 mg/5 ml Oral Solution PER TUBE SCH (20:34)
[2019-07-10] MEDS: Glycopyrrolate 1 MG TAB PER TUBE SCH (20:36)
[2019-07-10] MEDS: Atorvastatin Calcium 10 MG TAB PO SCH (20:37)
[2019-07-10] MEDS: Famotidine 20 MG TAB PER TUBE SCH (20:37)
[2019-07-10] MEDS: Acetaminophen/Codeine 30-300mg Tablet PO SCH (20:37)
[2019-07-10] MEDS: Carvedilol 6.25 MG TAB PO SCH (20:38)
[2019-07-10] MEDS ORDERED: Pancrelipase DR 12000 1 CAP FS PRN (21:12)
[2019-07-10] MEDS: Piperacillin/Tazobactam 3.375 GM in Sodium Chloride 0.9% 100 ML IVPB SCH (22:53)
[2019-07-10] MEDS: Cholestyramine/Aspartame 4 gm Packet PO SCH (22:53)
[2019-07-11] MEDS: Piperacillin/Tazobactam 3.375 GM in Sodium Chloride 0.9% 100 ML IVPB SCH ×4 (03:52→22:05)
[2019-07-11 05:33] LABS: #Basophils 0.1 thou/uL (0.0-0.2); #Eosinphils 0.4 thou/uL (0.0-0.7); #Lymphocytes 1.3 thou/uL (1.20-3.40); #Monocytes 0.7 thou/uL (0.11-0.59); #Neutrophils 5.4 thou/uL (1.40-6.50); %Basophils 0.8 % (0.0-1.0); %Eosinophils 4.9 % (0.0-10.0); %Lymphocytes 16.7 % (21.0-51.0); %Monocytes 8.3 % (0.0-10.0); %Neutrophils 69.4 % (42.0-75.0); Hemoglobin 10.7 g/dL (12.0-16.0); Mean Corpuscular HGB CONC 33.6 g/dL (32.0-36.0); Mean Corpuscular Hemoglobin 32.8 pg (27.0-31.0); Mean Corpuscular Volume 97.6 fL (78.0-98.0); Mean Platelet Volume 6.6 fL (7.4-10.4); Platelet Count 227 thou/uL (130-400); RBC Distribution Width 14.3 % (11.5-14.5); Red Blood Cell (RBC) Count 3.26 mill/uL (4.20-5.40); White Blood Cell (WBC) Count 7.8 thou/uL (4.8-10.8)
[2019-07-11 05:55] LABS: Anion Gap 10 mmol/L (10-20); BUN (Urea Nitrogen) 10 mg/dL (9.8-20.1); Calc. Creatinine Clearance 163 mL/min (70-130); Calcium 8.6 mg/dL (7.8-10.44); Carbon Dioxide 23 mmol/L (22-29); Chloride 104 mmol/L (98-107); Estimated GFR-MDRD Greater than 90; Glucose 108 mg/dL (70-105); Potassium 4.1 mmol/L (3.5-5.1); Sodium 133 mmol/L (136-145)
[2019-07-11] MEDS ORDERED: FLU VACC QS2019-20(6MOS UP)/PF 60 MCG/0.5 ML SYRINGE IM ONE (09:00)
[2019-07-11] MEDS: Vancomycin 1.5 GRAM/300 ML BAG 1.5 GM in Premix Bag 1 BAG IVPB SCH (09:44)
[2019-07-11] MEDS: Acetaminophen/Codeine 30-300mg Tablet PO SCH ×2 (09:45→20:14)
[2019-07-11] MEDS: Famotidine 20 MG TAB PER TUBE SCH ×2 (09:45→20:15)
[2019-07-11] MEDS: Furosemide 20 MG TAB PO SCH (09:45)
[2019-07-11] MEDS: Lisinopril 10 MG TAB PO SCH (09:45)
[2019-07-11] MEDS: Glycopyrrolate 1 MG TAB PER TUBE SCH ×3 (09:45→20:16)
[2019-07-11] MEDS: Carvedilol 6.25 MG TAB PO SCH ×2 (09:46→20:15)
[2019-07-11] MEDS: Enoxaparin Sodium 40 MG/0.4 ML SYRINGE SC SCH (09:46)
[2019-07-11] MEDS: Cholestyramine/Aspartame 4 gm Packet PO SCH ×2 (09:46→22:05)
[2019-07-11] MEDS: levETIRAcetam 500 mg/5 ml Oral Solution PER TUBE SCH ×2 (09:54→20:16)
[2019-07-11 12:23] VITALS: BMI 34.2
--- NOTE | 2019-07-11 16:32 | PDOC.HOSPP ---
- Subjective Encounter Date: 07/11/19 Encounter Time: 16:09 Subjective: Ms. Rueda was seen today in follow-up of Acute respiratory failure with hyoxemia. - Objective Vital Signs & Weight: Vital Signs (12 hours) Temp Pulse Resp BP Pulse Ox 07/11/19 15:46 98.0 F 82 16 117/70 96 07/11/19 11:16 98.4 F 88 28 H 131/90 100 07/11/19 07:22 98.5 F 88 32 H 131/90 98 07/11/19 04:16 99 Weight Admit Weight 181 lb 6.4 oz Weight 181 lb 6.4 oz I&O: 07/10/19 07/11/19 07/12/19 06:59 06:59 06:59 Intake Total 1510 Balance 1510 Result Diagrams: 07/11/19 05:01 07/11/19 05:01 Hospitalist ROS - Medication Medications: Active Medications Generic Name Dose Route Start Last Admin Trade Name Freq PRN Reason Stop Dose Admin Acetaminophen/Codeine Phosphate 1 tab 07/10/19 21:00 07/11/19 09:45 Tylenol #3 PO 1 tab BID SONIA Administration Lipase/Protease/Amylase 1 cap 07/10/19 21:12 07/10/19 21:33 Ángel Alcazar [id number] FS 1 cap .PER PROTOCOL PRN Administration TUBE OCCLUSION PROTOCOL Atorvastatin Calcium 10 mg 07/10/19 21:00 07/10/19 20:37 Lipitor PO 10 mg HS SONIA Administration Carvedilol 6.25 mg 07/10/19 21:00 07/11/19 09:46 Coreg PO 6.25 mg BID SONIA Administration Cholestyramine Resin 4 gm 07/10/19 22:00 07/11/19 09:46 Questran Light PO 4 gm 1000,2200 SONIA Administration Enoxaparin Sodium 40 mg 07/11/19 09:00 07/11/19 09:46 Lovenox SC 40 mg 0900 SONIA Administration Famotidine 20 mg 07/10/19 21:00 07/11/19 09:45 Pepcid PER TUBE 20 mg Q12HR SONIA Administration Furosemide 20 mg 07/11/19 09:00 07/11/19 09:45 Lasix PO 20 mg DAILY SONIA Administration Glycopyrrolate 2 mg 07/10/19 21:00 07/11/19 14:59 Robinul PER TUBE 2 mg TID SONIA Administration Vancomycin HCl 1.5 gm/ Device 300 mls @ 200 mls/hr 07/10/19 20:00 07/11/19 09 :44 IVPB 300 mls 0800,2000 SONIA Administration Piperacillin Sod/Tazobactam 100 mls @ 200 mls/hr 07/10/19 22:00 07/11/19 15: 03 Sod 3.375 gm/ Sodium Chloride IVPB 100 mls 0400,1000,1600,2200 SONIA Administration Levetiracetam 1,000 mg 07/10/19 21:00 07/11/19 09:54 Keppra Oral Solution PER TUBE 1,000 mg BID SONIA Administration Lisinopril 10 mg 07/11/19 09:00 07/11/19 09:45 Zestril PO 10 mg DAILY SONIA Administration Phenytoin Sodium 200 mg 07/10/19 21:00 07/10/19 20:30 Dilantin PER TUBE 200 mg HS SONIA Administration Potassium Chloride 20 meq 07/11/19 08:00 07/11/19 09:45 Klor-Con PO 20 meq BID-WM SONIA Administration Scopolamine 3 mg 07/10/19 18:00 07/10/19 17:47 Transderm Scop TOP 3 mg Q3D SONIA Administration Sodium Bicarbonate 650 mg 07/10/19 17:12 07/10/19 21:33 Bicarbonate, Sodium PER TUBE 650 mg .PER PROTOCOL PRN Administration ENTERAL TUBE OCCLUSION - Exam Eye: PERRL Heart: RRR, no murmur, no gallops, no rubs, normal peripheral pulses Respiratory: CTAB, no ronchi, normal chest expansion, rhonchi Gastrointestinal: soft, non-tender, non-distended, normal bowel sounds, no palpable masses, no hepatomegaly, no splenomegaly Extremities: no cyanosis, 1+ LE edema Hosp A/P (1) Acute respiratory failure with hypoxia Code(s): J96.01 - ACUTE RESPIRATORY FAILURE WITH HYPOXIA Status: Acute (2) PNA (pneumonia) Code(s): J18.9 - PNEUMONIA, UNSPECIFIED ORGANISM Status: Acute Qualifiers: Pneumonia type: due to unspecified organism (3) HTN (hypertension) Code(s): I10 - ESSENTIAL (PRIMARY) HYPERTENSION Status: Chronic Qualifiers: Hypertension type: essential hypertension Qualified Code(s): I10 - Essential (primary) hypertension (4) Multiple sclerosis Code(s): G35 - MULTIPLE SCLEROSIS Status: Chronic (5) Obesity (BMI 30-39.9) Code(s): E66.9 - OBESITY, UNSPECIFIED Status: Chronic (6) Seizure disorder Code(s): G40.909 - EPILEPSY, UNSP, NOT INTRACTABLE, WITHOUT STATUS EPILEPTICUS Status: Chronic - Plan * Acute on chronic respiratory failure hypoxemia- continue Vancomycin and Zosyn * Continue aggressive suction and respiratory toilet * HTN- blood pressure is stable * Seizure disorder- stable * Continue Eliquis for DVT prophylaxis * I suspect she can be discharged back to the Nursing facility tomorrow
--- NOTE | 2019-07-11 18:18 | HP ---
DATE: 07/11/2019 HISTORY OF PRESENT ILLNESS: Ms. Rueda is a 54-year-old woman with end-stage multiple sclerosis. She is bed ridden with a trach and a PEG. She is bed ridden and quadriplegic. She moves her eyes that is about it. She has been readmitted. She has clear secretions slicking her tracheostomy today. Past medical history, family history, social history, and review of systems are well documented in the last admission. She is not able to give review of systems. She is nonverbal. PHYSICAL EXAMINATION: GENERAL: Ms. Rueda is a 54-year-old woman with end-stage multiple sclerosis. VITAL SIGNS: She is afebrile since admission. Temperature maximum is 98.4. HEENT: pupils react. HEAD: unchanged. NECK: unchanged. Trach has clear secretions. She still has her trach sutures in place. I have asked the nurse to remove that. HEART: Regular rhythm. No S3. ABDOMEN: Soft. EXTREMITIES: Without asymmetry or edema. LABORATORY DATA: White count 7.8, hemoglobin 10.7, and platelets are 227. Electrolytes are unremarkable. IMPRESSION: End-stage multiple sclerosis. Other than having tracheobronchial secretions, I believe she is at her baseline. I suspect a lot of this is aspirated saliva. I would continue the scopolamine patch. I would discontinue her antibiotics intravenously. She is a set up for developing drug-resistant bacteria in her urine and/or her tracheobronchial secretions. She clearly is at the end of her life or near the end of her life. She has chest x-ray that shows atelectatic changes of the left base as expected. This mostly is because she cannot effectively cough up her secretions. Hospice should be involved in her care. It is debatable whether or not she even needs antibiotics through her PEG. Her blood cultures from the 15th are negative. I have no other suggestions regarding her care. We will sign. This is a 50 minute consult, with greater than 50% of time spent on unit coordinating care. Job ID: [id number] MTDD
[2019-07-11] MEDS: Atorvastatin Calcium 10 MG TAB PO SCH (20:15)
[2019-07-11] MEDS: Vancomycin HCl 1 GM in Premix Bag 1 BAG IVPB SCH (20:27)
[2019-07-12] MEDS: Piperacillin/Tazobactam 3.375 GM in Sodium Chloride 0.9% 100 ML IVPB SCH ×3 (03:57→16:33)
[2019-07-12] MEDS: Carvedilol 6.25 MG TAB PO SCH ×2 (08:56→20:10)
[2019-07-12] MEDS: Furosemide 20 MG TAB PO SCH (08:56)
[2019-07-12] MEDS: Glycopyrrolate 1 MG TAB PER TUBE SCH ×3 (08:56→20:11)
[2019-07-12] MEDS: Famotidine 20 MG TAB PER TUBE SCH ×2 (08:56→20:10)
[2019-07-12] MEDS: Lisinopril 10 MG TAB PO SCH (08:56)
[2019-07-12] MEDS: levETIRAcetam 500 mg/5 ml Oral Solution PER TUBE SCH ×2 (08:56→20:12)
[2019-07-12] MEDS: Enoxaparin Sodium 40 MG/0.4 ML SYRINGE SC SCH (08:57)
[2019-07-12] MEDS: Acetaminophen/Codeine 30-300mg Tablet PO SCH ×2 (08:57→20:11)
[2019-07-12] MEDS: Vancomycin HCl 1 GM in Premix Bag 1 BAG IVPB SCH ×2 (08:57→20:22)
[2019-07-12] MEDS: Cholestyramine/Aspartame 4 gm Packet PO SCH (09:02)
--- NOTE | 2019-07-12 11:44 | PDOC.HOSPP ---
- Subjective Encounter Date: 07/12/19 Encounter Time: 11:42 Subjective: Patient was seen today in follow-up of respiratory failure. No problems reported. She appears comfortable. - Objective Vital Signs & Weight: Vital Signs (12 hours) Temp Pulse Resp BP Pulse Ox 07/12/19 07:18 96.9 F L 70 18 111/75 99 07/12/19 03:44 97.5 F L 78 16 110/74 97 Weight Admit Weight 181 lb 6.4 oz Weight 2.902 oz I&O: 07/11/19 07/12/19 07/13/19 06:59 06:59 06:59 Intake Total 1509 2049 Balance 1509 2049 Result Diagrams: 07/11/19 05:01 07/11/19 05:01 Hospitalist ROS - Medication Medications: Active Medications Generic Name Dose Route Start Last Admin Trade Name Freq PRN Reason Stop Dose Admin Acetaminophen/Codeine Phosphate 1 tab 07/10/19 21:00 07/12/19 08:57 Tylenol #3 PO 1 tab BID SONIA Administration Lipase/Protease/Amylase 1 cap 07/10/19 21:12 07/10/19 21:33 Ángel Alcazar [id number] FS 1 cap .PER PROTOCOL PRN Administration TUBE OCCLUSION PROTOCOL Atorvastatin Calcium 10 mg 07/10/19 21:00 07/11/19 20:15 Lipitor PO 10 mg HS SONIA Administration Carvedilol 6.25 mg 07/10/19 21:00 07/12/19 08:56 Coreg PO 6.25 mg BID SONIA Administration Cholestyramine Resin 4 gm 07/10/19 22:00 07/12/19 09:02 Questran Light PO 4 gm 1000,2200 SONIA Administration Enoxaparin Sodium 40 mg 07/11/19 09:00 07/12/19 08:57 Lovenox SC 40 mg 0900 SONIA Administration Famotidine 20 mg 07/10/19 21:00 07/12/19 08:56 Pepcid PER TUBE 20 mg Q12HR SONIA Administration Furosemide 20 mg 07/11/19 09:00 07/12/19 08:56 Lasix PO 20 mg DAILY SONIA Administration Glycopyrrolate 2 mg 07/10/19 21:00 07/12/19 08:56 Robinul PER TUBE 2 mg TID SONIA Administration Piperacillin Sod/Tazobactam 100 mls @ 200 mls/hr 07/10/19 22:00 07/12/19 09: 05 Sod 3.375 gm/ Sodium Chloride IVPB 100 mls 0400,1000,1600,2200 SONIA Administration Vancomycin HCl 1 gm/ Device 200 mls @ 200 mls/hr 07/11/19 20:00 07/12/19 08: 57 IVPB 200 mls 0800,2000 SONIA Administration Levetiracetam 1,000 mg 07/10/19 21:00 07/12/19 08:56 Keppra Oral Solution PER TUBE 1,000 mg BID SONIA Administration Lisinopril 10 mg 07/11/19 09:00 07/12/19 08:56 Zestril PO 10 mg DAILY SONIA Administration Phenytoin Sodium 200 mg 07/10/19 21:00 07/11/19 21:21 Dilantin PER TUBE 200 mg HS SONIA Administration Potassium Chloride 20 meq 07/11/19 08:00 07/12/19 08:56 Klor-Con PO 20 meq BID-WM SONIA Administration Scopolamine 3 mg 07/10/19 18:00 07/10/19 17:47 Transderm Scop TOP 3 mg Q3D SONIA Administration Sodium Bicarbonate 650 mg 07/10/19 17:12 07/10/19 21:33 Bicarbonate, Sodium PER TUBE 650 mg .PER PROTOCOL PRN Administration ENTERAL TUBE OCCLUSION - Exam Eye: PERRL, anicteric sclera Heart: RRR, no murmur, no gallops, no rubs, normal peripheral pulses Respiratory: CTAB, no wheezes, no rales, no ronchi, normal chest expansion, no tachypnea, normal percussion Gastrointestinal: soft, non-distended, normal bowel sounds Extremities: no cyanosis, 1+ LE edema (+ non-pitting edema in the lower extremities) Hosp A/P (1) Acute respiratory failure with hypoxia Code(s): J96.01 - ACUTE RESPIRATORY FAILURE WITH HYPOXIA Status: Acute (2) PNA (pneumonia) Code(s): J18.9 - PNEUMONIA, UNSPECIFIED ORGANISM Status: Acute Qualifiers: Pneumonia type: due to unspecified organism (3) HTN (hypertension) Code(s): I10 - ESSENTIAL (PRIMARY) HYPERTENSION Status: Chronic Qualifiers: Hypertension type: essential hypertension Qualified Code(s): I10 - Essential (primary) hypertension (4) Multiple sclerosis Code(s): G35 - MULTIPLE SCLEROSIS Status: Chronic (5) Obesity (BMI 30-39.9) Code(s): E66.9 - OBESITY, UNSPECIFIED Status: Chronic (6) Seizure disorder Code(s): G40.909 - EPILEPSY, UNSP, NOT INTRACTABLE, WITHOUT STATUS EPILEPTICUS Status: Chronic - Plan * Acute on chronic respiratory failure hypoxemia- she has been afebrile, and appears comfortable. Pulmonology recommendations noted * Pawan l discontinue all antibiotics, and she is stable for transfer back to the Nursing facility.
--- NOTE | 2019-07-12 12:25 | DIS ---
DATE OF ADMISSION: 07/10/2019 DATE OF DISCHARGE: 07/12/2019 DISCHARGE DISPOSITION: Back to the correction. DISCHARGE DIAGNOSES: 1. Acute hypoxic respiratory failure likely secondary to mucus plug. 2. End-stage multiple sclerosis. 3. Quadriplegia. 4. History of seizure disorder. 5. History of previous cerebrovascular accident. 6. Hypertension. 7. Diastolic heart failure. 8. Status post tracheostomy and percutaneous endoscopic gastrostomy tube. DISCHARGE MEDICATIONS: The patient was taken off all antibiotics. She is to continue; 1. Sodium bicarbonate 650 mg per tube daily. 2. Scopolamine patch 3 mg every 3 days. 3. Potassium chloride 10 mEq twice daily. 4. Phenytoin 200 mg at bedtime. 5. Nystatin powder p.r.n. 6. Lisinopril 10 mg daily. 7. Keppra 1000 mg twice a day. 8. Robinul 2 mg q.8 as needed. 9. Pepcid 20 mg per tube daily. 10. Cholestyramine 4 g packet twice a day. 11. Coreg 6.25 mg twice daily. 12. Dulcolax 10 mg per rectum daily p.r.n. 13. Lipitor 10 mg daily. 14. Tylenol 650 mg p.r.n. 15. Magnesium hydroxide 30 mL p.r.n. 16. Neb treatments as needed. 17. Lasix 20 mg daily. 18. Tylenol No. 3 one tablet twice daily as needed. 19. Ibuprofen 800 mg p.r.n. CODE STATUS: Full code. ALLERGIES: NO KNOWN DRUG ALLERGIES. HOSPITAL COURSE: Ms. Rueda is a pleasant 54-year-old female, who was admitted to the hospital after she was noted to be hypoxic and had a temperature at the nursing facility. She had just recently been discharged for similar presentation. She was admitted and started on broad-spectrum IV antibiotics. X-ray had demonstrated possible new left upper lobe infiltrate. Pulmonology was consulted to tractor operator helper in the management given her complex history and by the time I saw her even in the ER, she had looked much improved after she had been suctioned and the mucus plug dislodged. She remained very stable during her hospital stay and it is felt that this was more atelectasis than true new infection. Once she had been monitored a few days in the hospital, she is being transferred back to the correction. She has a high risk for readmission given her chronic bed-bound status and increased tracheal secretions that she has on a regular basis and overall deconditioning. Job ID: [id number]
[2019-07-12 19:50] VITALS: BP 132/86; TEMP 97.7
[2019-07-12] MEDS: Atorvastatin Calcium 10 MG TAB PO SCH (20:11)
--- NOTE | 2019-07-13 15:03 | EKG ---
Test Reason : Blood Pressure : / mmHG Vent. Rate : 100 BPM Atrial Rate : 100 BPM P-R Int : 154 ms QRS Dur : 082 ms QT Int : 356 ms P-R-T Axes : 033 -17 063 degrees QTc Int : 459 ms Normal sinus rhythm Minimal voltage criteria for LVH, may be normal variant Cannot rule out Anterior infarct , age undetermined Abnormal ECG Confirmed by BULMARO DIAMOND ([id number]), assignment editor LARS VAUGHN ([id number]) on 07/13/2019 3:03:13 PM Referred By: Confirmed By:BULMARO DIAMOND
--- NOTE | 2019-07-15 06:49 | PQF ---
OLGA HEDRICK TONI MD [id number] [facility] [id number] CLINICAL DOCUMENTATION CLARIFICATION FORM: POST DISCHARGE Addendum to original discharge summary date: ____ Late entry note date: __ DATE:07/15/2019 ATTN: CINDY DANGELO MD Please exercise your independent, professional judgment in responding to the clarification form. Clinical indicators are provided on the bottom of this form for your review Please check appropriate box(s) to clarify if the following diagnosis has been ruled in or ruled out: SEPSIS [ ] Ruled in diagnosis [ ] Continue to treat [ ] Resolved [ X ] Ruled out diagnosis [ ] Cannot rule out diagnosis [ ] Other diagnosis [ ] Unable to determine For continuity of documentation, please document condition throughout progress notes and discharge summary. Thank You. CLINICAL INDICATORS - SIGNS / SYMPTOMS / LABS - [facility]eps[facility]- [facility] Temp: 99.2, RR: 25, Pulse:96- ED record, 07/10, [facility] - WBC: 8.5 on 07/10, 7.8 on 07/11- Laboratory - Fever and hypoxemia- H&P, 07/10, Brijesh Perez MD - felt that this was more atelectasis than new infection- DS, 07/12, CINDY DANGELO MD RISK FACTORS -Acute hypoxic respiratory failure - DS, 07/12, CINDY DANGELO MD TREATMENTS -Zosyn.IV- AUG, 07/10 to 07/12 -Vancomycin.IV AUG, 07/11 to 07/12 (This form is maintained as a part of the permanent medical record) 2014 [employer]. All Rights Reserved Mami Gonzalez [not provided] [not provided] MTDD
--- NOTE | 2019-07-23 22:43 | PQF ---
OLGA HEDRICK TONI MD [id number] [place] [id number] CLINICAL DOCUMENTATION CLARIFICATION FORM: POST DISCHARGE Addendum to original discharge summary date: ____ Late entry note date: __ DATE: 07/23/2019 ATTN: CINDY DANGELO MD Please exercise your independent, professional judgment in responding to the clarification form. Clinical indicators are provided on the bottom of this form for your review Please check appropriate box(s) to clarify if the following diagnosis has been ruled in or ruled out: Pneumonia [ ] Ruled in diagnosis [ ] Continue to treat [ ] Resolved [ X ] Ruled out diagnosis [ ] Cannot rule out diagnosis [ ] Other diagnosis [ ] Unable to determine For continuity of documentation, please document condition throughout progress notes and discharge summary. Thank You. CLINICAL INDICATORS - SIGNS / SYMPTOMS / LABS - Pneumonia-Hospitalist Progress note, 07/12, CINDY DANGELO MD - X-ray had demonstrated possible new left upper lobe infiltrate-DS, 07/12, CINDY DANGELO MD -It is felt this was more atelectasis than true new infection-DS, 07/12, CINDY DANGELO MD -I suspect a lot of this is aspirated saliva-H&P, 07/11, Ash Cruz MD -WBC: 8.5- Laboratory report, 07/10 RISK FACTORS -Acute hypoxic respiratory failure likely sec to mucus plug-DS, 07/12, CINDY DANGELO MD -Status: Tracheostomy-H&P, 07/11, Ash Cruz MD TREATMENTS -Vancomycin.IV- AUG, 07/10 -Levaquin.IV- AUG, 07/10 (This form is maintained as a part of the permanent medical record) 2014 [employer]. All Rights Reserved [facility]
== END 2019-07-12 20:45 | DRG 205 ==
LOC: ERS 05:58 → ERHOLD 09:58 → SURG A 11:42
PROVIDERS: ADMIT Internal Medicine; ATTEND Emergency Medicine
DX: T17.990A Other foreign object in respiratory tract, part unspecified in causing asphyxiation, initial encounter (principal); R53.2 Functional quadriplegia; J96.21 Acute and chronic respiratory failure with hypoxia; J98.11 Atelectasis; I50.32 Chronic diastolic (congestive) heart failure; G35 Multiple sclerosis; I11.0 Hypertensive heart disease with heart failure; G40.909 Epilepsy, unspecified, not intractable, without status epilepticus; E66.9 Obesity, unspecified; Z68.34 Body mass index [BMI] 34.0-34.9, adult; Z86.73 Personal history of transient ischemic attack (TIA), and cerebral infarction without residual deficits; Z93.0 Tracheostomy status; Z93.1 Gastrostomy status; Z74.01 Bed confinement status
CPT/HCPCS: 36415; 71045; 80048; 80053; 80202; 81003; 81015; 83605; 83880; 84484; 85025; 87040; 87804; 93005; 94640; 96365; 96367; A4353; J1650; J2543; J3370; J3490

== ENCOUNTER 2019-07-15 13:38 | Inpatient (IN) | payer OTHER ==
[2019-07-15] MEDS ORDERED: Norepinephrine 8 MG/0.9% NS 250 ML ONE (13:51)
[2019-07-15 14:06] LABS: #Eosinphils 0.2 thou/uL (0.0-0.7); #Lymphocytes 2.9 thou/uL (1.20-3.40); #Monocytes 0.1 thou/uL (0.11-0.59); #Neutrophils 14.3 thou/uL (1.40-6.50); %Basophils 0.1 % (0.0-1.0); %Eosinophils 1.3 % (0.0-10.0); %Lymphocytes 16.5 % (21.0-51.0); %Monocytes 0.5 % (0.0-10.0); %Neutrophils 81.5 % (42.0-75.0); Hemoglobin 12.6 g/dL (12.0-16.0); Mean Corpuscular HGB CONC 31.9 g/dL (32.0-36.0); Mean Corpuscular Hemoglobin 33.1 pg (27.0-31.0); Mean Platelet Volume 6.4 fL (7.4-10.4); Platelet Count 286 thou/uL (130-400); RBC Distribution Width 14.6 % (11.5-14.5); Red Blood Cell (RBC) Count 3.81 mill/uL (4.20-5.40); White Blood Cell (WBC) Count 17.6 thou/uL (4.8-10.8)
[2019-07-15 14:08] LABS: Actual Bicarbonate (HCO3a) 16.5 mEq/L (22-28); Analyzer IN Cardio ER; Base Excess (BEa) -10.1 mEq/L (-2.0 to +3.0); CO2 Tension 38.7 mmHg (35.0-45.0); Calcium, Ionized 1.08 mmol/L (1.12-1.30); Carboxyhemoglobin (COHb) 0.2 gm% (0.0-3.0); Hemoglobin (Hb) 12.8 g/dL (12.0-16.0); O2 Tension (PaO2) 203.2 mmHg (80.0-100.0); Potassium - ABG Lab 4.85 mmol/L (3.70-5.30)
[2019-07-15 14:09] LABS: ALV-art Gradient 461.425 (0-20); Puncture Site RRA; pH, Arterial 7.25 (7.35-7.45)
[2019-07-15 14:09] LABS: Bicarbonate (HCO3v) 16.6 mmol/L (22.0-28.0); CO2 Tension (PvCO2) 31.2 mmHg (40.0-50.0); Calcium, Ionized 0.96 mmol/L (See Comments:); Chloride 104 mmol/L (98-107); Hemoglobin - Calc 13.6 g/dL (12.0-16.0); Potassium 4.6 mmol/L (3.5-5.1); Sodium 134 mmol/L (138-145); T. Carbon Dioxide 17.6 mmol/L (22.0-28.0); vO2 Saturation-calc 99.6 % (60.0-85.0)
--- NOTE | 2019-07-15 14:10 | RAD ---
Chest AP view INDICATION: Chest pain COMPARISON: Chest radiograph dated July 15, 2019 at 12:48 PM FINDINGS: Lungs:There is worsening opacification of the left hemithorax with shifting of the mediastinum to the left. There is worsening subsegmental volume loss in the right lower lobe Cardiac silhouette:There is shifting the mediastinum to the left. The patient has been intubated thro h the tracheostomy tube site. ET tube tip is seen 1.9 cm above the level of autumn. Pulmonary vasculature:Normal Pleural spaces:Component of the left-sided pleural effusion is suspected. No pneumothorax. Upper abdomen:No abnormality seen. Osseous structures: No acute osseous abnormality. Additional findings:None. IMPRESSION: Complete opacification left hemithorax with shifting the mediastinum to the left is suspi cious for volume loss possibly related to mucous plugging or aspiration. Recommend consideration for bronchoscopy. Interval intubation through the patient's tracheostomy tube site. New right lower l obe subsegmental atelectasis.
[2019-07-15 14:11] LABS: INR-International Normal Ratio 1.6; PTT 42.5 SEC (22.9-36.1); Prothrombin Time 18.9 SEC (12.0-14.7)
[2019-07-15 14:27] LABS: ALT (SGPT) 3671 U/L (8-55); AST (SGOT) 3264 U/L (5-34); Albumin 3.1 g/dL (3.5-5.0); Alkaline Phosphatase 137 U/L (40-110); Anion Gap 22 mmol/L (10-20); BUN (Urea Nitrogen) 15 mg/dL (9.8-20.1); Bilirubin, Total 0.4 mg/dL (0.2-1.2); Calc. Creatinine Clearance 0 mL/min (70-130); Carbon Dioxide 15 mmol/L (22-29); Chloride 101 mmol/L (98-107); Estimated GFR-MDRD Greater than 90; Globulin 3.1 g/dL (2.4-3.5); Glucose 316 mg/dL (70-105); Potassium 5.5 mmol/L (3.5-5.1); Protein, Total 6.2 g/dL (6.0-8.3); Sodium 132 mmol/L (136-145)
[2019-07-15] MEDS ORDERED: EPINEPHrine 1 MG, Admixture Fee 1 EACH in Dextrose 5% in Water 250 ML IVPB SCH (14:45)
[2019-07-15] MEDS ORDERED: Ondansetron PF 4 MG/2 ML Vial IVP PRN (14:46)
[2019-07-15] MEDS ORDERED: Acetaminophen 650 MG Suppository PR PRN (14:46)
[2019-07-15] MEDS ORDERED: Acetaminophen 325 MG TAB PO PRN (14:46)
[2019-07-15 14:50] LABS: CKMB 2.3 ng/mL (0-6.6)
--- NOTE | 2019-07-15 15:03 | CT ---
Head CT without contrast 07/15/2019: COMPARISON: 02/24/2019 HISTORY: Status post cardiac arrest, unresponsive TECHNIQUE: Axial CT imaging at 5 mm intervals from vertex through skull base without contrast FINDINGS: There is mild mucosal thickening involving bilateral ethmoid air cells. No displaced calvar ial fracture is noted. No intracranial hemorrhage, midline shift, or mass effect. Scattered areas of periventricular, deep, and subcortical white matter hypodensity suggests small ves juan disease. There is subtle loss of paez-white differentiation diffusely. The prior examination demonstrated sign ificant cerebral volume loss with prominent cortical sulci bilaterally. Cortical sulci are less evident on this study bilaterally which may signify crowding on the basis of interval development of cerebral edema. IMPRESSION: No intracranial hemorrhage. Small vessel disease. Interval decrease of sulcation with sub tle diffuse loss of paez-white differentiation suspicious for possible underlying cerebral edema. Short-term follow-up imaging and/or further assessment with brain MRI suggested.
--- NOTE | 2019-07-15 15:12 | CT ---
CT CHEST WITHOUT CONTRAST CLINICAL INDICATION: Initial presentation to emergency department with cardiac arrest. Patient found unresponsive and puls eless and fpc. Chest x-ray demonstrates opacification left hemithorax. COMPARISON: None FINDINGS: Aorta: Limited evaluation without IV contrast, the thoracic aorta is normal in caliber. Lungs: Patient's arms are down by the side which results in artifact. There is consolidation involvin g the majority of the left hemithorax with only a very small amount of aerated lung in the anterior left upper lobe. There is decreased density material seen within the left mainstem bronchus which cou ld be related to mucous plugging/debris. Mass in this region while a possibility is thought less likely, but bronchoscopy is recommended for further evaluation. Consolidation in the left hemithorax is most likely attributable to volume loss as there is mild shift of the mediastinal structures to the left. Associated aspiration pneumonitis/pneumonia cannot be entirely excluded. There is suggestio n of a small left pleural effusion. Parenchymal density is also seen at the right lung base which may related to atelectasis versus aspir ation pneumonitis versus developing pneumonia. Mediastinum: The heart is in enlarged. Trace pericardial thickening versus pericardial effusion is pr esent. Tracheostomy device is noted in place with the tip above the autumn. Thyroid gland: Grossly normal nonenhanced CT appearance. Osseous structures: No acute process. Chest wall: No abnormality visualized. Upper abdomen: Nonobstructing superior pole bilateral renal calculi are visualized with calculus in t he superior pole right kidney measuring 16 mm x 5 mm. There is incomplete visualization of a hypodense bilateral renal lesions largest in the superior pole left kidney which are difficult to chiquita racterize due to artifact secondary to patient's arms down by the side, these cystic lesions were seen on CT abdomen and pelvis study in 2017 and demonstrate findings suggestive of renal cysts. IMPRESSION: 1. Consolidation involving large portion of the left hemithorax with only a small amount of aerated l [place] in the anterior left upper lobe. There is shift of the mediastinal structures to the left with hypodense to isodense material seen in the left mainstem bronchus probably related to either aspirati on of debris or possibly secondary to mucous plugging. Mass is thought less likely. Bronchoscopy is recommended for further evaluation. Findings in the left hemithorax are most likely attributable to c ollapse of the left lower lobe and majority of the left upper lobe. Associated aspiration pneumonitis cannot be excluded. 2. Patchy parenchymal densities right lung base which may relate to atelectasis, aspiration pneumonit is versus pneumonia. Continued follow-up to resolution is recommended. 3. Bilateral renal cysts with nonobstructing bilateral renal calculi. 4. Cardiomegaly.
--- NOTE | 2019-07-15 15:35 | RAD ---
Chest AP view INDICATION: Sepsis COMPARISON: Chest radiograph dated July 15, 2019 FINDINGS: Lungs:There is improved aeration of the left lung. There is persistent collapse of the left lower lob e. There is airspace disease in the left upper lobe which suspicious for areas of persistent subsegmental volume loss or edema. There is persistent 1 loss in the right lower lobe Cardiac silhouette:Stable cardiomegaly Pulmonary vasculature:Normal Pleural spaces:Stable small left pleural effusion Upper abdomen:No abnormality seen. Osseous structures: No acute osseous abnormality. Additional findings:Stable tracheostomy tube IMPRESSION: Improved aeration of the left lung with persistent collapse of the left lower lobe and a small left pleural effusion. Airspace opacity remains in the left upper lobe which may reflect regions of persistent subsegmental volume loss, edema or pneumonitis. Continued follow-up is recommen ded. Persistent subsegmental volume loss in the right lower lobe.
--- NOTE | 2019-07-15 15:58 | PDOC.HHP ---
Hospitalist HPI - History of Present Illness Cardiac arrest History of Present Illness: 54 YO F, [place] resident, with a PMH of end stage MS, chronic resp failure s/p trach , CVA, bed bound state, CHF who was recently d/c on 07/12/19 after being admitted for acute on chr resp failure initially thought to have been due to a mucous plugs. Pulm had been consulted but it appeared that pt was medically managed with improvement. Pt is currently intubated and unable to provide hx. Hx is therefore obtained from review of prior notes and speaking with the ER Dr. Pt apparently had a cardiac arrest this morning in the [place] but was resuscitated after CPR x 15 mins and 1 dose of Epi. She was taken to an OSH ER where she had another cardiac arrest/code and again had another code and was successfully resuscitated again. She was brought to our ER, where she is currently intubated via her trach and is on 2 pressors. CXR showed a left lung opacification suspicious for mucous plugs and well as a new Right hilar changes. Pt had blood cx taken and given abx. PCCM was consulted by the ER Dr and she will be admitted to the ICU. Hospitalist ROS - Review of Systems ROS unobtainable: due to endotracheal tube Hospitalist History - Past Medical History Cardiac: reports: CHF, HTN Pulmonary: reports: congestive heart failure, pneumonia, Other (Chr resp failure s/p trach) SPINNER OPEN END: reports: CVA Heme/Onc: reports: Anemia NOS Rheumatologic: reports: Other (MS) - Exam General - other findings: Sedated and intubated Eye: PERRL Neck: supple, symmetric, no JVD, no thyromegaly, no carotid bruit Neck - other findings: trach present Heart: RRR, no murmur, no gallops, no rubs, normal peripheral pulses Respiratory: CTAB, no wheezes, no rales, no ronchi Gastrointestinal: soft, non-tender, non-distended, normal bowel sounds, no palpable masses Gastrointestinal - other findings: PEG tube noted Extremities: no cyanosis, no clubbing, no edema Hospitalist Results - Labs Result Diagrams: 07/16/19 04:00 07/16/19 04:00 Lab results: WBC 7.8 thou/uL (4.8-10.8) 07/11/19 05:01 Hgb 10.7 g/dL (12.0-16.0) L 07/11/19 05:01 Hct 31.8 % (36.0-47.0) L 07/11/19 05:01 MCV 97.6 fL (78.0-98.0) 07/11/19 05:01 Plt Count 227 thou/uL (130-400) 07/11/19 05:01 Neutrophils % 69.4 % (42.0-75.0) 07/11/19 05:01 Sodium 133 mmol/L (136-145) L 07/11/19 05:01 Potassium 4.1 mmol/L (3.5-5.1) 07/11/19 05:01 Chloride 104 mmol/L (98-107) 07/11/19 05:01 Carbon Dioxide 23 mmol/L (22-29) 07/11/19 05:01 BUN 10 mg/dL (9.8-20.1) 07/11/19 05:01 Creatinine 0.50 mg/dL (0.6-1.1) L 07/11/19 05:01 Glucose 108 mg/dL (70-105) H 07/11/19 05:01 Lactic Acid 0.9 mmol/L (0.5-2.2) 07/10/19 06:41 Calcium 8.6 mg/dL (7.8-10.44) 07/11/19 05:01 Total Bilirubin 0.4 mg/dL (0.2-1.2) 07/10/19 06:27 AST 16 U/L (5-34) 07/10/19 06:27 ALT 13 U/L (8-55) 07/10/19 06:27 Alkaline Phosphatase 103 U/L (40-110) 07/10/19 06:27 Troponin I Less than 0.010 ng/mL (< 0.028) 07/10/19 06:43 B-Natriuretic Peptide 73.9 pg/mL (0-100) 07/10/19 06:43 Serum Total Protein 6.4 g/dL (6.0-8.3) 07/10/19 06:27 Albumin 3.2 g/dL (3.5-5.0) L 07/10/19 06:27 Urine Ketones Negative mg/dL (Negative) 07/10/19 06:14 Urine Blood Small (Negative) A 07/10/19 06:14 Urine Nitrite Negative (Negative) 07/10/19 06:14 Ur Leukocyte Esterase Moderate (Negative) H 07/10/19 06:14 Urine RBC 4-6 HPF (0-3) A 07/10/19 06:14 Urine WBC 11-20 HPF (0-3) A 07/10/19 06:14 Ur Squamous Epith Cells 7-10 HPF (0-3) A 07/10/19 06:14 Hospitalist H&P A/P - Problem (1) Acute respiratory failure Code(s): J96.00 - ACUTE RESPIRATORY FAILURE, UNSP W HYPOXIA OR HYPERCAPNIA Status: Acute Qualifiers: Respiratory failure complication: hypoxia Qualified Code(s): J96.01 - Acute respiratory failure with hypoxia Assessment and Plan: Pt is currently intubated. Will defer mgt to [facility]. (2) Multiple sclerosis Code(s): G35 - MULTIPLE SCLEROSIS Status: Chronic Assessment and Plan: Cont supportive measures. (3) PNA (pneumonia) Code(s): J18.9 - PNEUMONIA, UNSPECIFIED ORGANISM Status: Acute Qualifiers: Pneumonia type: due to unspecified organism Laterality: left Lung location: unspecified part of lung Qualified Code(s): J18.9 - Pneumonia, unspecified organism Assessment and Plan: Pt has opacified left lung likely due to mucous plugs. Will likely need a bronchoscopy. Pulm has been consulted. Will f/u with their recs. Cont current abx. (4) Seizure disorder Code(s): G40.909 - EPILEPSY, UNSP, NOT INTRACTABLE, WITHOUT STATUS EPILEPTICUS Status: Chronic Assessment and Plan: Cont seizure meds and supportive mgt (5) Cardiac arrest Code(s): I46.9 - CARDIAC ARREST, CAUSE UNSPECIFIED Status: Resolved Assessment and Plan: Unclear etiology. Possibly due acute on chronic resp failure vs sepsis. Will cont presors. Check troponins, consult cardiology. (6) Sepsis Code(s): A41.9 - SEPSIS, UNSPECIFIED ORGANISM Status: Acute Qualifiers: Sepsis type: sepsis due to unspecified organism Sepsis acute organ dysfunction status: unspecified Qualified Code(s): A41.9 - Sepsis, unspecified organism Assessment and Plan: Unclear etiology. Could be due to PNA. Will cont abx and pressors. F/u with [facility] recs. (7) UTI (urinary tract infection) Status: Acute Qualifiers: Urinary tract infection type: site unspecified Hematuria presence: without hematuria Qualified Code(s): N39.0 - Urinary tract infection, site not specified Assessment and Plan: Cont current abx. F/u with urine cx results. - Plan Plan: PPx: Lovenox and Pepcid. CODE: FULL. Disposition: Admit to ICU. PCCM consulted by ER.
[2019-07-15] MEDS: Sodium Chloride 0.9% 1,000 ML IV SCH (16:42)
[2019-07-15] MEDS ORDERED: Nystatin Powder 15 GM BOT TOP PRN (16:52)
[2019-07-15] MEDS ORDERED: Sodium Bicarbonate Tab 325 MG TAB PER TUBE PRN (16:52)
[2019-07-15] MEDS ORDERED: Norepinephrine 8 MG/0.9% NS 250 ML IVPB SCH (16:58)
[2019-07-15] MEDS ORDERED: Scopolamine 1.5 mg/72 hour Patch TOP SCH (17:00)
[2019-07-15 17:16] LABS: Troponin I 0.063 ng/mL (< 0.028)
[2019-07-15 17:17] LABS: Lactic Acid 8.1 mmol/L (0.5-2.2)
--- NOTE | 2019-07-15 17:21 | CON ---
DATE OF CONSULTATION: 07/15/2019 TIME SPENT: This is a 40 minutes of critical care time. REASON FOR CONSULTATION: The patient is status post arrest. HISTORY OF PRESENT ILLNESS: This is an unfortunate 54-year-old female who is a resident of a local jail. She had an [id number] arrest today. She had bystander CPR for 15 minutes and then 30-minute chest compressions with epi via EMS before return of spontaneous circulation. She has a chronic indwelling tracheostomy. Has an ET tube that is currently inserted into the ostomy site. I do not know if that is there because she had airway obstruction or if they just needed a cuffed airway. She is currently on mechanical ventilation. She is on Levophed and epinephrine drips. She is unresponsive. PAST MEDICAL HISTORY: 1. Multiple sclerosis. 2. History of tracheostomy and PEG tube placed. 3. Seizure disorder. 4. Hypertension. SOCIAL HISTORY: [facility] resident. Does not smoke. Does not consume alcohol. ALLERGIES: NONE. REVIEW OF SYSTEMS: Cannot obtain as the patient is unconscious. MEDICATIONS PRIOR TO ADMISSION: Reviewed, see chart. FAMILY MEDICAL HISTORY: Unremarkable. PHYSICAL EXAMINATION: VITAL SIGNS: Heart rate 96, blood pressure 100/73, O2 saturation 100%, respiratory rate 16. GENERAL: She is currently on mechanical ventilation on the epinephrine and norepinephrine drips. HEENT: Pupils sluggish. Sclerae anicteric. Oropharynx clear. NECK: A 6.0 endotracheal tube through ostomy site. LUNGS: Clear anteriorly. CARDIOVASCULAR: S1 and S2. Regular. ABDOMEN: Obese, soft, and nontender. PEG tube noted. EXTREMITIES: Brawny edema throughout. LABORATORY DATA: White blood cell count 17.6, hematocrit 39.5, and platelet count 286. INR 1.6. A pH of 7.25, pCO2 of 38, pO2 of 203. Sodium 134, potassium 4.6, chloride 104, BUN 15, creatinine 0.7, and glucose 316. Troponin 0.035. ASSESSMENT: 1. Status post cardiopulmonary arrest. 2. Multiple sclerosis, end-stage. 3. Question of concurrent left-sided pneumonia seen on CT scan, may also be some material in the left mainstem bronchus. PLAN: 1. Supportive care with vasopressors, IV antibiotics, and mechanical ventilation. 2. Diagnostic bronchoscopy to rule out airway obstruction in the left. 3. Prognosis is quite poor. Job ID: [id number]
--- NOTE | 2019-07-15 17:24 | OP ---
DATE OF PROCEDURE: 07/15/2019 PROCEDURES PERFORMED: 1. Tracheostomy change out. 2. Bronchoscopy for mucus plug extraction. INDICATIONS FOR PROCEDURE: This is a 54-year-old female who apparently had her previous trach removed and replaced with a 6.0 endotracheal tube for the purpose of ventilating her mechanically because she needed a cuff. CT scan demonstrates a potential left mainstem mucus plug. DESCRIPTION OF PROCEDURE: Procedure was done on an emergent basis in the CCU. We used a 6.0 cuffed Shiley trach to change it out for the endotracheal tube that was in place. This was done without difficulty. A bronchoscope was then inserted in the patient's tracheostomy tube while she was on mechanical ventilation. There was a large mucus plug impacted in the left mainstem bronchus. This was lavaged and aspirated until the airway was clear. The airways were remarkable for bilateral erythematous mucosa, consistent with suction trauma. She tolerated the procedure well. Job ID: [id number]
[2019-07-15] MEDS: Cefepime 1 GM in Sodium Chloride 0.9% 100 ML IVPB SCH (18:00)
[2019-07-15] MEDS: Vancomycin HCl 1 GM in Premix Bag 1 BAG IVPB SCH (18:04)
[2019-07-15 20:21] LABS: Troponin I 0.091 ng/mL (< 0.028)
[2019-07-15] MEDS: Famotidine/PF 20 mg/2ml Vial SLOW IVP SCH (20:42)
[2019-07-15] MEDS: Glycopyrrolate 1 MG TAB PER TUBE SCH (20:43)
[2019-07-15] MEDS: levETIRAcetam 500 mg/5 ml Oral Solution PER TUBE SCH (20:44)
[2019-07-16] MEDS ORDERED: HumaLOG 300 UNITS/3 ML VIAL SC PRN ×2 (01:18)
[2019-07-16] MEDS ORDERED: Dextrose 50% Abboject 50 ML SYRINGE SLOW IVP PRN (01:18)
[2019-07-16] MEDS ORDERED: Dextrose 5% in Water 1,000 ML IV PRN (01:18)
[2019-07-16] MEDS: Sodium Chloride 0.9% 1,000 ML IV SCH (02:02)
[2019-07-16] MEDS: Cefepime 1 GM in Sodium Chloride 0.9% 100 ML IVPB SCH ×2 (03:10→17:24)
[2019-07-16 04:45] LABS: Anion Gap 15 mmol/L (10-20); BUN (Urea Nitrogen) 28 mg/dL (9.8-20.1); Calc. Creatinine Clearance 110 mL/min (70-130); Calcium 8.4 mg/dL (7.8-10.44); Carbon Dioxide 21 mmol/L (22-29); Chloride 109 mmol/L (98-107); Estimated GFR-MDRD Greater than 90; Glucose 87 mg/dL (70-105); Potassium 4.4 mmol/L (3.5-5.1); Sodium 141 mmol/L (136-145)
[2019-07-16] MEDS: Vancomycin HCl 1 GM in Premix Bag 1 BAG IVPB SCH ×2 (05:36→17:28)
[2019-07-16 05:40] LABS: Band 11 % (5-11); Hemoglobin 11.9 g/dL (12.0-16.0); Lymphocytes 7 % (21-51); MDiff Complete? YES; Mean Corpuscular HGB CONC 33.7 g/dL (32.0-36.0); Mean Corpuscular Hemoglobin 33.4 pg (27.0-31.0); Mean Platelet Volume 6.8 fL (7.4-10.4); Monocytes 9 % (0-10); Neutrophil 73 % (42-75); Platelet Count 191 thou/uL (130-400); RBC Distribution Width 14.8 % (11.5-14.5); Red Blood Cell (RBC) Count 3.56 mill/uL (4.20-5.40); White Blood Cell (WBC) Count 19.4 thou/uL (4.8-10.8)
[2019-07-16 06:43] LABS: ALT (SGPT) 3039 U/L (8-55); AST (SGOT) 2790 U/L (5-34); Albumin 3.1 g/dL (3.5-5.0); Alkaline Phosphatase 119 U/L (40-110); Bilirubin, Direct 0.8 mg/dL (0.1-0.3); Bilirubin, Total 1.3 mg/dL (0.2-1.2); Protein, Total 5.9 g/dL (6.0-8.3)
[2019-07-16 06:56] LABS: Actual Bicarbonate (HCO3a) 20.1 mEq/L (22-28); Base Excess (BEa) -0.5 mEq/L (-2.0 to +3.0); Calcium, Ionized 1.15 mmol/L (1.12-1.30); Carboxyhemoglobin (COHb) 1.6 gm% (0.0-3.0); O2 Tension (PaO2) 100.8 mmHg (80.0-100.0); Potassium - ABG Lab 3.95 mmol/L (3.70-5.30)
[2019-07-16 06:58] LABS: CO2 Tension 22.5 mmHg (35.0-45.0); pH, Arterial 7.57 (7.35-7.45)
[2019-07-16 06:59] LABS: ALV-art Gradient 156.275 (0-20); Puncture Site LRA
--- NOTE | 2019-07-16 07:43 | RAD ---
EXAM: Single view of the chest HISTORY: Respiratory failure COMPARISON: 07/15/2019 FINDINGS: Single view of the chest shows an enlarged but stable cardiomediastinal silhouette. The tr acheostomy is unchanged in position. There may be atelectasis of the left lower lobe. The bones are unremarkable. IMPRESSION: Stable exam
[2019-07-16] MEDS: levETIRAcetam 500 mg/5 ml Oral Solution PER TUBE SCH (08:41)
[2019-07-16] MEDS: Famotidine/PF 20 mg/2ml Vial SLOW IVP SCH (08:41)
--- NOTE | 2019-07-16 08:53 | PDOC.HOSPP ---
- Subjective Encounter Date: 07/16/19 Encounter Time: 11:30 non-verbal Subjective: Patient not responsive this AM on the vent. No sedation. No breathing. No reflexes. - Objective Vital Signs & Weight: Vital Signs (12 hours) Pulse Resp BP 07/16/19 06:36 103 H 138/111 H 07/16/19 06:00 16 07/16/19 04:00 16 07/16/19 02:17 115 H 97/76 07/16/19 02:00 16 07/16/19 00:39 131 H 140/109 H 07/16/19 00:00 16 07/15/19 21:57 94 102/79 Weight Weight 175 lb 7.807 oz Most Recent Monitor Data Heart Rate from ECG 137 NIBP 222/152 NIBP BP-Mean 175 Respiration from ECG 27 SpO2 99 I&O: 07/15/19 07/16/19 07/17/19 06:59 06:59 06:59 Intake Total 640 Output Total 2560 Balance -1920 Result Diagrams: 07/16/19 04:00 07/16/19 04:00 Additional Labs: Accuchecks 07/16/19 07/16/19 07/15/19 02:19 01:15 22:15 POC Glucose 91 59 L* 85 07/15/19 18:18 POC Glucose 225 H Hospitalist ROS - Review of Systems ROS unobtainable: due to endotracheal tube - Medication Medications: Active Medications Generic Name Dose Route Start Last Admin Trade Name Freq PRN Reason Stop Dose Admin Acetaminophen 650 mg 07/15/19 14:46 07/16/19 00:04 Tylenol PO 650 mg Q4H PRN Administration Headache/Fever/Mild Pain (1-3) Enoxaparin Sodium 40 mg 07/16/19 09:00 07/16/19 08:42 Lovenox SC 40 mg 0900 SONIA Administration Famotidine 20 mg 07/15/19 21:00 07/16/19 08:41 Pepcid SLOW IVP 20 mg Q12HR SONIA Administration Glucagon 1 mg 07/16/19 01:18 07/16/19 02:01 Glucagon IM 1 mg PRN PRN Administration Hypoglycemia Glycopyrrolate 2 mg 07/15/19 21:00 07/15/19 20:43 Robinul PER TUBE 2 mg TID SONIA Administration Epinephrine 1 mg/ 251 mls @ 0 mls/hr 07/15/19 14:45 07/15/19 16:48 Miscellaneous Medication 1 IVPB 251 mls each/ Dextrose/Water INF SONIA Administration Protocol Titrate Sodium Chloride 1,000 mls @ 100 mls/hr 07/15/19 15:00 07/16/19 02:02 Normal Saline 0.9% IV 1,000 mls .Q10H SONIA Administration Vancomycin HCl 1 gm/ Device 200 mls @ 200 mls/hr 07/15/19 17:00 07/16/19 05: 36 IVPB 200 mls 0500,1700 SONIA Administration Cefepime HCl 1 gm/ Sodium 100 mls @ 200 mls/hr 07/15/19 16:00 07/16/19 03:10 Chloride IVPB 100 mls 0400,1600 SONIA Administration Levetiracetam 1,000 mg 07/15/19 21:00 07/16/19 08:41 Keppra Oral Solution PER TUBE 1,000 mg BID SONIA Administration Phenytoin Sodium 200 mg 07/15/19 21:00 07/15/19 20:44 Dilantin PER TUBE 200 mg HS SONIA Administration Scopolamine 3 mg 07/15/19 17:00 07/15/19 18:03 Transderm Scop TOP 3 mg Q3D SONIA Administration - Exam General - other findings: unresponsive on the vent Eye - other findings: bilateral pupils 4mm, unresponsive to light, dolls eyes Heart: no murmur, no gallops, no rubs Heart - other findings: tachycardic Respiratory: CTAB, no wheezes, no rales, no ronchi Respiratory - other findings: on vent Gastrointestinal: soft Neurological - other findings: no movements, no brainstem reflexes Psychiatric - other findings: completely unresponsive Hosp A/P (1) Anoxic encephalopathy Status: Acute Plan: patient appears to have suffered a complete and irreversible brain injury (2) Cardiac arrest Code(s): I46.9 - CARDIAC ARREST, CAUSE UNSPECIFIED Status: Resolved (3) Acute respiratory failure with hypoxia Code(s): J96.01 - ACUTE RESPIRATORY FAILURE WITH HYPOXIA Status: Acute (4) Mucus plugging of bronchi Code(s): J98.09 - OTHER DISEASES OF BRONCHUS, NOT ELSEWHERE CLASSIFIED Status : Resolved (5) H/O: CVA (cerebrovascular accident) Code(s): Z86.73 - PRSNL HX OF TIA (TIA), AND CEREB INFRC W/O RESID DEFICITS Status: Chronic (6) HTN (hypertension) Code(s): I10 - ESSENTIAL (PRIMARY) HYPERTENSION Status: Chronic Qualifiers: (7) Multiple sclerosis Code(s): G35 - MULTIPLE SCLEROSIS Status: Chronic (8) Quadriparesis Code(s): G82.50 - QUADRIPLEGIA, UNSPECIFIED Status: Chronic (9) Seizure disorder Code(s): G40.909 - EPILEPSY, UNSP, NOT INTRACTABLE, WITHOUT STATUS EPILEPTICUS Status: Chronic (10) Status post tracheostomy Code(s): Z93.0 - TRACHEOSTOMY STATUS Status: Chronic (11) Chronic diastolic (congestive) heart failure Code(s): I50.32 - CHRONIC DIASTOLIC (CONGESTIVE) HEART FAILURE Status: Chronic (12) Shock liver Code(s): K72.00 - ACUTE AND SUBACUTE HEPATIC FAILURE WITHOUT COMA Status: Acute - Plan Patient with [facility] at prison, ROSC after about 45 minutes of BLS/ACLS. Bronchoscopy with large left main stem mucus plug removed Mild troponin elevations Severe LFT elevations likely from shock liver from the code Patient without evidence of residual brain activity. Meeting with 4 daughters and palliative care conducted in the afternoon, plan for comfort care extubation this afternoon.
[2019-07-16] MEDS: Glycopyrrolate 1 MG TAB PER TUBE SCH ×2 (08:57→14:30)
[2019-07-16] MEDS ORDERED: Enoxaparin Sodium 40 MG/0.4 ML SYRINGE SC SCH (09:00)
[2019-07-16] MEDS ORDERED: niCARdipine 25 MG in Sodium Chloride 0.9% 250 ML 250 ML IVPB SCH (09:00)
[2019-07-16] MEDS ORDERED: niCARdipine 25 MG in Sodium Chloride 0.9% 250 ML 240 ML IVPB SCH (09:15)
[2019-07-16] MEDS: Metoprolol Tartrate 5 MG/5 ML VIAL IVP SCH ×2 (10:34→14:00)
--- NOTE | 2019-07-16 13:37 | PDOC.PALCO ---
Palliative Care Consult - Consult Details Requesting Physician: Dr Ascencio Reason for Consult: advance directives assistance, assistance with communication prognosis/disease, family support, complex decision-making Family Members Present: Patients 4 daughters (She has 5 children, her son lives out of state) - Pertinent HPI 54 year old female who has progressive multiple sclerosis, seizure disorder and CVA. The past 6 months Ms Rueda has had continued decline with placement of trach and PEG becoming non verbal and requiring admission to correction secondary to max assist for ADL's as she was unable to participate with any aspect of care. In the correction Ms Rueda was found unresponsive with no pulse, CPR initiated and is estimated to be done for 15 min prior to EMS arrival and initiation of transfer to [facility]. On the vent, no movement and without sedation. - Social History Smoking Status: Unknown if ever smoked Alcohol Use: none Drug Use History: none Living Situation: correction resident - Medications MAR Reviewed: Yes - Allergies Allergies/Adverse Reactions: Allergies Allergy/AdvReac Type Severity Reaction Status Date / Time No Known Drug Allergies Allergy Verified 02/25/19 17:18 - Subjective Mechanical ventilation via trach, no sedation, no purposeful movement, non responsive to gentle stimuli - ROS Non Response: due to mental status - Objective Vital Signs: Vital Signs - Most Recent Temp Pulse Resp BP Pulse Ox 97.3 F L 150 H 10 L 176/127 H 100 07/16/19 12:00 07/16/19 10:10 07/16/19 12:00 07/16/19 10:10 07/15/19 20:00 Palliative Performance Scale: 10 - Physical Exam Constitutional: encephalitic, ill appearing HEENT: moist MMs Deviation from normal: pupils nonresponsive to light Respiratory: no wheezing, diminished lung sound Deviation from normal: mechanical ventilation via trach Deviation from normal: tachy Gastrointestinal: incontinent Genitourinary: bryan catheter Musculoskeletal: edema present, diffuse muscle atrophy, muscle wasting Deviation from normal: deficits, not responsive to gentle stimuli Skin: no lesions, no rash Deviation from normal: non respinsive - Problem List (1) Palliative care encounter Code(s): Z51.5 - ENCOUNTER FOR PALLIATIVE CARE Current Visit: Yes Status: Acute (2) Chronic diastolic (congestive) heart failure Code(s): I50.32 - CHRONIC DIASTOLIC (CONGESTIVE) HEART FAILURE Current Visit: Yes Status: Chronic (3) Acute respiratory failure with hypoxia Code(s): J96.01 - ACUTE RESPIRATORY FAILURE WITH HYPOXIA Current Visit: No Status: Acute (4) Anoxic encephalopathy Current Visit: No Status: Acute (5) H/O: CVA (cerebrovascular accident) Code(s): Z86.73 - PRSNL HX OF TIA (TIA), AND CEREB INFRC W/O RESID DEFICITS Current Visit: No Status: Chronic (6) Multiple sclerosis Code(s): G35 - MULTIPLE SCLEROSIS Current Visit: No Status: Chronic (7) Obesity (BMI 30-39.9) Code(s): E66.9 - OBESITY, UNSPECIFIED Current Visit: No Status: Chronic (8) Seizure disorder Code(s): G40.909 - EPILEPSY, UNSP, NOT INTRACTABLE, WITHOUT STATUS EPILEPTICUS Current Visit: No Status: Chronic (9) Cardiac arrest Code(s): I46.9 - CARDIAC ARREST, CAUSE UNSPECIFIED Current Visit: No Status : Resolved - Plan/Recommendations Plan: Family meeting with patient 4 daughters, Dr Ascencio reviewed recent events and no meaningful recovery. Devika Molina RNregistered pharmacist also present. Patient to go for cerebral blood flow. *Continue conversation to transition patient to DNAR status *Consideration for compassionate extubation *STA to initiate conversation with family after Cerebral Blood Flow *Continue family support as they struggle with their mothers terminal situation Please also refer to Devika Molina RNregistered pharmacist notes in note section. [60] minutes spent on this encounter with >50% of the time in counseling and coordination of care. Thank you for this very appropriate consult.
[2019-07-16 14:11] VITALS: BMI 32.1
--- NOTE | 2019-07-16 15:02 | CON ---
DATE OF CONSULTATION: HISTORY OF PRESENT ILLNESS: The patient is an unfortunate 54-year-old woman, with a history of end-stage multiple sclerosis, who presented after cardiac arrest. The patient was seen initially several months ago after she suffered a cerebrovascular accident. The patient at that time underwent an echocardiogram , which revealed an ejection fraction only 10% to 15%. The patient was in a long term when she had a cardiac arrest. The patient at this time is unresponsive. The patient is markedly tachycardic and hypertensive. PAST MEDICAL HISTORY: 1. Multiple sclerosis. 2. History of cardiomyopathy. 3. History of CVA. 4. Hypertension. PAST SURGICAL HISTORY: ALLERGIES: NO KNOWN DRUG ALLERGIES. MEDICATIONS: See nursing list. PHYSICAL EXAMINATION: GENERAL: Obtunded woman, who is intubated. VITAL SIGNS: With a blood pressure of 222/152 with a heart rate of 150. NECK: Full. LUNGS: Coarse breath sounds bilateral. HEART: Regular rate and rhythm. Normal S1 and S2. ABDOMEN: Distended. EXTREMITIES: Showed trace edema. LABORATORY DATA: White blood cell count 19.4, hemoglobin 11.9, hematocrit 35.3 , and platelets 191. Sodium is 141, potassium 4.4, chloride 109, bicarbonate 20, BUN 0.72 IMPRESSION: 1. Status post cardiac arrest. 2. End-stage multiple sclerosis. 3. History of cardiomyopathy. 4. Hypertensive crisis. 5. Shock liver. PLAN: This unfortunate woman with end-stage multiple sclerosis is extremely tachycardic. She is being started on Cardene. With her severe tachycardia ,we will try her on IV Lopressor. The patient's prognosis is extremely poor. We will follow this patient with you through her hospitalization. TIME SPENT: Critical care note time 30 minutes. Job ID: [id number] MTDD
--- NOTE | 2019-07-16 15:17 | PRG ---
DATE OF SERVICE: 07/16/2019 SUBJECTIVE: Ana Rueda's events have been reviewed. She had a prolonged period of resuscitation prior to admission. OBJECTIVE: VITAL SIGNS: Heart rate is 113, blood pressure is 100/80, respiratory rate is in the 20s, oximetry is 99%. HEENT: She has no corneals. No gag. No doll's eyes. She is flaccid to sternal rub. She has no spontaneous respiratory effort. LUNGS: Clear. HEART: Regular rhythm. ABDOMEN: Soft. LABORATORY DATA: White count 19.4, hemoglobin 11.9, platelets 191,000. Sodium 141, potassium 4.4, chloride 109, bicarb 21, BUN 28, creatinine 0.72. IMPRESSION: 1. Status post [id number] arrest, most likely related to mucus plugging secondary to an ineffective cough, secondary to end-stage multiple sclerosis. 2. Anoxic brain injury. Clinically, she appears to be brain . She is going down for a nuclear perfusion study of her brain. 3. Elevated liver enzymes, most likely result of her cardiac arrest. 4. Hypoalbuminemia. 5. History of tracheostomy, PEG placement. 6. Status post bronchoscopy showing a large mucus plug in her left mainstem bronchus. I would anticipate that she will be pronounced today. We will await nuclear perfusion study. Job ID: [id number]
--- NOTE | 2019-07-16 15:54 | NM ---
EXAM: NM Brain Cerebral Flow Study PROVIDED CLINICAL HISTORY: Patient is post code. Prior CT of the brain demonstrated loss of paez-white differentiation. COMPARISON: None FINDINGS: Flow images as well as delayed images of the head and neck are obtained. There is absent intracranial uptake of radiotracer on both the flow and delayed imaging. Findings are suggestive of absent cerebral perfusion. IMPRESSION: 1. Evidence of absent cerebral perfusion. 2. Above findings were discussed with Dr. Cruz on 07/16/2019 at 1544 hours.
[2019-07-16 17:09] VITALS: TEMP 98.2
[2019-07-16 18:09] VITALS: BP 142/111
--- NOTE | 2019-07-17 14:45 | DIS ---
DATE OF ADMISSION: 07/15/2019 DATE OF DISCHARGE: 07/16/2019 REASON FOR ADMISSION: Acute cardiac arrest, status post return of spontaneous circulation in ambulance. CAUSE OF : Cardiac arrest and resultant anoxic brain injury with brain secondary to end-stage multiple sclerosis with poor cough and mucous plugging. Contributing factors are severe systolic congestive heart failure. TIME OF : 2044 hours on 07/16/2019. SUMMARY OF HOSPITAL COURSE: This is a 54-year-old prison resident with a past medical history of end-stage multiple sclerosis with chronic respiratory failure status post trach, previous CVA, severe CHF with an ejection fraction of 10% and bed-bound state who over the past few months progressed to where she cannot move her arms or communicate in any meaningful way. The patient was recently admitted to the hospital for lbzdw-fl-bldrhvl respiratory failure, thought to be due to mucous plugging. She was discharged back to prison. In the prison, she was found without a pulse in cardiac arrest. Bystander CPR was performed for 15 minutes followed by 30 minutes of EMS ACLS with eventual return of spontaneous circulation. By the time, she arrived to our emergency room, the patient was admitted to the hospital. She did have a CT scan done that shows some loss of vaca-white differentiation diffusely. 24 hours after admission, she remained without any brainstem reflexes. A brain flow nuclear medicine study was performed, which showed no evidence of blood flow to the brain consistent with brain in conjunction with the palliative care. I did speak with the daughters who were present and they decided to do compassionate extubation and the patient with her family around her. No autopsy planned. The patient was transferred to the [facility] [place] while awaiting arrangements for a local home. Job ID: [id number]
--- NOTE | 2019-07-17 16:24 | PDOC.EVN ---
Event Note - Event Note Event Note: To Whom it May Concern, Ana Rueda was admitted to the hospital in critical condition on 07/15/2019. Her daughters Rosa Rueda, Isabel Rueda, and Marylou Rueda were required to come up to the hospital, support their mother, and make necessary decisions about her care, after which she with them around her on . Please excuse them from work for those days. Sincerely, Harvye Ascencio MD
== END 2019-07-16 20:45 | disposition expired | DRG 208 ==
LOC: ERS 13:38 → CCU 15:47
PROVIDERS: ADMIT Hospitalist; ATTEND Hospitalist
PROC: 3E033XZ Introduction of Vasopressor into Peripheral Vein, Percutaneous Approach (ICD-10-PCS; principal; 2019-07-15)
PROC: 5A1945Z Respiratory Ventilation, 24-96 Consecutive Hours (ICD-10-PCS; 2019-07-15)
PROC: 0B21XFZ Change Tracheostomy Device in Trachea, External Approach (ICD-10-PCS; 2019-07-15)
PROC: 0BC78ZZ Extirpation of Matter from Left Main Bronchus, Via Natural or Artificial Opening Endoscopic (ICD-10-PCS; 2019-07-15)
PROC: 0BH17EZ Insertion of Endotracheal Airway into Trachea, Via Natural or Artificial Opening (ICD-10-PCS; 2019-07-15)
PROC: 5A12012 Performance of Cardiac Output, Single, Manual (ICD-10-PCS; 2019-07-16)
DX: J98.09 Other diseases of bronchus, not elsewhere classified (principal); R40.2312 Coma scale, best motor response, none, at arrival to emergency department; J18.9 Pneumonia, unspecified organism; A41.9 Sepsis, unspecified organism; G82.50 Quadriplegia, unspecified; K72.00 Acute and subacute hepatic failure without coma; R40.2112 Coma scale, eyes open, never, at arrival to emergency department; R40.2212 Coma scale, best verbal response, none, at arrival to emergency department; R65.21 Severe sepsis with septic shock; J96.21 Acute and chronic respiratory failure with hypoxia; N39.0 Urinary tract infection, site not specified; G93.1 Anoxic brain damage, not elsewhere classified; I50.32 Chronic diastolic (congestive) heart failure; G35 Multiple sclerosis; Z86.73 Personal history of transient ischemic attack (TIA), and cerebral infarction without residual deficits; I11.0 Hypertensive heart disease with heart failure; D64.9 Anemia, unspecified; Z93.0 Tracheostomy status; G40.909 Epilepsy, unspecified, not intractable, without status epilepticus; Z51.5 Encounter for palliative care; I46.9 Cardiac arrest, cause unspecified; E88.09 Other disorders of plasma-protein metabolism, not elsewhere classified
CPT/HCPCS: 36415; 36416; 70450; 71045; 71250; 78610; 80048; 80076; 82330; 82553; 82803; 82805; 83605; 85025; 94002; 94003; 96365; 96366; 96368; 99292; A9521; J0171; J0692; J1610; J1650; J3370; J3490; J7070; S0028